=== PATIENT | male | born 1955 | race Caucasian/White ===

== ENCOUNTER 2016-11-27 00:10 | Inpatient (IN) | payer OTHER ==
[~2016-11-27] VITALS: Ht 182.9 cm; Wt 88.4 kg
[2016-11-27] VITALS (7 sets, daily range): BP systolic 160–196; BP diastolic 76–91; PULSE 69–92; TEMP 36.5–37; O2SAT 90–99; BMI 26.6; BMI 27.1
[~2016-11-27 00:10] MED LIST: GLC5500 PO
[2016-11-27] MEDS ORDERED: SODIUM CHLORIDE 0.9% 1000ML 1,000 ML IV STA ×2 (00:26→23:29)
[2016-11-27] MEDS ORDERED: SODIUM CHLORIDE 0.9% 500ML 500 ML IV STA ×2 (00:26→01:44)
[2016-11-27] MEDS ORDERED: OPTIRAY 320 IV PRN (00:30)
[2016-11-27 00:40] LABS: BASO % 0.5 %; BASO ABS # 0.05 K/uL (0-0.2); COMPLETE YES; EOS % 3.7 %; HEMATOCRIT 40.2 % (42-52); IG% 0.1 %; LYMPH % 20.6 %; LYMPH ABS # 2.08 K/uL (1.2-3.4); MEAN CELL VOLUME 85.5 fL (80-100); MEAN CORPUSCULAR HGB CONC 35.1 g/dl (32-36); MEAN PLATELET VOLUME 10.7 fL (7.4-10.4); MONO % 6.2 %; NEUT % 68.9 %; PLATELET COUNT 211 K/uL (130-400)
[2016-11-27 00:46] LABS: ISTAT CREATININE 0.9 mg/dl (0.6-1.3); ISTAT HEMOGLOBIN 14.6 g/dl (14.0-18.0); ISTAT IONIZED CALCIUM 1.14 mmol/l (1.12-1.32)
[2016-11-27] MEDS ORDERED: [UNRECOGNIZED DRUG - CODE] PO (01:00)
[2016-11-27] MEDS ORDERED: ATOR-22 PO (01:00)
[2016-11-27] MEDS ORDERED: OMEG10007 PO (01:00)
[2016-11-27] MEDS ORDERED: VTME100 PO (01:00)
[2016-11-27] MEDS ORDERED: GLIP10TA9 PO (01:00)
[2016-11-27] MEDS ORDERED: ASPI81TA28 PO (01:00)
[2016-11-27] MEDS ORDERED: METF1000 PO (01:00)
[2016-11-27] MEDS ORDERED: LSN20 PO (01:00)
[2016-11-27] MEDS ORDERED: INSU0.01 SQ (01:01)
[2016-11-27 01:17] LABS: ALKALINE PHOSPHATASE 97 U/L (45-117); ALT/SGPT 32 U/L (12-78); AST/SGOT 10 U/L (15-37); BLOOD UREA NITROGEN 21 mg/dl (7-18); BUN/CREATININE RATIO 17.2 (10-20); CALCIUM 9.6 mg/dl (8.5-10.1); CARBON DIOXIDE 25 mmol/L (21-32); CHLORIDE 101 mmol/L (98-107); CKMB/CK RATIO 0.9 (0-3.0); GLUCOSE 425 mg/dl (70-99); POTASSIUM 3.8 mmol/L (3.5-5.1); SODIUM 138 mmol/L (136-145)
[2016-11-27 01:35] LABS: BETA-HYDROXYBUTYRATE 5.34 mg/dL (0.2-2.81)
[2016-11-27 01:37] LABS: INR 1.1 (0.9-1.1); PARTIAL THROMBOPLASTIN RATIO 0.9; PROTHROMBIN TIME (PATIENT) 11.3 SECONDS (9.0-12.0)
[2016-11-27 02:36] LABS: VEN BLD GAS O2 SATURATION < 60.0 %; VENOUS BLOOD GAS PCO2 48 mmHg (38.0-50.0); VENOUS BLOOD GAS PO2 22 mmHg
[2016-11-27] MEDS ORDERED: MoRPHine SULFATE 4 MG/ML 1 ML CARP\\VIAL IV STA (03:02)
[2016-11-27] MEDS ORDERED: ONDANSETRON INJ 2 MG/ML 2 ML VIAL IV STA (03:02)
--- NOTE | 2016-11-27 03:19 | EMERGENCY ROOM VISIT NOTE ---
History First contact with patient: 00:19 Chief Complaint: CHEST PAIN Stated Complaint: CHEST PAIN,HAVING TROUBLE BREATHING,VOMITING Nursing Triage Summary: c/o chest pain described as a sharp pain that began at 2130 last evening. pain has been continuous. patient denies any cardiac hx but has significant family hx. History of Present Illness The patient is a 61 year old male who presents to the Emergency Room with complaints of midsternal chest pain that radiates to his back described as pressure, ranging in severity was 5 out of 10. Nothing makes the pain better or worse. This started at 9 PM. No recent stress test or echocardiogram. Patient poorly controlled his blood sugars. He is a family history of heart disease also. Patient used to smoke. He occasionally drinks. He has risk factors of diabetes, blood pressure and cholesterol. Patient denies dyspnea, fever, chills, cough, congestion, vomiting, diarrhea, diaphoresis, leg pain or swelling. No recent travel. Review of Systems See HPI for pertinent positives & negatives. A total of 10 systems reviewed and were otherwise negative. Past Medical/Surgical History Diabetes, hypertension, hyperlipidemia Social History Smoking Status: Former Smoker Alcohol Use: occasionally Drug Use: none Marital Status: Housing Status: lives with family Occupation Status: employed Current/Historical Medications Scheduled Aspirin (Aspirin Ec), 81 MG PO DAILY Atorvastatin (Lipitor), 20 MG PO DAILY Fish Oil ([place]port-3), 1,200 MG PO DAILY Glipizide (Glucotrol), 10 MG PO BID Insulin Isophane (Human) (Novolin N Relion), 15 UNITS SQ TID Lisinopril (Lisinopril), 20 MG PO BID Metformin Hcl (Glucophage), 1,000 MG PO BID Multiple Vitamins W/ Minerals (One Daily Multivitamin Me), 1 TAB PO DAILY Tocopheryl Acet,Dl-Alpha (Vitamin E), 1 CAP PO DAILY Allergies Coded Allergies: Penicillins (Verified Allergy, Mild, HIVES, 11/27/16) Physical Exam Vital Signs Date Time Temp Pulse Resp B/P Pulse Ox O2 Delivery O2 Flow Rate FiO2 11/27/16 03:00 73 20 185/75 94 Room Air 11/27/16 01:18 65 22 221/99 96 Room Air 11/27/16 01:03 78 14 215/112 96 Room Air 11/27/16 00:36 95 Room Air 11/27/16 00:34 95 Room Air 11/27/16 00:34 95 Room Air 11/27/16 00:22 69 11/27/16 00:13 36.6 82 20 211/75 91 Room Air Physical Exam VITALS: Vitals are noted on the nurse's note and reviewed by myself. Vital signs hypertensive GENERAL: Pleasant male, in no acute distress, nondiaphoretic, well-developed well-nourished. SKIN: The skin was without rashes, erythema, edema, or bruising. There is no tenting of the skin. Capillary reflex less than 2 seconds. HEAD: Normocephalic atraumatic. EARS: External auditory canals clear, tympanic membranes pearly nuñez without erythema or effusion bilaterally. EYES: Pupils equal round and reactive to light and accommodation. Conjunctivae without injection, sclerae without icterus. Extraocular movements intact. NOSE: Patent, turbinates without inflammation or discharge. MOUTH: Mucous membranes moist. Pharynx without erythema or exudate. Uvula midline. Airway patent. Tongue does not deviate. NECK: Supple without nuchal rigidity. No lymphadenopathy. No thyromegaly. Cervical spine is nontender. No JVD. HEART: Regular rate and rhythm LUNGS: Clear to auscultation bilaterally without wheezes, rales or rhonchi. No dullness to percussion. No retractions or accessory muscle use. ABDOMEN: Positive bowel sounds x 4. Normal tympanic percussion. Soft, tender to palpation epigastric region, without masses or organomegaly. No CVA tenderness No guarding or rebound tenderness. MUSCULOSKELETAL: No muscle atrophy, erythema, or edema noted. NEURO: Patient was alert and oriented to person place and time. Normal sensation to light and sharp touch. No focal neurological deficits. Medical Decision & Procedures Laboratory Results 11/27/16 00:25 Red Blood Count 4.70, Mean Corpuscular Volume 85.5, Mean Corpuscular Hemoglobin 30.0, Mean Corpuscular Hemoglobin Concent 35.1, Mean Platelet Volume 10.7, Neutrophils (%) (Auto) 68.9, Lymphocytes (%) (Auto) 20.6, Monocytes (%) (Auto) 6.2, Eosinophils (%) (Auto) 3.7, Basophils (%) (Auto) 0.5, Neutrophils # (Auto) 6.96, Lymphocytes # (Auto) 2.08, Monocytes # (Auto) 0.63, Eosinophils # (Auto) 0.37, Basophils # (Auto) 0.05 11/27/16 00:25 Test 11/27/16 00:25 11/27/16 00:28 11/27/16 01:15 11/27/16 02:10 White Blood Count 10.10 K/uL (4.8-10.8) Red Blood Count 4.70 M/uL (4.7-6.1) Hemoglobin 14.1 g/dL (14.0-18.0) Hematocrit 40.2 % (42-52) Mean Corpuscular Volume 85.5 fL (80-100) Mean Corpuscular Hemoglobin 30.0 pg (25-34) Mean Corpuscular Hemoglobin Concent 35.1 g/dl (32-36) Platelet Count 211 K/uL (130-400) Mean Platelet Volume 10.7 fL (7.4-10.4) Neutrophils (%) (Auto) 68.9 % Lymphocytes (%) (Auto) 20.6 % Monocytes (%) (Auto) 6.2 % Eosinophils (%) (Auto) 3.7 % Basophils (%) (Auto) 0.5 % Neutrophils # (Auto) 6.96 K/uL (1.4-6.5) Lymphocytes # (Auto) 2.08 K/uL (1.2-3.4) Monocytes # (Auto) 0.63 K/uL (0.11-0.59) Eosinophils # (Auto) 0.37 K/uL (0-0.5) Basophils # (Auto) 0.05 K/uL (0-0.2) RDW Standard Deviation 42.0 fL (36.4-46.3) RDW Coefficient of Variation 13.4 % (11.5-14.5) Immature Granulocyte % (Auto) 0.1 % Immature Granulocyte # (Auto) 0.01 K/uL (0.00-0.02) Estimated GFR () 76.3 Estimated GFR (Non- 65.8 BUN/Creatinine Ratio 17.2 (10-20) Calcium Level 9.6 mg/dl (8.5-10.1) Total Bilirubin 0.3 mg/dl (0.2-1) Direct Bilirubin < 0.1 mg/dl (0-0.2) Aspartate Amino Transf (AST/SGOT) 10 U/L (15-37) Alanine Aminotransferase (ALT/SGPT) 32 U/L (12-78) Alkaline Phosphatase 97 U/L (45-117) Total Creatine Kinase 106 U/L (39-308) Creatine Kinase MB 1.0 ng/ml (0.5-3.6) Creatine Kinase MB Ratio 0.9 (0-3.0) Troponin I < 0.015 ng/ml (0-0.045) Total Protein 8.2 gm/dl (6.4-8.2) Albumin 4.4 gm/dl (3.4-5.0) Lipase 158 U/L (73-393) Beta-Hydroxybutyric Acid 5.34 mg/dL (0.2-2.81) Bedside Hemoglobin 14.6 g/dl (14.0-18.0) Bedside Hematocrit 43 % (42-52) Bedside Sodium 139 mEq/L (135-144) Bedside Potassium 3.8 mEq/L (3.3-5.0) Bedside Chloride 99 mEq/L (101-112) Bedside Total CO2 25 mEq/l (24-31) Anion Gap 20.0 mmol/L (16-25) Bedside Blood Urea Nitrogen 21 mg/dl (7-18) Bedside Creatinine 0.9 mg/dl (0.6-1.3) Bedside Glucose (other) 437 mg/dl (70-99) Bedside Ionized Calcium (Hattie) 1.14 mmol/l (1.12-1.32) Prothrombin Time 11.3 SECONDS (9.0-12.0) Prothromb Time International Ratio 1.1 (0.9-1.1) Activated Partial Thromboplast Time 24.3 SECONDS (21.0-31.0) Partial Thromboplastin Ratio 0.9 Venous Blood pH 7.40 (7.36-7.41) Venous Blood Partial Pressure CO2 48 mmHg (38.0-50.0) Venous Blood Partial Pressure O2 22 mmHg Venous Blood HCO3 29 mmol/L Venous Blood Oxygen Saturation < 60.0 % Venous Blood Base Excess 3.0 mmol/L Medications Administered Medications (Trade) Dose Ordered Sig/Erik Route Start Time Stop Time Status Last Admin Dose Admin Sodium Chloride 500 ml @ 999 mls/hr Q31M STAT IV 11/27/16 00:26 11/27/16 00:56 DC 11/27/16 00:47 999 MLS/HR Sodium Chloride 1,000 ml @ 125 mls/hr Q8H STAT IV 11/27/16 00:26 11/27/16 08:25 11/27/16 00:47 125 MLS/HR Sodium Chloride (Nss 500ml) 500 ml @ 999 mls/hr Q31M STAT IV 11/27/16 01:44 11/27/16 02:14 DC 11/27/16 02:12 999 MLS/HR Morphine Sulfate (MoRPHine SULFATE INJ) 4 mg NOW STAT IV 11/27/16 03:02 11/27/16 03:03 DC 11/27/16 03:15 4 MG Ondansetron HCl (Zofran Inj) 4 mg NOW STAT IV 11/27/16 03:02 11/27/16 03:03 DC 11/27/16 03:15 4 MG ED Course Prior records/ancillary studies reviewed. Triage Nursing notes reviewed. Additional history obtained from family. The patient's history was concerning for chest pain. Differential diagnosis: Etiologies such as cardiac ischemia, aortic dissection, pulmonary embolism, pneumonia, pneumothorax, musculoskeletal, infections, pericarditis, myocarditis , esophageal rupture, gastrointestinal, as well as others were entertained. Physical examination: As above. ER treatment provided: IV fluids On reassessment the patient felt better. Diagnostic interpretation by me: The electrocardiogram was normal sinus, normal intervals, minimal ST depression in the inferior leads, rate of 70. No old EKG. Impression normal sinus rhythm with minimal ST depression in the inferior leads interpreted by myself. The labs revealed hyperglycemia without DKA. Negative troponin Imaging studies: Chest x-ray no acute consolidation or pneumothorax per my interpretation Stat radiology read the CTA and was negative for PE and dissection. Cholelithiasis without acute cholecystitis US RUQ: The liver is mildly enlarged measuring 19.2 cm with increased echogenicity suggesting hepatic steatosis. Distended gallbladder with multiple gallstones and sludge without evidence of gallbladder wall thickening or pericholecystic fluid. Positive Rushing's sign. The common bile duct is within normal limits measuring up to 2.2 mm. The right kidney is unremarkable. Radiologist: Jarett Thompson MD Study ready at 03:04 and initial results transmitted Consultation: A consultation was placed with the hospitalist, Dr Morris. The case was discussed and diagnostics were reviewed. The patient was evaluated in the ER for further treatment. Exam and history seem consistent with chest pain with biliary colic. Patient had an abnormal EKG. He will be evaluated by medicine for possible admission and for cardiac rule out. Negative troponin. Negative CTA. By the evaluation outlined above emergent etiologies such as aortic dissection, pulmonary embolism, pneumonia, pneumothorax, infections, pericarditis, myocarditis, gastrointestinal, as well as others were deemed relatively unlikely. The pt informed about the findings as listed above. All questions were answered and pleased with the treatment. Case reviewed by attending Medical Decision As above Impression Primary Impression: Precordial chest pain Additional Impressions: Biliary colic Hyperglycemia due to type 2 diabetes mellitus Departure Information Dispostion Being Evaluated By Hospitalist Condition FAIR Referrals Dennis Dawson D.O. (PCP) Patient Instructions [facility] Problem Qualifiers Additional Impressions: Hyperglycemia due to type 2 diabetes mellitus Diabetes mellitus assistant terminal manager insulin use: with assistant terminal manager use Qualified Codes: E11.65 - Type 2 diabetes mellitus with hyperglycemia; Z79.4 - prison ( current) use of insulin
[2016-11-27] MEDS ORDERED: INSULIN IV INFUSION PROTOCOL STA (03:37)
[2016-11-27] MEDS ORDERED: INSULIN PROTOCOL GOAL RANGE ONE (03:45)
[2016-11-27] MEDS ORDERED: SEVERE STRESS LEVEL ONE (03:45)
[2016-11-27] MEDS ORDERED: INSULIN GLARGINE PER UNIT 15 UNITS in SYRINGE 0 ML SC ONE (04:12)
[2016-11-27] MEDS ORDERED: GLUCOSE 10 TABS/TUBE PO PRN (04:15)
[2016-11-27] MEDS ORDERED: GLUCOSE 40% GEL 15 GM TUBE PO PRN (04:15)
[2016-11-27] MEDS ORDERED: GLUCAGON FOR INJ 1 MG VIAL SQ PRN (04:15)
[2016-11-27] MEDS ORDERED: DEXTROSE 50% 50 ML SYR IV PRN (04:15)
[2016-11-27] MEDS ORDERED: LISINOPRIL 20 MG TAB PO STA (04:19)
[2016-11-27] MEDS ORDERED: INSULIN GLARGINE SOLOSTAR 100 UNITS/ML 3 ML PEN SC STA ×3 (04:20→23:37)
[2016-11-27] MEDS ORDERED: ACETAMINOPHEN 325 MG TAB PO PRN (04:30)
[2016-11-27] MEDS ORDERED: HYDROmorphone INJ 0.5 MG/0.5 ML SYR IV PRN (04:30)
[2016-11-27] MEDS ORDERED: PROMETHAZINE HCL INJ 12.5 MG in SODIUM CHLORIDE 0.9% 50ML 50 ML IV PRN (04:30)
[2016-11-27] MEDS ORDERED: ONDANSETRON INJ 2 MG/ML 2 ML VIAL IV PRN (04:30)
[2016-11-27] MEDS ORDERED: LORAZEPAM 2 MG/ML 1 ML VIAL IV PRN (04:30)
[2016-11-27] MEDS ORDERED: NITROGLYCERIN 0.4 MG SL PER TAB CHARGE SL PRN (04:30)
[2016-11-27] MEDS ORDERED: LORAZEPAM INJ 0.5 MG in SYRINGE 0.75 ML IV PRN (05:30)
[2016-11-27] MEDS ORDERED: CIPROFLOXACIN CONSULT ACTIVE PRN ×2 (05:30)
[2016-11-27] MEDS ORDERED: CIPROFLOXACIN 400MG / 200ML D5W IV STA (05:35)
[2016-11-27] MEDS: INSULIN ASPART 100 UNITS/ML 3 ML PEN SC SCH ×5 (05:36→21:32)
[2016-11-27] MEDS: NSS + 20MEQ KCL 1000ML 1,000 ML IV SCH ×2 (05:52→15:58)
[2016-11-27] MEDS: METRONIDAZOLE / NSS 500 MG in PREMIXED NSS 100 ML IV SCH ×3 (06:13→22:02)
[2016-11-27] MEDS ORDERED: AMLODIPINE BESYLATE 5 MG TAB PO ONE (06:45)
[2016-11-27 06:49] LABS: BLOOD UREA NITROGEN 16 mg/dl (7-18); BUN/CREATININE RATIO 16.4 (10-20); CALCIUM 10.1 mg/dl (8.5-10.1); CARBON DIOXIDE 25 mmol/L (21-32); CHLORIDE 103 mmol/L (98-107); GLUCOSE 305 mg/dl (70-99); POTASSIUM 4.1 mmol/L (3.5-5.1); SODIUM 140 mmol/L (136-145)
[2016-11-27] MEDS: CIPROFLOXACIN 400MG / D5W IV SCH ×2 (06:49→20:28)
[2016-11-27 06:59] LABS: BETA-HYDROXYBUTYRATE 6.12 mg/dL (0.2-2.81)
[2016-11-27 07:11] LABS: ESTIMATED AVERAGE GLUCOSE 295 mg/dl; HA1C FLAG Normal (Normal)
--- NOTE | 2016-11-27 07:21 | DIAGNOSTIC IMAGING REPORT ---
CT ANGIOGRAPHY OF THE CHEST, ABDOMEN, AND PELVIS CLINICAL HISTORY: Severe epigastric pain radiating to back. Chest pain. Difficulty breathing. COMPARISON STUDY: CT of the abdomen and pelvis July 30, 2009 and hepatobiliary scan December 20, 2009. TECHNIQUE: Before and following the IV administration of 119 mL of [id number]-320, helical axial images of the chest, abdomen and pelvis were obtained. Maximal intensity projections and sagittal and coronal reformats were viewed on an independent 3D workstation. IV contrast was administered without complication. CT DOSE: 2431.88 mGy.cm FINDINGS: The caliber of these thoracic and abdominal aorta is normal. There is no dissection or intramural hematoma. There is mild atherosclerotic plaque. The size of the heart is normal. There is no pericardial effusion. No enlarged thoracic lymph nodes are present. There is bilateral gynecomastia. Moderate emphysema is present. There is no consolidation to suggest pneumonia. There is mild subpleural reticulation. No pneumothorax or pleural effusion is present. There are multiple gallstones within the gallbladder. There may be minimal pericholecystic infiltration. There is fatty infiltration of the liver. The spleen, adrenal glands, kidneys and pancreas are unremarkable with exception of pancreatic parenchymal calcifications. There is no biliary or pancreatic ductal dilatation caliber and wall thickness of small and large bowel are normal. There is moderate plaque of the abdominal aorta and common iliac and external iliac arteries. Major branch vessels are patent. No pneumatosis, free air or portal venous gas is present. Skeletal structures are unremarkable. There is no ascites. IMPRESSION: 1. No aortic dissection. 2. No acute process within the chest. 3. Cholelithiasis with possible minimal pericholecystic infiltration. A right upper quadrant ultrasound is recommended to evaluate for acute cholecystitis. 4. Fatty liver. 5. Moderate to severe emphysema. Electronically signed by: Presley Roy M.D. 11/27/2016 7:19 AM Dictated Date/Time: 11/27/2016 7:08 AM
--- NOTE | 2016-11-27 07:25 | DIAGNOSTIC IMAGING REPORT ---
ABDOMINAL ULTRASOUND, RIGHT UPPER QUADRANT HISTORY: Right upper quadrant pain.. COMPARISON: CT of the chest, abdomen and pelvis performed November 27, 2016. FINDINGS: Hepatic echogenicity is increased. No hepatic lesions are identified. There is no biliary ductal dilatation. The gallbladder is mildly distended. There are multiple gallstones within the gallbladder as well as sludge. No gallbladder wall thickening was noted. A positive sonographic Rushing sign was reported. There is no pericholecystic fluid. The pancreatic body is normal. The head and tail were obscured. There was no right hydronephrosis. IMPRESSION: 1. Cholelithiasis, mild gallbladder distention and positive sonographic Rushing sign. These findings raise the possibility of acute cholecystitis. A hepatobiliary scan could be obtained, as indicated. 2. Fatty liver. Electronically signed by: Presley Roy M.D. 11/27/2016 7:23 AM Dictated Date/Time: 11/27/2016 7:22 AM
--- NOTE | 2016-11-27 07:25 | HISTORY & PHYSICAL EXAMINATION ---
DATE OF ADMISSION: 11/27/2016 PRIMARY CARE PHYSICIAN: Dr. Dawson. Hx obtained from px and records. CHIEF COMPLAINT: Chest pain. HISTORY OF PRESENT ILLNESS: Medical history significant for HTN, DM2 insulin requiring, COPD, past tobacco abuse, LATOYA on CPAP, hyperlipidemia in the last year. Patient was watching television last night when he noted substernal pain going to the arms, achy with some shortness of breath. Patient noted some achy R abd pain and emesis as well. Patient brought to the Emergency Room. Blood sugar initially 400s. On and off chest discomfort usually with exertion, relieved by rest in the last year Outpatient stress test contemplated by PCP, which the patient had not undergone the to date secondary to loss of insurance. High BP at home, 200s at times. Home Blood sugars 300-400s despite medication noncompliance. Admits to some stress with recently being diagnosed of renal cancer. Admits to some depression, no suicidality. MEDICAL HISTORY: As above. SURGERIES: Anorectal abscess drainage, tonsillectomy, colectomy. HOME MEDICATIONS: Include aspirin, Lipitor, Glucotrol, Novolin, lisinopril, Glucophage, multivitamins, vitamin E. ALLERGIES: PENICILLIN. FAMILY HISTORY: Heart disease, diabetes. PERSONAL AND SOCIAL HISTORY: Past tobacco abuse. No chronic alcoholic beverage intake. 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 REVIEW OF SYSTEMS: As per HPI. All other ROS negative. PHYSICAL EXAMINATION: VITAL SIGNS: Blood pressure 215/112, later SBP 180s, pulse rate 70, RR 20, temperature 36.6, and sats 91 on room air. GENERAL: Noted to be anxious, uncomfortable, no respiratory distress. SKIN: Normal color. HEENT: Latimer palpebral conjunctiva, dry mucosa. NECK: No JVD. supple CHEST: Clear to auscultation. HEART: Regular rate and rhythm. ABDOMEN: Rushing sign. EXTREMITIES: No edema. no tenderness NEUROLOGIC: No gross focality. LABORATORY DATA: Hemoglobin was noted to be 14.1, hematocrit 40, white cells 10.9, platelets 211. Sodium 142, potassium 3.8, chloride 101, CO2 25, BUN 12, creatinine 1.2, glucose 425 and with mild ketones, anion gap was noted to be 12. trop 0 EKG normal sinus rhythm, LVH. Last hemoglobin A1c from July 2016 was 9.5. IMAGING DATA: CT chest initial read, emphysema, interstitial lung disease, gynecomastia. CT abdomen and pelvis, cholelithiasis. Gallbladder ultrasound, cholecystitis. ASSESSMENT: 1. Chest pain 2 to hypertensive urgency precipitated by acute cholecystitis (no sepsis) suboptimal BP control at baseline anxiety/depression contributory to suboptimal BP control possible underlying ischemic heart disease given exertional angina sx for a year. 2. Mild diabetic ketoacidosis suboptimal DM2 control questionable compliance. 3. COPD, past tobacco abuse px admits to some sob on exertion 4. hyoerlipidemia on statin tx 5. LATOYA on CPAP as per records PLAN: PCU. Judicious blood pressure control. Facilitate home lisinopril. Consider adding Norvasc if BP still uncontrolled. Follow troponin. 2D echo RE chest pain. NPO, sips for now. Cipro and Flagyl for cholecystitis. Surgery consult RE cholecystitis. analgesia anxiolytic prn Psych consult RE anxiety, depression Basal insulin adjusted for n.p.o. sips status. ISS BG goal 140-180. Patient due for hemoglobin A1c check. May benefit from diabetes education. Social service RE financial assistance regarding meds procurement DVT prophylaxis, Lovenox subQ. Full code. MTDD
--- NOTE | 2016-11-27 07:33 | DIAGNOSTIC IMAGING REPORT ---
CHEST ONE VIEW PORTABLE HISTORY: Atypical CHEST PAIN COMPARISON: None. FINDINGS: The lungs are clear. Cardiac silhouette is normal in size. No pleural effusions. No pneumothorax. IMPRESSION: No acute process. Electronically signed by: Carlos Dobbins M.D. 11/27/2016 7:31 AM Dictated Date/Time: 11/27/2016 7:30 AM
[2016-11-27] MEDS ORDERED: PNEUMOCOCCAL ADMINISTRATION CHARGE ONE (08:00)
[2016-11-27] MEDS ORDERED: PNEUMOCOCCAL POLYSACCHARIDES 25 MCG/0.5 ML VIAL/SYR IM. ONE (08:00)
[2016-11-27] MEDS: CEROVITE ADV FORMULA TAB PO SCH (08:05)
[2016-11-27] MEDS: ATORVASTATIN 20 MG TAB PO SCH (08:05)
[2016-11-27] MEDS: ASPIRIN 81 MG ECTAB PO SCH (08:05)
--- NOTE | 2016-11-27 08:32 | HISTORY & PHYSICAL EXAMINATION ---
DATE OF ADMISSION: 11/27/2016 HISTORY OF PRESENT ILLNESS: Melvin is a 61-year-old gentleman who came into the Emergency Room last evening with persistent sharp and unrelenting epigastric pain with associated nausea, no emesis. The patient states the pain started after he was watching a football game and apparently had 2 slices of pizza with watching game. Since he has been here, the pain is pretty much persisted in the epigastric area and higher almost retrosternally. The patient's most recent history is that he has been told by his primary care physician to undergo an evaluation from his cardiac point of view as he has had chest pain in the past, but due to insurance purposes in the last 6-8 months, he has not been able to do that. He has a longstanding history of insulin-dependent diabetic. PAST MEDICAL AND SURGICAL HISTORY: Also includes some bowel surgery done in 2008 at [facility], I have no records as actually what went on with that. 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 His son was a possibility that he had cancer and his [id number] is dying of cancer. REVIEW OF SYSTEMS: The patient has had a longstanding history of certain food intolerances with associated abdominal distention and significant amount of gas; in fact looking over some of his records back in 2008, he had gallstones identified on the CT scan. He underwent a hepatobiliary scan in 2009 which was normal function. PHYSICAL EXAMINATION: GENERAL: At present time, Melvin is in no acute distress except he is complaining of still some retrosternal chest pain. VITAL SIGNS: His last vitals showed a temperature of 36.6, a pulse 69, respirations 18, blood pressure 195/79, O2 sats 93 on room air. HEAD: Normocephalic. EYES: PERRLA. The sclerae is nonicteric. The patient has a large hall. NECK: No cervical lymphadenopathy. HEART AND LUNGS: Clear. ABDOMEN: Softly distended. He does have some right upper quadrant tenderness but it is negative Rushing's sign. The rest of the abdomen is negative. EXTREMITIES: Grossly normal. LABORATORY AND IMAGING DATA: When he came in yesterday, his WBCs are 10.10. He does have a left shift. His hemoglobin is 14. His glucose on admission was 425 and it is 437. Liver function tests were normal as was the lipase. The patient underwent an ultrasound of the gallbladder which showed cholelithiasis and mild gallbladder distention and positive sonographic Rushing's sign, although clinically is negative for Rushing's sign on my exam. IMPRESSION AND PLAN: My recommendation at this time is to keep him n.p.o. Continue with antibiotic; he is on Cipro and Flagyl. Plans to evaluate for his cardiac point of view and clear him from that point, but I did talk to the patient that if that is cleared, then the patient is to undergo a cholecystectomy. We will wait for the medical service as far as timing of this. At this time with broad spectrum antibiotics and its clinical basis, I think there is no emergency to do at this time. I also noted that he is on Lovenox and we will change that to subcutaneous heparin in anticipation of surgery. ADDENDUM: Procedure was briefly discussed with the patient which will be a laparoscopic cholecystectomy, possible open.
[2016-11-27] MEDS ORDERED: INSULIN ASPART 100 UNITS/ML 3 ML PEN SC SCH (09:00)
[2016-11-27] MEDS ORDERED: ENOXAPARIN 40 MG/0.4 ML SYR SC SCH (09:00)
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
[2016-11-27] MEDS: TRAMADOL HCL 50 MG TAB PO PRN (11:50)
[2016-11-27] MEDS: HEPARIN SOD 5000 UNIT/0.5 ML CARP SQ SCH ×2 (13:20→22:17)
[2016-11-27] MEDS ORDERED: CLONIDINE HCL 0.1 MG TAB PO PRN (14:45)
[2016-11-27] MEDS ORDERED: CLONIDINE HCL 0.1 MG TAB PO ONE ×2 (14:45→15:00)
--- NOTE | 2016-11-27 15:06 | Anesthesiology Progress Note ---
Anesthesia Progress Note Date of Service Nov 27, 2016. Progress Notes This is a 61 y/o w obese male w/ cholecystitis/cholelithiasis presenting for a Lap Sherie. PMHx is sig.for HTN,Hyperlipidemia,NIDDM IR,GERD,COPD/Emphysema, sleep apnea on CPAP,recently admitted w/ a degree of DKA, Athersclerotic plaques of aorta, and diabetic PN of feet.Discussed anesthesia w/pt,risks vs benefits,all questions answered. Informed consent obtained.
--- NOTE | 2016-11-27 16:11 | ECHOCARDIOGRAM REPORT ---
*NOTICE TO RECEIVING CONSTITUTION PARTY AGENCY This information is strictly Confidential and protected under [place] law. [place] law prohibits you from making any further disclosure of this information unless further disclosure is expressly permitted by the written consent of the person to whom it pertains or is authorized by law. A general authorization for the release of medical or other information is not sufficient for this purpose. Hospital accepts no responsibility if the information is made available to any other person, INCLUDING THE PATIENT. Interpretation Summary * Name: STEVIE SANCHES Study Date: 11/27/2016 09:55 AM BP: 179/91 mmHg * [facility]\S\N285\S\1 HR: 70 * : 1955 (M/d/yyyy) Gender: Male Height: 72 in * Age: 61 yrs Ethnicity: CA Weight: 189 lb * Ordering Physician: Chad Morris * Referring Physician: Self, Referred * Performed By: Teresita Brown RDCS * * Reason For Study: CHEST PAIN * BSA: 2.1 m2 * History: CHEST PAIN * The study was technically adequate. * There is no comparison study available. * -- Conclusions -- * Ejection Fraction = 60-65%. * There is mild concentric left ventricular hypertrophy. * Grade I diastolic dysfunction, (abnormal relaxation pattern). * No significant valvular pathology. Procedure Details * A contrast injection of Definity was performed to improve assessment of LV function. * Contrast was injected into an intravenous site in the left arm. * One vial of Definity ultrasound contrast was diluted in normal saline to a total volume of 10 ml. A total of '2' ml of solution was administered during imaging. * Lot # [id number] of Definity utilized for procedure. * Expiration date 1 APR 21. * The attending nurse who injected the contrast agent was CARMEN RIZO RN. * A complete two-dimensional transthoracic echocardiogram was performed (2D, M-mode, Doppler and color flow Doppler). Left Ventricle * The left ventricle is normal in size. * The left ventricular apex is not well visualized. * There is mild concentric left ventricular hypertrophy. * Ejection Fraction = 60-65%. * Left ventricular systolic function is normal. * The left ventricular wall motion is normal. Right Ventricle * The right ventricle is normal size. * The right ventricular systolic function is normal as assessed by tricuspid annular plane systolic excursion (TAPSE) (normal >1.5 cm). Atria * The left atrial size is normal. * Right atrial size is normal. * There is no evidence of atrial septal defect, but resolution does not allow assessment for a patent foramen ovale. Mitral Valve * The mitral valve is normal. * There is no mitral valve stenosis. * Significant mitral regurgitation is absent. Tricuspid Valve * The tricuspid valve is normal. * There is no tricuspid stenosis. * Significant tricuspid regurgitation is absent. Aortic Valve * The aortic valve is trileaflet. * Aortic stenosis is absent. * There is no significant aortic regurgitation. Pulmonic Valve * The pulmonary valve is not well seen, but the Doppler examination is normal without significant regurgitation or stenosis. Great Vessels * The aortic root is normal size. Pericardium/Pleural * There is no pericardial effusion. Great Vessels * Normal inferior vena cava diameter and respiratory variation suggests normal central venous pressure. Left Ventricular Diastolic Function * Grade I diastolic dysfunction, (abnormal relaxation pattern). MMode 2D Measurements and Calculations IVSd 1.3 cm IVSs 1.8 cm LVIDd 4.3 cm LVIDs 3.1 cm LVPWd 1.3 cm LVPWs 1.7 cm IVS/LVPW 1.0 FS 28.5 % EDV(Teich) 83.1 ml ESV(Teich) 37.2 ml EF(Teich) 55.2 % EDV(cubed) 79.5 ml ESV(cubed) 29.1 ml EF(cubed) 63.4 % % IVS thick 31.6 % % LVPW thick 24.9 % LV mass(C)d 214.9 grams LV mass(C)dI 103.3 grams/m\S\2 LV mass(C)s 203.5 grams LV mass(C)sI 97.9 grams/m\S\2 SV(Teich) 45.9 ml SI(Teich) 22.1 ml/m\S\2 SV(cubed) 50.4 ml SI(cubed) 24.2 ml/m\S\2 Ao root diam 3.5 cm Ao root area 9.6 cm\S\2 LA dimension 3.2 cm LA/Ao 0.91 LVAd ap4 32.4 cm\S\2 LVLd ap4 8.5 cm EDV(MOD-sp4) 102.6 ml EDV(sp4-el) 104.9 ml LVAs ap4 18.9 cm\S\2 LVLs ap4 7.1 cm ESV(MOD-sp4) 41.9 ml ESV(sp4-el) 43.1 ml EF(MOD-sp4) 59.2 % EF(sp4-el) 58.9 % LVAd ap2 35.4 cm\S\2 LVLd ap2 9.2 cm EDV(MOD-sp2) 112.1 ml EDV(sp2-el) 116.0 ml LVAs ap2 19.0 cm\S\2 LVLs ap2 7.4 cm ESV(MOD-sp2) 40.1 ml ESV(sp2-el) 41.3 ml EF(MOD-sp2) 64.2 % EF(sp2-el) 64.4 % LVLd %diff 7.3 % EDV(MOD-bp) 110.8 ml LVLs %diff 4.6 % ESV(MOD-bp) 42.3 ml EF(MOD-bp) 61.8 % SV(MOD-sp4) 60.7 ml SI(MOD-sp4) 29.2 ml/m\S\2 SV(MOD-sp2) 72.0 ml SI(MOD-sp2) 34.6 ml/m\S\2 SV(MOD-bp) 68.5 ml SI(MOD-bp) 33.0 ml/m\S\2 SV(sp4-el) 61.8 ml SI(sp4-el) 29.7 ml/m\S\2 SV(sp2-el) 74.7 ml SI(sp2-el) 35.9 ml/m\S\2 Doppler Measurements and Calculations MV E max gurdeep 59.2 cm/sec MV A max gurdeep 68.4 cm/sec MV E/A 0.87 MV dec time 0.21 sec Ao V2 max 131.2 cm/sec Ao max PG 6.9 mmHg Ao max PG (full) 3.7 mmHg LV V1 max PG 3.2 mmHg LV V1 max 89.2 cm/sec
[2016-11-27] MEDS ORDERED: INSULIN GLARGINE SOLOSTAR 100 UNITS/ML 3 ML PEN SC ONE (19:37)
[2016-11-27] MEDS ORDERED: NSS + 20MEQ KCL 1000ML 1,000 ML IV SCH (19:45)
[2016-11-27] MEDS ORDERED: INSULIN GLARGINE PER UNIT 15 UNITS in SYRINGE 0 ML SC SCH (21:00)
[2016-11-27] MEDS ORDERED: INSULIN GLARGINE SOLOSTAR 100 UNITS/ML 3 ML PEN SC SCH ×2 (21:00)
[2016-11-27] MEDS: LISINOPRIL 20 MG TAB PO SCH (21:22)
[2016-11-27 23:16] LABS: BUN/CREATININE RATIO 11.6 (10-20); CALCIUM 9.3 mg/dl (8.5-10.1); CREATININE 1.1 mg/dl (0.60-1.40); MAGNESIUM 1.1 mg/dl (1.8-2.4); POTASSIUM 4.3 mmol/L (3.5-5.1)
[2016-11-27 23:27] LABS: BETA-HYDROXYBUTYRATE 8.24 mg/dL (0.2-2.81)
[2016-11-27] MEDS: MAGNESIUM SULFATE 1GM / D5W 1 GM in PREMIXED IN D5W 100 ML IV SCH (23:57)
[2016-11-28] VITALS (12 sets, daily range): BP systolic 106–176; BP diastolic 63–89; PULSE 64–104; TEMP 36.8–38; O2SAT 90–97; BMI 26.6
[2016-11-28] MEDS ORDERED: AMLODIPINE BESYLATE 5 MG TAB PO ONE (00:33)
[2016-11-28] MEDS: MAGNESIUM SULFATE 1GM / D5W 1 GM in PREMIXED IN D5W 100 ML IV SCH ×2 (00:49→02:00)
[2016-11-28] MEDS: NSS + 20MEQ KCL 1000ML 1,000 ML IV SCH ×2 (02:01→11:30)
--- NOTE | 2016-11-28 06:09 | SURGERY PROGRESS NOTE ---
DATE: 11/28/2016 SUBJECTIVE: Melvin is resting fairly comfortably, but on examination, he still has some right upper quadrant tenderness. I discussed the situation with Dr. Morris, primary MD, on the case and recommended him that if pt from a cardiac point of view, we should proceed for laparoscopic cholecystectomy. I have him tentatively on a schedule today if he is cleared by the medical service. Risks and complications of the surgery were explained to the patient of bleeding, infection, converting to an open procedure and he would like to proceed accordingly. NILS
[2016-11-28 06:21] LABS: BASO % 0.1 %; BASO ABS # 0.02 K/uL (0-0.2); COMPLETE YES; IG% 0.3 %; LYMPH % 8.6 %; LYMPH ABS # 1.18 K/uL (1.2-3.4); MEAN CELL VOLUME 85.7 fL (80-100); MEAN CORPUSCULAR HEMOGLOBIN 29.8 pg (25-34); MEAN CORPUSCULAR HGB CONC 34.8 g/dl (32-36); MEAN PLATELET VOLUME 10.5 fL (7.4-10.4); PLATELET COUNT 185 K/uL (130-400); RED BLOOD COUNT 4.67 M/uL (4.7-6.1); WHITE BLOOD COUNT 13.73 K/uL (4.8-10.8)
[2016-11-28] MEDS: METRONIDAZOLE / NSS 500 MG in PREMIXED NSS 100 ML IV SCH ×3 (06:25→21:35)
[2016-11-28 06:54] LABS: BUN/CREATININE RATIO 10.4 (10-20); CALCIUM 8.9 mg/dl (8.5-10.1); CREATININE 1.2 mg/dl (0.60-1.40); MAGNESIUM 1.9 mg/dl (1.8-2.4)
[2016-11-28] MEDS ORDERED: INSULIN GLARGINE SOLOSTAR 100 UNITS/ML 3 ML PEN SC ONE (07:00)
[2016-11-28] MEDS: CEROVITE ADV FORMULA TAB PO SCH (08:22)
[2016-11-28] MEDS: ATORVASTATIN 20 MG TAB PO SCH (08:22)
[2016-11-28] MEDS: ASPIRIN 81 MG ECTAB PO SCH (08:22)
[2016-11-28] MEDS: LISINOPRIL 20 MG TAB PO SCH ×2 (08:22→19:35)
[2016-11-28] MEDS: AMLODIPINE BESYLATE 5 MG TAB PO SCH (08:23)
[2016-11-28] MEDS: INSULIN ASPART 100 UNITS/ML 3 ML PEN SC SCH ×4 (08:31→21:13)
[2016-11-28] MEDS: CIPROFLOXACIN 400MG / D5W IV SCH ×2 (08:34→19:35)
[2016-11-28] MEDS ORDERED: INSULIN GLARGINE SOLOSTAR 100 UNITS/ML 3 ML PEN SC SCH ×2 (09:00)
[2016-11-28] MEDS ORDERED: AMLODIPINE BESYLATE 5 MG TAB PO SCH (09:00)
--- NOTE | 2016-11-28 11:20 | CARDIOLOGY CONSULTATION ---
DATE OF CONSULTATION: 11/28/2016 DATE OF CONSULTATION: 11/28/2016. REFERRING PHYSICIAN: Dr. Bryon Gil. REASON FOR CONSULTATION: Preoperative risk stratification. HISTORY OF PRESENT ILLNESS: Mr. Mares is a 61-year-old gentleman with cardiac risk factors, however no personal history of coronary artery disease. The patient presented to the Emergency Room with chest discomfort and some achy right-sided abdominal pain. This was associated with vomiting. Noted be markedly hyperglycemic on admission. Both right upper quadrant ultrasound and CT demonstrate evidence of acute cholecystitis. He is currently treated with intravenous fluids and IV antibiotics. Notes mild lower substernal chest discomfort as well as right upper quadrant pain currently. ECG on admission demonstrates sinus rhythm and no ischemic changes. His resting 2D transthoracic echo demonstrates preserved LV systolic function, normal wall motion, and no significant valvular disease. The patient seen and examined at the bedside. Continues complain of right upper quadrant pain. Reports dyspnea on exertion when climbing stairs, which has been present for more than 1 year. There is also some associated chest tightness. He carries a history of former tobacco abuse with a [id number] history. There is also history of premature coronary disease in his family as listed below. He was initially scheduled for stress testing; however, this was canceled due to lack of insurance coverage. Denies any shortness of breath at rest. Telemetry demonstrates sinus rhythm and sinus tachycardia. There is a 3.2 second pause associated with heart block which occurred last evening at approximately 10:00 p.m. The patient relays history of severe abdominal pain and retching at that time. He currently appears comfortable. Tentatively planned for a cholecystectomy today. REVIEW OF SYSTEMS: The pertinent positive noted above, a comprehensive 10-system review is otherwise negative. PAST MEDICAL HISTORY: 1. Diabetes. 2. Dyslipidemia. 3. Hypertension. PAST SURGICAL HISTORY: Bowel surgery in 2008 not well defined. FAMILY HISTORY: Father at age 60 from a myocardial infarction. He has 3 siblings, 2 sisters, and 1 brother who from heart disease in their late 50s and early 60s. SOCIAL HISTORY: Former tobacco abuse, quit 10 years ago with a 40-50 pack year history. Denies any alcohol use. OUTPATIENT MEDICATIONS: 1. Aspirin 81 mg daily. 2. Lipitor 20 mg daily. 3. Fish oil 1200 mg daily. 5. Insulin 15 units t.i.d. 6. Lisinopril 20 mg twice daily. 7. Glucophage 1000 mg twice daily. 8. Multivitamin daily. ALLERGIES: LISTED TO PENICILLIN. ECG this morning demonstrates sinus tachycardia with a rightward axis, no ischemic changes. LABORATORY DATA: Cardiac enzymes negative x2 sets. Sodium 136, potassium 4.0, chloride 102, CO2 is 23, BUN is 13, creatinine is 1.20. Glucose 295. INR 1.1. White blood cell count 13.73, hemoglobin is 13.9, platelet count is 185. PHYSICAL EXAMINATION: VITAL SIGNS: Temperature is 36?C, pulse is 100 beats per minute and regular, respiratory rate is 18 breaths per minute, blood pressure 145/84. SAO2 is 90% on room air. GENERAL: NAD, awake, alert and oriented x3. THROAT: His mucous membranes are moist. There is no scleral icterus. Conjunctivae are pink. NECK: Supple without JVD or HJR. No carotid bruit. HEART: Regular and tachycardic with a normal S1 and S2. There is no murmur, rub, or gallop. LUNGS: Demonstrate diminished breath sounds bilaterally at the bases. No rales, rhonchi, or wheeze. ABDOMEN: Mildly distended. There is right upper quadrant tenderness to palpation. No rebound or guarding. Bowel sounds are hypoactive. EXTREMITIES: Warm and dry, no skin breakdown. No clubbing, cyanosis, or edema. NEUROLOGIC EXAMINATION: Demonstrates no focal motor deficit, the cranial nerves are grossly intact. FINAL IMPRESSION: 1. A 61-year-old male considered moderate to high perioperative cardiovascular risk for cholecystectomy. 2. A 3.2 second pause secondary to transient heart block. I suspect this is vaguely mediated in the setting of severe abdominal discomfort. Telemetry over the past 16 hours has been unremarkable demonstrating sinus rhythm and sinus tachycardia. 3. Exertional shortness of breath with intermittent chest discomfort -- symptoms possibly related to underlying chronic obstructive pulmonary disease with a history of significant tobacco use, however, obstructive coronary artery disease must be considered due to risk factors and family history noted above. 4. Family history of premature coronary artery disease. 5. Dyslipidemia. 6. Diabetes type 2. 7. Hypertension -- borderline control. PLAN AND RECOMMENDATIONS: I had a long discussion with the patient regarding his perioperative cardiovascular risk secondary to risk factors and exertional symptoms. He understands this risk and is willing to proceed with surgery. No further cardiac testing at this time. The patient's surgery is necessary due to his acute illness. Perioperative risk assessment was relayed to the surgical service. Intravenous Lopressor may be utilized perioperatively if necessary for blood pressure and heart rate control. Aspirin will be continued uninterrupted in addition to statin therapy. I will continue to follow closely during hospitalization. NILS
[2016-11-28] MEDS ORDERED: FENTANYL CITRATE INJ 50 MCG/1 ML 2 ML VIAL ONE ×3 (11:55→13:31)
[2016-11-28] MEDS ORDERED: MoRPHine SULFATE 2 MG/ML CARP ONE (12:56)
[2016-11-28] MEDS ORDERED: ONDANSETRON INJ 2 MG/ML 2 ML VIAL ONE (13:07)
[2016-11-28] MEDS ORDERED: GLYCOPYRROLATE INJ 0.2 MG/ML VIAL ONE (13:07)
[2016-11-28] MEDS ORDERED: METOPROLOL TARTRATE 1 MG/ML VIAL ONE ×2 (13:07→13:16)
[2016-11-28] MEDS ORDERED: PROPOFOL IV EMULSION 10 MG/ML 20 ML VIAL IV ONE (13:07)
[2016-11-28] MEDS ORDERED: NEOSTIGMINE METHYLSULFATE 5 MG/5 ML SYR ONE (13:07)
[2016-11-28] MEDS ORDERED: CONRAY 60% 50 ML VIAL INSTIL ONE (13:14)
[2016-11-28] MEDS ORDERED: LIDOCAINE/EPINEPHRINE 1% 20 ML VIAL INJ ONE (13:14)
--- NOTE | 2016-11-28 13:23 | [facility] Post Operative Brief Note ---
Immediate Operative Summary Operative Date Nov 28, 2016. Pre-Operative Diagnosis accc Post-Operative Diagnosis Same gangrenous Procedure(s) Performed Laparoscopic Cholecystectomy with Cholangiogram Surgeon Dr Patterson Scabbler Surgeon(s) Coy Escalante PA-C Estimated Blood Loss 5ml Findings gangrenous gallbladder with likely hydrops Specimens A. Gallbladder Culture #1 gallbladder for gram stain, aerobic and anaerobic Drains 2 3 19 matias one sub hepatic one pelvis
[2016-11-28] MEDS: FENTANYL CITRATE INJ 50 MCG/1 ML 2 ML VIAL IV PRN ×2 (13:33→13:45)
[2016-11-28] MEDS ORDERED: ATROPINE SULFATE 0.1 MG/ML 5ML SYR IV PRN (13:45)
[2016-11-28] MEDS ORDERED: ONDANSETRON INJ 2 MG/ML 2 ML VIAL IV PRN (13:45)
[2016-11-28] MEDS ORDERED: HYDROmorphone INJ 1 MG/ML SYR IV PRN (13:45)
[2016-11-28] MEDS ORDERED: LABETALOL HCL IV 5 MG/ML 20ML IV PRN (13:45)
[2016-11-28] MEDS ORDERED: EpHEDrine SULFATE INJ 50 MG/ML AMP IV PRN (13:45)
[2016-11-28] MEDS ORDERED: NovoLOG PER UNIT CHARGE SC ONE (14:00)
[2016-11-28] MEDS ORDERED: NURSING VERBAL MED ORDER ONE ×2 (14:00→21:15)
--- NOTE | 2016-11-28 14:13 | OPERATIVE REPORT ---
DATE OF OPERATION: 11/28/2016 SURGEON: MD Yesenia. ASSISTANT FINANCE DIRECTOR: Coy Escalante PA-C. PREOPERATIVE DIAGNOSES: Acute cholecystitis, cholelithiasis. POSTOPERATIVE DIAGNOSES: Acute and chronic cholecystitis; cholelithiasis with gangrenous gallbladder, likely hydrops. PROCEDURE: Laparoscopic cholecystectomy, intraoperative cholangiogram. SUMMARY: After induction of general endotracheal anesthesia, the patient's abdomen was prepped with Betadine scrubbing solution and properly draped. I made a small transverse incision above the umbilicus sufficient enough to place a Veress needle followed by 5 mm trocar. Point of entry inspected and no injury identified. Under direct visualization, a 5 mm epigastric, two 5 mm subcostal ports were placed with preemptive analgesia 1% Xylocaine with epinephrine. Once we entered there, we could see that the omentum was draped over the right lobe of the liver indicating probably significant inflammatory tissue. We removed the omentum without much difficulty, could see the base of the gallbladder, elevated it was quite thick walled. As we placed the patient in reverse Trendelenburg and rotated to the left, we could dissect out towards neck of the gallbladder and see some ischemic changes in the wall. Once we were able then to identify this, I was able to then aspirate the gallbladder with a long needle and typical contents were cleared indicating probably likely hydrops. After we had enough decompression of the gallbladder, we were able then to elevate and retract it up. We dissected out towards the reggie hepatis, the triangle of Calot was fairly inflamed and we did mostly blunt dissection, we were able then to identify the artery, doubly clipped and divided. The cystic duct coming off the gallbladder was essentially dissected out. We were able then to place a clip proximally. A small opening in the cystic duct was made. A #4 ureteral catheter was positioned. Serial x-rays were taken which showed free flow in duodenum. The common bile duct appeared to be a little bit bigger normal that I could still see some of the pancreatic duct and the proximal area but without evidence of any filling defects. At this point, the cholangiocatheter was removed and the cystic duct was doubly clipped and divided. At this point, as we were retract out the gallbladder, we could see some purulent drainage coming out of the gallbladder, whitish, thick and this time anesthesia felt that the temperature was gone up to about 37.8. We irrigated the area copiously and then eventually we were able then to free up the gallbladder in total, taken it out from the liver. A few bleeding areas in the gallbladder fossa were cauterized to the point that once we elevated the gallbladder off the liver bed, we were able then to check hemostasis appeared satisfactory. We placed the gallbladder and contents in an Endopouch and taken out intact through the epigastric port. Due to the significant amount of purulent drainage, we irrigated above and below the liver. Then I elected also to place a drain down in the pelvis area. We first placed a 19 Daniel subhepatically taken out lateral port site and attached to skin edges with 2-0 silk then the subcostal port. Under direct visualization, another 5 mm drain was placed and under direct visualization, we placed it down in the pelvis. We irrigated the area copiously. Hemostasis was satisfactory, probably lost about 15 mL or 20 mL of blood during the procedure. The procedure was tolerated well. The wound was then closed with 4-0 Monocryl in the epigastric and umbilical area. Steri-Strips applied. The patient was taken to recovery room in good condition. I attest to the content of the Intraoperative Record and any orders documented therein. Any exceptio ns are noted below.
--- NOTE | 2016-11-28 14:27 | Progress Note ---
Internal Med Progress Note Date of Service: Nov 28, 2016. Provider Documentation: SUBJECTIVE: The patient was seen and examined Still complains of lower central Chest pain Upper abdominal pain No Nausea and or vomiting No SOB or sweating Feels hot and chills OBJECTIVE: Vital Signs-as noted below Exam: General-no distress at rest Very Anxious Eyes-normal ENT-normal Neck-supple Lungs-Clear to auscultate bilaterally Heart-Regular,no murmur appreciated Abdomen-Benign,mildly tender epigastrium and RUQ Extremities-No edema Neuro-AAOx3 No focal neuro deficit Lab data as noted below. ASSESSMENT & PLAN: Chest pain Complicated by acute cholecystitis (no sepsis) Anxiety/depression contributory to suboptimal BP control Possible underlying ischemic heart disease given exertional angina sx for a year Doubt any ACS Serial Erlinda -negative so far ECHO-Normal EF ,Grade 1 diastolic failure Appreciate cardiology input likely surgery today Hypertensive Urgency SBP >190 in ER Has been on Amlodipine and Lisinopril Will add PRN Clonidine BP is stable Acute Cholecystitis Continue Current Antibiotics Appreciate Surgery input Surgery today . Mild Diabetic ketoacidosis Suboptimal DM2 control Questionable compliance. SSI Blood sugars not yet controlled COPD, past tobacco abuse px admits to some sob on exertion No acute Exacerbation Hyperlipidemia -on statin tx LATOYA on CPAP as per records Anxiety /Depression -anxiolytic prn -Psych consult RE anxiety, depression Appreciate psychiatric input DVT prophylaxis, Lovenox subQ. Full code. DISPOSITION Social Service Discharge planning Vital Signs: Date Time Temp Pulse Resp B/P Pulse Ox O2 Delivery O2 Flow Rate FiO2 11/28/16 14:15 36.9 90 17 154/79 92 Nasal Cannula 5 11/28/16 14:05 93 20 141/73 92 Nasal Cannula 5 11/28/16 13:55 96 16 124/86 92 Nasal Cannula 5 11/28/16 13:45 95 15 131/72 97 Mask 10 11/28/16 13:35 92 19 219/146 98 Mask 10 11/28/16 13:29 38.8 90 20 174/111 98 Mask 10 11/28/16 12:04 11/28/16 12:00 90 Room Air 11/28/16 08:00 90 Room Air 11/28/16 07:47 36.8 101 18 145/84 90 Room Air 11/28/16 04:00 Room Air 11/28/16 03:33 37.5 22 159/79 90 Room Air 11/28/16 00:00 Room Air 11/27/16 23:47 36.8 92 20 186/83 93 Room Air 11/27/16 20:11 37.0 88 20 160/84 90 Room Air 11/27/16 20:10 Room Air 11/27/16 16:10 Room Air 11/27/16 15:39 36.5 80 20 186/77 90 Room Air Lab Results: Results Past 24 Hours Test 11/27/16 16:24 11/27/16 20:25 11/27/16 22:37 11/28/16 05:58 Range/Units Bedside Glucose 275 272 70-99 mg/dl Sodium Level 139 136 136-145 mmol/L Potassium Level 4.3 4.0 3.5-5.1 mmol/L Chloride Level 100 102 98-107 mmol/L Carbon Dioxide Level 25 23 21-32 mmol/L Anion Gap 14.0 11.0 3-11 mmol/L Blood Urea Nitrogen 13 13 7-18 mg/dl Creatinine 1.10 1.20 0.60-1.40 mg/dl Est Creatinine Clear Calc Drug Dose 79.4 72.8 ml/min Estimated GFR () 84.7 76.3 Estimated GFR (Non- 73.1 65.8 BUN/Creatinine Ratio 11.6 10.4 10-20 Random Glucose 339 294 70-99 mg/dl Calcium Level 9.3 8.9 8.5-10.1 mg/dl Magnesium Level 1.1 1.9 1.8-2.4 mg/dl Beta-Hydroxybutyric Acid 8.24 0.2-2.81 mg/dL White Blood Count 13.73 4.8-10.8 K/uL Red Blood Count 4.67 4.7-6.1 M/uL Hemoglobin 13.9 14.0-18.0 g/dL Hematocrit 40.0 42-52 % Mean Corpuscular Volume 85.7 80-100 fL Mean Corpuscular Hemoglobin 29.8 25-34 pg Mean Corpuscular Hemoglobin Concent 34.8 32-36 g/dl Platelet Count 185 130-400 K/uL Mean Platelet Volume 10.5 7.4-10.4 fL Neutrophils (%) (Auto) 86.0 % Lymphocytes (%) (Auto) 8.6 % Monocytes (%) (Auto) 5.0 % Eosinophils (%) (Auto) 0.0 % Basophils (%) (Auto) 0.1 % Neutrophils # (Auto) 11.80 1.4-6.5 K/uL Lymphocytes # (Auto) 1.18 1.2-3.4 K/uL Monocytes # (Auto) 0.69 0.11-0.59 K/uL Eosinophils # (Auto) 0.00 0-0.5 K/uL Basophils # (Auto) 0.02 0-0.2 K/uL RDW Standard Deviation 42.1 36.4-46.3 fL RDW Coefficient of Variation 13.7 11.5-14.5 % Immature Granulocyte % (Auto) 0.3 % Immature Granulocyte # (Auto) 0.04 0.00-0.02 K/uL Total Bilirubin 0.5 0.2-1 mg/dl Aspartate Amino Transf (AST/SGOT) 62 15-37 U/L Alanine Aminotransferase (ALT/SGPT) 65 12-78 U/L Alkaline Phosphatase 57 45-117 U/L Total Protein 7.5 6.4-8.2 gm/dl Albumin 3.7 3.4-5.0 gm/dl Globulin 3.8 2.5-4.0 gm/dl Albumin/Globulin Ratio 1.0 0.9-2 Test 11/28/16 07:35 11/28/16 13:39 Range/Units Bedside Glucose 295 286 70-99 mg/dl Microbiology Results 11/28/16 Gram Stain, Received Pending 11/28/16 Bacterial Culture, Received Pending
--- NOTE | 2016-11-28 14:39 | DIAGNOSTIC IMAGING REPORT ---
INTRAOPERATIVE CHOLANGIOGRAM HISTORY: Post cholecystectomy. FLUOROSCOPY TIME: 4 seconds. 2 images submitted. FINDINGS: Fluoroscopy was provided for an intraoperative cholangiogram status post cholecystectomy. Contrast was injected through the cystic duct remnant. The common bile duct is normal in course and caliber. There are no filling defects seen within the common bile duct to suggest a retained stone. Contrast extends into the small bowel. There is no intrahepatic bile duct dilatation. IMPRESSION: Fluoroscopy provided for an intraoperative cholangiogram status post cholecystectomy. No filling defects within the common bile duct. Electronically signed by: Carlos Dobbins M.D. 11/28/2016 2:36 PM Dictated Date/Time: 11/28/2016 2:36 PM
--- NOTE | 2016-11-28 15:29 | Anesthesiology Progress Note ---
Anesthesia Post Op Note Date & Time Nov 28, 2016 at 15:28 Vital Signs Pain Intensity: 2.0 Vital Signs Past 12 Hours Date Time Temp Pulse Resp B/P Pulse Ox O2 Delivery O2 Flow Rate FiO2 11/28/16 14:45 37.3 92 20 149/89 92 Nasal Cannula 11/28/16 14:30 92 18 144/77 92 Nasal Cannula 5 11/28/16 14:15 36.9 90 17 154/79 92 Nasal Cannula 5 11/28/16 14:05 93 20 141/73 92 Nasal Cannula 5 11/28/16 13:55 96 16 124/86 92 Nasal Cannula 5 11/28/16 13:45 95 15 131/72 97 Mask 10 11/28/16 13:35 92 19 219/146 98 Mask 10 11/28/16 13:29 38.8 90 20 174/111 98 Mask 10 11/28/16 12:04 11/28/16 12:00 90 Room Air 11/28/16 08:00 90 Room Air 11/28/16 07:47 36.8 101 18 145/84 90 Room Air 11/28/16 04:00 Room Air 11/28/16 03:33 37.5 22 159/79 90 Room Air Notes Mental Status: alert / awake / arousable, participated in evaluation Pt Amnestic to Procedure: Yes Nausea / Vomiting: adequately controlled Pain: adequately controlled Airway Patency, RR, SpO2: stable & adequate BP & HR: stable & adequate Hydration State: stable & adequate Anesthetic Complications: no major complications apparent BSG in 280s treated in pacu with sliding scale novolog. O2 saturations >92 only when on 4 litres. This is not significantly decreased from baseline. Given his surgery and pain control, will place him on continuous pulse oxymetry overnight.
[2016-11-28] MEDS: HYDROmorphone INJ 0.5 MG/0.5 ML SYR IV PRN ×2 (19:33→23:07)
[2016-11-28] MEDS: INSULIN GLARGINE SOLOSTAR 100 UNITS/ML 3 ML PEN SC SCH (21:12)
[2016-11-29] VITALS (14 sets, daily range): BP systolic 130–176; BP diastolic 68–99; PULSE 64–97; TEMP 36.3–37.3; O2SAT 92–96; BMI 27.0
[2016-11-29] MEDS: HYDROmorphone INJ 0.5 MG/0.5 ML SYR IV PRN (02:26)
[2016-11-29] MEDS: METRONIDAZOLE / NSS 500 MG in PREMIXED NSS 100 ML IV SCH ×3 (05:21→22:28)
[2016-11-29 06:20] LABS: BUN/CREATININE RATIO 12.8 (10-20); CALCIUM 8.5 mg/dl (8.5-10.1); CREATININE 1.2 mg/dl (0.60-1.40)
[2016-11-29] MEDS: INSULIN ASPART 100 UNITS/ML 3 ML PEN SC SCH ×4 (08:24→21:24)
[2016-11-29] MEDS: CIPROFLOXACIN 400MG / D5W IV SCH ×2 (08:26→20:13)
[2016-11-29] MEDS: ASPIRIN 81 MG ECTAB PO SCH (08:27)
[2016-11-29] MEDS: ATORVASTATIN 20 MG TAB PO SCH (08:27)
[2016-11-29] MEDS: AMLODIPINE BESYLATE 5 MG TAB PO SCH (08:27)
[2016-11-29] MEDS: LISINOPRIL 20 MG TAB PO SCH ×2 (08:28→21:20)
[2016-11-29] MEDS: CEROVITE ADV FORMULA TAB PO SCH (08:28)
[2016-11-29] MEDS: INSULIN GLARGINE SOLOSTAR 100 UNITS/ML 3 ML PEN SC SCH ×2 (08:30→21:25)
[2016-11-29] MEDS: OXYCODONE/ACETAMINOPHEN 5-325 TAB PO PRN (08:49)
--- NOTE | 2016-11-29 09:07 | CARDIOLOGY PROGRESS NOTE ---
DATE: 11/29/2016 SUBJECTIVE: The patient was seen and examined at bedside. He is doing much better today. The patient underwent laparoscopic cholecystectomy with Dr. Patterson yesterday. No complications. Remained in sinus rhythm and sinus tachycardia overnight on telemetry. Previously reported right upper quadrant and epigastric discomfort had resolved. Notes mild diffuse abdominal tenderness. He is tolerating a liquid diet. He denies nausea. He offers no other complaints at this time. REVIEW OF SYSTEMS: Pertinent positives noted above. A 4-system review including cardiovascular, pulmonary, vascular, and neurologic systems otherwise negative. MEDICATIONS: Reviewed via EMR. Please see list for details. LABORATORY DATA: Sodium 138, potassium 4.0, chloride is 102, CO2 is 26, BUN is 15, creatinine is 1.20, and glucose 245. PHYSICAL EXAMINATION: VITAL SIGNS: Temperature is 36.2 degrees centigrade, blood pressure 176/81, his heart rate is 93 beats per minute and regular and his SaO2 is 94% on room air. GENERAL: NAD. Awake, alert and oriented x3. THROAT: His mucous membranes are moist. There is no scleral icterus. Conjunctivae are pink. NECK: Supple. There is no JVD or HJR. There is no carotid bruit. HEART: Regular and borderline tachycardic with a normal S1 and S2. There is no murmur, rub, or gallop. LUNGS: Demonstrate diminished breath sounds at the bases without rales, rhonchi or wheeze. ABDOMEN: Mildly distended and diffusely tender. No rebound or guarding. Bowel sounds are not appreciated. EXTREMITIES: Warm and dry without clubbing, cyanosis, or edema. NEUROLOGIC: Demonstrates no focal deficit. FINAL IMPRESSION: 1. Postoperative day #1 laparoscopic cholecystectomy secondary to acute cholecystitis - the patient is recovering well. 2. Exertional shortness of breath and chest discomfort concerning for angina. The patient is asymptomatic postoperatively. His baseline echo demonstrates preserved LV systolic function. 3. History of former significant tobacco abuse with presumed underlying chronic obstructive pulmonary disease. 4. Family history of premature coronary artery disease. 5. Diabetes. 6. Dyslipidemia. 7. Hypertension -- uncontrolled. PLAN AND RECOMMENDATIONS: Add low dose beta-tank, Toprol-XL 25 mg today. The patient's diet will be advanced per the surgical service. Repeat ECG ordered for this a.m. Other medications including lisinopril will be continued. We will add statin therapy prior to discharge due to history of underlying diabetes. We will continue to follow closely during hospitalization. NILS
--- NOTE | 2016-11-29 09:28 | SURGERY PROGRESS NOTE ---
DATE: 11/29/2016 Melvin is first postoperative day status lap cholecystectomy intraoperative cholangiogram. He is sitting at the side in bed. He is tolerating his diet well. Intraoperative findings were discussed with him including the severity of the inflammation. His last vitals showed a temperature of 36.8, pulse 64, respirations 16, blood pressure 179/81, O2 sats 94% on room air. Laboratory linares this morning is pending. The abdomen is softly distended, it is nontender. The Daniel drainage was only 80 total. He does have one Daniel drain down in the pelvis which is the one in the mid clavicular area going down. We will leave them both in today, it is serosanguineous, nonbilious. We will increase his diet and activity. I told the patient will be here a few more days from our surgical point of view and we actually wanted the drains in depending on the drainage.
--- NOTE | 2016-11-29 10:11 | Anesthesiology Progress Note ---
Anesthesia Post Op Note Date & Time Nov 29, 2016 at 10:10 Vital Signs Pain Intensity: 5.0 Vital Signs Past 12 Hours Date Time Temp Pulse Resp B/P Pulse Ox O2 Delivery O2 Flow Rate FiO2 11/29/16 08:10 36.8 64 16 176/81 94 Room Air 11/29/16 08:00 94 Room Air 11/29/16 05:02 37.3 75 20 146/69 96 CPAP 11/29/16 04:00 92 Nasal Cannula 5.0 CPAP 11/29/16 00:35 93 5.0 11/29/16 00:00 36.5 93 20 153/79 92 Nasal Cannula 4.0 11/29/16 00:00 92 Nasal Cannula 5.0 CPAP Notes Mental Status: alert / awake / arousable, participated in evaluation Pt Amnestic to Procedure: Yes Nausea / Vomiting: adequately controlled Pain: adequately controlled Airway Patency, RR, SpO2: stable & adequate BP & HR: stable & adequate Hydration State: stable & adequate Anesthetic Complications: no major complications apparent
[2016-11-29 10:46] LABS: BASO % 0.1 %; BASO ABS # 0.01 K/uL (0-0.2); COMPLETE YES; HEMATOCRIT 36.6 % (42-52); IG% 0.3 %; LYMPH % 10.8 %; LYMPH ABS # 0.76 K/uL (1.2-3.4); MEAN CELL VOLUME 87.4 fL (80-100); MEAN CORPUSCULAR HEMOGLOBIN 29.4 pg (25-34); MEAN CORPUSCULAR HGB CONC 33.6 g/dl (32-36); MEAN PLATELET VOLUME 10.8 fL (7.4-10.4); MONO % 5.4 %; NEUT % 83.4 %; PLATELET COUNT 146 K/uL (130-400); RED BLOOD COUNT 4.19 M/uL (4.7-6.1); WHITE BLOOD COUNT 7.03 K/uL (4.8-10.8)
[2016-11-29] MEDS: METOPROLOL SUCC 25MG EXT REL TAB PO SCH (11:12)
[2016-11-29 11:21] LABS: BUN/CREATININE RATIO 14.6 (10-20); CALCIUM 8.2 mg/dl (8.5-10.1); CREATININE 1.1 mg/dl (0.60-1.40); POTASSIUM 3.8 mmol/L (3.5-5.1)
[2016-11-29 11:32] LABS: BETA-HYDROXYBUTYRATE 6.67 mg/dL (0.2-2.81)
--- NOTE | 2016-11-29 17:10 | Progress Note ---
Internal Med Progress Note Date of Service: Nov 29, 2016. Provider Documentation: SUBJECTIVE: The patient was seen and examined Abdominal pain -generalized and lower abdomen No pain in lower chest as before OBJECTIVE: Vital Signs-as noted below Exam: General-no distress at rest Very Anxious Eyes-normal ENT-normal Neck-supple Lungs-Clear to auscultate bilaterally Heart-Regular,no murmur appreciated Abdomen-Benign,mildly tender epigastrium and RUQ Bowel sound sluggish Extremities-No edema Neuro-AAOx3 No focal neuro deficit Lab data as noted below. ASSESSMENT & PLAN: Acute Cholecystitis::S/O Lap Cholecystectomy 11/28/2016 POD #01 Continue Current Antibiotics Appreciate Surgery input Will need to stay a few more days . Chest pain Complicated by acute cholecystitis (no sepsis) Anxiety/depression contributory to suboptimal BP control Possible underlying ischemic heart disease given exertional angina sx for a year Doubt any ACS Serial Erlinda -negative so far ECHO-Normal EF ,Grade 1 diastolic failure Appreciate cardiology input No cardiac studies now Hypertensive Urgency SBP >190 in ER Has been on Amlodipine and Lisinopril Will add PRN Clonidine BP is stable Mild Diabetic ketoacidosis::[id number]-48.9 Suboptimal DM2 control Questionable compliance. SSI Blood sugars not yet controlled Will need Insulin on discharge COPD, past tobacco abuse px admits to some sob on exertion No acute Exacerbation Hyperlipidemia -on statin tx LATOYA on CPAP as per records Continue CPAP Anxiety /Depression -anxiolytic prn -Psych consult RE anxiety, depression Appreciate psychiatric input DVT prophylaxis, Lovenox subQ. Full code. DISPOSITION Social Service Discharge planning Vital Signs: Date Time Temp Pulse Resp B/P Pulse Ox O2 Delivery O2 Flow Rate FiO2 11/29/16 14:56 36.7 85 18 143/68 95 Nasal Cannula 4.0 11/29/16 12:00 95 Room Air 11/29/16 11:25 36.7 97 16 169/84 93 Nasal Cannula 4.0 11/29/16 08:10 36.8 64 16 176/81 94 Room Air 11/29/16 08:00 94 Room Air 11/29/16 05:02 37.3 75 20 146/69 96 CPAP 11/29/16 04:00 92 Nasal Cannula 5.0 CPAP 11/29/16 00:35 93 5.0 11/29/16 00:00 36.5 93 20 153/79 92 Nasal Cannula 4.0 11/29/16 00:00 92 Nasal Cannula 5.0 CPAP 11/28/16 20:35 37.5 102 18 151/81 93 Nasal Cannula 5.0 11/28/16 20:00 93 Nasal Cannula 5.0 11/28/16 18:17 37.2 103 16 176/81 93 Nasal Cannula 5.0 Lab Results: Results Past 24 Hours Test 11/28/16 20:29 11/29/16 05:40 11/29/16 07:37 11/29/16 10:00 Range/Units Bedside Glucose 319 239 70-99 mg/dl Sodium Level 138 136 136-145 mmol/L Potassium Level 4.0 3.8 3.5-5.1 mmol/L Chloride Level 102 101 98-107 mmol/L Carbon Dioxide Level 26 25 21-32 mmol/L Anion Gap 10.0 10.0 3-11 mmol/L Blood Urea Nitrogen 15 16 7-18 mg/dl Creatinine 1.20 1.10 0.60-1.40 mg/dl Est Creatinine Clear Calc Drug Dose 72.8 79.4 ml/min Estimated GFR () 76.3 84.7 Estimated GFR (Non- 65.8 73.1 BUN/Creatinine Ratio 12.8 14.6 10-20 Random Glucose 245 336 70-99 mg/dl Calcium Level 8.5 8.2 8.5-10.1 mg/dl White Blood Count 7.03 4.8-10.8 K/uL Red Blood Count 4.19 4.7-6.1 M/uL Hemoglobin 12.3 14.0-18.0 g/dL Hematocrit 36.6 42-52 % Mean Corpuscular Volume 87.4 80-100 fL Mean Corpuscular Hemoglobin 29.4 25-34 pg Mean Corpuscular Hemoglobin Concent 33.6 32-36 g/dl Platelet Count 146 130-400 K/uL Mean Platelet Volume 10.8 7.4-10.4 fL Neutrophils (%) (Auto) 83.4 % Lymphocytes (%) (Auto) 10.8 % Monocytes (%) (Auto) 5.4 % Eosinophils (%) (Auto) 0.0 % Basophils (%) (Auto) 0.1 % Neutrophils # (Auto) 5.86 1.4-6.5 K/uL Lymphocytes # (Auto) 0.76 1.2-3.4 K/uL Monocytes # (Auto) 0.38 0.11-0.59 K/uL Eosinophils # (Auto) 0.00 0-0.5 K/uL Basophils # (Auto) 0.01 0-0.2 K/uL RDW Standard Deviation 45.2 36.4-46.3 fL RDW Coefficient of Variation 14.2 11.5-14.5 % Immature Granulocyte % (Auto) 0.3 % Immature Granulocyte # (Auto) 0.02 0.00-0.02 K/uL Total Bilirubin 0.4 0.2-1 mg/dl Direct Bilirubin 0.1 0-0.2 mg/dl Aspartate Amino Transf (AST/SGOT) 168 15-37 U/L Alanine Aminotransferase (ALT/SGPT) 207 12-78 U/L Alkaline Phosphatase 43 45-117 U/L Total Protein 6.5 6.4-8.2 gm/dl Albumin 2.8 3.4-5.0 gm/dl Beta-Hydroxybutyric Acid 6.67 0.2-2.81 mg/dL Test 11/29/16 11:35 11/29/16 16:34 Range/Units Bedside Glucose 266 296 70-99 mg/dl
[2016-11-29] MEDS: TRAMADOL HCL 50 MG TAB PO PRN (17:36)
[2016-11-30] VITALS (12 sets, daily range): BP systolic 99–165; BP diastolic 59–81; PULSE 73–87; TEMP 36.4–36.8; O2SAT 90–96
[2016-11-30] MEDS: METRONIDAZOLE / NSS 500 MG in PREMIXED NSS 100 ML IV SCH ×3 (05:56→22:42)
[2016-11-30 07:11] LABS: BUN/CREATININE RATIO 15.1 (10-20); CALCIUM 8.1 mg/dl (8.5-10.1); CREATININE 0.94 mg/dl (0.60-1.40); POTASSIUM 3.6 mmol/L (3.5-5.1)
--- NOTE | 2016-11-30 07:40 | SURGERY PROGRESS NOTE ---
DATE: 11/30/2016 HISTORY OF PRESENT ILLNESS: Melvin is resting comfortably. He has no acute problems. He said he has vague abdominal pain. PHYSICAL EXAMINATION: His last vitals showed a temperature of 36.8, a pulse 83, respirations 20, blood pressure 150/75, O2 sats 93 on 2 liters. I\T\O, he has voided at least 1250 urine last night. The Daniel drainage in both of them were total of about 200 yesterday, is serosanguineous and nonbilious. The abdomen is softly distended. ASSESSMENT AND PLAN: He is tolerating a diet. He is not nauseated. At this point, we will leave both drains in and I suspect we should keep him another day here due to severity of his necrotizing cholecystitis may need to send him home on some oral antibiotics.
[2016-11-30] MEDS: AMLODIPINE BESYLATE 5 MG TAB PO SCH (08:27)
[2016-11-30] MEDS: CEROVITE ADV FORMULA TAB PO SCH (08:27)
[2016-11-30] MEDS: ASPIRIN 81 MG ECTAB PO SCH (08:28)
[2016-11-30] MEDS: CIPROFLOXACIN 400MG / D5W IV SCH ×2 (08:28→19:39)
[2016-11-30] MEDS: ATORVASTATIN 20 MG TAB PO SCH (08:28)
[2016-11-30] MEDS: METOPROLOL SUCC 25MG EXT REL TAB PO SCH (08:29)
[2016-11-30] MEDS: LISINOPRIL 20 MG TAB PO SCH ×2 (08:29→21:50)
[2016-11-30] MEDS: INSULIN ASPART 100 UNITS/ML 3 ML PEN SC SCH ×4 (08:33→21:48)
[2016-11-30] MEDS: INSULIN GLARGINE SOLOSTAR 100 UNITS/ML 3 ML PEN SC SCH (08:34)
--- NOTE | 2016-11-30 15:49 | PROGRESS NOTE ---
DATE: 11/30/2016 SUBJECTIVE: The patient is seen and examined at the bedside. He continues to improve. Notes shortness of breath when he is not wearing his supplemental oxygen. No dysrhythmias on telemetry. Abdominal discomfort improving. Denies chest pain. His diet is slowly being advanced by surgery. REVIEW OF SYSTEMS: Pertinent positives noted above and a 4-system review including a cardiovascular, pulmonary, gastroenterologic, and neurologic systems otherwise negative. MEDICATIONS: Reviewed via EMR. LABORATORY DATA: Sodium 137, potassium 3.6, chloride 101, CO2 of 26, BUN is 14, creatinine 0.94, glucose 308. Calcium 8.1. White blood cell count 7.03, hemoglobin is 12.3, platelet count is 146. PHYSICAL EXAMINATION: VITAL SIGNS: Temperature is 36.4 degrees centigrade, pulse 79 beats per minute and regular, respiratory rate is 20 breaths per minute, blood pressure 145/77, SaO2 is 96% on 4 liters. GENERAL: NAD, awake, alert and oriented x3. HEENT: His mucous membranes are dry. No scleral icterus. Conjunctivae pink. NECK: Supple. There is no JVD or HJR. No carotid bruit. HEART: Regular with a normal S1 and S2. There is no murmur, rub, or gallop. LUNGS: Clear. There are no rales, rhonchi or wheezes. ABDOMEN: Mildly distended and diffusely tender. No rebound or guarding, hypoactive bowel sounds. EXTREMITIES: Warm and dry without clubbing, cyanosis, or edema. NEUROLOGIC: Demonstrates no focal motor deficit. FINAL IMPRESSION: 1. Postoperative day #2 laparoscopic cholecystectomy. The patient recovering well. 2. Exertional symptoms including shortness of breath and chest discomfort. The patient has been asymptomatic postoperatively. 3. Family history of premature coronary disease. 4. Presumed underlying chronic obstructive pulmonary disease with former significant tobacco abuse. 5. Diabetes. 6. Dyslipidemia. 7. Hypertension -- improved with the addition of beta-tank therapy. PLAN AND RECOMMENDATIONS: Continue low-dose beta-tank therapy, Toprol-XL 25 mg daily in addition to amlodipine and lisinopril. We will monitor blood pressure during hospitalization. Sodium restriction advised. Will plan outpatient stress testing when patient has recovered from his surgery. Will continue to follow during hospitalization.
--- NOTE | 2016-11-30 17:44 | Progress Note ---
Internal Med Progress Note Date of Service: Nov 30, 2016. Provider Documentation: SUBJECTIVE: The patient was seen and examined Abdominal pain is much better No pain in lower chest as before No Nausea and or vomiting OBJECTIVE: Vital Signs-as noted below Exam: General-no distress at rest Very Anxious Eyes-normal ENT-normal Neck-supple Lungs-Clear to auscultate bilaterally Heart-Regular,no murmur appreciated Abdomen-Benign,mildly tender epigastrium and RUQ Bowel sound sluggish Extremities-No edema Neuro-AAOx3 No focal neuro deficit Lab data as noted below. ASSESSMENT & PLAN: Acute Cholecystitis::S/O Lap Cholecystectomy 11/28/2016 POD #02 Continue Current Antibiotics Appreciate Surgery input Will need to stay a few more days Diet started and advanced to Full liquid . Chest pain Complicated by acute cholecystitis (no sepsis) Anxiety/depression contributory to suboptimal BP control Possible underlying ischemic heart disease given exertional angina sx for a year Doubt any ACS Serial Erlinda -negative so far ECHO-Normal EF ,Grade 1 diastolic failure Appreciate cardiology input Medications restarted No cardiac studies now Hypertensive Urgency SBP >190 in ER Has been on Amlodipine and Lisinopril Will add PRN Clonidine BP is stable Mild Diabetic ketoacidosis::[id number]-15.9 Suboptimal DM2 control Questionable compliance. SSI Blood sugars not yet controlled Will Humilin 70/30 -start with 35units BID and D/c Lantus COPD, past tobacco abuse px admits to some sob on exertion No acute Exacerbation Hyperlipidemia -on statin tx LATOYA on CPAP as per records Continue CPAP Anxiety /Depression -anxiolytic prn -Psych consult RE anxiety, depression Appreciate psychiatric input DVT prophylaxis, Lovenox subQ. Full code. DISPOSITION Social Service Discharge planning Vital Signs: Date Time Temp Pulse Resp B/P Pulse Ox O2 Delivery O2 Flow Rate FiO2 11/30/16 15:53 36.6 82 18 138/75 95 11/30/16 12:00 96 Nasal Cannula 4.0 11/30/16 11:56 36.4 79 20 145/77 96 Nasal Cannula 4.0 11/30/16 08:00 94 Nasal Cannula 4.0 11/30/16 07:20 36.5 73 18 146/75 93 Room Air 11/30/16 04:00 CPAP 4.0 11/30/16 03:59 36.8 83 20 150/75 93 BiPAP 2.0 11/30/16 00:00 CPAP 4.0 11/29/16 23:39 36.9 86 20 130/83 92 Nasal Cannula 2.0 11/29/16 21:16 86 144/99 11/29/16 20:08 36.3 85 20 152/78 95 3.0 11/29/16 20:00 95 Nasal Cannula 4.0 Lab Results: Results Past 24 Hours Test 11/29/16 20:26 11/30/16 06:01 11/30/16 07:38 11/30/16 11:46 Range/Units Bedside Glucose 309 226 308 70-99 mg/dl Sodium Level 137 136-145 mmol/L Potassium Level 3.6 3.5-5.1 mmol/L Chloride Level 101 98-107 mmol/L Carbon Dioxide Level 26 21-32 mmol/L Anion Gap 10.0 3-11 mmol/L Blood Urea Nitrogen 14 7-18 mg/dl Creatinine 0.94 0.60-1.40 mg/dl Est Creatinine Clear Calc Drug Dose 92.9 ml/min Estimated GFR () 102.4 Estimated GFR (Non- 88.4 BUN/Creatinine Ratio 15.1 10-20 Random Glucose 227 70-99 mg/dl Calcium Level 8.1 8.5-10.1 mg/dl Test 11/30/16 16:24 Range/Units Bedside Glucose 289 70-99 mg/dl
[2016-11-30] MEDS: INSULIN HUMAN 70% NPH/30% REGULAR SC SCH (18:58)
[2016-12-01] VITALS (12 sets, daily range): BP systolic 119–169; BP diastolic 70–85; PULSE 80–103; TEMP 36.5–36.9; O2SAT 92–97; BMI 26.6
[2016-12-01 06:21] LABS: BASO % 0.3 %; BASO ABS # 0.02 K/uL (0-0.2); COMPLETE YES; EOS % 3.5 %; HEMATOCRIT 36.7 % (42-52); IG% 0.3 %; LYMPH % 20.9 %; LYMPH ABS # 1.33 K/uL (1.2-3.4); MEAN CELL VOLUME 86.4 fL (80-100); MEAN CORPUSCULAR HEMOGLOBIN 29.2 pg (25-34); MEAN CORPUSCULAR HGB CONC 33.8 g/dl (32-36); MEAN PLATELET VOLUME 10.8 fL (7.4-10.4); MONO % 8.7 %; NEUT % 66.3 %; PLATELET COUNT 182 K/uL (130-400); RED BLOOD COUNT 4.25 M/uL (4.7-6.1); WHITE BLOOD COUNT 6.35 K/uL (4.8-10.8)
[2016-12-01] MEDS: METRONIDAZOLE / NSS 500 MG in PREMIXED NSS 100 ML IV SCH (06:28)
[2016-12-01] MEDS: INSULIN ASPART 100 UNITS/ML 3 ML PEN SC SCH ×4 (06:30→21:14)
[2016-12-01 07:01] LABS: BUN/CREATININE RATIO 18.1 (10-20); CALCIUM 8.2 mg/dl (8.5-10.1); CREATININE 0.81 mg/dl (0.60-1.40); MAGNESIUM 1.8 mg/dl (1.8-2.4); POTASSIUM 3.2 mmol/L (3.5-5.1)
--- NOTE | 2016-12-01 07:24 | SURGERY PROGRESS NOTE ---
DATE: 12/01/2016 HISTORY OF PRESENT ILLNESS: Melvin feels great. He said he has not felt this good in a couple years. He is third postoperative day status post laparoscopic cholecystectomy, cholangiogram for what the pathology report on the gallbladder was a necrotizing cholecystitis and cholelithiasis. PHYSICAL EXAMINATION: His last vitals showed a temperature of 36.6, pulse 80, respirations 18, blood pressure 136/78. O2 sats 92 on 4 liters. I\T\O, he slightly positive, although he is mobilizing fluids, he had 1730 yesterday and 550 overnight. He has not had a bowel movement, although he is passing flatus. His Daniel drainage were 2 of them had a total of 100 mL yesterday, it is serosanguineous. The one laterally in the right upper quadrant and there is no bilious drainage, but the consistency is a little bit more whitish than a pure serosanguineous. ASSESSMENT AND PLAN: At this point, I will leave both tubes in. His last laboratory showed a white count of 6.35. There is no left shift, but due to the severity of the acute cholecystitis, I would keep him on some p.o. antibiotics until we take the tubes out. He had a gram positive cocci on the gallbladder cultures.
[2016-12-01] MEDS: CEROVITE ADV FORMULA TAB PO SCH (08:14)
[2016-12-01] MEDS: METOPROLOL SUCC 25MG EXT REL TAB PO SCH (08:14)
[2016-12-01] MEDS: CIPROFLOXACIN 500 MG TAB PO SCH ×2 (08:14→21:10)
[2016-12-01] MEDS: ASPIRIN 81 MG ECTAB PO SCH (08:15)
[2016-12-01] MEDS: LISINOPRIL 20 MG TAB PO SCH ×2 (08:15→21:10)
[2016-12-01] MEDS: AMLODIPINE BESYLATE 5 MG TAB PO SCH (08:15)
[2016-12-01] MEDS: ATORVASTATIN 20 MG TAB PO SCH (08:15)
[2016-12-01] MEDS: INSULIN HUMAN 70% NPH/30% REGULAR SC SCH ×2 (08:18→16:54)
[2016-12-01] MEDS: POTASSIUM CHLORIDE 20 MEQ TABCR PO SCH ×2 (10:17→21:10)
--- NOTE | 2016-12-01 11:35 | Cardiology Follow-Up ---
Subjective General Date of Service: Dec 01, 2016. Pt evaluation today including: conversation w/ patient, physical exam, chart review, lab review, review of studies, review of inpatient medication list History of Present Illness The patient is a 61 year old male seen in follow up. Continues to require supplemental oxygen, Denies CP. No recurrent heart block on telemetry. Intermittent right sided abdominal discomfort unchanged. Offers no new complaints. Allergies Coded Allergies: Penicillins (Verified Allergy, Mild, HIVES, 11/27/16) Social History Smoking Status: Former Smoker Hx Alcohol Use - Type And Amou: No Hx Substance Use - Type And Am: No Review of Systems Respiratory: + dyspnea on exertion, No cough, No dyspnea at rest, No hemoptysis , No shortness of breath, No sputum, No wheezing Cardiac: No PND, No chest pain, No claudication, No edema, No orthopnea, No palpitations Physical Exam Vital Signs Last Vital Signs Documentation Date Time Temp Pulse Resp B/P Pulse Ox O2 Delivery O2 Flow Rate FiO2 12/01/16 08:00 94 CPAP 4.0 12/01/16 07:29 36.9 83 16 169/85 Physical Exam Constitutional: General Apperance: well-nourished Level of Distress: NAD Head: normocephalic Lungs: Auscultation: no wheezing, no rales/crackles, no rhonchi, decreased breath sounds Cardiovascular: Heart Auscultation: RRR, normal S1, normal S2, no murmurs Peripheral Pulses: Radial Pulse: normal on the left, normal on the right Abdomen: Inspection & Palpation: soft, non-distended, RLQ tenderness Extremities: no cyanosis, no edema Neurologic: Gait & Station: pertinent finding (No focal motor deficit) Cranial Nerves: grossly intact Assessment and Plan Assessment and Plan 1. Postoperative day #3 laparoscopic cholecystectomy. 2. Exertional symptoms including shortness of breath and chest discomfort with hypoxia requiring oxygen supplementation. - no recurrent chest discomfort during hospitalization. 3. Family history of premature coronary disease. 4. Transient 3rd degree AVB in setting of abdominal pain / retching pre- operatively - non recurrence - tolerating beta tank 5. Presumed underlying chronic obstructive pulmonary disease with former significant tobacco abuse. 6. Diabetes. 7. Dyslipidemia. 8. Hypertension - labile 9. Hypokalemia PLAN AND RECOMMENDATIONS: Continue low-dose beta-tank. Consider addition of HCTZ in future. Supplement potassium as needed. Plan outpatient stress testing when patient has recovered from his surgery. I will schedule outpatient follow up in approximately 2 weeks. Consider pulmonary consultation. Will sign off. Please call with questions. Laboratory Results Last 24 Hours Test 11/30/16 11:46 11/30/16 16:24 11/30/16 20:47 12/01/16 05:25 Bedside Glucose 308 mg/dl 289 mg/dl 318 mg/dl White Blood Count 6.35 K/uL Red Blood Count 4.25 M/uL Hemoglobin 12.4 g/dL Hematocrit 36.7 % Mean Corpuscular Volume 86.4 fL Mean Corpuscular Hemoglobin 29.2 pg Mean Corpuscular Hemoglobin Concent 33.8 g/dl Platelet Count 182 K/uL Mean Platelet Volume 10.8 fL Neutrophils (%) (Auto) 66.3 % Lymphocytes (%) (Auto) 20.9 % Monocytes (%) (Auto) 8.7 % Eosinophils (%) (Auto) 3.5 % Basophils (%) (Auto) 0.3 % Neutrophils # (Auto) 4.21 K/uL Lymphocytes # (Auto) 1.33 K/uL Monocytes # (Auto) 0.55 K/uL Eosinophils # (Auto) 0.22 K/uL Basophils # (Auto) 0.02 K/uL RDW Standard Deviation 44.1 fL RDW Coefficient of Variation 13.8 % Immature Granulocyte % (Auto) 0.3 % Immature Granulocyte # (Auto) 0.02 K/uL Sodium Level 138 mmol/L Potassium Level 3.2 mmol/L Chloride Level 102 mmol/L Carbon Dioxide Level 26 mmol/L Anion Gap 10.0 mmol/L Blood Urea Nitrogen 15 mg/dl Creatinine 0.81 mg/dl Est Creatinine Clear Calc Drug Dose 107.8 ml/min Estimated GFR () 112.7 Estimated GFR (Non- 97.3 BUN/Creatinine Ratio 18.1 Random Glucose 161 mg/dl Calcium Level 8.2 mg/dl Magnesium Level 1.8 mg/dl Test 12/01/16 07:33 Bedside Glucose 175 mg/dl
--- NOTE | 2016-12-01 16:56 | Progress Note ---
Internal Med Progress Note Date of Service: Dec 01, 2016. Provider Documentation: SUBJECTIVE: resting comfortably ambulating in room ok tolerating diet' afebrile no nausea OBJECTIVE: Vital Signs-as noted below Exam: General-alert and oriented ENT-normal hearing Neck-no neck masses Lungs-cta b/l no wheezing or crackles Heart-s1 and s2 heard regular rate and rhythm no murmurs Abdomen-soft bowel sounds present non tender no distension s/p sasha Extremities-no erythema no edema Neuro-alert and awake moves extremities Lab data as noted below. ASSESSMENT & PLAN: Acute Cholecystitis::S/O Lap Cholecystectomy 11/28/2016 POD #03 tolerating full liquid diet on cipro diet advance as per surgery . Chest pain Complicated by acute cholecystitis (no sepsis) Possible underlying ischemic heart disease given exertional angina sx for a year serial CE and echo unremarkable seen by cardiology and plan for stress test as out patinet Hypertensive Urgency SBP >190 in ER on Amlodipine and Lisinopril Toprol xl added by cardiology PRN Clonidine Will monitor Mild Diabetic ketoacidosis::[id number] Suboptimal DM2 control Questionable compliance. SSI holding po meds and Novolin N started on Humulin 70/30 -start with 35units BID and D/c Lantus will monityor COPD, past tobacco abuse No acute Exacerbation f/u with pcp Hyperlipidemia on statin tx LATOYA on CPAP as per records On CPAP Anxiety /Depression anxiolytic prn Psych consulted for anxiety, depression Appreciate psychiatric input DVT prophylaxis, Lovenox subQ. Full code. DISPOSITION Social Service Discharge planning possible d/c in 1-2 days Vital Signs: Date Time Temp Pulse Resp B/P Pulse Ox O2 Delivery O2 Flow Rate FiO2 12/01/16 16:00 96 Room Air 2.0 Nasal Cannula 12/01/16 15:05 36.8 103 16 119/76 96 Room Air 12/01/16 12:30 94 Nasal Cannula 2.0 12/01/16 11:38 36.6 80 16 156/84 95 Nasal Cannula 2.0 12/01/16 08:00 94 CPAP 4.0 12/01/16 07:29 36.9 83 16 169/85 96 Nasal Cannula 4.0 12/01/16 04:00 94 CPAP 4.0 12/01/16 04:00 36.6 80 18 136/78 92 BiPAP 12/01/16 00:00 94 CPAP 4.0 11/30/16 23:16 36.7 86 18 148/80 90 4.0 11/30/16 21:51 87 153/81 11/30/16 20:37 84 99/59 11/30/16 20:28 36.6 82 18 165/81 96 3.0 11/30/16 20:00 95 Nasal Cannula 4.0 Lab Results: Results Past 24 Hours Test 11/30/16 20:47 12/01/16 05:25 12/01/16 07:33 12/01/16 11:14 Range/Units Bedside Glucose 318 175 197 70-99 mg/dl White Blood Count 6.35 4.8-10.8 K/uL Red Blood Count 4.25 4.7-6.1 M/uL Hemoglobin 12.4 14.0-18.0 g/dL Hematocrit 36.7 42-52 % Mean Corpuscular Volume 86.4 80-100 fL Mean Corpuscular Hemoglobin 29.2 25-34 pg Mean Corpuscular Hemoglobin Concent 33.8 32-36 g/dl Platelet Count 182 130-400 K/uL Mean Platelet Volume 10.8 7.4-10.4 fL Neutrophils (%) (Auto) 66.3 % Lymphocytes (%) (Auto) 20.9 % Monocytes (%) (Auto) 8.7 % Eosinophils (%) (Auto) 3.5 % Basophils (%) (Auto) 0.3 % Neutrophils # (Auto) 4.21 1.4-6.5 K/uL Lymphocytes # (Auto) 1.33 1.2-3.4 K/uL Monocytes # (Auto) 0.55 0.11-0.59 K/uL Eosinophils # (Auto) 0.22 0-0.5 K/uL Basophils # (Auto) 0.02 0-0.2 K/uL RDW Standard Deviation 44.1 36.4-46.3 fL RDW Coefficient of Variation 13.8 11.5-14.5 % Immature Granulocyte % (Auto) 0.3 % Immature Granulocyte # (Auto) 0.02 0.00-0.02 K/uL Sodium Level 138 136-145 mmol/L Potassium Level 3.2 3.5-5.1 mmol/L Chloride Level 102 98-107 mmol/L Carbon Dioxide Level 26 21-32 mmol/L Anion Gap 10.0 3-11 mmol/L Blood Urea Nitrogen 15 7-18 mg/dl Creatinine 0.81 0.60-1.40 mg/dl Est Creatinine Clear Calc Drug Dose 107.8 ml/min Estimated GFR () 112.7 Estimated GFR (Non- 97.3 BUN/Creatinine Ratio 18.1 10-20 Random Glucose 161 70-99 mg/dl Calcium Level 8.2 8.5-10.1 mg/dl Magnesium Level 1.8 1.8-2.4 mg/dl Test 12/01/16 16:09 Range/Units Bedside Glucose 207 70-99 mg/dl
[2016-12-02] VITALS (7 sets, daily range): BP systolic 120–149; BP diastolic 71–77; PULSE 76–92; TEMP 36.3–36.9; O2SAT 92–96
[2016-12-02] MEDS ORDERED: COUGH DROP (SUGAR FREE) LOZ 24 LOZ/1 BOX ONE (02:37)
[2016-12-02] MEDS: COUGH DROP (SUGAR FREE) LOZ 24 LOZ/1 BOX PO PRN ×4 (03:30→06:30)
[2016-12-02] MEDS ORDERED: LACTULOSE SYRUP 30 GM/45 ML UDP PO STA (07:09)
[2016-12-02] MEDS ORDERED: GUAIFENESIN/CODEINE 100MG/10MG 5ML UDC PO PRN (07:15)
[2016-12-02] MEDS ORDERED: LACTULOSE SYRUP 30 GM/45 ML UDP PO PRN (07:15)
[2016-12-02] MEDS: INSULIN ASPART 100 UNITS/ML 3 ML PEN SC SCH ×2 (08:09→12:12)
[2016-12-02] MEDS: ASPIRIN 81 MG ECTAB PO SCH (08:12)
[2016-12-02] MEDS: CIPROFLOXACIN 500 MG TAB PO SCH (08:12)
[2016-12-02] MEDS: METOPROLOL SUCC 25MG EXT REL TAB PO SCH (08:13)
[2016-12-02] MEDS: CEROVITE ADV FORMULA TAB PO SCH (08:13)
[2016-12-02] MEDS: LISINOPRIL 20 MG TAB PO SCH (08:13)
[2016-12-02] MEDS: POTASSIUM CHLORIDE 20 MEQ TABCR PO SCH (08:13)
[2016-12-02] MEDS: AMLODIPINE BESYLATE 5 MG TAB PO SCH (08:13)
[2016-12-02] MEDS: ATORVASTATIN 20 MG TAB PO SCH (08:13)
[2016-12-02] MEDS: INSULIN HUMAN 70% NPH/30% REGULAR SC SCH (08:16)
--- NOTE | 2016-12-02 08:36 | SURGERY PROGRESS NOTE ---
DATE: 12/02/2016 DATE: 12/02/2016. SUBJECTIVE: Melvin is fourth postoperative day status post laparoscopic cholecystectomy, intraoperative cholangiogram for acute necrotizing cholecystitis. He has 2 drains in, 1 in subhepatic area, 1 down the pelvis. They had minimal drainage. His last vitals showed a temperature of 36.9, pulse 92, respirations 16, blood pressure 149/70, O2 sats 92 on room air. He did have a bowel movement this morning. His last lab yesterday showed a white count 6.35. Cultures were noted. The abdomen is soft. He is tolerating a diet. The drainage as stated is minimal. It is serosanguineous, nonbilious but having said that, I would like to keep both drains in. The patient can certainly be discharged from my discretion. Instructions were given to him regarding no real limited on his activity. He should not drive if he is taking oral analgesics, but at this point he can probably just used some Motrin or Advil for pain. He is to call our office and we will see him in the office next week or we will take the drain is out. I would like to keep him on some antibiotics until we see him in the office. He could certainly go home on Cipro 500 mg b.i.d.
[2016-12-02 10:32] LABS: BUN/CREATININE RATIO 13.7 (10-20); CALCIUM 8.1 mg/dl (8.5-10.1); CREATININE 1.1 mg/dl (0.60-1.40)
[2016-12-02 10:33] LABS: POTASSIUM 3.8 mmol/L (3.5-5.1)
[2016-12-02 10:42] LABS: BETA-HYDROXYBUTYRATE 2.77 mg/dL (0.2-2.81)
[2016-12-02] MEDS ORDERED: INSULIN ASPART 100 UNITS/ML 3 ML PEN SC ONE (10:45)
[2016-12-02] MEDS ORDERED: GUAISYP4 PO (15:38)
[2016-12-02] MEDS ORDERED: AMLO-114 PO (15:38)
[2016-12-02] MEDS ORDERED: INSU70IN2 SC (15:38)
[2016-12-02] MEDS ORDERED: LCTX PO (15:38)
[2016-12-02] MEDS ORDERED: TPRSR25 PO (15:38)
[2016-12-02] MEDS ORDERED: LEVO750T23 PO (15:38)
--- NOTE | 2016-12-02 15:45 | Discharge Instructions ---
Discharge Instructions Admission Reason for Admission: Hyperglycemia, Hypertensive Urgency Discharge Discharge Diagnosis / Problem: cholecystitis s/p surgery, hypertensive urgency , hyperglycemia Discharge Goals Goal(s): Decrease discomfort, Improve function Activity Recommendations Activity Limitations: resume your previous activity Lifting Limitations: no more than 10 pounds (until seen by cardiology) . Instructions / Follow-Up Instructions / Follow-Up FOLLOWUP WITH FAMILY DOCTOR ON Dec AT 2:10PM. FOLLOWUP WITH SURGERY WITHIN A WEEK. FOLLOWUP WITH CARDIOLOGY IN 2 WEEKS FOR STRESS TEST PULMONARY FUNCTION TEST OUT PATIENT PER FAMILY DOCTOR ( FOR EMPHYSEMA). BLOOD PRESSURE AND DIABETES FOLLOWUP WITH FAMILY DOCTOR. TO CHECK BLOOD SUGARS TWICE DAILY BEFORE BREAKFAST AND DINNER AND NOTE IN A LOG BOOK AND TO SHOW FAMILY DOCTOR FOR FURTHER ADJUSTMENTS IN DIABETES MEDICATION. TO CALL FAMILY DOCTOR IF BLOOD SUGARS BELOW 80 OR ABOVE 350. LAB: BMP IN ONE WEEK AND FOLLOW RESULTS WITH FAMILY DOCTOR. Current Hospital Diet Patient's current hospital diet: Diabetes Type 2 Diet Discharge Diet Recommended Diet: Diabetes Type 2 Diet Procedures Procedures Performed: Laparoscopic Cholecystectomy with Cholangiogram Pending Studies Studies pending at discharge: no Laboratory Results Hemoglobin A1c Test 11/27/16 00:25 Range/Units Estimated Average Glucose 295 mg/dl Hemoglobin A1c 11.9 H 4.5-5.6 % Medical Emergencies . Who to Call and When: Medical Emergencies: If at any time you feel your situation is an emergency, please call 911 immediately. . Non-Emergent Contact Non-Emergency issues call your: Primary Care Provider . . "Provider Documentation" section prepared by Yves Ledesma. VTE Core Measure Inpt VTE Proph given/why not?: SCD's
[2016-12-02] MEDS: OXYCODONE/ACETAMINOPHEN 5-325 TAB PO PRN (16:00)
--- NOTE | 2016-12-02 16:28 | Progress Note ---
Internal Med Progress Note Date of Service: Dec 02, 2016. Provider Documentation: SUBJECTIVE: resting comfortably ambulated in hallway ok tolerating regular diet afebrile 'has some cough no nausea ok for discharge OBJECTIVE: Vital Signs-as noted below Exam: General-alert and oriented ENT-normal hearing Neck-no neck masses Lungs-cta b/l no wheezing or crackles Heart-s1 and s2 heard regular rate and rhythm no murmurs Abdomen-soft bowel sounds present non tender no distension s/p sasha Extremities-no erythema no edema Neuro-alert and awake moves extremities Lab data as noted below. ASSESSMENT & PLAN: Acute Cholecystitis::S/O Lap Cholecystectomy 11/28/2016 POD #04 tolerating regular diet on cipro discharged on po levaquin diet advance as per surgery . Chest pain Complicated by acute cholecystitis (no sepsis) Possible underlying ischemic heart disease given exertional angina sx for a year serial CE and echo unremarkable seen by cardiology and plan for stress test as out patient cough d/c on Levaquin needs pft's as outpatient for underlying copd. Hypertensive Urgency SBP >190 in ER on Lisinopril amlodipine added Toprol xl added by cardiology discharged on home lisinopril and amlodipine and Toprol xl. f/u with pcp Mild Diabetic ketoacidosis::[id number]-98.9 Suboptimal DM2 control Questionable compliance. SSI holding po meds and Novolin N started on Humulin 70/30 -start with 35units BID and D/c Lantus discharged on novolin 70/30 and home po meds needs close followup with pcp. COPD, past tobacco abuse No acute Exacerbation f/u with pcp Hyperlipidemia on statin tx LATOYA on CPAP as per records On CPAP Anxiety /Depression anxiolytic prn Psych consulted for anxiety, depression Appreciate psychiatric input discharged home Vital Signs: Date Time Temp Pulse Resp B/P Pulse Ox O2 Delivery O2 Flow Rate FiO2 12/02/16 16:05 36.5 81 16 96 12/02/16 15:19 36.5 81 16 138/77 96 Room Air 12/02/16 11:59 36.3 85 16 120/73 93 Room Air 12/02/16 11:55 Room Air 12/02/16 07:45 Nasal Cannula 2.0 12/02/16 07:35 36.9 92 16 149/77 92 Room Air 12/02/16 04:00 96 Room Air 2.0 12/02/16 03:55 36.7 76 18 130/71 96 Room Air 12/02/16 00:00 96 BiPAP 2.0 12/01/16 23:50 36.7 87 18 148/74 92 BiPAP 12/01/16 21:06 86 120/70 12/01/16 20:00 96 Room Air 2.0 Nasal Cannula 12/01/16 19:37 36.5 91 18 161/80 97 2.5 Lab Results: Results Past 24 Hours Test 12/01/16 20:11 12/02/16 07:26 12/02/16 09:16 12/02/16 10:35 Range/Units Bedside Glucose 190 129 343 70-99 mg/dl Sodium Level 133 136-145 mmol/L Potassium Level 3.8 3.5-5.1 mmol/L Chloride Level 100 98-107 mmol/L Carbon Dioxide Level 22 21-32 mmol/L Anion Gap 11.0 3-11 mmol/L Blood Urea Nitrogen 15 7-18 mg/dl Creatinine 1.10 0.60-1.40 mg/dl Est Creatinine Clear Calc Drug Dose 79.4 ml/min Estimated GFR () 84.7 Estimated GFR (Non- 73.1 BUN/Creatinine Ratio 13.7 10-20 Random Glucose 412 70-99 mg/dl Calcium Level 8.1 8.5-10.1 mg/dl Beta-Hydroxybutyric Acid 2.77 0.2-2.81 mg/dL Test 12/02/16 11:50 Range/Units Bedside Glucose 249 70-99 mg/dl
--- NOTE | 2016-12-02 18:33 | Discharge Summary ---
Discharge Summary Admission Date: Nov 27, 2016 at 03:39 Discharge Date: Dec 02, 2016 Discharge Disposition: Home Principal Diagnosis: CHOLECYSTITIS S/P SURGERY HYPERTENSIVE URGENCY HYPERGLYCEMIA CHEST PAIN? Secondary Diagnoses/Problems: HTN, DM2 insulin requiring, COPD, past tobacco abuse, LATOYA on CPAP, hyperlipidemia Procedures: ECHO: * Ejection Fraction = 60-65%. * There is mild concentric left ventricular hypertrophy. * Grade I diastolic dysfunction, (abnormal relaxation pattern). No significant valvular pathology CTA OF CHEST, ABDOMEN/PELVIS: 1. No aortic dissection. 2. No acute process within the chest. 3. Cholelithiasis with possible minimal pericholecystic infiltration. A right upper quadrant ultrasound is recommended to evaluate for acute cholecystitis. 4. Fatty liver. 5. Moderate to severe emphysema. GALL BLADDER US: 1. Cholelithiasis, mild gallbladder distention and positive sonographic Rushing sign. These findings raise the possibility of acute cholecystitis. A hepatobiliary scan could be obtained, as indicated. 2. Fatty liver. S/P LAPAROSCOPIC CHOLECYSTECTOMY Consultations: SURGERY CARDIOLOGY Medication Reconciliation New Medications: Amlodipine (Norvasc) 10 Mg Tab 10 MG PO DAILY, #30 TAB 2 Refills Lactobacillus Acidophilus (Lactinex) Tab 2 TAB PO BID for 10 Days, TAB Levofloxacin (Levaquin) 750 Mg Tab 1 TAB PO DAILY for 7 Days, #7 TAB Guaifenesin/Codeine (Robitussin-Ac Syrup) Syrp 5 ML PO Q6H PRN for Cough for 10 Days Insulin Human Isophan/Regular (Novolin 70/30) Inj 35 UNITS SC BIDM for 30 Days, 2 Refills Metoprolol Succinate (Metoprolol Succinate ER) 25 Mg Tabcr 25 MG PO QAM, #30 2 Refills Continued Medications: Aspirin (Aspirin Ec) 81 Mg Tab 81 MG PO DAILY Atorvastatin (Lipitor) 20 Mg Tab 20 MG PO DAILY, TAB Fish Oil (Paicines-3) 1 Ea Cap 1200 MG PO DAILY, CAP Glipizide (Glucotrol) 10 Mg Tab 10 MG PO BID, TAB Lisinopril (Lisinopril) 20 Mg Tab 20 MG PO BID Metformin Hcl (Glucophage) 1,000 Mg Tab 1000 MG PO BID, TAB Multiple Vitamins W/ Minerals (One Daily Multivitamin Me) 1 Tab Tab 1 TAB PO DAILY Tocopheryl Acet,Dl-Alpha (Vitamin E) Unknown Strength Cap 1 CAP PO DAILY Discontinued Medications: Insulin Isophane (Human) (Novolin N Relion) 100 Unit/Ml Inj 15 UNITS SQ TID Admission Information HPI (per Admitting provider): Medical history significant for HTN, DM2 insulin requiring, COPD, past tobacco abuse, LATOYA on CPAP, hyperlipidemia in the last year. Patient was watching television last night when he noted substernal pain going to the arms, achy with some shortness of breath. Patient noted some achy R abd pain and emesis as well. Patient brought to the Emergency Room. Blood sugar initially 400s. On and off chest discomfort usually with exertion, relieved by rest in the last year Outpatient stress test contemplated by PCP, which the patient had not undergone the to date secondary to loss of insurance. High BP at home, 200s at times. Home Blood sugars 300-400s despite medication noncompliance. Admits to some stress with recently being diagnosed of renal cancer. Admits to some depression, no suicidality. Physical Exam (per Admitting): VITAL SIGNS: Blood pressure 215/112, later SBP 180s, pulse rate 70, RR 20, temperature 36.6, and sats 91 on room air. GENERAL: Noted to be anxious, uncomfortable, no respiratory distress. SKIN: Normal color. HEENT: [place] palpebral conjunctiva, dry mucosa. NECK: No JVD. supple CHEST: Clear to auscultation. HEART: Regular rate and rhythm. ABDOMEN: Rushing sign. EXTREMITIES: No edema. no tenderness NEUROLOGIC: No gross focality. Hospital Course Acute Cholecystitis::S/O Lap Cholecystectomy 11/28/2016 POD #04 tolerating regular diet on cipro discharged on po levaquin diet advance as per surgery . Chest pain Complicated by acute cholecystitis (no sepsis) Possible underlying ischemic heart disease given exertional angina sx for a year serial CE and echo unremarkable seen by cardiology and plan for stress test as out patient cough d/c on Levaquin needs pft's as outpatient for underlying copd. Hypertensive Urgency SBP >190 in ER on Lisinopril amlodipine added Toprol xl added by cardiology discharged on home lisinopril and amlodipine and Toprol xl. f/u with pcp Mild Diabetic ketoacidosis::[id number]-84.9 Suboptimal DM2 control Questionable compliance. SSI holding po meds and Novolin N started on Humulin 70/30 -start with 35units BID and D/c Lantus discharged on novolin 70/30 and home po meds needs close followup with pcp. COPD, past tobacco abuse No acute Exacerbation f/u with pcp Hyperlipidemia on statin tx LATOYA on CPAP as per records On CPAP Anxiety /Depression anxiolytic prn Psych consulted for anxiety, depression Appreciate psychiatric input discharged home Total time spent on discharge = 40MINUTES This includes examination of the patient, discharge planning, medication reconciliation, and communication with other providers. Discharge Instructions Discharge Instructions Admission Reason for Admission: Hyperglycemia, Hypertensive Urgency Discharge Discharge Diagnosis / Problem: cholecystitis s/p surgery, hypertensive urgency , hyperglycemia Discharge Goals Goal(s): Decrease discomfort, Improve function Activity Recommendations Activity Limitations: resume your previous activity Lifting Limitations: no more than 10 pounds (until seen by cardiology) . Instructions / Follow-Up Instructions / Follow-Up FOLLOWUP WITH FAMILY DOCTOR ON Dec AT 2:10PM. FOLLOWUP WITH SURGERY WITHIN A WEEK. FOLLOWUP WITH CARDIOLOGY IN 2 WEEKS FOR STRESS TEST PULMONARY FUNCTION TEST OUT PATIENT PER FAMILY DOCTOR ( FOR EMPHYSEMA). BLOOD PRESSURE AND DIABETES FOLLOWUP WITH FAMILY DOCTOR. TO CHECK BLOOD SUGARS TWICE DAILY BEFORE BREAKFAST AND DINNER AND NOTE IN A LOG BOOK AND TO SHOW FAMILY DOCTOR FOR FURTHER ADJUSTMENTS IN DIABETES MEDICATION. TO CALL FAMILY DOCTOR IF BLOOD SUGARS BELOW 80 OR ABOVE 350. LAB: BMP IN ONE WEEK AND FOLLOW RESULTS WITH FAMILY DOCTOR. Current Hospital Diet Patient's current hospital diet: Diabetes Type 2 Diet Discharge Diet Recommended Diet: Diabetes Type 2 Diet Procedures Procedures Performed: Laparoscopic Cholecystectomy with Cholangiogram Pending Studies Studies pending at discharge: no Laboratory Results Hemoglobin A1c Test 11/27/16 00:25 Range/Units Estimated Average Glucose 295 mg/dl Hemoglobin A1c 11.9 H 4.5-5.6 % Medical Emergencies . Who to Call and When: Medical Emergencies: If at any time you feel your situation is an emergency, please call 911 immediately. . Non-Emergent Contact Non-Emergency issues call your: Primary Care Provider . . "Provider Documentation" section prepared by Yves Ledesma. VTE Core Measure Inpt VTE Proph given/why not?: SCD's
[2016-12-15 10:00] VITALS: Ht 182.9 cm; Wt 88.4 kg
[2016-12-26] MEDS ORDERED: VNTHFA/IN INH (16:59)
[2016-12-26] MEDS ORDERED: ADVIN25/60 INH (16:59)
[2016-12-26] MEDS ORDERED: ATOR-24 PO (16:59)
[2016-12-26] MEDS ORDERED: INSU70IN2 SC (16:59)
[2017-01-26] MEDS ORDERED: CLOP1TAB15 PO (13:23)
[2017-01-26] MEDS ORDERED: ASPEC81 PO (13:23)
== END 2016-12-02 16:45 | disposition home or self-care (01) | DRG 417 ==
LOC: ENRESERVTM → ENRESERVDT → C.EDB 00:12 → C.MED 03:39
PROVIDERS: ADMIT Internal Medicine; ATTEND Internal Medicine
PROC: BF0CYZZ Plain Radiography of Hepatobiliary System, All using Other Contrast (ICD-10-PCS; principal; 2016-11-28 09:15)
PROC: 0FT44ZZ Resection of Gallbladder, Percutaneous Endoscopic Approach (ICD-10-PCS; principal; 2016-11-28 09:15)
DX: K80.12 Calculus of gallbladder with acute and chronic cholecystitis without obstruction (principal); E13.10 Other specified diabetes mellitus with ketoacidosis without coma; K82.1 Hydrops of gallbladder; I16.0 Hypertensive urgency; I10 Essential (primary) hypertension; E78.5 Hyperlipidemia, unspecified; G47.33 Obstructive sleep apnea (adult) (pediatric); F32.9 Major depressive disorder, single episode, unspecified; F41.9 Anxiety disorder, unspecified; I25.9 Chronic ischemic heart disease, unspecified; J44.9 Chronic obstructive pulmonary disease, unspecified; R07.2 Precordial pain; R06.02 Shortness of breath; Z91.49 Other personal history of psychological trauma, not elsewhere classified; Z87.891 Personal history of nicotine dependence; Z90.49 Acquired absence of other specified parts of digestive tract; Z90.89 Acquired absence of other organs; Z98.890 Other specified postprocedural states; Z80.51 Family history of malignant neoplasm of kidney; Z82.49 Family history of ischemic heart disease and other diseases of the circulatory system; Z81.8 Family history of other mental and behavioral disorders; Z79.4 Long term (current) use of insulin; Z79.82 Long term (current) use of aspirin; Z79.84 Long term (current) use of oral hypoglycemic drugs; Z79.899 Other long term (current) drug therapy

== ENCOUNTER 2016-12-26 15:00 | Inpatient (IN) | payer OTHER ==
[~2016-12-26] VITALS: Ht 177.8 cm; Wt 88.0 kg
[~2016-12-26 15:00] MED LIST changes: +AMLO-114 PO; +ASPI81TA28 PO; +ATOR-22 PO; -GLC5500 PO; +GLIP10TA9 PO; +GUAISYP4 PO; +INSU70IN2 SC; +LSN20 PO; +METF1000 PO; +OMEG10007 PO; +TPRSR25 PO; +VTME100 PO; +[UNRECOGNIZED DRUG - CODE] PO
[2016-12-26] MEDS ORDERED: ASPIRIN 81 MG CHEW PO STA (15:16)
--- NOTE | 2016-12-26 15:23 | EMERGENCY ROOM VISIT NOTE ---
History Report prepared by Justin: Paul Araiza Under the Supervision of: Dr. Jaiden Bangura D.O. First contact with patient: 15:13 Chief Complaint: REFERRED BY DOCTOR Stated Complaint: REFERRED BY HEART DOCTOR, ABNORMAL TESTS History of Present Illness The patient is a 61 year old male who presents to the Emergency Room with complaints of recurrent chest tightness since August. The patient also complains of shortness of breath with exertion. He is not currently experiencing chest pain or shortness of breath. The patient was referred to the ED by Dr. Byrd after having a concerning stress test earlier today. The patient was given two doses of Nitroglycerin. The patient came to the ED by private vehicle. He takes baby aspirin daily. The patient has history of hypertension, hyperlipidemia, COPD, and diabetes. He has been complaint with all of his medications. He is s/p cholecystectomy. The patient is a former smoker 10 years ago. Source of History: patient Onset: August Position: chest Quality: other (tightness) Timing: other (recurrent) Associated Symptoms: + SOB Review of Systems See HPI for pertinent positives & negatives. A total of 10 systems reviewed and were otherwise negative. Past Medical & Surgical Medical Problems: (1) COPD (chronic obstructive pulmonary disease) (2) DM type 2 (diabetes mellitus, type 2) (3) Dyslipidemia (4) HTN (hypertension) (5) LATOYA (obstructive sleep apnea) (6) Positive cardiac stress test Surgical Problems: (1) S/P partial colectomy (2) S/P tonsillectomy Family History Patient reports no known family medical history. Social History Smoking Status: Former Smoker Alcohol Use: occasionally Drug Use: none Marital Status: Housing Status: lives with family Occupation Status: employed Current/Historical Medications Scheduled Amlodipine (Norvasc), 10 MG PO DAILY Aspirin (Aspirin Ec), 81 MG PO HS Atorvastatin (Lipitor), 40 MG PO DAILY Cholecalciferol (Vitamin D), 1,000 UNIT PO LUNCH Fish Oil (Walls-3), 1,200 MG PO LUNCH Fluticasone Prop/Salmeterol (Advair Diskus 250/50 60 Dose), 1 PUFF INH BID Glipizide (Glucotrol), 10 MG PO BID Insulin Human Isophan/Regular (Novolin 70/30), 30 UNITS SC BIDM Lisinopril (Lisinopril), 20 MG PO BID Metformin Hcl (Glucophage), 1,000 MG PO BID Metoprolol Succinate (Toprol Xl), 25 MG PO HS Multiple Vitamins W/ Minerals (One Daily Multivitamin Me), 1 TAB PO LUNCH Nitroglycerin (Nitrostat), 0.4 MG UT PRN Tocopheryl Acet,Dl-Alpha (Vitamin E), 1 CAP PO LUNCH Scheduled PRN Albuterol Hfa (Ventolin Hfa), 2 PUFFS INH Q6H PRN for SOB/Wheezing Guaifenesin/Codeine (Robitussin-Ac Syrup), 5 ML PO Q6H PRN for Cough Allergies Coded Allergies: Penicillins (Verified Allergy, Mild, HIVES, 12/26/16) Physical Exam Vital Signs Date Time Temp Pulse Resp B/P Pulse Ox O2 Delivery O2 Flow Rate FiO2 12/26/16 16:00 88 16 149/84 96 Room Air 12/26/16 15:33 97 Room Air 12/26/16 15:33 97 Room Air 12/26/16 15:28 88 12/26/16 15:08 37.0 92 18 140/72 95 Room Air Physical Exam GENERAL: Patient is awake, alert, and in no acute distress. Patient is resting comfortably and showing no signs of anxiety EYES: The conjunctivae are clear. The pupils are round and reactive. EARS, NOSE, MOUTH AND THROAT: The nose is without any evidence of any deformity. Mucous membranes are moist tongue is midline NECK: The neck is nontender and supple. RESPIRATORY: Normal respiratory effort is noted there is no evidence of wheezing rhonchi or rales CARDIOVASCULAR: Regular rate and rhythm noted there no murmurs rubs or gallops normal S1 normal S2 GASTROINTESTINAL: The abdomen is soft. Bowel sounds are present in all quadrants. Abdomen is nontender MUSCULOSKELETAL/EXTREMITIES: There is no evidence of gross deformity full range of motion is noted in the hips and shoulders SKIN: There is no obvious evidence of any rash. There are no petechiae, pallor or cyanosis noted. NEUROLOGIC: Patient is awake alert and oriented x3. Medical Decision & Procedures ER Provider Diagnostic Interpretation: X-ray results as stated below per interpretation by me and the radiologist. CHEST ONE VIEW PORTABLE CLINICAL HISTORY: Atypical chest pain COMPARISON STUDY: 11/27/2016 FINDINGS: The cardiac and mediastinal contours are normal. There is no evidence of focal pulmonary consolidation. There is no evidence of failure. No pleural effusions are visualized.[ There is upper lobe emphysema. IMPRESSION: Emphysema. No active disease in the chest. Electronically signed by: Miguelito Castaneda M.D. 12/26/2016 4:00 PM Dictated Date/Time: 12/26/2016 3:59 PM Laboratory Results Test 12/26/16 15:28 12/26/16 15:38 Prothrombin Time 11.0 SECONDS (9.0-12.0) Prothromb Time International Ratio 1.0 (0.9-1.1) Total Bilirubin 0.2 mg/dl (0.2-1) Direct Bilirubin < 0.1 mg/dl (0-0.2) Aspartate Amino Transf (AST/SGOT) 14 U/L (15-37) Alanine Aminotransferase (ALT/SGPT) 30 U/L (12-78) Alkaline Phosphatase 86 U/L (45-117) Total Protein 8.0 gm/dl (6.4-8.2) Albumin 3.9 gm/dl (3.4-5.0) Lipase 152 U/L (73-393) Bedside Troponin I 0.000 ng/ml (0-0.045) Laboratory results per my review. Medications Administered Medications (Trade) Dose Ordered Sig/Erik Route Start Time Stop Time Status Last Admin Dose Admin Aspirin 324 mg 324 mg NOW STAT PO 12/26/16 15:16 12/26/16 15:17 DC 12/26/16 15:43 324 MG Sodium Chloride 1,000 ml @ 125 mls/hr Q8H STAT IV 12/26/16 16:16 12/26/16 17:21 DC 12/26/16 16:56 125 MLS/HR Heparin Sodium/ Dextrose (Heparin 25,000 Unit/500ml D5W) 500 ml @ 29 mls/hr [id number] PRN IV 12/26/16 16:45 01/25/17 16:44 12/26/16 17:02 29 MLS/HR ECG Indication: chest pain Rate (beats per minute): 92 Findings: no acute ischemic change, no ectopy Comparison ECG Date: 29 Nov 2015 Change: no significant change ED Course 1514: The patient was evaluated in room C11a. A complete history and physical examination were performed. 1516: Aspirin 325 mg PO. 1525: Spoke with Dr. Cheng, Dietitian The[facility]. He recommends heparinization and admittance to the hospital. 1616: NSS 1000 ml @ 125 mls/hr. 1645: Heparin Sodium 500 ml @ 29 mls/hr. 1700: Heparin Sodium 6000 unit IV. 181: [facility] The [facility] will be evaluated. Medical Decision Prior records/ancillary studies reviewed. Triage Nursing notes reviewed. The patient's history was concerning for chest pain. Differential diagnosis: Etiologies such as cardiac ischemia, aortic dissection, pulmonary embolism, pneumonia, pneumothorax, musculoskeletal, infections, pericarditis, myocarditis , esophageal rupture, gastrointestinal, as well as others were entertained. The patient is a 61-year-old male who presented to the emergency department for an evaluation of chest pain. The patient was sent directly from stress test to the emergency department for a grossly abnormal stress test. He was found have hypokinesis as well as ST abnormalities on stress test was felt to be consistent with ischemia. At this time his EKG does not show any acute abnormalities and he is pain-free. He was given aspirin and heparin in the emergency department. I discussed his case with the [facility] gate keeper as well as the on-call [facility] hospitalist. They've agreed to evaluate the patient for further management and disposition. I discussed the patient's laboratory and radiographic studies with him. Likely he will require a cardiac catheterization to further evaluate the symptoms as well as the abnormalities noted on stress testing. Consults Time Called: 1519 Consulting Physician: Dr. Cheng [facility]. Returned Call: 1524 152: Spoke with Dr. Cheng [facility]. He recommends heparinization and admittance to the hospital. Additional Consults: Time Called: 1814 [facility]ed [facility] Returned Call: 1817 Additional Comments: 1817: Spoke with Dustin Lane. The patient will be evaluated. Impression Primary Impression: Left sided chest pain Additional Impression: Abnormal stress test Scribe Attestation The scribe's documentation has been prepared under my direction and personally reviewed by me in its entirety. I confirm that the note above accurately reflects all work, treatment, procedures, and medical decision making performed by me. Departure Information Dispostion Being Evaluated By Hospitalist Prescriptions Atorvastatin (Lipitor) 40 Mg Tab 40 MG PO DAILY, #30 TAB Prov: Yves Ledesma MD 12/26/16 Fluticasone Prop/Salmeterol (Advair Diskus 250/50 60 Dose) 1 Ea Aerp 1 PUFF INH BID, #1 INHALER Prov: Yves Ledesma MD 12/26/16 Albuterol Hfa (VENTOLIN HFA) 200 Puffs/35840 Mcg Aers 2 PUFFS INH Q6H Y for SOB/Wheezing, #1 INHALER Prov: Yves Ledesma MD 12/26/16 Insulin Human Isophan/Regular (Novolin 70/30) Inj 30 UNITS SC BIDM for 30 Days, 2 Refills Prov: Yves Ledesma MD 12/26/16 Referrals Dennis Dawson D.OLitzy (PCP) Patient Instructions My [facility] Problem Qualifiers
[2016-12-26 15:44] LABS: BASO % 0.4 %; BASO ABS # 0.03 K/uL (0-0.2); COMPLETE YES; EOS % 6.3 %; IG% 0.2 %; LYMPH % 28.9 %; MEAN CELL VOLUME 85.5 fL (80-100); MEAN CORPUSCULAR HEMOGLOBIN 28.6 pg (25-34); MEAN CORPUSCULAR HGB CONC 33.5 g/dl (32-36); MONO % 5.3 %; NEUT % 58.9 %; PLATELET COUNT 202 K/uL (130-400); RED BLOOD COUNT 4.33 M/uL (4.7-6.1)
[2016-12-26 16:02] LABS: ALT/SGPT 30 U/L (12-78); AST/SGOT 14 U/L (15-37); BLOOD UREA NITROGEN 20 mg/dl (7-18); BUN/CREATININE RATIO 22.7 (10-20); CALCIUM 9.1 mg/dl (8.5-10.1); CARBON DIOXIDE 24 mmol/L (21-32); CHLORIDE 105 mmol/L (98-107); GLUCOSE 140 mg/dl (70-99); SODIUM 141 mmol/L (136-145)
--- NOTE | 2016-12-26 16:02 | DIAGNOSTIC IMAGING REPORT ---
CHEST ONE VIEW PORTABLE CLINICAL HISTORY: Atypical chest pain COMPARISON STUDY: 11/27/2016 FINDINGS: The cardiac and mediastinal contours are normal. There is no evidence of focal pulmonary consolidation. There is no evidence of failure. No pleural effusions are visualized.[ There is upper lobe emphysema. IMPRESSION: Emphysema. No active disease in the chest. Electronically signed by: Miguelito Castaneda M.D. 12/26/2016 4:00 PM Dictated Date/Time: 12/26/2016 3:59 PM
[2016-12-26 16:07] LABS: ALKALINE PHOSPHATASE 86 U/L (45-117); CKMB/CK RATIO 1.5 (0-3.0)
[2016-12-26] MEDS ORDERED: SODIUM CHLORIDE 0.9% 1000ML 1,000 ML IV STA (16:16)
[2016-12-26] MEDS ORDERED: CHOL100010 PO (16:42)
[2016-12-26] MEDS ORDERED: METO25TA3 PO (16:42)
[2016-12-26] MEDS ORDERED: NTRGSL/4 UT (16:43)
[2016-12-26] MEDS ORDERED: ATOR-24 PO (16:59)
[2016-12-26] MEDS ORDERED: ADVIN25/60 INH (16:59)
[2016-12-26] MEDS ORDERED: INSU70IN2 SC (16:59)
[2016-12-26] MEDS ORDERED: VNTHFA/IN INH (16:59)
[2016-12-26] MEDS ORDERED: NITROGLYCERIN 0.4 MG SL PER TAB CHARGE UT SCH (17:00)
[2016-12-26] MEDS ORDERED: ONDANSETRON INJ 2 MG/ML 2 ML VIAL IV PRN (17:00)
[2016-12-26] MEDS ORDERED: MoRPHine SULFATE 2 MG/ML CARP IV PRN (17:00)
[2016-12-26] MEDS ORDERED: HEPARIN SOD 5000 UNIT/0.5 ML CARP IV ONE (17:00)
[2016-12-26] MEDS ORDERED: ACETAMINOPHEN 325 MG TAB PO PRN (17:00)
[2016-12-26] MEDS ORDERED: NITROGLYCERIN 0.4 MG SL PER TAB CHARGE SL PRN (17:00)
[2016-12-26] MEDS ORDERED: ALUMINUM/MAGNESIUM/SIMETH (MAALOX MAX) 30 ML UDC PO PRN (17:00)
[2016-12-26] MEDS ORDERED: ALBUTEROL HFA 8 GM INHALER INH PRN (17:00)
[2016-12-26] MEDS: HEPARIN 25,000 UNIT/500ML D5W 500 ML IV PRN (17:02)
[2016-12-26] MEDS ORDERED: PHARMACY GLYCEMIC MGMT CONSULT PRN (17:10)
[2016-12-26] MEDS: SODIUM CHLORIDE 0.9% 1000ML 1,000 ML IV SCH (17:15)
[2016-12-26] MEDS ORDERED: INSULIN HUMAN 70% NPH/30% REGULAR SC SCH (18:00)
--- NOTE | 2016-12-26 18:17 | HISTORY & PHYSICAL EXAMINATION ---
DATE OF ADMISSION: 12/26/2016 CHIEF COMPLAINT: Positive stress test. HISTORY OF PRESENT ILLNESS: This is a 61-year-old male with past medical history significant for diabetes, hypertension, hyperlipidemia, COPD, obstructive sleep apnea, tobacco use/disorder, recently had a cholecystectomy, was scheduled for outpatient stress test which was done today and was positive. The patient was having exertional chest pain and shortness of breath for about a year.Climbing steps or walking up hill making him short of breath and was having chest pains. Recently was admitted for cholecystitis, cardiology was consulted and they planned for outpatient stress test which was done today which came back positive and was sent to the ER for admission and plan for cardiac cath. The patient says about 3 minutes into this stress test he had chest pain about 3/10 in severity but that got subsided with nitro. Currently, resting comfortably and denies any chest pain. Currently denies any shortness of breath or cough. No headaches, no blurred vision, no dizziness, no nausea, no vomiting. Appetite is okay. Normal bowel and bladder movements. He says his blood pressure is better controlled now since discharged last admission after adjusting his BP meds and sugars are running okay at home. ALLERGIES: PENICILLIN. PAST MEDICAL HISTORY: As mentioned above. PAST SURGICAL HISTORY: Rectal abscess drainage, tonsillectomy and cholecystectomy. MEDICATIONS: The patient is currently on Lipitor 40 mg p.o. daily, nitroglycerin 0.4 mg sublingual p.r.n., Toprol-XL 25 mg p.o. daily, Novolin 70/30, 30 units b.i.d., Norvasc 10 mg p.o. daily, metformin 1000 mg p.o. b.i.d., Glipizide 10 mg p.o. b.i.d., lisinopril 20 mg p.o. b.i.d., albuterol 2 puffs every 6 hours p.r.n., Advair Diskus 250/50 one puff inhalation b.i.d., aspirin 81 mg p.o. daily, multivitamin 1 tablet p.o. daily, [place]-3 fatty acids 1000 mg p.o. daily, vitamin D 1000 mg p.o. daily. FAMILY HISTORY: Significant for father had CA at age 62. Mother has diabetes. Brother has Parkinson's disease. Sister has CA at the age of 58. Daughter has asthma and son has asthma. Mother of stomach cancer. SOCIAL HISTORY: Former smoker, quit in 2006. Prior to that smoked 3 packs a day for 37 years. No alcohol use. No drug use. . REVIEW OF SYSTEMS: As per HPI. Rest of review of symptoms negative. PHYSICAL EXAMINATION: GENERAL: The patient is of moderate build, not in distress. VITAL SIGNS: Temperature 37, pulse 80 beats per minute, respiratory rate 16, blood pressure 149/84, oxygen 96% room air. HEENT: No pallor, no icterus. Pupils equal, round, and reactive to light. NECK: No JVD, no neck masses, no carotid bruits. CARDIOVASCULAR: S1, S2 heard, regular rate and rhythm, no murmur, no gallop. RESPIRATORY SYSTEM: Normal AP diameter. No accessory muscle use. No wheezing, no crackles. ABDOMEN: Soft, bowel sounds present. Nontender. No distention. CENTRAL NERVOUS SYSTEM: Cranial nerves II through XII grossly intact. Nonfocal. EXTREMITIES: No edema, no erythema. LABORATORIES: Sodium 141, potassium 4, chloride 105, bicarbonate 24, BUN 20, creatinine 0.9, serum glucose 140, calcium 9.1, total bilirubin 0.2, direct bilirubin less than 0.1, AST 14, ALT 13, alkaline phosphatase 86, total creatine kinase 94, point of care troponin 0.00. Lipase 152. WBC 8.3, hemoglobin 12.4, hematocrit 37, platelets 202. Chest x-ray: No acute process seen. EKG shows normal sinus rhythm [address] changes seen. ASSESSMENT AND PLAN: This is a 61-year-old male who presents with positive stress test. 1. Chest pain, positive stress test, the patient had chest pain for about a year now on exertion and patient underwent a stress test today as an outpatient and found to have positive test with inducible anterior apical hypokinesis along with hypertensive response with supraventricular tachycardia and chest pain was reproduced with exercise and also greater than [address] depressions inferior and lateral leads. The patient is currently chest pain free after 2 nitro's, resting comfortably, hemodynamically stable. going to start him on IV heparin, continue his home medications of Lipitor, aspirin, Toprol-XL and monitor in the tele floor. NPO after midnight. Plan for cardiac cath as per cardiology. Cardiology consulted and notified. 2. History of diabetes. Hold his oral p.o. medication of glipizide and metformin and continue his Novolin 70/30 insulin sliding scale and follow his blood sugars. HbA1c was 11.9 last admission. We will consult pharmacy for further management and follow his blood sugars. 3. History of chronic obstructive pulmonary disease. Continue his home inhalers, Advair and albuterol, currently stable. 4. History of obstructive sleep apnea. Continue CPAP. 5. History of hypertension. Continue his Toprol-XL, amlodipine and lisinopril. We will monitor blood pressure. Place him on IV Lopressor p.r.n. 6. Hyperlipidemia. Continue statin. Check fasting lipid profile. 7. Deep venous thrombosis prophylaxis, sequential compression devices, and the patient will be on IV heparin. 8. Disposition: Admit to tele floor, await cardiac cath. PT and OT prior to discharge. NILS
[2016-12-26 19:47] LABS: PARTIAL THROMBOPLASTIN RATIO 0.9
[2016-12-26 20:00] VITALS: BP 185/94; PULSE 78; TEMP 37; O2SAT 96; Ht 177.8 cm; Wt 88.0 kg
[2016-12-26] MEDS: INSULIN ASPART 100 UNITS/ML 3 ML PEN SC SCH ×2 (20:36→21:31)
--- NOTE | 2016-12-26 20:41 | Pharmacy Progress Note ---
Glycemic Control Intl Consult Date of Service Dec 26, 2016. Scope Glycemic Pharmacist consulted by Dr Ledesma on 12/26/16 for glycemic control and to write orders per [facility] inpatient glycemic control protocol Objective Weight (Kilograms): 91.900 Accuchecks BSG (last 24hrs): Test 12/26/16 15:28 12/26/16 19:49 Random Glucose 140 mg/dl (70-99) Bedside Glucose 116 mg/dl (70-99) Laboratory Data (last 24hrs) Test 12/26/16 15:28 Anion Gap 12.0 mmol/L BUN/Creatinine Ratio 22.7 Blood Urea Nitrogen 20 mg/dl Creatinine 0.90 mg/dl Potassium Level 4.0 mmol/L Sodium Level 141 mmol/L White Blood Count 8.30 K/uL Red Blood Count 4.33 M/uL Hemoglobin 12.4 g/dL Hematocrit 37.0 % Mean Corpuscular Volume 85.5 fL Mean Corpuscular Hemoglobin 28.6 pg Mean Corpuscular Hemoglobin Concent 33.5 g/dl Platelet Count 202 K/uL Mean Platelet Volume 10.0 fL Neutrophils (%) (Auto) 58.9 % Lymphocytes (%) (Auto) 28.9 % Monocytes (%) (Auto) 5.3 % Eosinophils (%) (Auto) 6.3 % Basophils (%) (Auto) 0.4 % Neutrophils # (Auto) 4.89 K/uL Lymphocytes # (Auto) 2.40 K/uL Monocytes # (Auto) 0.44 K/uL Eosinophils # (Auto) 0.52 K/uL Basophils # (Auto) 0.03 K/uL HbA1c Item Value Date Time Estimated Average Glucose 295 mg/dl 11/27/16 0025 Hemoglobin A1c 11.9 % H 11/27/16 0025 Recent Pertinent Medications Outpatient Anti-diabetic Regimen: * Novolin 70/30 30 units BIDM * Metformin 1 g PO BIDM * A1c = 11.9 % 11/27/16 Risk Factors for Insulin Resistance: * IVF * Diet Assessment & Plan ASSESSMENT: * 61 yo M admitted with positive stress test/chest pain * Pt is on Novolin 70/30 30 u BIDM + oral agents as an outpatient * This dosing may need updated as patient states he took 35 units EXECUTIVE COORDINATOR at 0800 this AM * Most recent A1c indicative of poor glycemic control * This was found on previous admission and since then changes have been made * During last admission CDE noted that patient was trying to eat better and felt with new insulin changes his BSGs had been better controlled * BSG on admission 140 mg/dL, and re-check tonight AFTER patient ate dinner with no coverage was 116 mg/dL * I do not want to be overly aggressive as patient is to have cardiac cath in the AM * Give stress of 1 Lantus if BSG <140 mg/dL, give stress of 2 Lantus if BSG > 140 mg/dL * Initiate weight-based Novolog (stress of 2) and reassess in the AM * ADA & AACE recommend a goal blood sugar range 140-180 mg/dl for the majority of critically ill & non-critically ill patients. However, more stringent targets may be selected in individual cases. PLAN FOR INPATIENT GLYCEMIC CONTROL: * Holding outpatient oral diabetes medications * Basal insulin with LANTUS 8 units if BSG <140 mg/dL and 16 units if BSG >140 mg/dL * Correctional Insulin with NOVOLOG per scale ACHS or Q6hrs while NPO * Goal Range: Low 110 mg/dL - High 140 mg/dL * Correction Factor: 25 mg/dL/unit * Nutritional / Prandial insulin per carb ratio of 1 unit per 8 grams CHO consumed * A1c with 90 days from prior admission- will add to D/C instructions * Please note that the plan above was derived based on current level of insulin resistance and hospital stress. These recommendations are appropriate for inpatient admission only. Plan of care upon discharge will need to be reassessed to avoid potential outpatient hypo/hyperglycemia. Thank you.
[2016-12-26] MEDS: FLUTICASONE/SALMETEROL 250/50 (ADVAIR) 14 PUFF/1 INHALER INH SCH (20:45)
[2016-12-26] MEDS: INSULIN GLARGINE SOLOSTAR 100 UNITS/ML 3 ML PEN SC SCH (20:50)
[2016-12-26] MEDS ORDERED: NURSING DECISION MEDICATION ORDER SCH (21:00)
[2016-12-26] MEDS: METOPROLOL SUCC 25MG EXT REL TAB PO SCH (21:30)
[2016-12-26] MEDS: LISINOPRIL 20 MG TAB PO SCH (21:31)
[2016-12-26 22:55] VITALS: PULSE 77; O2SAT 97
[2016-12-26 23:45] LABS: PARTIAL THROMBOPLASTIN RATIO 2.1
[2016-12-27] VITALS (10 sets, daily range): BP systolic 122–163; BP diastolic 72–86; PULSE 73–80; TEMP 36.4–36.8; O2SAT 93–97
[2016-12-27 01:04] LABS: CKMB/CK RATIO 1.2 (0-3.0)
[2016-12-27 06:30] LABS: BASO % 0.5 %; BASO ABS # 0.04 K/uL (0-0.2); COMPLETE YES; EOS % 6.9 %; HEMATOCRIT 34.1 % (42-52); IG% 0.1 %; LYMPH % 35.9 %; LYMPH ABS # 2.77 K/uL (1.2-3.4); MEAN CORPUSCULAR HEMOGLOBIN 28.7 pg (25-34); MEAN CORPUSCULAR HGB CONC 33.7 g/dl (32-36); MEAN PLATELET VOLUME 10.4 fL (7.4-10.4); MONO % 5.4 %; NEUT % 51.2 %; PLATELET COUNT 177 K/uL (130-400); RED BLOOD COUNT 4.01 M/uL (4.7-6.1); WHITE BLOOD COUNT 7.71 K/uL (4.8-10.8)
[2016-12-27 06:48] LABS: CALCIUM 8.5 mg/dl (8.5-10.1); CREATININE 0.67 mg/dl (0.60-1.40); MAGNESIUM 1.2 mg/dl (1.8-2.4); POTASSIUM 3.9 mmol/L (3.5-5.1)
[2016-12-27 06:51] LABS: CHOLESTEROL/HDL RATIO 3.4
[2016-12-27] MEDS: INSULIN GLARGINE SOLOSTAR 100 UNITS/ML 3 ML PEN SC SCH ×2 (09:00→21:08)
[2016-12-27] MEDS ORDERED: ATORVASTATIN 20 MG TAB PO SCH (09:00)
[2016-12-27 09:33] LABS: CKMB/CK RATIO 1.2 (0-3.0)
[2016-12-27] MEDS: HEPARIN 25,000 UNIT/500ML D5W 500 ML IV PRN (09:47)
[2016-12-27] MEDS: AMLODIPINE BESYLATE 5 MG TAB PO SCH (10:15)
[2016-12-27] MEDS: CEROVITE ADV FORMULA TAB PO SCH (10:15)
[2016-12-27] MEDS: FLUTICASONE/SALMETEROL 250/50 (ADVAIR) 14 PUFF/1 INHALER INH SCH ×2 (10:15→20:56)
[2016-12-27] MEDS: CHOLECALCIFEROL 1000 INTER.UNIT TAB PO SCH (10:16)
[2016-12-27] MEDS: ASPIRIN 81 MG ECTAB PO SCH ×2 (10:16→20:57)
[2016-12-27] MEDS: LISINOPRIL 20 MG TAB PO SCH ×2 (10:16→20:58)
--- NOTE | 2016-12-27 10:26 | CARDIOLOGY CONSULTATION ---
DATE OF CONSULTATION: 12/27/2016 REFERRING PHYSICIAN: Dr. Dian Davila. REASON FOR CONSULTATION: Chest pain and abnormal stress test. HISTORY OF PRESENT ILLNESS: Mr. Mares is a 61-year-old gentleman who is known to the [facility]. He initially presented approximately 1 month ago with acute cholecystitis. I saw him for preoperative risk stratification. The patient underwent cholecystectomy without complication. Due his symptoms of dyspnea on exertion and exertional chest pain, an exercise stress echo was performed yesterday. This stress test was abnormal, suggesting left anterior descending territory ischemia after only 3 minutes and 43 seconds of exercise. Significant [address] depressions noted. The discomfort resolved with sublingual nitroglycerin. The patient was sent to the Emergency Department and admitted for observation. He has been chest pain free overnight. Notes mild heartburn. Initial troponins are negative. ECG performed this a.m. within normal limits without significant ST changes. He is resting comfortably at this time. No orthopnea, PND, or lower extremity edema. He offers no other complaints at this time. REVIEW OF SYSTEMS: The pertinent positives are noted above. A comprehensive 10-system review is otherwise negative. PAST MEDICAL HISTORY: 1. Diabetes type 2. 2. Moderate COPD. 3. Tobacco abuse. 4. Anorectal abscess. 5. Hypertension. 6. Dyslipidemia. 7. Obstructive sleep apnea. PAST SURGICAL HISTORY: 1. Cholecystectomy. 2. Abscess drainage. 3. Tonsillectomy. ALLERGIES: LISTED TO PENICILLIN. OUTPATIENT MEDICATIONS: 1. Atorvastatin 40 mg. 2. Sublingual nitroglycerin as needed. 3. Toprol-XL 25 mg daily. 4. Novolin insulin twice daily. 5. Amlodipine 10 mg daily. 6. Metformin 1000 mg twice daily. 7. Glucotrol 10 mg twice daily. 8. Lisinopril 20 mg. 9. ProAir inhaler 2 puffs every 6 hours as needed. 10. Advair Diskus 250/50 two times a day. 11. Aspirin 81 mg daily. 12. Multivitamin daily. 13. [place] 3 fatty acid daily. 14. Vitamin D daily. LABORATORY DATA: Sodium 140, potassium 3.9, chloride 105, CO2 of 22, BUN is 16, and creatinine 0.67. White blood cell count 7.71, hemoglobin is 11.5, and platelet count is 177. PTT 52. Chest x-ray on admission, emphysema, no active disease. PHYSICAL EXAMINATION: VITAL SIGNS: Temperature is 36.8 degrees centigrade, pulse 76 beats per minute and regular, respiratory rate is 20 breaths per minute, and blood pressure 154/81. SaO2 is 96% on room air. TELEMETRY: Demonstrates sinus rhythm. GENERAL: NAD, awake, alert and oriented x3. HEENT: His mucous membranes are moist. No scleral icterus. Conjunctivae pink. NECK: Supple without JVD or HJR. No carotid bruit. HEART: Regular with a normal S1 and S2. There is no murmur, rub, or gallop. LUNGS: Clear without rales, rhonchi or wheeze. ABDOMEN: Soft and nontender. There is no rebound or guarding. Normal bowel sounds. EXTREMITIES: Warm and dry. There is no clubbing, cyanosis, or edema. NEUROLOGIC: Demonstrates no focal deficit. FINAL IMPRESSION: 1. Exertional angina with abnormal exercise stress echocardiography, suggesting left anterior descending territory ischemia, low level exercise. The patient is currently pain free. 2. Brief episode of reported paroxysmal atrial fibrillation during exercise. No recurrence during hospitalization thus far. 3. Preserved left ventricular systolic function. 4. No significant valvular disease. 5. Dyslipidemia. 6. Diabetes. 7. Tobacco abuse with moderate chronic obstructive pulmonary disease. PLAN AND RECOMMENDATIONS: The risks, benefits, and alternatives to cardiac catheterization with coronary angiography were discussed at length. The patient is agreeable to the procedure and percutaneous intervention at [facility] if indicated. He is a drug-eluting stent candidate. An intravenous heparin infusion will be continued at this time. We will monitor for any further recurrence of atrial fibrillation. He will be made n.p.o. except for medications after midnight with plans for procedure in the a.m. The patient is agreeable.
[2016-12-27] MEDS: INSULIN ASPART 100 UNITS/ML 3 ML PEN SC SCH ×4 (10:30→21:07)
--- NOTE | 2016-12-27 10:37 | Progress Note ---
Internal Med Progress Note Date of Service: Dec 27, 2016. Provider Documentation: SUBJECTIVE: Patient denies any chest pain, SOB, fever, chills, cough, leg swelling, nausea, vomiting, diaphoresis, palpitations Tele- no events OBJECTIVE: Vital Signs-as noted below Exam: General-AAOX3, no distress Neck-Supple, No JVD Lungs-AEBE, no wheezing, crackles Heart-S1, S2 normal, no murmurs Abdomen-Soft, non tender, non distended, BS present Extremities-No edema Lab data as noted below. ASSESSMENT & PLAN: ASSESSMENT AND PLAN: This is a 61-year-old male who presents with positive stress test. CHEST PAIN WITH POSITIVE STRESS TEST Patient has had symptoms of chest pain for about 1 year- mainly on exertion , underwent a stress test yesterday as an outpatient which showed inducible anterior apical hypokinesis alone with hypertensive response with SVT and chest pain reproduced with exercise and greater than [address] depressions in Inferolateral leads. Currently chest pain free -For cardiac cath in AM -Continue with IV heparin, Toprol XL, Lipitor, Aspirin, Lisinopril -Work up- Troponin x 3 negative; LDL within goal -Monitor on telemetry -Cardiology on board- Discussed with Dr Vieyra SEVERE HYPOMAGNESEMIA -Unclear etiology. -Will give 3 gram IV Mg and repeat it at 1600 -Monitor closely HX OF DM-2 -Hold PO meds -HBA1C 11.9 last admission -ISS, Accuchecks, Pharmacy consult -Life style modification advise given HX OF COPD Quit smoking 10 years ago -No signs of exacerbation -Continue with Advair, Albuterol PRN LATOYA -Continue with CPAP HYPERTENSION -Continue with toprol xl, amlodipine, lisinopril -Monitor HYPERLIPIDEMIA -Continue with statin. Lipid profile- within goals DVT PROPHYLAXIS IV heparin DISPOSITION Tele monitoring For cardiac cath in AM Vital Signs: Date Time Temp Pulse Resp B/P Pulse Ox O2 Delivery O2 Flow Rate FiO2 12/27/16 07:30 36.8 76 20 154/81 96 Room Air 12/27/16 04:00 CPAP 2.0 12/27/16 04:00 36.5 73 16 122/86 97 CPAP 2.0 12/27/16 03:22 75 12/27/16 00:00 36.5 74 18 130/74 96 CPAP 2.0 12/27/16 00:00 96 CPAP 2.0 12/26/16 23:50 75 12/26/16 22:55 77 97 2.0 12/26/16 20:00 37.0 78 16 185/94 96 Nasal Cannula 2.0 12/26/16 19:05 88 12/26/16 19:00 78 16 185/94 96 Nasal Cannula 2.0 12/26/16 17:30 77 20 150/78 97 Room Air 12/26/16 17:00 77 18 146/79 98 Nasal Cannula 2.0 12/26/16 16:00 88 16 149/84 96 Room Air 12/26/16 15:33 97 Room Air 12/26/16 15:33 97 Room Air 12/26/16 15:28 88 12/26/16 15:08 37.0 92 18 140/72 95 Room Air Lab Results: Results Past 24 Hours Test 12/26/16 15:28 12/26/16 15:38 12/26/16 19:49 12/26/16 22:56 Range/Units White Blood Count 8.30 4.8-10.8 K/uL Red Blood Count 4.33 4.7-6.1 M/uL Hemoglobin 12.4 14.0-18.0 g/dL Hematocrit 37.0 42-52 % Mean Corpuscular Volume 85.5 80-100 fL Mean Corpuscular Hemoglobin 28.6 25-34 pg Mean Corpuscular Hemoglobin Concent 33.5 32-36 g/dl Platelet Count 202 130-400 K/uL Mean Platelet Volume 10.0 7.4-10.4 fL Neutrophils (%) (Auto) 58.9 % Lymphocytes (%) (Auto) 28.9 % Monocytes (%) (Auto) 5.3 % Eosinophils (%) (Auto) 6.3 % Basophils (%) (Auto) 0.4 % Neutrophils # (Auto) 4.89 1.4-6.5 K/uL Lymphocytes # (Auto) 2.40 1.2-3.4 K/uL Monocytes # (Auto) 0.44 0.11-0.59 K/uL Eosinophils # (Auto) 0.52 0-0.5 K/uL Basophils # (Auto) 0.03 0-0.2 K/uL RDW Standard Deviation 44.2 36.4-46.3 fL RDW Coefficient of Variation 14.2 11.5-14.5 % Immature Granulocyte % (Auto) 0.2 % Immature Granulocyte # (Auto) 0.02 0.00-0.02 K/uL Prothrombin Time 11.0 9.0-12.0 SECONDS Prothromb Time International Ratio 1.0 0.9-1.1 Activated Partial Thromboplast Time 24.6 55.5 21.0-31.0 SECONDS Partial Thromboplastin Ratio 0.9 2.1 Sodium Level 141 136-145 mmol/L Potassium Level 4.0 3.5-5.1 mmol/L Chloride Level 105 98-107 mmol/L Carbon Dioxide Level 24 21-32 mmol/L Anion Gap 12.0 3-11 mmol/L Blood Urea Nitrogen 20 7-18 mg/dl Creatinine 0.90 0.60-1.40 mg/dl Est Creatinine Clear Calc Drug Dose 100.7 ml/min Estimated GFR () 108.0 Estimated GFR (Non- 93.2 BUN/Creatinine Ratio 22.7 10-20 Random Glucose 140 70-99 mg/dl Calcium Level 9.1 8.5-10.1 mg/dl Total Bilirubin 0.2 0.2-1 mg/dl Direct Bilirubin < 0.1 0-0.2 mg/dl Aspartate Amino Transf (AST/SGOT) 14 15-37 U/L Alanine Aminotransferase (ALT/SGPT) 30 12-78 U/L Alkaline Phosphatase 86 45-117 U/L Total Creatine Kinase 94 39-308 U/L Creatine Kinase MB 1.4 0.5-3.6 ng/ml Creatine Kinase MB Ratio 1.5 0-3.0 Total Protein 8.0 6.4-8.2 gm/dl Albumin 3.9 3.4-5.0 gm/dl Lipase 152 73-393 U/L Bedside Troponin I 0.000 0-0.045 ng/ml Bedside Glucose 116 70-99 mg/dl Test 12/27/16 00:25 12/27/16 05:45 12/27/16 07:23 12/27/16 08:53 Range/Units Total Creatine Kinase 74 75 39-308 U/L Creatine Kinase MB 0.9 0.9 0.5-3.6 ng/ml Creatine Kinase MB Ratio 1.2 1.2 0-3.0 Troponin I < 0.015 < 0.015 0-0.045 ng/ml White Blood Count 7.71 4.8-10.8 K/uL Red Blood Count 4.01 4.7-6.1 M/uL Hemoglobin 11.5 14.0-18.0 g/dL Hematocrit 34.1 42-52 % Mean Corpuscular Volume 85.0 80-100 fL Mean Corpuscular Hemoglobin 28.7 25-34 pg Mean Corpuscular Hemoglobin Concent 33.7 32-36 g/dl Platelet Count 177 130-400 K/uL Mean Platelet Volume 10.4 7.4-10.4 fL Neutrophils (%) (Auto) 51.2 % Lymphocytes (%) (Auto) 35.9 % Monocytes (%) (Auto) 5.4 % Eosinophils (%) (Auto) 6.9 % Basophils (%) (Auto) 0.5 % Neutrophils # (Auto) 3.94 1.4-6.5 K/uL Lymphocytes # (Auto) 2.77 1.2-3.4 K/uL Monocytes # (Auto) 0.42 0.11-0.59 K/uL Eosinophils # (Auto) 0.53 0-0.5 K/uL Basophils # (Auto) 0.04 0-0.2 K/uL RDW Standard Deviation 44.0 36.4-46.3 fL RDW Coefficient of Variation 14.2 11.5-14.5 % Immature Granulocyte % (Auto) 0.1 % Immature Granulocyte # (Auto) 0.01 0.00-0.02 K/uL Activated Partial Thromboplast Time 52.0 21.0-31.0 SECONDS Partial Thromboplastin Ratio 2.0 Sodium Level 140 136-145 mmol/L Potassium Level 3.9 3.5-5.1 mmol/L Chloride Level 105 98-107 mmol/L Carbon Dioxide Level 22 21-32 mmol/L Anion Gap 13.0 3-11 mmol/L Blood Urea Nitrogen 16 7-18 mg/dl Creatinine 0.67 0.60-1.40 mg/dl Est Creatinine Clear Calc Drug Dose 132.8 ml/min Estimated GFR () 121.9 Estimated GFR (Non- 105.2 BUN/Creatinine Ratio 24.0 10-20 Random Glucose 223 70-99 mg/dl Calcium Level 8.5 8.5-10.1 mg/dl Magnesium Level 1.2 1.8-2.4 mg/dl Triglycerides Level 81 0-150 mg/dl Cholesterol Level 106 0-200 mg/dl HDL Cholesterol 31 mg/dl LDL Cholesterol, Calculated 59 mg/dl VLDL Cholesterol, Calculated 16 mg/dl Cholesterol/HDL Ratio 3.4 Bedside Glucose 233 70-99 mg/dl
--- NOTE | 2016-12-27 11:07 | Pharmacy Progress Note ---
Glycemic Control: Progress Nt Date of Service Dec 27, 2016. Scope Glycemic Pharmacist consulted for glycemic control and to write orders per [facility] inpatient glycemic control protocol. Objective Accuchecks BSG (last 24hrs): Test 12/26/16 15:28 12/26/16 19:49 12/27/16 05:45 12/27/16 07:23 Random Glucose 140 mg/dl (70-99) 223 mg/dl (70-99) Bedside Glucose 116 mg/dl (70-99) 233 mg/dl (70-99) Laboratory Data (last 24hrs) Test 12/26/16 15:28 12/27/16 05:45 Anion Gap 12.0 mmol/L 13.0 mmol/L BUN/Creatinine Ratio 22.7 24.0 Blood Urea Nitrogen 20 mg/dl 16 mg/dl Creatinine 0.90 mg/dl 0.67 mg/dl Potassium Level 4.0 mmol/L 3.9 mmol/L Sodium Level 141 mmol/L 140 mmol/L White Blood Count 8.30 K/uL 7.71 K/uL Red Blood Count 4.33 M/uL 4.01 M/uL Hemoglobin 12.4 g/dL 11.5 g/dL Hematocrit 37.0 % 34.1 % Mean Corpuscular Volume 85.5 fL 85.0 fL Mean Corpuscular Hemoglobin 28.6 pg 28.7 pg Mean Corpuscular Hemoglobin Concent 33.5 g/dl 33.7 g/dl Platelet Count 202 K/uL 177 K/uL Mean Platelet Volume 10.0 fL 10.4 fL Neutrophils (%) (Auto) 58.9 % 51.2 % Lymphocytes (%) (Auto) 28.9 % 35.9 % Monocytes (%) (Auto) 5.3 % 5.4 % Eosinophils (%) (Auto) 6.3 % 6.9 % Basophils (%) (Auto) 0.4 % 0.5 % Neutrophils # (Auto) 4.89 K/uL 3.94 K/uL Lymphocytes # (Auto) 2.40 K/uL 2.77 K/uL Monocytes # (Auto) 0.44 K/uL 0.42 K/uL Eosinophils # (Auto) 0.52 K/uL 0.53 K/uL Basophils # (Auto) 0.03 K/uL 0.04 K/uL Recent Pertinent Medications Outpatient Anti-diabetic Regimen: * Novolin 70/30 30 units BIDM * Metformin 1 g PO BIDM * A1c = 11.9 % 11/27/16 The patient is currently receiving: * Basal insulin: Lantus every 12 hours - dose based on BSG * IF BSG 140mg/dl or below --> Give 8 units * IF BSG 141mg/dl or above --> Give 16 units * Correctional Insulin: Novolog Correction per scale ACHS Goal Range: Low 110 mg/dL - High 140 mg/dL Correction Factor: 25 mg/dL/unit * Prandial insulin: Per carb ratio of 1 unit per 8 grams CHO consumed * Oral Agents: on Hold for admission Assessment & Plan ASSESSMENT: * 61yo T2DM male with poorly controlled diabetes per recent A1c of 11.9% on 11/27 * This was found on previous admission and since then changes have been made * During last admission CDE noted that patient was trying to eat better and felt with new insulin changes his BSGs had been better controlled * Pt is maintained on pre-mixed insulin (basal + prandial) as an outpatient --> will hold this and use SQ basal bolus insulin regimen for easier control/ titration for inpatient use. * Conservative weight/stress based dosing was started on admission for Lantus & NovoLog, will continue to titrate doses based on BSG trends * Pt will be NPO for cardiac cath tomorrow AM, will adjust orders to prevent hypo with NPO status * ADA & AACE recommend a goal blood sugar range 140-180 mg/dl for the majority of critically ill & non-critically ill patients. However, more stringent targets may be selected in individual cases. Will utilize a more stringent goal based on age and co-morbidities. PLAN FOR INPATIENT GLYCEMIC CONTROL: * Hold outpatient oral diabetes medications * Basal insulin with LANTUS SQ BID - dosing based on BSG and PO status * BSG 120mg/dl or below --> Give Lantus 10 units (HOLD this dose if NPO) * If BSG 121 - 199mg/dl --> Give Lantus 16 units (if NPO give 10 units) * If BSG 200mg/dl or above --> Give Lantus 20 units (if NPO give 16 units) * Correctional Insulin with NOVOLOG per scale ACHS or Q6hrs while NPO * Goal Range: Low 110 mg/dL - High 140 mg/dL * Correction Factor: 25 mg/dL/unit * Nutritional / Prandial insulin per carb ratio of 1 unit per 8 grams CHO consumed * Please note that the plan above was derived based on current level of insulin resistance and hospital stress. These recommendations are appropriate for inpatient admission only. Plan of care upon discharge will need to be reassessed to avoid potential outpatient hypo/hyperglycemia. Thank you.
[2016-12-27] MEDS: MAGNESIUM SULFATE 1GM / D5W 1 GM in PREMIXED IN D5W 100 ML IV SCH ×3 (12:22→15:51)
[2016-12-27] MEDS: SODIUM CHLORIDE 0.9% 1000ML 1,000 ML IV SCH (12:25)
[2016-12-27] MEDS: ATORVASTATIN 40 MG TAB PO SCH (20:57)
[2016-12-27] MEDS: METOPROLOL SUCC 25MG EXT REL TAB PO SCH (20:57)
[2016-12-28] VITALS (24 sets, daily range): BP systolic 124–165; BP diastolic 67–105; PULSE 18–95; TEMP 36.4–36.9; O2SAT 91–97
[2016-12-28 06:19] LABS: BASO % 0.4 %; BASO ABS # 0.03 K/uL (0-0.2); COMPLETE YES; EOS % 5.6 %; HEMATOCRIT 35.6 % (42-52); IG% 0.1 %; LYMPH ABS # 2.44 K/uL (1.2-3.4); MEAN CORPUSCULAR HEMOGLOBIN 29.1 pg (25-34); MEAN CORPUSCULAR HGB CONC 34.3 g/dl (32-36); MEAN PLATELET VOLUME 10.4 fL (7.4-10.4); NEUT % 55.9 %; PLATELET COUNT 188 K/uL (130-400); RED BLOOD COUNT 4.19 M/uL (4.7-6.1); WHITE BLOOD COUNT 7.62 K/uL (4.8-10.8)
[2016-12-28 06:54] LABS: BUN/CREATININE RATIO 13.7 (10-20); CALCIUM 8.5 mg/dl (8.5-10.1); CREATININE 0.87 mg/dl (0.60-1.40); MAGNESIUM 1.7 mg/dl (1.8-2.4); POTASSIUM 4.6 mmol/L (3.5-5.1)
[2016-12-28] MEDS: INSULIN ASPART 100 UNITS/ML 3 ML PEN SC SCH ×4 (07:00→20:57)
--- NOTE | 2016-12-28 07:38 | Pharmacy Progress Note ---
Glycemic Control: Progress Nt Date of Service Dec 28, 2016. Scope Glycemic Pharmacist consulted by Dr Litzy Ledesma on 12/26/16 for glycemic control and to write orders per [facility] inpatient glycemic control protocol. Objective Accuchecks BSG (last 24hrs): Test 12/27/16 11:24 12/27/16 16:23 12/27/16 20:12 12/28/16 05:54 Bedside Glucose 292 mg/dl (70-99) 277 mg/dl (70-99) 255 mg/dl (70-99) Random Glucose 263 mg/dl (70-99) Test 12/28/16 06:28 Bedside Glucose 261 mg/dl (70-99) Laboratory Data (last 24hrs) Test 12/28/16 05:54 Anion Gap 10.0 mmol/L BUN/Creatinine Ratio 13.7 Blood Urea Nitrogen 12 mg/dl Creatinine 0.87 mg/dl Potassium Level 4.6 mmol/L Sodium Level 141 mmol/L White Blood Count 7.62 K/uL Red Blood Count 4.19 M/uL Hemoglobin 12.2 g/dL Hematocrit 35.6 % Mean Corpuscular Volume 85.0 fL Mean Corpuscular Hemoglobin 29.1 pg Mean Corpuscular Hemoglobin Concent 34.3 g/dl Platelet Count 188 K/uL Mean Platelet Volume 10.4 fL Neutrophils (%) (Auto) 55.9 % Lymphocytes (%) (Auto) 32.0 % Monocytes (%) (Auto) 6.0 % Eosinophils (%) (Auto) 5.6 % Basophils (%) (Auto) 0.4 % Neutrophils # (Auto) 4.25 K/uL Lymphocytes # (Auto) 2.44 K/uL Monocytes # (Auto) 0.46 K/uL Eosinophils # (Auto) 0.43 K/uL Basophils # (Auto) 0.03 K/uL Recent Pertinent Medications Outpatient Anti-diabetic Regimen: * Novolin 70/30 - 30 units BIDM + Metformin 1gm BIDM + Glipizide 10mg BIDM * A1c = 11.9 % 11/27/16 Current inpatient glycemic regimen: * Hold outpatient oral diabetes medications * Basal insulin with LANTUS SQ BID - dosing based on BSG and PO status * BSG 120mg/dl or below --> Give Lantus 10 units (HOLD this dose if NPO) * If BSG 121 - 199mg/dl --> Give Lantus 16 units (if NPO give 10 units) * If BSG 200mg/dl or above --> Give Lantus 20 units (if NPO give 16 units) * Correctional Insulin with NOVOLOG per scale ACHS or Q6hrs while NPO * Goal Range: Low 110 mg/dL - High 140 mg/dL * Correction Factor: 20 mg/dL/unit * Nutritional / Prandial insulin per carb ratio of 1 unit per 7 grams CHO consumed Risk Factors for Insulin Resistance: * IVF: NS at 50 ml/hr + hep gtt * Recent Surgery: Cardiac cath today * Diet: NPO for cath Assessment & Plan ASSESSMENT: * ADA & AACE recommend a goal blood sugar range 140-180 mg/dl for the majority of critically ill & non-critically ill patients. However, more stringent targets may be selected in individual cases. 12/27/16: * 61yo T2DM male with poorly controlled diabetes per recent A1c of 11.9% on 11/27 * This was found on previous admission and since then changes have been made * During last admission CDE noted that patient was trying to eat better and felt with new insulin changes his BSGs had been better controlled * Pt is maintained on pre-mixed insulin (basal + prandial) as an outpatient --> will hold this and use SQ basal bolus insulin regimen for easier control/ titration for inpatient use. * Conservative weight/stress based dosing was started on admission for Lantus & NovoLog, will continue to titrate doses based on BSG trends * Pt will be NPO for cardiac cath tomorrow AM, will adjust orders to prevent hypo with NPO status 12/28/16: * BSGs remain moderately elevated >250mg/dl at all times of the day. * Changes in Lantus dosing made yesterday have yet to reach SS so I am reluctant to make any changes at this time. Additionally, the pt is NPO for cath this morning. * Novolog parameters were tightened yesterday evening. * Will continue current DM regimen. If BSGs remain elevated in the next 24 hours then will proceed with increased Lantus dosing and tightening once again of Novolog parameters. CONTINUE CURRENT PLAN FOR INPATIENT GLYCEMIC CONTROL: * Hold outpatient oral diabetes medications * Basal insulin with LANTUS SQ BID - dosing based on BSG and PO status * BSG 120mg/dl or below --> Give Lantus 10 units (HOLD this dose if NPO) * If BSG 121 - 199mg/dl --> Give Lantus 16 units (if NPO give 10 units) * If BSG 200mg/dl or above --> Give Lantus 20 units (if NPO give 16 units) * Correctional Insulin with NOVOLOG per scale ACHS or Q6hrs while NPO * Goal Range: Low 110 mg/dL - High 140 mg/dL * Correction Factor: 20 mg/dL/unit * Nutritional / Prandial insulin per carb ratio of 1 unit per 7 grams CHO consumed * Please note that the plan above was derived based on current level of insulin resistance and hospital stress. These recommendations are appropriate for inpatient admission only. Plan of care upon discharge will need to be reassessed to avoid potential outpatient hypo/hyperglycemia. Thank you.
[2016-12-28] MEDS: FLUTICASONE/SALMETEROL 250/50 (ADVAIR) 14 PUFF/1 INHALER INH SCH ×2 (08:26→20:49)
[2016-12-28] MEDS: LISINOPRIL 20 MG TAB PO SCH ×2 (08:27→20:49)
[2016-12-28] MEDS: CEROVITE ADV FORMULA TAB PO SCH (08:27)
[2016-12-28] MEDS: CHOLECALCIFEROL 1000 INTER.UNIT TAB PO SCH (08:27)
[2016-12-28] MEDS: INSULIN GLARGINE SOLOSTAR 100 UNITS/ML 3 ML PEN SC SCH ×3 (08:27→20:57)
[2016-12-28] MEDS: AMLODIPINE BESYLATE 5 MG TAB PO SCH (08:27)
[2016-12-28] MEDS: SODIUM CHLORIDE 0.9% 1000ML 1,000 ML IV SCH (09:15)
[2016-12-28] MEDS ORDERED: MAGNESIUM SULFATE 1GM / D5W 1 GM in PREMIXED IN D5W 100 ML IV SCH (09:30)
--- NOTE | 2016-12-28 10:32 | Progress Note ---
Internal Med Progress Note Date of Service: Dec 28, 2016. Provider Documentation: SUBJECTIVE: Patient denies any chest pain, SOB, fever, chills, cough, leg swelling, nausea, vomiting, diaphoresis, palpitations Tele- no events For cath today OBJECTIVE: Vital Signs-as noted below Exam: General-AAOX3, no distress Neck-Supple, No JVD Lungs-AEBE, no wheezing, crackles Heart-S1, S2 normal, no murmurs Abdomen-Soft, non tender, non distended, BS present Extremities-No edema Lab data as noted below. ASSESSMENT & PLAN: ASSESSMENT AND PLAN: This is a 61-year-old male who presents with positive stress test. CHEST PAIN WITH POSITIVE STRESS TEST Patient has had symptoms of chest pain for about 1 year- mainly on exertion , underwent a stress test yesterday as an outpatient which showed inducible anterior apical hypokinesis alone with hypertensive response with SVT and chest pain reproduced with exercise and greater than [address] depressions in Inferolateral leads. Currently chest pain free -For cardiac cath today -S/P IV heparin, Continue with Toprol XL, Lipitor, Aspirin, Lisinopril -Work up- Troponin x 3 negative; LDL within goal -Cardiology on board. SEVERE HYPOMAGNESEMIA - Improved -Unclear etiology. Came with Mg of 1.2--> 1,7 -IV Mg Sulfate x 1 gram today -Monitor closely HX OF DM-2 -Hold PO meds -HBA1C 11.9 last admission -ISS, Accuchecks, Pharmacy consult -Life style modification advise given HX OF COPD Quit smoking 10 years ago -No signs of exacerbation -Continue with Advair, Albuterol PRN LATOYA -Continue with CPAP HYPERTENSION -Continue with toprol xl, amlodipine, lisinopril -Monitor HYPERLIPIDEMIA -Continue with statin. Lipid profile- within goals DVT PROPHYLAXIS IV heparin DISPOSITION Tele monitoring For cardiac cath today Vital Signs: Date Time Temp Pulse Resp B/P Pulse Ox O2 Delivery O2 Flow Rate FiO2 12/28/16 10:00 36.5 76 18 160/78 96 Room Air 12/28/16 08:09 36.5 76 18 160/79 96 Room Air 12/28/16 04:00 CPAP 12/28/16 03:52 36.4 79 18 137/78 97 Room Air 12/27/16 23:59 CPAP 12/27/16 22:59 36.4 75 17 137/73 95 Room Air 12/27/16 20:10 36.5 78 15 163/80 95 Room Air 12/27/16 20:00 94 12/27/16 16:15 36.4 80 22 126/72 93 Room Air 12/27/16 16:00 93 12/27/16 12:00 Nasal Cannula 2.0 12/27/16 11:30 36.4 79 20 149/76 93 Room Air Lab Results: Results Past 24 Hours Test 12/27/16 11:24 12/27/16 16:07 12/27/16 16:23 12/27/16 20:12 Range/Units Bedside Glucose 292 277 255 70-99 mg/dl Magnesium Level 2.1 1.8-2.4 mg/dl Test 12/28/16 05:54 12/28/16 06:28 Range/Units White Blood Count 7.62 4.8-10.8 K/uL Red Blood Count 4.19 4.7-6.1 M/uL Hemoglobin 12.2 14.0-18.0 g/dL Hematocrit 35.6 42-52 % Mean Corpuscular Volume 85.0 80-100 fL Mean Corpuscular Hemoglobin 29.1 25-34 pg Mean Corpuscular Hemoglobin Concent 34.3 32-36 g/dl Platelet Count 188 130-400 K/uL Mean Platelet Volume 10.4 7.4-10.4 fL Neutrophils (%) (Auto) 55.9 % Lymphocytes (%) (Auto) 32.0 % Monocytes (%) (Auto) 6.0 % Eosinophils (%) (Auto) 5.6 % Basophils (%) (Auto) 0.4 % Neutrophils # (Auto) 4.25 1.4-6.5 K/uL Lymphocytes # (Auto) 2.44 1.2-3.4 K/uL Monocytes # (Auto) 0.46 0.11-0.59 K/uL Eosinophils # (Auto) 0.43 0-0.5 K/uL Basophils # (Auto) 0.03 0-0.2 K/uL RDW Standard Deviation 43.4 36.4-46.3 fL RDW Coefficient of Variation 14.0 11.5-14.5 % Immature Granulocyte % (Auto) 0.1 % Immature Granulocyte # (Auto) 0.01 0.00-0.02 K/uL Activated Partial Thromboplast Time 50.9 21.0-31.0 SECONDS Partial Thromboplastin Ratio 2.0 Sodium Level 141 136-145 mmol/L Potassium Level 4.6 3.5-5.1 mmol/L Chloride Level 105 98-107 mmol/L Carbon Dioxide Level 26 21-32 mmol/L Anion Gap 10.0 3-11 mmol/L Blood Urea Nitrogen 12 7-18 mg/dl Creatinine 0.87 0.60-1.40 mg/dl Est Creatinine Clear Calc Drug Dose 102.3 ml/min Estimated GFR () 109.5 Estimated GFR (Non- 94.5 BUN/Creatinine Ratio 13.7 10-20 Random Glucose 263 70-99 mg/dl Calcium Level 8.5 8.5-10.1 mg/dl Magnesium Level 1.7 1.8-2.4 mg/dl Bedside Glucose 261 70-99 mg/dl
[2016-12-28] MEDS ORDERED: NiCARDipine HCL INJ 2.5 MG/ML 10 ML AMP ONE (12:00)
[2016-12-28] MEDS ORDERED: HEPARIN SOD (PORCINE) 1000 UNIT/ML 10 ML VIAL ONE (12:00)
[2016-12-28] MEDS ORDERED: MIDAZOLAM HCL 1 MG/ML 2ML VIAL ONE (12:01)
[2016-12-28] MEDS ORDERED: NITROGLYCERIN/D5W 100MCG/ML 20ML SYR ONE (12:01)
[2016-12-28] MEDS ORDERED: FENTANYL CITRATE INJ 50 MCG/1 ML 2 ML VIAL ONE (12:01)
--- NOTE | 2016-12-28 12:25 | Cardiology Follow-Up ---
Subjective General Date of Service: Dec 28, 2016. Pt evaluation today including: conversation w/ patient, physical exam, chart review, lab review, review of studies, conversation w/ production consultant, review of inpatient medication list History of Present Illness The patient is a 61 year old male seen in follow up. Complains of intermittent heart burn. No exertional symptoms. No arrhythmia on telemetry. Offers no other complaints. Allergies Coded Allergies: Penicillins (Verified Allergy, Mild, HIVES, 12/26/16) Social History Smoking Status: Former Smoker Hx Tobacco Use In Past Year?: No Hx Alcohol Use - Type And Amou: No (DENIES) Hx Substance Use - Type And Am: No Problem List Medical Problems: (1) Abnormal stress test Status: Acute (2) Left sided chest pain Status: Acute Review of Systems Respiratory: + dyspnea on exertion, No cough, No dyspnea at rest, No hemoptysis , No shortness of breath, No sputum, No wheezing Cardiac: No chest pain, No edema, No orthopnea, No palpitations Physical Exam Vital Signs Last Vital Signs Documentation Date Time Temp Pulse Resp B/P Pulse Ox O2 Delivery O2 Flow Rate FiO2 12/28/16 11:37 36.5 84 18 157/67 95 Room Air 12/27/16 12:00 2.0 Physical Exam Constitutional: General Apperance: well-nourished Level of Distress: NAD Head: normocephalic, atraumatic ENMT: normal ENT inspection Neck: supple, trachea midline Lungs: Auscultation: no wheezing, no rales/crackles, decreased breath sounds Cardiovascular: Heart Auscultation: RRR, normal S1, normal S2, no murmurs Peripheral Pulses: Radial Pulse: normal on the left, normal on the right Femoral Pulse: normal on the left, normal on the right Abdomen: Bowel Sounds: normal Inspection & Palpation: soft, non-distended, no tenderness, guarding & rebound Musculoskeletal: normal Extremities: no cyanosis, no edema Neurologic: Gait & Station: pertinent finding (No focal motor deficit) Cranial Nerves: grossly intact Assessment and Plan Assessment and Plan FINAL IMPRESSION: 1. Exertional angina with abnormal exercise stress echocardiography, suggesting left anterior descending territory ischemia, low level exercise. 2. Brief episode of reported paroxysmal atrial fibrillation during exercise. -No recurrence 3. Preserved left ventricular systolic function. 4. No significant valvular disease. 5. Dyslipidemia. 6. Diabetes. 7. Tobacco abuse with moderate chronic obstructive pulmonary disease. PLAN AND RECOMMENDATIONS: Risks, benefits, and alternatives to cardiac catheterization with coronary angiography were discussed at length. Patient agreeable to the procedure and percutaneous intervention at [facility] if indicated. He is a drug-eluting stent candidate. Hold IV heparin. Continue other cardiovascular medications as previously ordered. Further recommendation pending review of catheterization. Laboratory Results Last 24 Hours Test 12/27/16 16:07 12/27/16 16:23 12/27/16 20:12 12/28/16 05:54 Magnesium Level 2.1 mg/dl 1.7 mg/dl Bedside Glucose 277 mg/dl 255 mg/dl White Blood Count 7.62 K/uL Red Blood Count 4.19 M/uL Hemoglobin 12.2 g/dL Hematocrit 35.6 % Mean Corpuscular Volume 85.0 fL Mean Corpuscular Hemoglobin 29.1 pg Mean Corpuscular Hemoglobin Concent 34.3 g/dl Platelet Count 188 K/uL Mean Platelet Volume 10.4 fL Neutrophils (%) (Auto) 55.9 % Lymphocytes (%) (Auto) 32.0 % Monocytes (%) (Auto) 6.0 % Eosinophils (%) (Auto) 5.6 % Basophils (%) (Auto) 0.4 % Neutrophils # (Auto) 4.25 K/uL Lymphocytes # (Auto) 2.44 K/uL Monocytes # (Auto) 0.46 K/uL Eosinophils # (Auto) 0.43 K/uL Basophils # (Auto) 0.03 K/uL RDW Standard Deviation 43.4 fL RDW Coefficient of Variation 14.0 % Immature Granulocyte % (Auto) 0.1 % Immature Granulocyte # (Auto) 0.01 K/uL Activated Partial Thromboplast Time 50.9 SECONDS Partial Thromboplastin Ratio 2.0 Sodium Level 141 mmol/L Potassium Level 4.6 mmol/L Chloride Level 105 mmol/L Carbon Dioxide Level 26 mmol/L Anion Gap 10.0 mmol/L Blood Urea Nitrogen 12 mg/dl Creatinine 0.87 mg/dl Est Creatinine Clear Calc Drug Dose 102.3 ml/min Estimated GFR () 109.5 Estimated GFR (Non- 94.5 BUN/Creatinine Ratio 13.7 Random Glucose 263 mg/dl Calcium Level 8.5 mg/dl Test 12/28/16 06:28 12/28/16 11:19 Bedside Glucose 261 mg/dl 280 mg/dl
[2016-12-28] MEDS ORDERED: SODIUM CHLORIDE 0.9% 1000ML 250 ML IV PRN (12:57)
--- NOTE | 2016-12-28 12:59 | Procedure Note ---
Pre-Mod Sedation Assessment General Date of Moderate Sedation: Dec 28, 2016. Vital Signs: Vital Signs Past 12 Hours Date Time Temp Pulse Resp B/P Pulse Ox O2 Delivery O2 Flow Rate FiO2 12/28/16 12:58 82 16 110/86 98 Room Air 12/28/16 12:50 84 16 160/89 98 Room Air 12/28/16 11:37 36.5 84 18 157/67 95 Room Air 12/28/16 10:00 36.5 76 18 160/78 96 Room Air 12/28/16 08:09 36.5 76 18 160/79 96 Room Air 12/28/16 08:00 96 Room Air 12/28/16 04:00 CPAP 12/28/16 03:52 36.4 79 18 137/78 97 Room Air Review Cardiovascular: regular rate, rhythm, no edema, no gallop, normal peripheral pulses Abdomen: normal bowel sounds, non tender, soft Lungs: lungs clear, normal breath sounds Pre-Sedation Airway Assessment Oral Cavity: Dentures Short Thick Neck: No Hx of Sleep Apnea: Yes Smoking Status: Former Smoker ASA Classification: Class III Procedure Planning Contraindications-for Mod Sed: None Yes Notes The planned sedation has been discussed with the patient and consent obtained. I have identified the patient, determined the appropriateness of sedation and have assessed the patient immediately prior to the procedure. All medicine(s) and interventions are by my order.
[2016-12-28] MEDS ORDERED: ATROPINE SULFATE 0.1 MG/ML 5ML SYR IV PRN (13:00)
[2016-12-28] MEDS ORDERED: ONDANSETRON INJ 2 MG/ML 2 ML VIAL IV PRN (13:00)
[2016-12-28] MEDS ORDERED: ACETAMINOPHEN 325 MG TAB PO PRN (13:00)
--- NOTE | 2016-12-28 13:00 | Procedure Note ---
Post-Mod Sedation Assessment General Date of Moderate Sedation Dec 28, 2016. Vital Signs: Vital Signs Past 12 Hours Date Time Temp Pulse Resp B/P Pulse Ox O2 Delivery O2 Flow Rate FiO2 12/28/16 12:58 82 16 110/86 98 Room Air 12/28/16 12:50 84 16 160/89 98 Room Air 12/28/16 11:37 36.5 84 18 157/67 95 Room Air 12/28/16 10:00 36.5 76 18 160/78 96 Room Air 12/28/16 08:09 36.5 76 18 160/79 96 Room Air 12/28/16 08:00 96 Room Air 12/28/16 04:00 CPAP 12/28/16 03:52 36.4 79 18 137/78 97 Room Air Review - Discharge Criteria Vital Signs Stable: Yes Alert/Oriented/Conversant: Yes Returned to Baseline Mental St: Yes Nausea Absent/Minimal: Yes Pain/Discomfort/Absent/Minimal: Yes Normal/Baseline Respirations: Yes Active Bleeding?: No Pt Received D/C Instructions: N/A Prescriptions Given: None Specific Proced. D/C Criteria Distal Pulses Present (Cardiac: Yes Groin site assessed-Card Cath: N/A Voided Prior To Discharge: N/A Discharged Patients Adult Escort/Transportation: N/A
--- NOTE | 2016-12-28 13:18 | Cardiac Catheterization ---
Procedure Note Procedure Date Dec 28, 2016. Pre-Procedure Diagnosis Angina, Positive Stress Test AUC Score 8 Post-Procedure Diagnosis Severe CAD Procedure(s) Performed Coronary Angiography (Start time:1223, Stop time:1255), Left Heart Cath Curb Worker Dr. Vieyra Edge Beader(s) Daniel RTR Estimated Blood Loss 5cc Medication(s) Fentanyl, Heparin, Nicardipine, Nitroglycerin, Versed, Lidocaine 1% Summary of Findings LAD 70% mid D1 90% mid Lcx 80% mid OM1 70% diffuse prox - mid RCA 80% prox Hemodynamics Rest Ao: 146/72/103 Final Ao: 146/68/100 LV: 147/68/74 Recommendations CABG Specimens None Radiation Exposure (mGy) 1051 Contrast (mls) 65 Fluids (cc crystalloids) 61cc NSS Procedural Complication(s) None Disposition PCU ACC Data Cardiac Status Clinical evaluation leading to the procedure CAD Presntation: Unstable angina, Positive Stress Test Anginal Classification: CCS III Heart Failure: No Cardiogenic Shock w/in 24Hrs: No Cardiac Arrest w/in 24Hrs: No Imaging studies past 6 months: No Stress studies past 6 months: Yes Stress Echocardiogram: Yes - Positive, Risk/Extent of Ischemia (High) Coronary Anatomy Dominant: Right Left Main (% Stenosis): Normal LAD (% Stenosis): Ostial (0%), Proximal (30% prox to mid), Mid (70% long segement of diffuse disease), Distal (10%) D1 (% Stenosis): Ostial (0%), Proximal (10%), Mid (90%), Distal (10%) Circumflex (% Stenosis): Ostial (0%), Proximal (10%), Mid (80%), Distal (10%) OM1 (% Stenosis): Ostial (0%), Proximal (70%), Mid (50%), Distal (10%) L PL1 (% Stenosis): Ostial (0%), Proximal (10%), Mid (10%), Distal (10%) RCA (% Stenosis): Ostial (20%), Proximal (80%), Mid (50%), Distal (10%) R PDA (% Stenosis): Ostial (0%), Proximal (10%), Mid (30%), Distal (10%) R PL1 (% Stenosis): Ostial (10%), Proximal (10%), Mid (10%), Distal (10%) R PL2 (% Stenosis): Ostial (10%), Proximal (10%), Mid (10%), Distal (10%) AM (% Stenosis): Ostial (severe diffuse disease (70-80%) of first marginal branch. Small vessel.) Diagnostic Status: Urgent Closure Device Percutaneous Entry Location: Radial Closure Device: Radial Band Recommendations: CABG Intraprocedure Events Significant Dissection: No Perforation: No
--- NOTE | 2016-12-28 14:41 | Discharge Instructions ---
Discharge Instructions Admission Reason for Admission: Positive Cardiac Stress Test Discharge Discharge Diagnosis / Problem: 1. CAD- Multi vessel disease Discharge Goals Goal(s): Improve disease control, Therapeutic intervention, Prevent Disease Progression Activity Recommendations Activity Limitations: per Instructions/Follow-up section . Instructions / Follow-Up Instructions / Follow-Up Transfer to [facility] Current Hospital Diet Patient's current hospital diet: AHA Diet (Heart Healthy), Diabetes Type 2 Diet Discharge Diet Recommended Diet: AHA Diet (Heart Healthy), Low Sodium Diet (2gm Na), Diabetes Type 2 Diet Pending Studies Studies pending at discharge: no Laboratory Results Hemoglobin A1c Test 11/27/16 00:25 Range/Units Estimated Average Glucose 295 mg/dl Hemoglobin A1c 11.9 H 4.5-5.6 % Lipid Panel Test 12/27/16 05:45 Range/Units Triglycerides Level 81 0-150 mg/dl Cholesterol Level 106 0-200 mg/dl HDL Cholesterol 31 mg/dl Cholesterol/HDL Ratio 3.4 LDL Cholesterol, Calculated 59 mg/dl Medical Emergencies . Who to Call and When: Medical Emergencies: If at any time you feel your situation is an emergency, please call 911 immediately. . Non-Emergent Contact Non-Emergency issues call your: Primary Care Provider . . "Provider Documentation" section prepared by Dian Davila. VTE Core Measure Inpt VTE Proph given/why not?: Other Anticoagulation (IV Heparin)
--- NOTE | 2016-12-28 14:49 | Discharge Summary ---
Discharge Summary Date of Service Dec 28, 2016. Discharge Summary Admission Date: Dec 26, 2016 at 16:57 Discharge Date: Dec 28, 2016 Discharge Disposition: Acute care facility ([facility]) Principal Diagnosis: 1. CAD- Multi vessel disease -status post cardiac catheterization 2. Hypomagnesemia, severe Secondary Diagnoses/Problems: 1. DM-2 2. Hypertension 3. Hyperlipidemia 4. LATOYA 5. COPD Procedures: CARDIAC CATHETERIZATION BY DR DERICK MADERA ON 12/28/16 Summary of Findings LAD 70% mid D1 90% mid Lcx 80% mid OM1 70% diffuse prox - mid RCA 80% prox -Tele monitoring -IV Heparin -Lipid panel- LDL 59 Consultations: Cardiology, Dr Derick Madera Pending Studies/Follow-Up: None Medication Reconciliation Continued Medications: Albuterol Hfa (Ventolin Hfa) 200 Puffs/17851 Mcg Aers 2 PUFFS INH Q6H PRN for SOB/Wheezing, #1 INHALER Amlodipine (Norvasc) 10 Mg Tab 10 MG PO DAILY, #30 TAB 2 Refills Aspirin (Aspirin Ec) 81 Mg Tab 81 MG PO HS Atorvastatin (Lipitor) 40 Mg Tab 40 MG PO DAILY, #30 TAB Cholecalciferol (Vitamin D) 1,000 Unit Tab 1000 UNIT PO LUNCH Fish Oil ([place]-3) 1 Ea Cap 1200 MG PO LUNCH, CAP Fluticasone Prop/Salmeterol (Advair Diskus 250/50 60 Dose) 1 Ea Aerp 1 PUFF INH BID, #1 INHALER Glipizide (Glucotrol) 10 Mg Tab 10 MG PO BID, TAB Guaifenesin/Codeine (Robitussin-Ac Syrup) Syrp 5 ML PO Q6H PRN for Cough for 10 Days Insulin Human Isophan/Regular (Novolin 70/30) Inj 30 UNITS SC BIDM for 30 Days, 2 Refills Lisinopril (Lisinopril) 20 Mg Tab 20 MG PO BID Metformin Hcl (Glucophage) 1,000 Mg Tab 1000 MG PO BID, TAB Metoprolol Succinate (Toprol Xl) 25 Mg Tabcr 25 MG PO HS, #30 TAB Multiple Vitamins W/ Minerals (One Daily Multivitamin Me) 1 Tab Tab 1 TAB PO LUNCH Nitroglycerin (Nitrostat) 0.4 Mg Tab 0.4 MG UT PRN, BTL Tocopheryl Acet,Dl-Alpha (Vitamin E) Unknown Strength Cap 1 CAP PO LUNCH Admission Information HPI (per Admitting provider): HISTORY OF PRESENT ILLNESS: This is a 61-year-old male with past medical history significant for diabetes, hypertension, hyperlipidemia, COPD, obstructive sleep apnea, tobacco use/disorder, recently had a cholecystectomy, was scheduled for outpatient stress test which was done today and was positive. The patient was having exertional chest pain and shortness of breath for about a year.Climbing steps or walking up hill making him short of breath and was having chest pains. Recently was admitted for cholecystitis, cardiology was consulted and they planned for outpatient stress test which was done today which came back positive and was sent to the ER for admission and plan for cardiac cath. The patient says about 3 minutes into this stress test he had chest pain about 3/10 in severity but that got subsided with nitro. Currently, resting comfortably and denies any chest pain. Currently denies any shortness of breath or cough. No headaches, no blurred vision, no dizziness, no nausea, no vomiting. Appetite is okay. Normal bowel and bladder movements. He says his blood pressure is better controlled now since discharged last admission after adjusting his BP meds and sugars are running okay at home. Hospital Course ASSESSMENT AND PLAN: This is a 61-year-old male who presents with positive stress test. CHEST PAIN WITH POSITIVE STRESS TEST: Patient has had symptoms of chest pain for about 1 year- mainly on exertion , underwent a stress test as an outpatient which showed inducible anterior apical hypokinesis alone with hypertensive response with SVT and chest pain reproduced with exercise and greater than [address] depressions in Inferolateral leads. -Risk factors: DM (Uncontrolled), HTN, Hyperlipidemia, LATOYA -S/P Cardiac catheterization today by Dr Derick Madera - Multi vessel disease = LAD 70% mid, D1 90% midLcx, 80% midOM1, 70% diffuse prox, - midRCA 80% prox Plan is for [facility] transfer for CABG -S/P IV heparin, Continue with Toprol XL, Lipitor, Aspirin, Lisinopril -Work up- Troponin x 3 negative; LDL within goal- 56 -Cardiology on board. Discussed with Dr Kirkpatrick at [facility] who accepted patient under their service. SEVERE HYPOMAGNESEMIA - Resolved -Unclear etiology. Came with Mg of 1.2--> 1,7 -IV Mg Sulfate x 1 gram today -Monitor closely HX OF DM-2 -Hold PO meds -HBA1C 11.9 last admission -ISS, Accuchecks, Pharmacy consult -Life style modification advise given HX OF COPD Quit smoking 10 years ago -No signs of exacerbation -Continue with Advair, Albuterol PRN LATOYA -Continue with CPAP HYPERTENSION - stable -Continue with toprol xl, amlodipine, lisinopril -Monitor HYPERLIPIDEMIA -Continue with statin. Lipid profile- within goals DVT PROPHYLAXIS IV heparin DISPOSITION Transfer to [facility] for CABG. Transfer discussed with Dr Kirkpatrick by Dr Derick Madera and patient was accepted under their care. Ok to transfer today Paper work done. Total time spent on discharge = 45 minutes This includes examination of the patient, discharge planning, medication reconciliation, and communication with other providers. Discharge Instructions Transfer to [facility]
[2016-12-28] MEDS ORDERED: NURSING VERBAL MED ORDER ONE (15:15)
[2016-12-28] MEDS ORDERED: LISINOPRIL 20 MG TAB PO ONE (15:30)
[2016-12-28] MEDS: METOPROLOL SUCC 25MG EXT REL TAB PO SCH (20:48)
[2016-12-28] MEDS: ASPIRIN 81 MG ECTAB PO SCH (20:49)
[2016-12-28] MEDS: ATORVASTATIN 40 MG TAB PO SCH (20:49)
[2017-01-26] MEDS ORDERED: ASPEC81 PO (13:23)
[2017-01-26] MEDS ORDERED: CLOP1TAB15 PO (13:23)
== END 2016-12-29 00:05 | disposition short-term general hospital (02) | DRG 287 ==
LOC: ENRESERVDT → ENRESERVTM → C.EDB 15:01 → C.EDINP 16:57 → EDBEDREQ 19:51 → C.2E 12-27 08:07
PROVIDERS: ADMIT Internal Medicine; ATTEND Internal Medicine
PROC: B2111ZZ Fluoroscopy of Multiple Coronary Arteries using Low Osmolar Contrast (ICD-10-PCS; principal; 2016-12-28 12:25)
PROC: 4A023N7 Measurement of Cardiac Sampling and Pressure, Left Heart, Percutaneous Approach (ICD-10-PCS; principal; 2016-12-28 12:25)
DX: I25.110 Atherosclerotic heart disease of native coronary artery with unstable angina pectoris (principal); I47.1 Supraventricular tachycardia; I10 Essential (primary) hypertension; E83.42 Hypomagnesemia; E78.5 Hyperlipidemia, unspecified; J44.9 Chronic obstructive pulmonary disease, unspecified; G47.33 Obstructive sleep apnea (adult) (pediatric); Z88.0 Allergy status to penicillin; Z82.49 Family history of ischemic heart disease and other diseases of the circulatory system; E11.9 Type 2 diabetes mellitus without complications; Z87.891 Personal history of nicotine dependence; Z79.4 Long term (current) use of insulin

== ENCOUNTER 2017-01-24 15:05 | Inpatient (IN) | payer OTHER ==
[~2017-01-24] VITALS: Ht 180.3 cm; Wt 85.4 kg
[~2017-01-24 15:05] MED LIST changes: +ADVIN25/60 INH; -ATOR-22 PO; +ATOR-24 PO; +CHOL100010 PO; +METO25TA3 PO; +NTRGSL/4 UT; -TPRSR25 PO; +VNTHFA/IN INH
--- NOTE | 2017-01-24 15:48 | DIAGNOSTIC IMAGING REPORT ---
CT SCAN OF THE BRAIN WITHOUT IV CONTRAST CLINICAL HISTORY: Dizziness. Blurry vision. COMPARISON STUDY: No priors. TECHNIQUE: Unenhanced axial CT scan of the brain is performed from the vertex to the skull base. Automated dose control exposure was utilized. CT DOSE: 623.48 mGy.cm FINDINGS: Brain parenchyma: The brain parenchyma is normal in appearance. There is no hemorrhage, mass effect, or evidence of acute territorial ischemia by CT criteria. Dickens-white matter is preserved. No extra-axial fluid collection is seen. Ventricles, sulci, cisterns: Normal in configuration. Intracranial vasculature: There is atherosclerotic calcification of the cavernous carotid arteries. Calvarium: Unremarkable. Sinuses and mastoids: The visualized paranasal sinuses are clear. The mastoid air cells are well pneumatized. Orbits: The bony orbits are grossly intact. IMPRESSION: There is no hemorrhage, mass effect, or evidence of acute territorial ischemia by CT criteria. Electronically signed by: Karl Zhong M.D. 01/24/2017 3:46 PM Dictated Date/Time: 01/24/2017 3:44 PM
[2017-01-24 16:00] LABS: BUN/CREATININE RATIO 25.8 (10-20); CALCIUM 9.1 mg/dl (8.5-10.1); CREATININE 1.3 mg/dl (0.60-1.40); POTASSIUM 4.2 mmol/L (3.5-5.1)
[2017-01-24 16:05] LABS: CKMB/CK RATIO 1.6 (0-3.0); INR 1.1 (0.9-1.1); PROTHROMBIN TIME (PATIENT) 11.5 SECONDS (9.0-12.0)
--- NOTE | 2017-01-24 16:11 | DIAGNOSTIC IMAGING REPORT ---
CHEST ONE VIEW PORTABLE CLINICAL HISTORY: stroke symptoms COMPARISON STUDY: 12/26/2016 FINDINGS: There are postsurgical changes of a midline sternotomy. The chest has an emphysematous configuration. There is no focal pulmonary consolidation. There is no failure. There are no pleural effusions.[ IMPRESSION: Emphysema. No active disease in the chest. Electronically signed by: Miguelito Castaneda M.D. 01/24/2017 4:10 PM Dictated Date/Time: 01/24/2017 4:09 PM
[2017-01-24 16:18] LABS: BASO % 0.4 %; BASO ABS # 0.05 K/uL (0-0.2); COMPLETE YES; EOS % 4.5 %; IG% 0.3 %; LYMPH % 26.3 %; MEAN CELL VOLUME 84.9 fL (80-100); MEAN CORPUSCULAR HEMOGLOBIN 28.8 pg (25-34); MEAN CORPUSCULAR HGB CONC 33.9 g/dl (32-36); MEAN PLATELET VOLUME 9.9 fL (7.4-10.4); MONO % 6.4 %; NEUT % 62.1 %; PLATELET COUNT 348 K/uL (130-400); RED BLOOD COUNT 3.65 M/uL (4.7-6.1); WHITE BLOOD COUNT 11.77 K/uL (4.8-10.8)
[2017-01-24] MEDS ORDERED: PHARMACIST DISCHARGE MED REC CONSULT PRN (17:15)
[2017-01-24] MEDS ORDERED: ACETAMINOPHEN 325 MG TAB PO PRN (17:15)
[2017-01-24] MEDS ORDERED: NITROGLYCERIN 0.4 MG SL PER TAB CHARGE SL PRN (17:15)
[2017-01-24] MEDS ORDERED: ONDANSETRON INJ 2 MG/ML 2 ML VIAL IV PRN (17:15)
[2017-01-24] MEDS ORDERED: METO100T14 PO (17:22)
[2017-01-24] MEDS ORDERED: POTA1CAP2 PO (17:22)
[2017-01-24] MEDS ORDERED: PRENTAB26 PO (17:22)
[2017-01-24] MEDS ORDERED: FAMO20TA11 PO (17:22)
[2017-01-24] MEDS ORDERED: FRS/40 PO (17:22)
[2017-01-24] MEDS ORDERED: DILT120C51 PO (17:22)
[2017-01-24] MEDS ORDERED: INSDGI SC (17:29)
[2017-01-24] MEDS ORDERED: NVLGI/PEN SQ (17:29)
[2017-01-24] MEDS ORDERED: GLUCAGON FOR INJ 1 MG VIAL SQ PRN (17:30)
[2017-01-24] MEDS ORDERED: GLUCOSE 10 TABS/TUBE PO PRN (17:30)
[2017-01-24] MEDS ORDERED: GLUCOSE 40% GEL 15 GM TUBE PO PRN (17:30)
[2017-01-24] MEDS ORDERED: DEXTROSE 50% 50 ML SYR IV PRN (17:30)
[2017-01-24] MEDS ORDERED: INSULIN GLARGINE PER UNIT 20 UNITS in SYRINGE 0 ML SC STA (17:44)
[2017-01-24] MEDS ORDERED: [UNRECOGNIZED DRUG - OTHER] PO SCH (17:45)
[2017-01-24] MEDS ORDERED: ALBUTEROL HFA 8 GM INHALER INH PRN (17:45)
--- NOTE | 2017-01-24 17:47 | History and Physical ---
History & Physical Date & Time of Service: Jan 24, 2017 at 17:09 Chief Complaint: Dizzy, Blurry Vision, Flashing In Rt Eye Primary Care Physician: Dennis Dawson D.O. History of Present Illness Source: patient This is a 61 y/o male with PMHx of CAD s/p CABG last week, DM 2, LATOYA on CPAP HS , COPD, HTN, Dyslipidemia and other problems as outlined below who presents to the ED with feeling off-balance for 5 days. Pt reports that 5 days ago he began feeling very off-balance with ambulation. He states that every time he walks he "veers to the right side". His sxs were initially assoc with drooling and visual disturbances in the R eye that he describes as double vision/"strobe lights". The visual disturbances resolved after approximately 12 hours however the ambulatory dysfunction has persisted. Per previous documentation, son noticed some left sided facial droop. Pt underwent CABG x 4 (01/15/17) at [facility]. Patient reported his sxs to cardiology (Dr. Vieyra) in the office yesterday and Dr. Vieyra recommended further evaluation. Pt denies personal or family history of CVA. Pt denies fever/chills, diaphoresis, chest pain, SOB, abd pain, N/V, bowel or bladder issues, LE edema, calf pain, lightheadedness/ dizziness, unilateral weakness or slurred speech. In the ED, vitals are stable. Head CT is negative. Pt is stable and will be admitted for further evaluation and treatment. Past Medical/Surgical History Medical Problems: (1) COPD (chronic obstructive pulmonary disease) Status: Chronic (2) DM type 2 (diabetes mellitus, type 2) Status: Chronic (3) Dyslipidemia Status: Chronic (4) HTN (hypertension) Status: Chronic (5) LATOYA (obstructive sleep apnea) Status: Chronic Surgical Problems: (1) S/P partial colectomy Status: Chronic (2) S/P tonsillectomy Status: Chronic Family History Patient reports no known family medical history. Social History Smoking Status: Former Smoker (3 ppd x 37 yrs; quit 2006) Alcohol Use: none Drug Use: none Marital Status: Housing status: lives with family Allergies Coded Allergies: Penicillins (Verified Allergy, Mild, HIVES, 01/24/17) Home Medications Scheduled Aspirin (Aspirin Ec), 162 MG PO HS Atorvastatin (Lipitor), 40 MG PO DAILY Cholecalciferol (Vitamin D), 5,000 UNIT PO LUNCH Diltiazem Hcl Coated Beads (Cardizem Cd), 120 MG PO QAM Famotidine (Pepcid), 20 MG PO BID Fish Oil ([place]-3), 1,200 MG PO BID Fluticasone Prop/Salmeterol (Advair Diskus 250/50 60 Dose), 1 PUFF INH BID Furosemide (Lasix), 40 MG PO QAM Insulin Aspart (Novolog Flexpen), 1 DOSE SQ SLIDING SCALE Insulin Glargine (Lantus), 40 UNITS SC BID Metformin Hcl (Glucophage), 1,000 MG PO BID Metoprolol Tartrate (Lopressor) (Lopressor), 100 MG PO BID Multivit/Min/Iron/Fol Ac/Pren ( Vitamin), 2 TAB PO DAILY Nitroglycerin (Nitrostat), 0.4 MG UT PRN Potassium Chloride (Potassium Chloride Er), 10 MEQ PO DAILY Tocopheryl Acet,Dl-Alpha (Vitamin E), 1 CAP PO LUNCH Scheduled PRN Albuterol Hfa (Ventolin Hfa), 2 PUFFS INH Q6H PRN for SOB/Wheezing Review of Systems Constitutional: No chills, No fatigue, No fever, No sweats, No weakness Eyes: + diplopia, + worsening of vision ENT: No hearing loss Respiratory: No shortness of breath Cardiovascular: No chest pain, No claudication, No edema Abdomen: No constipation, No diarrhea, No nausea, No pain, No vomiting Musculoskeletal: No calf pain, No swelling Genitourinary - Male: No dysuria Neurologic: No weakness Psychiatric: No depression symptoms Endocrine: No fatigue Hematologic / Lymphatic: No abnormal bleeding/bruising Integumentary: No new/changing skin lesions Physical Exam Vital Signs Date Time Temp Pulse Resp B/P Pulse Ox O2 Delivery O2 Flow Rate FiO2 01/24/17 17:04 87 20 133/72 94 Room Air 01/24/17 16:15 83 01/24/17 15:15 96 Room Air 01/24/17 15:08 36.5 84 17 144/78 95 Room Air General Appearance: WD/WN, no apparent distress, + pertinent finding (Pt is sitting comfortably in bed ) Head: normocephalic, atraumatic Eyes: normal inspection, PERRL, EOMI ENT: hearing grossly normal Neck: supple Respiratory/Chest: chest non-tender, lungs clear, normal breath sounds, no respiratory distress, + pertinent finding (healing surgical scar ) Cardiovascular: regular rate, rhythm, no edema, no murmur Abdomen/GI: normal bowel sounds, non tender, soft Back: normal inspection Extremities/Musculoskelatal: normal inspection, no calf tenderness, no pedal edema Neurologic/Psych: no motor/sensory deficits, alert, normal mood/affect, oriented x 3, + pertinent finding (L sided facial droop) Skin: normal color, warm/dry Diagnostics Laboratory Results Results Past 24 Hours Test 01/24/17 15:24 01/24/17 17:02 Range/Units White Blood Count 11.77 4.8-10.8 K/uL Red Blood Count 3.65 4.7-6.1 M/uL Hemoglobin 10.5 14.0-18.0 g/dL Hematocrit 31.0 42-52 % Mean Corpuscular Volume 84.9 80-100 fL Mean Corpuscular Hemoglobin 28.8 25-34 pg Mean Corpuscular Hemoglobin Concent 33.9 32-36 g/dl Platelet Count 348 130-400 K/uL Mean Platelet Volume 9.9 7.4-10.4 fL Neutrophils (%) (Auto) 62.1 % Lymphocytes (%) (Auto) 26.3 % Monocytes (%) (Auto) 6.4 % Eosinophils (%) (Auto) 4.5 % Basophils (%) (Auto) 0.4 % Neutrophils # (Auto) 7.31 1.4-6.5 K/uL Lymphocytes # (Auto) 3.10 1.2-3.4 K/uL Monocytes # (Auto) 0.75 0.11-0.59 K/uL Eosinophils # (Auto) 0.53 0-0.5 K/uL Basophils # (Auto) 0.05 0-0.2 K/uL RDW Standard Deviation 45.8 36.4-46.3 fL RDW Coefficient of Variation 14.7 11.5-14.5 % Immature Granulocyte % (Auto) 0.3 % Immature Granulocyte # (Auto) 0.03 0.00-0.02 K/uL Prothrombin Time 11.5 9.0-12.0 SECONDS Prothromb Time International Ratio 1.1 0.9-1.1 Activated Partial Thromboplast Time 25.9 21.0-31.0 SECONDS Partial Thromboplastin Ratio 1.0 Sodium Level 139 136-145 mmol/L Potassium Level 4.2 3.5-5.1 mmol/L Chloride Level 102 98-107 mmol/L Carbon Dioxide Level 24 21-32 mmol/L Anion Gap 13.0 3-11 mmol/L Blood Urea Nitrogen 34 7-18 mg/dl Creatinine 1.30 0.60-1.40 mg/dl Est Creatinine Clear Calc Drug Dose 65.1 ml/min Estimated GFR () 69.2 Estimated GFR (Non- 59.7 BUN/Creatinine Ratio 25.8 10-20 Random Glucose 126 70-99 mg/dl Calcium Level 9.1 8.5-10.1 mg/dl Total Creatine Kinase 76 39-308 U/L Creatine Kinase MB 1.2 0.5-3.6 ng/ml Creatine Kinase MB Ratio 1.6 0-3.0 Troponin I 0.015 0-0.045 ng/ml Diagnostic Radiology CXR IMPRESSION: Emphysema. No active disease in the chest. CT HEAD IMPRESSION: There is no hemorrhage, mass effect, or evidence of acute territorial ischemia by CT criteria. EKG EKG: NSR at 81 bpm with T wave inversion in anterior leads; T wave inversion new when compared to EKG from 12/28/16 Impression Assessment and Plan VISUAL DISTURBANCES/AMBULATORY DYSFUNCTION R/O CVA -pt presented with visual disturbances, ambulatory dysfunction and L sided facial droop; r/o CVA -admit to telemetry -RFs include recent surgery, DM 2, HTN, Dyslipidemia -head CT is negative; will obtain MRI brain and MRA head and neck for further evaluation -obtain echo to r/o any cardiac abnormalities -neuro checks q4h -fasting lipids in AM -cont ASA and high-dose statin -PT/OT -consult speech to evaluate swallowing -NPO until speech eval is complete -consult neuro, Dr. Mendez-pending input -allow for permissive HTN in setting of possible CVA -continue to monitor CAD S/P CABG -s/p CABG @ [facility] 01/15/17 -cont ASA, BB, statin -pt denies anginal sxs -follows with cardiology, Dr. Kopinski INSULIN-DEPENDENT DM 2 -recheck A1C -hold metformin -decrease Lantus to 20 units BID while in hospital -start ISS -monitor BSG AC HS LATOYA ON CPAP HS -initial setup with CPAP -pt may use his own when it becomes available HTN -BP stable -cont metoprolol -monitor DYSLIPIDEMIA -check lipids in AM -cont statin DVT PROPHYLAXIS -subq heparin CODE STATUS -FULL CODE status per discussion with patient upon admission DISPO Pt was seen in collaboration with Dr. Emanuel. Please see his addendum for further details. Thanks! -Of note: pt will be followed by Dr. Harman starting tomorrow AM. Attending Addendum Pt was seen and examined with at bedside. 61 y/o male with PMHx of CAD s/ p CABG last week, DM 2, LATOYA on CPAP HS, COPD, HTN, Dyslipidemia presents to the ED with ambulatory dysfunction due to his balance. Pt said that about 5 days ago he began feeling very off-balance while ambulating. Also he said that he was having some vision problem. family notice some slurred speech and facial droop over the weekend. Pt said his cardiology that advised him to come to the ER for eval. Pt said that his symptoms seem to get better now. denies any chest pain, palpitation, dizziness and SOB. General- No acute distress Head- atraumatic Eyes- PERRL, EOMI ENT- oropharynx clear Neck- supple, no JVD Lungs- clear to auscultation and percussion Heart- regular rhythm; no murmur, surgical scar in the chest Abdomen- normal bowel sounds, soft Extremities- Left arm surgical scar, no calf tenderness Neuro- alert, oriented x 3; PERRL, EOMI; no facial palsy; no dysarthria; motor 5 /5 bilaterally, finger to nose intact bilaterally Skin- warm & dry A/P VISUAL DISTURBANCES/AMBULATORY DYSFUNCTION - Need to R/O CVA -CT head negative for any intracranial abnormality - Will get an MRI of the Head -neuro checks q4h -fasting lipids in AM -cont ASA, Plavix -PT/OT eval -consult neuro -continue to monitor in telemetry Lab, imaging, EKG reviewed Please refer to Cindy MELLO documentation for other problems Kings Emanuel MD
--- NOTE | 2017-01-24 17:54 | DIAGNOSTIC IMAGING REPORT ---
ORBIT RADIOGRAPHS 3 VIEWS HISTORY: pre-MRI screening. COMPARISON: None. FINDINGS: No radiopaque intraorbital foreign bodies are visualized. IMPRESSION: No radiopaque foreign bodies identified within the orbits. Electronically signed by: Miguelito Castaneda M.D. 01/24/2017 5:53 PM Dictated Date/Time: 01/24/2017 5:52 PM
--- NOTE | 2017-01-24 19:45 | DIAGNOSTIC IMAGING REPORT ---
MR ANGIOGRAPHY OF THE [place] NO CONTRAST CLINICAL HISTORY: Dizziness, blurred vision, flashing sensation the right thigh. Possible stroke. COMPARISON STUDY: Head CT dated 01/24/2017 A 3-D [id number] MR angiographic sequence of the [place] was performed. Both the source and projection images were reviewed. The study is mildly compromised due to artifact. There is no evidence of major intracranial branch occlusion. There is no evidence of intracranial stenosis. There are no lesions suspicious for aneurysm. IMPRESSION: Unremarkable MR angiography of the [place]. Electronically signed by: Miguelito Castaneda M.D. 01/24/2017 7:43 PM Dictated Date/Time: 01/24/2017 7:41 PM
--- NOTE | 2017-01-24 20:12 | DIAGNOSTIC IMAGING REPORT ---
MR ANGIOGRAPHY NECK WITHOUT A WITH CONTRAST HISTORY: Dizziness, blurred vision, flashing sensation, possible stroke TECHNIQUE: [id number] and gadolinium-enhanced MRA of the neck was performed both before and after the intravenous administration of contrast. All measurements were calculated based on NASCET criteria. The patient was administered 8 cc of intravenous Gadavist. COMPARISON STUDY: None. FINDINGS: The aortic arch and proximal great vessels are widely patent. There is a 50% stenosis of the right internal carotid artery origin. There is no evidence of hemodynamically significant left internal carotid artery stenosis. There is no vertebral artery stenosis. There are no findings to indicate dissection. IMPRESSION: 1. 50% stenosis of the right internal carotid artery origin Electronically signed by: Miguelito Castaneda M.D. 01/24/2017 8:11 PM Dictated Date/Time: 01/24/2017 8:07 PM
[2017-01-24] MEDS ORDERED: GADAVIST IV PRN (20:15)
--- NOTE | 2017-01-24 20:21 | DIAGNOSTIC IMAGING REPORT ---
MRI OF THE BRAIN WITHOUT AND WITH IV CONTRAST CLINICAL HISTORY: Possible stroke, dizziness, blurred vision, flashing in the right eye. COMPARISON STUDY: CT scan dated 01/24/2017 TECHNIQUE: MRI of the brain was performed from the vertex to the skull base utilizing various T1 and T2 weighted sequences. Following the IV administration of 8 mL of Gadavist contrast, additional enhanced images were obtained. FINDINGS: Sagittal T1, axial diffusion, proton density and T2 weighted axial, coronal FLAIR, and pre and post axial T1-weighted images were acquired. These were supplemented with post gadolinium coronal T1 weighted images. No intra or extra-axial mass lesions are visualized. Axial diffusion-weighted images reveal no evidence of acute or subacute infarction. There is no evidence of ventricular dilatation. Proton density T2-weighted and FLAIR images reveal scattered foci of increased T2 signal within the white matter, likely on a small vessel basis. There is also a small focus of increased T2 and FLAIR signal within the central eldon. There are no abnormal flow voids. There is no evidence of pathologic enhancement. There is a small 1 cm focus of marrow replacement within the right frontal calvarium. IMPRESSION: 1. No evidence of acute or subacute infarction 2. No evidence of intracranial mass 3. Scattered nonspecific foci of increased T2 signal within the white matter, including a small focus of increased T2 signal within the central eldon. These are likely on a small vessel basis Electronically signed by: Miguelito Castaneda M.D. 01/24/2017 8:19 PM Dictated Date/Time: 01/24/2017 8:12 PM
[2017-01-24 20:30] VITALS: BMI 26.9
[2017-01-24 20:41] VITALS: BP 157/84; PULSE 91; TEMP 36.8; O2SAT 98
[2017-01-24] MEDS: INSULIN GLARGINE SOLOSTAR 100 UNITS/ML 3 ML PEN SC SCH (21:00)
[2017-01-24] MEDS: INSULIN ASPART 100 UNITS/ML 3 ML PEN SC SCH (21:00)
[2017-01-24] MEDS: HEPARIN SOD 5000 UNIT/0.5 ML CARP SQ SCH (22:00)
[2017-01-24] MEDS: METOPROLOL TARTRATE 100 MG TAB PO SCH (22:18)
[2017-01-24] MEDS: ATORVASTATIN 40 MG TAB PO SCH (22:19)
[2017-01-24] MEDS: ASPIRIN 81 MG ECTAB PO SCH (22:19)
[2017-01-24] MEDS: OMEGA-3 (PURIFIED FISH OIL) 1 GM CAP PO SCH (22:20)
[2017-01-24] MEDS: FAMOTIDINE 20 MG TAB PO SCH (22:20)
[2017-01-24] MEDS: FLUTICASONE/SALMETEROL 250/50 (ADVAIR) 14 PUFF/1 INHALER INH SCH (22:21)
--- NOTE | 2017-01-24 23:21 | EMERGENCY ROOM VISIT NOTE ---
History Report prepared by Justin: Tawnya Lemon Under the Supervision of: Dr. Haider Pappas M.D. First contact with patient: 15:24 Chief Complaint: STROKE SYMPTOMS Stated Complaint: DIZZY, BLURRY VISION, FLASHING IN RT EYE History of Present Illness The patient is a 61 year old male who presents to the Emergency Room with complaints of persistent dizziness starting 5 days ago. He had heart surgery 10 days ago in [place]. He has had bad balance which has affected his walking. He recounts that he has been having vision changes which he describes as being like a strobe light. His family notices that the left side of his face is weak. He has been having some leg swelling after the surgery. He has no chest pain that is unrelated to his surgery. Source of History: patient Onset: 5 days ago Position: other (global) Quality: other (dizziness) Timing: other (persistent) Associated Symptoms: No chest pain Note: Pt reports strobe light-like vision, weakness of left side of face, and balance issues. Review of Systems See HPI for pertinent positives & negatives. A total of 10 systems reviewed and were otherwise negative. Past Medical & Surgical Medical Problems: (1) COPD (chronic obstructive pulmonary disease) (2) DM type 2 (diabetes mellitus, type 2) (3) Dyslipidemia (4) HTN (hypertension) (5) LATOYA (obstructive sleep apnea) (6) Stroke Surgical Problems: (1) S/P partial colectomy (2) S/P tonsillectomy Family History Patient reports no known family medical history. Social History Smoking Status: Former Smoker Alcohol Use: occasionally Drug Use: none Marital Status: Housing Status: lives with family Occupation Status: employed Current/Historical Medications Scheduled Aspirin (Aspirin Ec), 162 MG PO HS Atorvastatin (Lipitor), 40 MG PO DAILY Cholecalciferol (Vitamin D), 5,000 UNIT PO LUNCH Diltiazem Hcl Coated Beads (Cardizem Cd), 120 MG PO QAM Famotidine (Pepcid), 20 MG PO BID Fish Oil ([place]-3), 1,200 MG PO BID Fluticasone Prop/Salmeterol (Advair Diskus 250/50 60 Dose), 1 PUFF INH BID Furosemide (Lasix), 40 MG PO QAM Insulin Aspart (Novolog Flexpen), 1 DOSE SQ SLIDING SCALE Insulin Glargine (Lantus), 40 UNITS SC BID Metformin Hcl (Glucophage), 1,000 MG PO BID Metoprolol Tartrate (Lopressor) (Lopressor), 100 MG PO BID Multivit/Min/Iron/Fol Ac/Pren ( Vitamin), 2 TAB PO DAILY Nitroglycerin (Nitrostat), 0.4 MG UT PRN Potassium Chloride (Potassium Chloride Er), 10 MEQ PO DAILY Tocopheryl Acet,Dl-Alpha (Vitamin E), 1 CAP PO LUNCH Scheduled PRN Albuterol Hfa (Ventolin Hfa), 2 PUFFS INH Q6H PRN for SOB/Wheezing Allergies Coded Allergies: Penicillins (Verified Allergy, Mild, HIVES, 01/24/17) Physical Exam Vital Signs Date Time Temp Pulse Resp B/P Pulse Ox O2 Delivery O2 Flow Rate FiO2 01/24/17 17:04 87 20 133/72 94 Room Air 01/24/17 16:15 83 01/24/17 15:15 96 Room Air 01/24/17 15:08 36.5 84 17 144/78 95 Room Air Physical Exam GENERAL: Patient is tired appearing and in no acute distress. HEENT: No acute trauma, normocephalic atraumatic, mucous membranes moist, no nasal congestion, no scleral icterus. NECK: No stridor, no adenopathy, no meningismus, trachea is midline. CHEST: Well healing sternotomy scar. LUNGS: No dyspnea. Clear to auscultation and equal bilaterally. No wheeze, no rhonchi. HEART: Regular rate and rhythm. No murmurs, rubs, gallops appreciated. ABDOMEN: Soft, nontender, bowel sounds positive, no masses appreciated, no peritonitis. BACK: No midline tenderness, no CVA tenderness EXTREMITIES: No cyanosis. Mildly enlarged left calf consistent with recent saphenous vein harvest. NEUROLOGIC: Alert and oriented. Faint left lower facial droop. Decreased strength of left facial muscles around eye. SKIN: No rash, no jaundice, no diaphoresis. Medical Decision & Procedures ER Provider Diagnostic Interpretation: X ray results are stated below per my interpretation and the radiologist's interpretation. Radiology results and stated below per my review and radiologist interpretation: CHEST ONE VIEW PORTABLE CLINICAL HISTORY: stroke symptoms COMPARISON STUDY: 12/26/2016 FINDINGS: There are postsurgical changes of a midline sternotomy. The chest has an emphysematous configuration. There is no focal pulmonary consolidation. There is no failure. There are no pleural effusions.[ IMPRESSION: Emphysema. No active disease in the chest. Electronically signed by: Miguelito Castaneda M.D. 01/24/2017 4:10 PM Dictated Date/Time: 01/24/2017 4:[address] SCAN OF THE BRAIN WITHOUT IV CONTRAST CLINICAL HISTORY: Dizziness. Blurry vision. COMPARISON STUDY: No priors. TECHNIQUE: Unenhanced axial CT scan of the brain is performed from the vertex to the skull base. Automated dose control exposure was utilized. CT DOSE: 623.48 mGy.cm FINDINGS: Brain parenchyma: The brain parenchyma is normal in appearance. There is no hemorrhage, mass effect, or evidence of acute territorial ischemia by CT criteria. Dickens-white matter is preserved. No extra-axial fluid collection is seen. Ventricles, sulci, cisterns: Normal in configuration. Intracranial vasculature: There is atherosclerotic calcification of the cavernous carotid arteries. Calvarium: Unremarkable. Sinuses and mastoids: The visualized paranasal sinuses are clear. The mastoid air cells are well pneumatized. Orbits: The bony orbits are grossly intact. IMPRESSION: There is no hemorrhage, mass effect, or evidence of acute territorial ischemia by CT criteria. Electronically signed by: Karl Zhong M.D. 01/24/2017 3:46 PM Dictated Date/Time: 01/24/2017 3:44 PM Laboratory Results 01/24/17 15:24 Red Blood Count 3.65, Mean Corpuscular Volume 84.9, Mean Corpuscular Hemoglobin 28.8, Mean Corpuscular Hemoglobin Concent 33.9, Mean Platelet Volume 9.9, Neutrophils (%) (Auto) 62.1, Lymphocytes (%) (Auto) 26.3, Monocytes (%) (Auto) 6.4, Eosinophils (%) (Auto) 4.5, Basophils (%) (Auto) 0.4, Neutrophils # (Auto) 7.31, Lymphocytes # (Auto) 3.10, Monocytes # (Auto) 0.75, Eosinophils # (Auto) 0.53, Basophils # (Auto) 0.05 01/24/17 15:24 Test 01/24/17 15:24 White Blood Count 11.77 K/uL (4.8-10.8) Red Blood Count 3.65 M/uL (4.7-6.1) Hemoglobin 10.5 g/dL (14.0-18.0) Hematocrit 31.0 % (42-52) Mean Corpuscular Volume 84.9 fL (80-100) Mean Corpuscular Hemoglobin 28.8 pg (25-34) Mean Corpuscular Hemoglobin Concent 33.9 g/dl (32-36) Platelet Count 348 K/uL (130-400) Mean Platelet Volume 9.9 fL (7.4-10.4) Neutrophils (%) (Auto) 62.1 % Lymphocytes (%) (Auto) 26.3 % Monocytes (%) (Auto) 6.4 % Eosinophils (%) (Auto) 4.5 % Basophils (%) (Auto) 0.4 % Neutrophils # (Auto) 7.31 K/uL (1.4-6.5) Lymphocytes # (Auto) 3.10 K/uL (1.2-3.4) Monocytes # (Auto) 0.75 K/uL (0.11-0.59) Eosinophils # (Auto) 0.53 K/uL (0-0.5) Basophils # (Auto) 0.05 K/uL (0-0.2) RDW Standard Deviation 45.8 fL (36.4-46.3) RDW Coefficient of Variation 14.7 % (11.5-14.5) Immature Granulocyte % (Auto) 0.3 % Immature Granulocyte # (Auto) 0.03 K/uL (0.00-0.02) Prothrombin Time 11.5 SECONDS (9.0-12.0) Prothromb Time International Ratio 1.1 (0.9-1.1) Activated Partial Thromboplast Time 25.9 SECONDS (21.0-31.0) Partial Thromboplastin Ratio 1.0 Anion Gap 13.0 mmol/L (3-11) Est Creatinine Clear Calc Drug Dose 65.1 ml/min Estimated GFR () 69.2 Estimated GFR (Non- 59.7 BUN/Creatinine Ratio 25.8 (10-20) Calcium Level 9.1 mg/dl (8.5-10.1) Total Creatine Kinase 76 U/L (39-308) Creatine Kinase MB 1.2 ng/ml (0.5-3.6) Creatine Kinase MB Ratio 1.6 (0-3.0) Troponin I 0.015 ng/ml (0-0.045) Laboratory results as reviewed by me. Medications Administered Medications (Trade) Dose Ordered Sig/Erik Route Start Time Stop Time Status Last Admin Dose Admin Atorvastatin Calcium (Lipitor Tab) 80 mg QAM PO 01/24/17 17:15 4 17:14 01/24/17 22:19 80 MG ECG Indication: weakness Rate (beats per minute): 81 Rhythm: normal sinus Findings: no acute ischemic change, no ectopy, other (nonspecific T-wave abnormalities) ED Course 1526: The patient was evaluated in room A2. A complete history and physical exam was performed. 1631: I discussed the patient's case with SVEN Ribeiro. The patient will be evaluated for further treatment and disposition. 1635: Upon reevaluation, the patient is resting comfortably. Discussed results and treatment plan with the patient. He verbalized understanding and agreement with the treatment plan. The patient will be evaluated for further management. Medical Decision Differential: Sepsis, Infectious (UTI/Pneumonia/Meningitis/etc), Metabolic/ Electrolyte Abnormality, Cardiac, Hepatic, Endocrine, Toxicologic, Neurologic, amongst other pathologies entertained. 61 yr old male arrives from clinic for evaluation of stroke like symptoms. Just had CABG 9 days ago and over last few days now with difficulty walking, left facial droop and single episode visual disturbance. Initial CT head negative. Labs look OK. With facial droop and ambulatory issues he will need to come in for stroke rule out. Stable throughout ED stay in no distress. Consults Time Called: 1624 Consulting Physician: SVEN Ribeiro Returned Call: 1631 Discussed the patient's case. The patient will be evaluated for further treatment and disposition. Impression Primary Impression: Left-sided weakness Scribe Attestation The scribe's documentation has been prepared under my direction and personally reviewed by me in its entirety. I confirm that the note above accurately reflects all work, treatment, procedures, and medical decision making performed by me. Departure Information Dispostion Being Evaluated By Hospitalist Referrals No Doctor, Assigned (PCP) Patient Instructions [facility]
[2017-01-24 23:46] VITALS: BP 127/71; PULSE 75; TEMP 36.8; O2SAT 94
[2017-01-25] VITALS (12 sets, daily range): BP systolic 116–142; BP diastolic 67–81; PULSE 70–77; TEMP 36.4–36.9; O2SAT 93–97; Ht 180.3 cm; Wt 85.4 kg
[2017-01-25] MEDS: HEPARIN SOD 5000 UNIT/0.5 ML CARP SQ SCH ×3 (05:31→21:42)
[2017-01-25 06:08] LABS: BASO % 0.5 %; BASO ABS # 0.04 K/uL (0-0.2); COMPLETE YES; EOS % 5.5 %; HEMATOCRIT 32.2 % (42-52); IG% 0.1 %; LYMPH % 30.9 %; LYMPH ABS # 2.66 K/uL (1.2-3.4); MEAN CELL VOLUME 86.6 fL (80-100); MEAN CORPUSCULAR HEMOGLOBIN 28.5 pg (25-34); MEAN CORPUSCULAR HGB CONC 32.9 g/dl (32-36); MEAN PLATELET VOLUME 9.7 fL (7.4-10.4); PLATELET COUNT 329 K/uL (130-400); RED BLOOD COUNT 3.72 M/uL (4.7-6.1); WHITE BLOOD COUNT 8.61 K/uL (4.8-10.8)
[2017-01-25 06:51] LABS: BUN/CREATININE RATIO 24.7 (10-20); CALCIUM 8.9 mg/dl (8.5-10.1); CHOLESTEROL/HDL RATIO 3.2
[2017-01-25 07:36] LABS: ESTIMATED AVERAGE GLUCOSE 214 mg/dl; HA1C FLAG Normal (Normal)
[2017-01-25 07:46] LABS: BENZODIAZEPINE, URINE NEG (NEG); COCAINE,URINE NEG (NEG); PHENCYCLIDINE, URINE NEG (NEG)
[2017-01-25] MEDS: INSULIN ASPART 100 UNITS/ML 3 ML PEN SC SCH ×4 (07:56→21:00)
[2017-01-25] MEDS: FLUTICASONE/SALMETEROL 250/50 (ADVAIR) 14 PUFF/1 INHALER INH SCH ×2 (08:21→19:55)
[2017-01-25] MEDS: FAMOTIDINE 20 MG TAB PO SCH ×2 (08:22→19:55)
[2017-01-25] MEDS: PRENATAL VITAMIN TAB PO SCH (08:22)
[2017-01-25] MEDS: DILTIAZEM HCL 120 MG CAPCR PO SCH (08:22)
[2017-01-25] MEDS: FUROSEMIDE 40 MG TAB PO SCH (08:22)
[2017-01-25] MEDS: POTASSIUM CHLORIDE 10 MEQ TABCR PO SCH (08:22)
[2017-01-25] MEDS: OMEGA-3 (PURIFIED FISH OIL) 1 GM CAP PO SCH ×2 (08:22→19:55)
[2017-01-25] MEDS: ATORVASTATIN 40 MG TAB PO SCH (08:23)
[2017-01-25] MEDS: METOPROLOL TARTRATE 100 MG TAB PO SCH ×2 (08:23→19:56)
[2017-01-25] MEDS: INSULIN GLARGINE SOLOSTAR 100 UNITS/ML 3 ML PEN SC SCH ×2 (08:24→21:00)
[2017-01-25] MEDS ORDERED: PERFLUTREN LIPID MICROSPHERE (DEFINITY) IV ONE (11:22)
[2017-01-25] MEDS: CHOLECALCIFEROL 1000 INTER.UNIT TAB PO SCH (11:55)
--- NOTE | 2017-01-25 13:10 | ECHOCARDIOGRAM REPORT ---
*NOTICE TO RECEIVING [employer] This information is strictly Confidential and protected under [place] law. [place] law prohibits you from making any further disclosure of this information unless further disclosure is expressly permitted by the written consent of the person to whom it pertains or is authorized by law. A general authorization for the release of medical or other information is not sufficient for this purpose. Hospital accepts no responsibility if the information is made available to any other person, INCLUDING THE PATIENT. Interpretation Summary * Name: STEVIE SANCHES Study Date: 01/25/2017 10:54 AM BP: 122/71 mmHg * Patient Location: C.2T\S\S242\S\1 HR: 68 * : 1955 (M/d/yyyy) Gender: Male Height: 71 in * Age: 61 yrs Ethnicity: CA Weight: 192 lb * Ordering Physician: Cindy Humphrey * Referring Physician: Self, Referred * Performed By: Jennyfer Restrepo RCS * * Reason For Study: R/O CVA * BSA: 2.1 m2 * The study was technically limited. * Grossly normal valvular structure and function. * -- Conclusions -- * The study was technically limited. * The left ventricle is normal in size. * There is mild concentric left ventricular hypertrophy. * Ejection Fraction = 55-60%. * The right ventricular systolic function is qualitatively normal. * Grossly normal valvular structure and function. Procedure Details * A complete two-dimensional transthoracic echocardiogram was performed (2D, M-mode, Doppler and color flow Doppler). * The study was technically difficult. * A contrast injection of Definity was performed to improve assessment of LV function. * Contrast was injected into an intravenous site in the right arm. * One vial of Definity ultrasound contrast was diluted in normal saline to a total volume of 10 ml. A total of '2' ml of solution was administered during imaging. * Lot # [id number] of Definity utilized for procedure. * Expiration date FEB 20. * The attending nurse who injected the contrast agent was HANG MATT RN. Left Ventricle * The left ventricle is normal in size. * There is mild concentric left ventricular hypertrophy. * Ejection Fraction = 55-60%. Right Ventricle * The right ventricle is not well visualized. * The right ventricle is grossly normal size. * The right ventricular systolic function is qualitatively normal. Atria * The left atrium is not well visualized. * Right atrium not well visualized. Mitral Valve * The mitral valve is not well visualized. * Significant mitral regurgitation is absent. Tricuspid Valve * The tricuspid valve is not well visualized. * Significant tricuspid regurgitation is absent. Aortic Valve * The aortic valve is not well visualized. * The aortic valve is trileaflet. * The aortic valve opens well. * There is no significant aortic regurgitation. Pulmonic Valve * The pulmonic valve is not well visualized. Great Vessels * The aortic root and proximal ascending aorta are normal sized. Pericardium/Pleural * There is no pericardial effusion. MMode 2D Measurements and Calculations IVSd 1.7 cm IVSs 2.1 cm LVIDd 3.6 cm LVIDs 2.8 cm LVPWd 1.3 cm LVPWs 1.3 cm IVS/LVPW 1.3 FS 21.3 % EDV(Teich) 54.8 ml ESV(Teich) 30.6 ml EF(Teich) 44.2 % EDV(cubed) 47.0 ml ESV(cubed) 22.9 ml EF(cubed) 51.3 % % IVS thick 23.8 % % LVPW thick -2.96 % LV mass(C)d 203.9 grams LV mass(C)dI 98.4 grams/m\S\2 LV mass(C)s 181.7 grams LV mass(C)sI 87.7 grams/m\S\2 SV(Teich) 24.2 ml SI(Teich) 11.7 ml/m\S\2 SV(cubed) 24.1 ml SI(cubed) 11.6 ml/m\S\2 Ao root diam 4.0 cm Ao root area 12.3 cm\S\2 ACS 2.1 cm LA dimension 3.2 cm LA/Ao 0.81 LVOT diam 2.0 cm LVOT area 3.2 cm\S\2 LVAd ap4 28.2 cm\S\2 LVLd ap4 7.8 cm EDV(MOD-sp4) 85.0 ml EDV(sp4-el) 86.7 ml LVAs ap4 18.9 cm\S\2 LVLs ap4 7.7 cm ESV(MOD-sp4) 38.7 ml ESV(sp4-el) 39.3 ml EF(MOD-sp4) 54.5 % EF(sp4-el) 54.6 % LVAd ap2 30.6 cm\S\2 LVLd ap2 8.3 cm EDV(MOD-sp2) 95.5 ml EDV(sp2-el) 96.0 ml LVAs ap2 20.6 cm\S\2 LVLs ap2 7.2 cm ESV(MOD-sp2) 48.6 ml ESV(sp2-el) 50.3 ml EF(MOD-sp2) 49.1 % EF(sp2-el) 47.6 % LVLd %diff 6.1 % EDV(MOD-bp) 92.8 ml LVLs %diff -7.14 % ESV(MOD-bp) 44.9 ml EF(MOD-bp) 51.6 % SV(MOD-sp4) 46.3 ml SI(MOD-sp4) 22.3 ml/m\S\2 SV(MOD-sp2) 46.9 ml SI(MOD-sp2) 22.6 ml/m\S\2 SV(MOD-bp) 47.9 ml SI(MOD-bp) 23.1 ml/m\S\2 SV(sp4-el) 47.3 ml SI(sp4-el) 22.8 ml/m\S\2 SV(sp2-el) 45.7 ml SI(sp2-el) 22.1 ml/m\S\2 Doppler Measurements and Calculations MV E max gurdeep 87.3 cm/sec MV A max gurdeep 65.8 cm/sec MV E/A 1.3 MV P1/2t max gurdeep 83.6 cm/sec MV P1/2t 60.9 msec MVA(P1/2t) 3.6 cm\S\2 MV dec slope 402.1 cm/sec\S\2 MV dec time 0.24 sec Ao V2 max 87.1 cm/sec Ao max PG 3.0 mmHg Ao max PG (full) 0.95 mmHg TANIA(V,A) 2.7 cm\S\2 TANIA(V,D) 2.7 cm\S\2 LV V1 max PG 2.1 mmHg LV V1 max 72.3 cm/sec PA V2 max 90.6 cm/sec PA max PG 3.3 mmHg
--- NOTE | 2017-01-25 15:46 | Neurology Consultation ---
Neurology Consultation Date of Consultation: Jan 25, 2017. Attending Physician: Antonia Harman M.D. Primary Care Physician: Dennis Dawson D.O. Reason for Consultation: r/o stroke History of Present Illness Source: patient Melvin is a 61 y/o male with PMH of CAD s/p CABG -01/15/17-quad bipass, DM 2, used bipap for sleep apnea, COPD long time smoker, HTN, Dyslipidemia. He was discharged from the hospital in [place] after bipass surgery went home and walked down to the basement on the way back up from the basement he had feeling off-balance. He thought that he had over did it after surgery but this continued for 5 days. He "veers to the right side" and had a light flashing he thinks in the right eye that he states is a double vision/"strobe lights". The visual issues resolves after 12 hours however the ambulatory dysfunction has persisted until today he states he is ambulating better. he states he had some left facial droop which was noticed by his and children. He saw cardiology (Dr. Vieyra) in his office as a follow up for surgery and he sent him to the ED. He denies fever/chills, diaphoresis, chest pain, SOB, abd pain, N/V, bowel or bladder issues, LE edema, calf pain, lightheadedness/dizziness, unilateral weakness or slurred speech, falls, He is a previous smoker, minimal EtOH use. He states it was hard to tell if he had left sided weakness because he took the grafts from his left arm and leg. Past Medical/Surgical History Medical Problems: (1) Abnormal stress test Status: Acute (2) Left sided chest pain Status: Acute (3) Left-sided weakness Status: Acute Social History Smoking Status: Former smoker Alcohol Use: occasionally Drug Use: none Marital Status: Housing Status: lives with family Occupation Status: employed Allergies Coded Allergies: Penicillins (Verified Allergy, Mild, HIVES, 01/24/17) Current Inpatient Medications Current Inpatient Medications Medications (Trade) Dose Ordered Sig/Erik Route Start Time Stop Time Status Last Admin Dose Admin Miscellaneous Information (Pharmacist Discharge Med Rec Consult) 1 ea UD PRN N/A 01/24/17 17:15 02/23/17 17:14 Heparin Sodium (Porcine) (Heparin Sq 5000 Unit/0.5ml) 5,000 unit Q8 SQ 01/24/17 22:00 02/23/17 21:59 Acetaminophen (Tylenol Tab) 650 mg Q4H PRN PO 01/24/17 17:15 02/23/17 17:14 Ondansetron HCl (Zofran Inj) 4 mg Q6H PRN IV 01/24/17 17:15 02/23/17 17:14 Nitroglycerin (Nitrostat Tab) 0.4 mg UD PRN SL 01/24/17 17:15 02/23/17 17:14 Atorvastatin Calcium (Lipitor Tab) 80 mg QAM PO 01/24/17 17:15 02/23/17 17:14 01/25/17 08:23 80 MG Insulin Aspart (novoLOG ASPART) SLIDING SCALE If C... ACHS SC 01/24/17 21:00 02/23/17 20:59 01/25/17 11:54 4 UNITS Glucose (Glucose 40% Gel) 15-30 GRAMS 15 GRAMS... UD PRN PO 01/24/17 17:30 02/23/17 17:29 Glucose (Glucose Chew Tab) 4-8 Tablets 4 Tabl... UD PRN PO 01/24/17 17:30 02/23/17 17:29 Dextrose (Dextrose 50% 50ML Syringe) 25-50ML OF 50% DW IV FOR... UD PRN IV 01/24/17 17:30 02/23/17 17:29 Glucagon (Glucagon Inj) 1 mg UD PRN SQ 01/24/17 17:30 02/23/17 17:29 Albuterol (Ventolin Hfa Inhaler) 2 puffs Q6H PRN INH 01/24/17 17:45 02/23/17 17:44 Aspirin (Ecotrin Tab) 162 mg HS PO 01/24/17 21:00 02/23/17 20:59 01/24/17 22:19 162 MG Cholecalciferol (Vitamin D Tab) 5,000 inter.unit DAILY@1200 PO 01/25/17 12:00 02/24/17 11:59 01/25/17 11:55 5,000 INTER.UNIT Diltiazem HCl (Cardizem Cd Cap) 120 mg QAM PO 01/25/17 09:00 4/22/17 08:59 01/25/17 08:22 120 MG Famotidine (Pepcid Tab) 20 mg BID PO 01/24/17 21:00 02/23/17 20:59 01/25/17 08:22 20 MG Fish Oil (Clements-3 (Purified Fish Oil) Cap) 1 gm BID PO 01/24/17 21:00 02/23/17 20:59 01/25/17 08:22 1 GM Salmeterol Xinafoate/ Fluticasone (Advair Diskus 250/50 Inh) 1 puff BID INH 01/24/17 21:00 02/23/17 20:59 01/25/17 08:21 1 PUFF Furosemide (Lasix Tab) 40 mg QAM PO 01/25/17 09:00 02/24/17 08:59 01/25/17 08:22 40 MG Metoprolol Tartrate (Lopressor Tab) 100 mg BID PO 01/24/17 21:00 02/23/17 20:59 01/25/17 08:23 100 MG Prenat Multivit/ Affiliate Marketing Specialist/Iron/Folic Ac ( Vitamin Tab) 2 tab DAILY PO 01/25/17 09:00 02/24/17 08:59 01/25/17 08:22 2 TAB Potassium Chloride (Klor-Con M10) 10 meq DAILY PO 01/25/17 09:00 02/24/17 08:59 01/25/17 08:22 10 MEQ Non-Formulary Medication (Tocopheryl Acet,Dl-Alpha (Vitamin E)) 1 cap LUNCH PO 01/24/17 17:45 02/23/17 17:44 Future Hold Insulin Glargine (Lantus Solostar Pen) 20 unit BID SC 01/24/17 21:00 02/23/17 20:59 01/25/17 08:24 20 UNIT Gadobutrol (Gadavist) 8 mmol UD PRN IV 01/24/17 20:15 01/28/17 20:14 Physical Exam Vital Signs (Past 24 Hrs): Date Time Temp Pulse Resp B/P Pulse Ox O2 Delivery O2 Flow Rate FiO2 01/25/17 12:08 36.9 70 20 127/77 97 Room Air 01/25/17 12:00 97 Room Air 01/25/17 08:00 96 Room Air 01/25/17 07:32 36.5 77 20 137/81 96 Room Air 01/25/17 04:48 97 Room Air 01/25/17 03:53 36.6 72 20 122/71 93 Room Air 01/25/17 00:01 97 Room Air 01/24/17 23:46 36.8 75 22 127/71 94 Room Air 01/24/17 20:41 36.8 91 20 157/84 98 Room Air 01/24/17 20:30 Room Air 01/24/17 18:51 89 20 120/64 97 01/24/17 18:30 84 20 120/64 95 Room Air 01/24/17 17:04 87 20 133/72 94 Room Air 01/24/17 16:15 83 Physical Exam: Constitutional: appearance nourished, healthy and normal Ears, Nose, Mouth and Throat: mucous membranes moist, no injection and skin normal, eyes normal Cardiovascular: normal S-1 and S-2 and regular rate and rhythm Respiratory: clear to auscultation (CTA) and no rales, rhonchi or wheeze Musculoskeletal: no peripheral edema and good distal pulses Skin: well healing sternal incision, left arm incision, right leg incision Eyes: extraocular muscles intact (EOMI) and pupils equal, round and reactive to light (PERRL), miotic NEUROLOGIC EXAMINATION: Mental status: Alert and interactive Oriented to full date and location Oriented to person Speech fluent with no evidence of aphasia Cranial Nerves smile slight asymmetric flattening of left nasolabial fold, tongue midline, eye brow raise symmetric Reflexes: Deep tendon reflexes were symmetrical and graded 2/5. Plantar responses were flexor. Sensory: no deficit to cool touch, vibration, GT proprioception Coordination: Romberg absent Gait/Stance: Posture normal. Gait normal: with steady with steps, base, turning, heel and toe walking and tandem gait. Motor: Negative for pronator drift of out stretched arms with eyes closed. Strength: biceps triceps hand senior sql developer intrinsics bilaterally 5/5, right deltoid 5/5 with break away weakness, hip flex plantar flex ext 5/5 Laboratory Results Past 24 Hours: 01/25/17 05:43 Red Blood Count 3.72, Mean Corpuscular Volume 86.6, Mean Corpuscular Hemoglobin 28.5, Mean Corpuscular Hemoglobin Concent 32.9, Mean Platelet Volume 9.7, Neutrophils (%) (Auto) 57.0, Lymphocytes (%) (Auto) 30.9, Monocytes (%) (Auto) 6.0, Eosinophils (%) (Auto) 5.5, Basophils (%) (Auto) 0.5, Neutrophils # (Auto) 4.91, Lymphocytes # (Auto) 2.66, Monocytes # (Auto) 0.52, Eosinophils # (Auto) 0.47, Basophils # (Auto) 0.04 01/25/17 05:43 Test 01/24/17 15:24 01/25/17 04:50 01/25/17 05:43 01/25/17 11:21 Prothrombin Time 11.5 SECONDS (9.0-12.0) Prothromb Time International Ratio 1.1 (0.9-1.1) Activated Partial Thromboplast Time 25.9 SECONDS (21.0-31.0) Partial Thromboplastin Ratio 1.0 Estimated Average Glucose 214 mg/dl Hemoglobin A1c 9.1 % (4.5-5.6) Total Creatine Kinase 76 U/L (39-308) Creatine Kinase MB 1.2 ng/ml (0.5-3.6) Creatine Kinase MB Ratio 1.6 (0-3.0) Troponin I 0.015 ng/ml (0-0.045) Urine Opiates Screen NEG (NEG) Urine Methadone, Qualitative NEG (NEG) Urine Barbiturates NEG (NEG) Urine Phencyclidine (PCP) Level NEG (NEG) Ur Amphetamine/Methamphetamine NEG (NEG) MDMA (Ecstasy) Screen NEG (NEG) Urine Benzodiazepines Screen NEG (NEG) Urine Cocaine Metabolite NEG (NEG) Urine Marijuana (THC) NEG (NEG) White Blood Count 8.61 K/uL (4.8-10.8) Red Blood Count 3.72 M/uL (4.7-6.1) Hemoglobin 10.6 g/dL (14.0-18.0) Hematocrit 32.2 % (42-52) Mean Corpuscular Volume 86.6 fL (80-100) Mean Corpuscular Hemoglobin 28.5 pg (25-34) Mean Corpuscular Hemoglobin Concent 32.9 g/dl (32-36) Platelet Count 329 K/uL (130-400) Mean Platelet Volume 9.7 fL (7.4-10.4) Neutrophils (%) (Auto) 57.0 % Lymphocytes (%) (Auto) 30.9 % Monocytes (%) (Auto) 6.0 % Eosinophils (%) (Auto) 5.5 % Basophils (%) (Auto) 0.5 % Neutrophils # (Auto) 4.91 K/uL (1.4-6.5) Lymphocytes # (Auto) 2.66 K/uL (1.2-3.4) Monocytes # (Auto) 0.52 K/uL (0.11-0.59) Eosinophils # (Auto) 0.47 K/uL (0-0.5) Basophils # (Auto) 0.04 K/uL (0-0.2) RDW Standard Deviation 46.3 fL (36.4-46.3) RDW Coefficient of Variation 14.7 % (11.5-14.5) Immature Granulocyte % (Auto) 0.1 % Immature Granulocyte # (Auto) 0.01 K/uL (0.00-0.02) Anion Gap 9.0 mmol/L (3-11) Est Creatinine Clear Calc Drug Dose 84.7 ml/min Estimated GFR () 95.1 Estimated GFR (Non- 82.0 BUN/Creatinine Ratio 24.7 (10-20) Calcium Level 8.9 mg/dl (8.5-10.1) Triglycerides Level 79 mg/dl (0-150) Cholesterol Level 93 mg/dl (0-200) HDL Cholesterol 29 mg/dl LDL Cholesterol, Calculated 48 mg/dl VLDL Cholesterol, Calculated 16 mg/dl Cholesterol/HDL Ratio 3.2 Bedside Glucose 200 mg/dl (70-99) Imaging MRI [place] with and without contrast- FINDINGS: Sagittal T1, axial diffusion, proton density and T2 weighted axial, coronal FLAIR, and pre and post axial T1- weighted images were acquired. These were supplemented with post gadolinium coronal T1 weighted images. No intra or extra-axial mass lesions are visualized. Axial diffusion-weighted images reveal no evidence of acute or subacute infarction.There is no evidence of ventricular dilatation.Proton density T2- weighted and FLAIR images reveal scattered foci of increased T2 signal within the white matter, likely on a small vessel basis. There is also a small focus of increased T2 and FLAIR signal within the central [place]. There are no abnormal flow voids.There is no evidence of pathologic enhancement. There is a small 1 cm focus of marrow replacement within the right frontal calvarium. MRA brain- Unremarkable MR angiography of the [place]. MRA neck 50% stenosis of the right internal carotid artery origin CT-head- There is no hemorrhage, mass effect, or evidence of acute territorial ischemia by CT criteria. TTE-The left ventricle is normal in size. * There is mild concentric left ventricular hypertrophy. * Ejection Fraction = 55-60%. * The right ventricular systolic function is qualitatively normal. * Grossly normal valvular structure and function. Impression 61 year old male s/p quad bipass surgery 01/15/17 with stroke like symptoms Plan 1. optimize blood pressure control and lipid, DM control 2. currently on aspirin 81 mg would add plavix 75 mg daily if no contra indications- will defer to cardiology 3. TTE not certain if bubble study was done not reported to evaluate for ASD 4. PT/OT speech for any discharge needs 5. symptoms persisted for 5 days- would follow closely with cardiology 6. MRI with questionable area in central [place] -old 7. ophthalmology for further evaluation of vision 8. cardio net for possible arrhythmia 9. orthostatic blood pressures follow up 3-4 weeks after discharge neurology Adriana Fallon PAC schedule I have seen and discussed above patient with Dr Adriana rKueger, neurology Pt seen and examined, exam nml suspect tia, add plavix if no contraindications rerecent cv surgery, cardionet as outpt to r/o atrial arrhythmia
[2017-01-25] MEDS: ASPIRIN 81 MG ECTAB PO SCH (19:55)
--- NOTE | 2017-01-25 20:44 | Progress Note ---
Internal Med Progress Note Date of Service: Jan 25, 2017. Provider Documentation: SUBJECTIVE: walking on hallway no weakness or paresthesia no facial droop no visual symptom denies of any chest pain or SOB OBJECTIVE: Vital Signs-as noted below Exam: General-no sign of distress Eyes-sclera non icteric , PERRLA/EOMI ENT-NAD Neck-no JVD Lungs-CTA, no wheeze or rales Heart-regular S1/S2 Abdomen-soft, non tender Extremities-left inner arm bypass vein harvesting wound well healing Neuro-no focal neurological deficit Lab data as noted below. ASSESSMENT & PLAN: VISUAL DISTURBANCES/AMBULATORY DYSFUNCTION R/O CVA -possible TIA -RFs include recent surgery CABG , DM 2, HTN, Dyslipidemia -head CT is negative; -MRI brain and MRA head and neck no evidence of VA - -cont ASA and high-dose statin -appreciate neurology eval pt will benefit form dual antiplatelet therapy [facility] for evaluation of arrhythmia -possible causing thrombotic event CAD S/P CABG -s/p CABG @ [facility] 01/15/17 -cont ASA, BB, statin -pt denies anginal sxs -follows with cardiology, Dr. Vierya INSULIN-DEPENDENT DM 2 -hold metformin -will be resumed on discharge -insulin SSI -monitor BSG AC HS LATOYA ON CPAP HS -initial setup with CPAP -pt may use his own when it becomes available HTN -BP stable -cont metoprolol -monitor DYSLIPIDEMIA -check lipids in AM -cont statin DVT PROPHYLAXIS -subq heparin CODE STATUS -FULL CODE DISPOSITION discharge home when medically stable Vital Signs: Lab Results:
[2017-01-26] VITALS (9 sets, daily range): BP systolic 96–133; BP diastolic 60–72; PULSE 67–82; TEMP 36.6–36.7; O2SAT 95–97
[2017-01-26] MEDS: HEPARIN SOD 5000 UNIT/0.5 ML CARP SQ SCH ×2 (06:00→14:00)
[2017-01-26 07:30] LABS: BASO % 0.6 %; BASO ABS # 0.05 K/uL (0-0.2); COMPLETE YES; EOS % 5.2 %; HEMATOCRIT 32.4 % (42-52); IG% 0.1 %; LYMPH % 30.3 %; MEAN CORPUSCULAR HEMOGLOBIN 28.6 pg (25-34); MEAN CORPUSCULAR HGB CONC 33.6 g/dl (32-36); MEAN PLATELET VOLUME 9.5 fL (7.4-10.4); NEUT % 58.8 %; PLATELET COUNT 378 K/uL (130-400); RED BLOOD COUNT 3.81 M/uL (4.7-6.1); WHITE BLOOD COUNT 8.59 K/uL (4.8-10.8)
[2017-01-26] MEDS: POTASSIUM CHLORIDE 10 MEQ TABCR PO SCH (07:34)
[2017-01-26] MEDS: FLUTICASONE/SALMETEROL 250/50 (ADVAIR) 14 PUFF/1 INHALER INH SCH (07:34)
[2017-01-26] MEDS: METOPROLOL TARTRATE 100 MG TAB PO SCH (07:34)
[2017-01-26] MEDS: PRENATAL VITAMIN TAB PO SCH (07:35)
[2017-01-26] MEDS: FUROSEMIDE 40 MG TAB PO SCH (07:35)
[2017-01-26] MEDS: ATORVASTATIN 40 MG TAB PO SCH (07:35)
[2017-01-26] MEDS: FAMOTIDINE 20 MG TAB PO SCH (07:35)
[2017-01-26] MEDS: DILTIAZEM HCL 120 MG CAPCR PO SCH (07:36)
[2017-01-26] MEDS: OMEGA-3 (PURIFIED FISH OIL) 1 GM CAP PO SCH (07:36)
[2017-01-26] MEDS: INSULIN ASPART 100 UNITS/ML 3 ML PEN SC SCH ×2 (07:39→12:06)
[2017-01-26] MEDS: INSULIN GLARGINE SOLOSTAR 100 UNITS/ML 3 ML PEN SC SCH (07:40)
[2017-01-26 07:57] LABS: CALCIUM 9.4 mg/dl (8.5-10.1)
[2017-01-26] MEDS: CHOLECALCIFEROL 1000 INTER.UNIT TAB PO SCH (12:03)
--- NOTE | 2017-01-26 12:34 | Discharge Instructions ---
Discharge Instructions Date of Service Jan 26, 2017. Admission Reason for Admission: Stroke Discharge Discharge Diagnosis / Problem: TIA /CAD S/P RECENT CABG Discharge Goals Goal(s): Improve disease control, Diagnostic testing, Therapeutic intervention Activity Recommendations Activity Limitations: as noted below ( TOLERATED ) Shower/Bathe: no limitations . Instructions / Follow-Up Instructions / Follow-Up HOSPITAL FOLLOW UP ON 01/29/2017 @ 3:[address] Dennis Fletcher, General Internal Medicine [facility] WILL NEED TO SCHEDULE APPOINTMENT WITH OPHTHALMOLOGY FOR VISUAL SYMPTOM , PLEASE HAVE REFERRAL AND APPOINTMENT SCHEDULED THROUGH DR FLETCHER CARDIOLOGY FOLLOW UP ON 02/07/2017 @ 3:15 PM WITH Janna Baker PA-C Cardiology, [facility] CARDIOLOGY OFFICE WILL CALL YOU SET UP FOR CORPORATE TREASURY ANALYST Current Hospital Diet Patient's current hospital diet: Diabetes Type 2 Diet, AHA Diet (Heart Healthy) Discharge Diet Recommended Diet: AHA Diet (Heart Healthy) Pending Studies Studies pending at discharge: no Laboratory Results Hemoglobin A1c Test 01/24/17 15:24 Range/Units Estimated Average Glucose 214 mg/dl Hemoglobin A1c 9.1 H 4.5-5.6 % Lipid Panel Test 01/25/17 05:43 Range/Units Triglycerides Level 79 0-150 mg/dl Cholesterol Level 93 0-200 mg/dl HDL Cholesterol 29 mg/dl Cholesterol/HDL Ratio 3.2 LDL Cholesterol, Calculated 48 mg/dl Medical Emergencies . Who to Call and When: Medical Emergencies: If at any time you feel your situation is an emergency, please call 911 immediately. . Non-Emergent Contact Non-Emergency issues call your: Primary Care Provider . . "Provider Documentation" section prepared by Antonia Harman. VTE Core Measure Inpt VTE Proph given/why not?: Unfractionated heparin SQ
[2017-01-26] MEDS ORDERED: ASPEC81 PO (13:23)
[2017-01-26] MEDS ORDERED: CLOP1TAB15 PO (13:23)
--- NOTE | 2017-01-26 21:12 | Discharge Summary ---
Discharge Summary Date of Service Jan 26, 2017. Discharge Summary Admission Date: Jan 24, 2017 at 17:46 Discharge Date: Jan 26, 2017 Discharge Disposition: Home Principal Diagnosis: TIA /CAD S/P RECENT CABG Consultations: NEUROLOGY Medication Reconciliation New Medications: Aspirin (Aspirin EC Low Dose) 81 Mg Ectab 1 TAB PO DAILY for 30 Days, #30 TABS 5 Refills TAKE WITH FULL STOMACH Clopidogrel (Plavix) 75 Mg Tab 75 MG PO DAILY for 30 Days, #30 TAB 5 Refills TAKE WITH FULL STOMACH Continued Medications: Albuterol Hfa (Ventolin Hfa) 200 Puffs/80080 Mcg Aers 2 PUFFS INH Q6H PRN for SOB/Wheezing, #1 INHALER Atorvastatin (Lipitor) 40 Mg Tab 40 MG PO DAILY, #30 TAB Cholecalciferol (Vitamin D) 1,000 Unit Tab 5000 UNIT PO LUNCH Diltiazem Hcl Coated Beads (Cardizem Cd) 120 Mg Cap 120 MG PO QAM Famotidine (Pepcid) 20 Mg Tab 20 MG PO BID, TAB Fish Oil (Mcguffey-3) 1 Ea Cap 1200 MG PO BID, CAP Fluticasone Prop/Salmeterol (Advair Diskus 250/50 60 Dose) 1 Ea Aerp 1 PUFF INH BID, #1 INHALER Furosemide (Lasix) 40 Mg Tab 40 MG PO QAM, TAB Insulin Aspart (Novolog Flexpen) 100 Units/Ml Inj 1 DOSE SQ SLIDING SCALE 1:5 Insulin Glargine (Lantus) 100 Unit/Ml Inj 40 UNITS SC BID, VIAL Metformin Hcl (Glucophage) 1,000 Mg Tab 1000 MG PO BID, TAB Metoprolol Tartrate (Lopressor) (Lopressor) 100 Mg Tab 100 MG PO BID, TAB Multivit/Min/Iron/Fol Ac/Pren ( Vitamin) Tab 2 TAB PO DAILY, TAB Nitroglycerin (Nitrostat) 0.4 Mg Tab 0.4 MG UT PRN, BTL Potassium Chloride (Potassium Chloride Er) 10 Meq Cap 10 MEQ PO DAILY, CAP 3 Refills Tocopheryl Acet,Dl-Alpha (Vitamin E) Unknown Strength Cap 1 CAP PO LUNCH Discontinued Medications: Aspirin (Aspirin Ec) 81 Mg Tab 162 MG PO HS Admission Information HPI (per Admitting provider): This is a 61 y/o male with PMHx of CAD s/p CABG last week, DM 2, LATOYA on CPAP HS , COPD, HTN, Dyslipidemia and other problems as outlined below who presents to the ED with feeling off-balance for 5 days. Pt reports that 5 days ago he began feeling very off-balance with ambulation. He states that every time he walks he "veers to the right side". His sxs were initially assoc with drooling and visual disturbances in the R eye that he describes as double vision/"strobe lights". The visual disturbances resolved after approximately 12 hours however the ambulatory dysfunction has persisted. Per previous documentation, son noticed some left sided facial droop. Pt underwent CABG x 4 (01/15/17) at [facility]. Patient reported his sxs to cardiology (Dr. Vieyra) in the office yesterday and Dr. Vieyra recommended further evaluation. Pt denies personal or family history of CVA. Pt denies fever/chills, diaphoresis, chest pain, SOB, abd pain, N/V, bowel or bladder issues, LE edema, calf pain, lightheadedness/ dizziness, unilateral weakness or slurred speech. In the ED, vitals are stable. Head CT is negative. Pt is stable and will be admitted for further evaluation and treatment. Physical Exam (per Admitting): General Appearance: WD/WN, no apparent distress, + pertinent finding (Pt is sitting comfortably in bed ) Head: normocephalic, atraumatic Eyes: normal inspection, PERRL, EOMI ENT: hearing grossly normal Neck: supple Respiratory/Chest: chest non-tender, lungs clear, normal breath sounds, no respiratory distress, + pertinent finding (healing surgical scar ) Cardiovascular: regular rate, rhythm, no edema, no murmur Abdomen/GI: normal bowel sounds, non tender, soft Back: normal inspection Extremities/Musculoskelatal: normal inspection, no calf tenderness, no pedal edema Neurologic/Psych: no motor/sensory deficits, alert, normal mood/affect, oriented x 3, + pertinent finding (L sided facial droop) Skin: normal color, warm/dry Hospital Course pt found walking on hallway made multiple laps in the PCU no complain of JASON , chest pain no weakness or paresthesia no visual symptoms VISUAL DISTURBANCES/AMBULATORY DYSFUNCTION R/O CVA -possible TIA symptom completely resolved -RFs include recent surgery CABG , DM 2, HTN, Dyslipidemia -head CT is negative; -MRI brain and MRA head and neck no evidence of VA - -cont ASA and high-dose statin , added Plavix -appreciate neurology eval pt will benefit dual antiplatelet therapy out pt ophthalmology eval for visual symptom -per pt has been chronic Cardionet monitoring as out pt for evaluation of arrhythmia -possible causing thrombotic event will be arranged by Gabbie martin cardiology CAD S/P CABG -s/p CABG @ [facility] 01/15/17 -cont ASA, BB, statin -pt denies anginal sxs -follows with cardiology, Dr. Vieyra INSULIN-DEPENDENT DM 2 -hold metformin -will be resumed on discharge -insulin SSI -monitor BSG AC HS LATOYA ON CPAP HS -initial setup with CPAP -pt may use his own when it becomes available HTN -BP stable -cont metoprolol -monitor DYSLIPIDEMIA -cont statin LDL 48 -with in goal ( < 70 ) DVT PROPHYLAXIS -subq heparin CODE STATUS -FULL CODE DISPOSITION discharge home today Total time spent on discharge = 35 mins This includes examination of the patient, discharge planning, medication reconciliation, and communication with other providers. Discharge Instructions Discharge Instructions Date of Service Jan 26, 2017. Admission Reason for Admission: Stroke Discharge Discharge Diagnosis / Problem: TIA /CAD S/P RECENT CABG Discharge Goals Goal(s): Improve disease control, Diagnostic testing, Therapeutic intervention Activity Recommendations Activity Limitations: as noted below ( TOLERATED ) Shower/Bathe: no limitations . Instructions / Follow-Up Instructions / Follow-Up HOSPITAL FOLLOW UP ON 01/29/2017 @ 3:[address] Dennis Dawson, DO General Internal Medicine [facility] WILL NEED TO SCHEDULE APPOINTMENT WITH OPHTHALMOLOGY FOR VISUAL SYMPTOM , PLEASE HAVE REFERRAL AND APPOINTMENT SCHEDULED THROUGH DR DAWSON CARDIOLOGY FOLLOW UP ON 02/07/2017 @ 3:15 PM WITH Janna Baker PA-C Cardiology, [facility] CARDIOLOGY OFFICE WILL CALL YOU SET UP FOR WEB PRODUCER Current Hospital Diet Patient's current hospital diet: Diabetes Type 2 Diet, AHA Diet (Heart Healthy) Discharge Diet Recommended Diet: AHA Diet (Heart Healthy) Pending Studies Studies pending at discharge: no Laboratory Results Hemoglobin A1c Test 01/24/17 15:24 Range/Units Estimated Average Glucose 214 mg/dl Hemoglobin A1c 9.1 H 4.5-5.6 % Lipid Panel Test 01/25/17 05:43 Range/Units Triglycerides Level 79 0-150 mg/dl Cholesterol Level 93 0-200 mg/dl HDL Cholesterol 29 mg/dl Cholesterol/HDL Ratio 3.2 LDL Cholesterol, Calculated 48 mg/dl Medical Emergencies . Who to Call and When: Medical Emergencies: If at any time you feel your situation is an emergency, please call 911 immediately. . Non-Emergent Contact Non-Emergency issues call your: Primary Care Provider . . "Provider Documentation" section prepared by Antonia Harman. VTE Core Measure Inpt VTE Proph given/why not?: Unfractionated heparin SQ
== END 2017-01-26 14:31 | disposition home or self-care (01) | DRG 69 ==
LOC: ENRESERVTM → ENRESERVDT → C.EDB 15:06 → C.2T 17:46
PROVIDERS: ADMIT Internal Medicine; ATTEND Hospitalist
DX: G45.9 Transient cerebral ischemic attack, unspecified (principal); I25.10 Atherosclerotic heart disease of native coronary artery without angina pectoris; E11.9 Type 2 diabetes mellitus without complications; G47.33 Obstructive sleep apnea (adult) (pediatric); J44.9 Chronic obstructive pulmonary disease, unspecified; I10 Essential (primary) hypertension; E78.5 Hyperlipidemia, unspecified; Z95.1 Presence of aortocoronary bypass graft; R29.810 Facial weakness; H53.9 Unspecified visual disturbance; Z79.4 Long term (current) use of insulin; Z87.891 Personal history of nicotine dependence; Z79.82 Long term (current) use of aspirin

== ENCOUNTER 2018-11-08 16:26 | Inpatient (IN) ==
[2018-11-08 16:59] LABS: Basophils # (auto) 0.04 K/uL (0-0.2); Basophils % (auto) 0.4 %; Eosinophils # (auto) 0.41 K/uL (0-0.5); Eosinophils % (auto) 4.2 %; Hematocrit (blood only) 42.1 % (42-52); Hemoglobin 14.5 g/dL (14.0-18.0); Immature Granulocytes # (auto) 0.02 K/uL (0.00-0.02); Immature Granulocytes % (auto) 0.2 %; Lymphocytes # (auto) 2.89 K/uL (1.2-3.4); Lymphocytes % (auto) 29.5 %; Mean Corpuscular Hgb Conc 34.4 g/dL (32-36); Mean Corpuscular Volume 89.4 fL (80-100); Mean Platelet Volume 10.6 fL (7.4-10.4); Monocytes # (auto) 0.59 K/uL (0.11-0.59); Neutrophils # (auto) 5.86 K/uL (1.4-6.5); Neutrophils % (auto) 59.7 %; Platelet Count 221 K/uL (130-400); RDW Coefficient of Variation 13.6 % (11.5-14.5); RDW Standard Deviation 44.8 fL (36.4-46.3); Red Blood Count 4.71 M/uL (4.7-6.1); White Blood Count 9.81 K/uL (4.8-10.8)
--- NOTE | 2018-11-08 16:59 | XRay Report ---
XR chest 1V portable CLINICAL HISTORY: Chest Pain dyspnea COMPARISON STUDY: 01/24/2017 FINDINGS: Mild stable cardiomegaly. Prior median sternotomy. Lungs are clear. Chronic bibasilar inter stitial change. IMPRESSION: Chronic and postoperative change. No acute process. The above report was generated using voice recognition software. It may contain grammatical, syntax or spelling errors. Electronically signed by: Eddie Andrews M.D. 11/08/2018 4:58 PM
[2018-11-08 17:18] LABS: Alanine Aminotransferase 61 U/L (12-78); Albumin Level 3.9 gm/dl (3.4-5.0); Aspartate Aminotransferase 36 U/L (15-37); BUN Creatinine Ratio 17.8 (10-20); Blood Urea Nitrogen 22 mg/dl (7-18); Calcium 9.4 mg/dl (8.5-10.1); Carbon Dioxide 25 mmol/L (21-32); Chloride 103 mmol/L (98-107); Creatinine Clr Calc Pharmacy 76.2 ml/min; Est GFR (African American) 73.7; Est GFR (Non-African American) 63.6; Glucose 161 mg/dl (70-99); Potassium 3.9 mmol/L (3.5-5.1); Sodium 138 mmol/L (136-145)
[2018-11-08 17:21] LABS: INR 1.1 (0.9-1.1); Partial Thromboplastin Ratio 0.9; Partial Thromboplastin Time 23.1 Seconds (21.0-31.0); Prothrombin Time 10.7 Seconds (9.0-12.0)
[2018-11-08 17:23] LABS: Albumin Globulin Ratio 0.9 (0.9-2); Alkaline Phosphatase 75 U/L (45-117); Bilirubin,Total 0.3 mg/dl (0.2-1); Creatine Kinase 526 U/L (39-308); Globulin 4.2 gm/dl (2.5-4.0); Total Protein 8.1 gm/dl (6.4-8.2); Troponin I < 0.015 ng/ml (0-0.045)
[2018-11-08] MEDS ORDERED: NITROGLYCERIN 2% OINTMENT 30GM TUBE EXT ONE (18:16)
[2018-11-08] MEDS ORDERED: NITROGLYCERIN 2% OINTMENT 30GM TUBE ONE (18:19)
--- NOTE | 2018-11-08 18:35 | History & Physical Report ---
Date of Service November 08, 2018 Assessment & Plan (1) Unstable angina: Pt reports intermittent chest pressure and SOB with exertion for past 4 weeks. 2 days ago had worse CP with diaphoresis. Seen at [facility] (Dr Vieyra) today with c/o CP and EKG changes, referred to ER. In ER afebrile, P: 77, BP: 203/86, 168/90, R: 20, 94% on RA. Pt had episode CP with sitting up which resolved within approx 1 minute. EKG with t wave inversion AVL, T wave flattening V6. Negative initial troponin. CPK: 526, CKMB: 4.0 CXR: no acute changes noted CHEST PAIN R/O ACS. Risk factors: CAD, HTN, hyperlipidemia, DM -admit tele -trend troponin -echo -nitro paste -heparin IV -Repeat EKG in am -lipid panel in am, continue statin -continue aspirin, metoprolol -NPO after midnight -cardiology consult Dr Vieyra office note recommends topical nitrates and IV Heparin (2) DM type 2 (diabetes mellitus, type 2): HA1c: 8.6 on 11/07/18 -hold metformin while in hospital -continue home dose 40 units BID -Novolog sliding scale per protocol (3) HTN (hypertension): In ER BP: 203/86, 168/90 -continue lisinopril, metoprolol -nitro paste -monitor BP (4) Dyslipidemia: -continue statin (5) LATOYA (obstructive sleep apnea): CPAP HS (6) COPD (chronic obstructive pulmonary disease): -continue Advair, albuterol prn (7) History of TIA (transient ischemic attack): H/O possible TIA -continue ASA, plavix DVT Prophylaxis -On Heparin IV Follows with Dr Dawson for routine care Pt was seen with Dr Becerra. See addendum History of Present Illness Chief Complaint: Chest pain Primary Care Provider: Dennis Dawson, Pt is 63 y/o M with PMH CAD s/p CABG x 4 in 2017, dyslipidemia, HTN, possible TIA, COPD, LATOYA, DM II presented to ER from [facility] with c/o CP and reported EKG changes in clinic today. Pt reports intermittent chest pressure and SOB with exertion for past 4 weeks. 2 days ago had worse CP with diaphoresis. Reports couple of days ago noticed some bilateral ankle swelling which has since resolved. Has not used his nitroglycerin. Pt denied CP upon initial ER evaluation and reported CP with sitting up in bed while in ER which lasted approx 1 minute and resolved. Reports chronic loose stools, denies worsening. Denies fever/chills, diaphoresis, N/V, hematochezia, hematuria, WREN, dizziness, syncope, vision changes, neck pain, orthopnea, palpitations, cough, sore throat, choking, otalgia, rhinorrhea, abdominal pain, paresthesias, weakness, extremity weakness, rashes, urinary symptoms. Hx echo: 01/2017: EF: 55-60%, grossly normal valvular structures Allergies Allergy/AdvReac Type Severity Reaction Status Date / Time Penicillins Allergy Mild HIVES Verified 11/08/18 17:58 Home Medications Home Medications Medication Instructions Recorded Confirmed Type albuterol sulfate 2 puff INHALATION Q6H PRN 11/08/18 11/08/18 History aspirin 81 mg PO QAM 11/08/18 11/08/18 History atorvastatin 40 mg PO HS 11/08/18 11/08/18 History cholecalciferol (vitamin D3) 5,000 unit PO 1200 11/08/18 11/08/18 History [Vitamin D3] clopidogrel [Plavix] 75 mg PO QAM 11/08/18 11/08/18 History fluticasone-salmeterol [Advair 1 inh INHALATION BID 11/08/18 11/08/18 History Diskus] insulin aspart U-100 [Novolog 1 sliding scale dose SUBCUT UD 11/08/18 11/08/18 History U-100 Insulin aspart] insulin glargine [Lantus U-100 40 unit SUBCUT BID 11/08/18 11/08/18 History Insulin] lisinopril 20 mg PO DAILY 11/08/18 11/08/18 History metformin 1,000 mg PO BIDM 11/08/18 11/08/18 History metoprolol tartrate 100 mg PO BID 11/08/18 11/08/18 History multivitamin 1 tab PO 1700 11/08/18 11/08/18 History nitroglycerin [Nitrostat] 1 tab SUBLINGUAL UD 11/08/18 11/08/18 History omega 2-txh-[id number]-fish oil [Fish Oil] 1 cap PO DAILY 11/08/18 11/08/18 History vitamin E 400 unit PO DAILY 11/08/18 11/08/18 History Past Med/Surg History Surgical History S/P partial colectomy (Chronic) S/P tonsillectomy (Chronic) S/P cholecystectomy Social History marital status: Current Living Situation: Spouse current occupational status: unemployed Other Information That Helps Us Care for You: No Feels Safe at Home: Yes Safety Concerns: Feels Safe At This Time Smoking Status: Former smoker Do You Dip or Chew Tobacco: No Second Hand Exposure: No Tobacco Cessation Education Requested by Patient: No Hx Alcohol Use: No Hx Substance Use: No Beliefs That Will Affect Care: None Preferred Language: Mozambican Communication Ability: Effective Children'S Minister Required: No Review of Systems All systems reviewed & are unremarkable except as noted in HPI & below Physical Exam 2 Vital Signs (Past 24 Hours): Last Vital Signs Temp 37.4 C 11/08/18 16:29 Pulse 70 11/08/18 18:24 Resp 24 11/08/18 18:24 BP 171/85 H 11/08/18 18:24 Pulse Ox 95 11/08/18 18:24 Physical Exam: General: no acute distress, WDWN Head: normocephalic, atraumatic Eyes: PERRL, EOM's intact, conjunctiva non-injected, anicteric ENT: normal inspection external ears, nose, mucous membranes moist Neck: supple, trachea midline Lungs: clear, no respiratory distress CV: RRR, no murmur, no pretibial edema Abd: normal BS, soft, non-tender Ext: no cyanosis, no calf tenderness Neuro: A&O x 3, no focal deficits noted, normal affect Skin: warm, dry Results & Data Laboratory Results Short CBC 11/08/18 Range/Units 16:40 WBC 9.81 (4.8-10.8) K/uL Hgb 14.5 (14.0-18.0) g/dL Hct 42.1 (42-52) % Plt Count 221 (130-400) K/uL BMP 11/08/18 16:40 Sodium 138 Potassium 3.9 Chloride 103 Carbon Dioxide 25 BUN 22 H Creatinine 1.22 Glucose 161 H Calcium 9.4 Cardiac Enzymes 11/08/18 Range/Units 16:40 Total Creatine Kinase 526 H (39-308) U/L CK-MB (CK-2) 4.0 H (0.5-3.6) ng/ml Troponin I < 0.015 (0-0.045) ng/ml Liver Function 11/08/18 Range/Units 16:40 Total Bilirubin 0.3 (0.2-1) mg/dl AST 36 (15-37) U/L ALT 61 (12-78) U/L Alkaline Phosphatase 75 (45-117) U/L Albumin 3.9 (3.4-5.0) gm/dl Diagnostic Findings CXR: Mild stable cardiomegaly. Prior median sternotomy. Lungs are clear. Chronic bibasilar interstitial change ECG Rate (beats per minute): 74 Rhythm: sinus rhythm Additional Comments: T wave flattening V6, some T wave inversion AVL EKG reviewed 01/2017: T wave inversion V1-V2, AVL, T wave flattening V6 Supervising Physician Co-Signing Physician Notes I saw this patient with the physician insurance administrative assistant, I participated in the history, physical, review of systems, and physical exam. I reviewed the medications with the patient and the physician insurance administrative assistant and helped reconcile the medications. I helped take a detailed family and social history as well. I formulated the assessment and plan personally with the physician insurance administrative assistant went over it with the patient and his and daughters. .
[2018-11-08] MEDS ORDERED: HEPARIN SQ 5000 UNIT HEART ALERT CARP ONE ×2 (18:59→19:00)
[2018-11-08] MEDS ORDERED: HEPARIN 25000 UNIT/500 ML D5W IV ONE (19:00)
[2018-11-08] MEDS: HEPARIN STANDARD DEXTROSE 25,000 UNITS/500 ML IV SCH ×2 (19:20→20:30)
[2018-11-08] MEDS ORDERED: DEXTROSE 50% 50 ML SYRINGE IV PRN (20:13)
[2018-11-08] MEDS ORDERED: CARBOHYDRATES FOR HYPOGLYCEMIA PO PRN (20:13)
[2018-11-08] MEDS ORDERED: GLUCOSE 40% GEL 15 GM TUBE PO PRN (20:13)
[2018-11-08] MEDS ORDERED: ALBUTEROL HFA 8 GM INHALER INH PRN (20:13)
[2018-11-08] MEDS ORDERED: ACETAMINOPHEN 325 MG TAB PO PRN (20:13)
[2018-11-08] MEDS ORDERED: GLUCOSE 10 TABS/TUBE PO PRN (20:13)
[2018-11-08] MEDS ORDERED: GLUCAGON FOR INJ 1 MG VIAL SQ PRN (20:13)
[2018-11-08] MEDS: FLUTICASONE/SALMETEROL (ADVAIR) 500/50 INH 14 PUFF INH SCH (20:40)
[2018-11-08] MEDS: METOPROLOL TARTRATE 100 MG TAB PO SCH (20:41)
[2018-11-08] MEDS: INSULIN ASPART 100 UNITS/ML 3 ML PEN SC SCH (20:42)
[2018-11-08] MEDS: ATORVASTATIN 40 MG TAB PO SCH (20:43)
[2018-11-08] MEDS: INSULIN GLARGINE SOLOSTAR 100 UNITS/ML 3 ML PEN SC SCH (20:44)
--- NOTE | 2018-11-08 23:05 | Emergency Department Note ---
Entered by Lisbet Santo acting as a scribe for Jimmie Perdomo MD ED Provider Note CHIEF COMPLAINT: Abnormal Labs/Diagnostic Testing HISTORY OF PRESENT ILLNESS: The patient is a 63 year old male who presents to the Emergency Room with complaints of an episode of an abnormal EKG occurring prior to arrival. The patient states that 3 days ago he started having this chest discomfort that radiated into his right shoulder blade and down his left arm. He states that with it he became diaphoretic and short of breath. He notes that the skin on his face felt �loose.� He states that when the chest pain was a 4/10 in severity. He notes that he initially thought it was GERD, but it has intermittently come and gone since then. He states that he decided to check his blood sugar and it was 517. He reports that he then checked his blood pressure and it was 214/102. The patient states that he made an appointment for his symptoms and was sent over to the ED because he has EKG changes. The patient denies having the chest pain today. He notes that 3 days ago he also had formed melena. He notes that since his CABG and cholecystectomy that were days apart, he has had loose stools, so this was unusual for him. The patient states that he recently has been under a lot of family stress as his uwyzms-sr-ive is dying , her daughter is taking her pain pills, and him and his confronted the situation head on a few days ago. Pt denies LOC, lightheadedness, headache, fevers, chills, visual changes, neck pain, nausea, vomiting, abdominal pain, back pain, hematochezia, urinary symptoms, numbness, weakness, lymphadenopathy, rash, or other complaints. REVIEW OF SYSTEMS: See HPI for pertinent positives and negatives. A total of ten systems were reviewed and were otherwise negative. PMHx/PSHx: Diabetes HTN Dyslipidemia COPD LATOYA Stroke S/P partial colectomy S/P tonsillectomy S/P cholecystecomty SOCIAL HISTORY: Patient lives at home with his and is unemployed. He never was a smoker. PHYSICAL EXAM: GENERAL: Awake, alert, well-appearing, in no distress HENT: Normocephalic, atraumatic. Oropharynx unremarkable. EYES: Normal conjunctiva. Sclera non-icteric. NECK: Inspection normal. Non-tender. Supple. No nuchal rigidity. FROM. No masses. RESPIRATORY: Clear to auscultation. No wheezes. No rales. Normal respiratory effort. CARDIAC: Normal rate. Normal rhythm. No murmurs. No rubs. Extremities warm and well perfused. Pulses equal. No JVD. GI: Soft, non-distended. LUQ tenderness to palpation. No rebound or guarding. No masses. RECTAL: Deferred. MUSCULOSKELETAL: Atraumatic. Chest examination reveals no tenderness. The back is symmetrical on inspection without obvious abnormality. There is no CVA tenderness to palpation. No joint edema. LOWER EXTREMITIES: Calves are equal size bilaterally and non-tender. No edema. No discoloration. NEURO: Normal sensorium. No sensory or motor deficits noted. SKIN: No rash or jaundice noted. EMERGENCY DEPARTMENT COURSE: 1645: Past medical records reviewed. The patient was evaluated in room B9, and a complete history and physical examination were performed. 173: I paged the hospitalist at this time. 174: I reviewed the patient's case [facility]. She will evaluate the patient for further management. 1753: I reevaluated the patient and updated him on his test results at this time. I discussed the treatment plan with him. He verbally agrees and understands. MEDICAL DECISION MAKING: Triage Nursing notes reviewed and agree them. Additional history obtained from his retread technician. The patient's history was concerning for chest pain. Differential diagnosis: Etiologies such as cardiac ischemia, aortic dissection, pulmonary embolism, pneumonia, pneumothorax, musculoskeletal, infections, pericarditis, myocarditis , esophageal rupture, gastrointestinal, as well as others were entertained. Physical examination: As above. ER treatment provided: No medication given On reassessment the patient was pain-free Diagnostic interpretation by me: The electrocardiogram was negative for pathologic change. The labs revealed unremarkable CBC and chemistry panel. Troponin negative. Imaging studies: Chest x-ray negative. Consultation: A consultation was placed with the hospitalist. The case was discussed and diagnostics were reviewed. The patient was evaluated in the ER for further treatment. IMPRESSION: Acute electrocardiogram changes Chest pain Shortness of breath PLAN: Being Evaluated By the Hospitalist The scribe's documentation has been prepared under my direction and personally reviewed by me in its entirety. I confirm that the note above accurately reflects all work, treatment, procedures, and medical decision making performed by me. Impression & Plan Acute electrocardiogram changes, Chest pain, Shortness of breath Past Med/Surg History Surgical History S/P partial colectomy (Chronic) S/P tonsillectomy (Chronic) S/P cholecystectomy Social History marital status: Current Living Situation: Spouse current occupational status: unemployed Other Information That Helps Us Care for You: No Feels Safe at Home: Yes Safety Concerns: Feels Safe At This Time Smoking Status: Former smoker Do You Dip or Chew Tobacco: No Second Hand Exposure: No Tobacco Cessation Education Requested by Patient: No Hx Alcohol Use: No Hx Substance Use: No Beliefs That Will Affect Care: None Preferred Language: Tristanian Communication Ability: Effective Horseradish Grinder Required: No Results & Data Vital Signs Vital Signs - 24 hr 11/08/18 16:29 11/08/18 16:49 11/08/18 16:59 Temperature 37.4 C Temperature Source Oral Sepsis Recent Fever Within 48 Hours No Sepsis New/Unexplained Change in Mental Status No Sepsis Action Taken by Nursing No Action Required Pulse Rate 77 Pulse Rate [Right Finger] 71 67 Pulse Rhythm [Right Finger] Pulse Strength [Right Finger] Respiratory Rate 20 18 22 Respiratory Effort / Characteristics Respiratory Depth Respiratory Pattern Blood Pressure 203/86 H Blood Pressure [Right Arm] 186/87 H 202/95 H Blood Pressure Mean 125 Blood Pressure Mean [Right Arm] 120 130 Blood Pressure Position [Right Arm] Pulse Oximetry 94 98 96 Oxygen Delivery Method Room Air Room Air 11/08/18 17:01 11/08/18 17:02 11/08/18 18:24 Temperature Temperature Source Sepsis Recent Fever Within 48 Hours Sepsis New/Unexplained Change in Mental Status Sepsis Action Taken by Nursing Pulse Rate Pulse Rate [Right Finger] 70 70 Pulse Rhythm [Right Finger] Pulse Strength [Right Finger] Respiratory Rate 24 24 Respiratory Effort / Characteristics Respiratory Depth Respiratory Pattern Blood Pressure Blood Pressure [Right Arm] 168/90 H 171/85 H Blood Pressure Mean Blood Pressure Mean [Right Arm] 116 113 Blood Pressure Position [Right Arm] Pulse Oximetry 96 95 95 Oxygen Delivery Method Room Air Room Air Room Air 11/08/18 19:11 11/08/18 19:23 11/08/18 19:55 Temperature 36.5 C Temperature Source Oral Sepsis Recent Fever Within 48 Hours Sepsis New/Unexplained Change in Mental Status Sepsis Action Taken by Nursing Pulse Rate Pulse Rate [Right Finger] 72 71 Pulse Rhythm [Right Finger] Regular Pulse Strength [Right Finger] Normal Respiratory Rate 18 20 Respiratory Effort / Characteristics Non-Labored Spontaneous Non-Labored Spontaneous Respiratory Depth Normal Normal Respiratory Pattern Regular Regular Blood Pressure Blood Pressure [Right Arm] 164/68 H 198/85 H Blood Pressure Mean Blood Pressure Mean [Right Arm] 100 122 Blood Pressure Position [Right Arm] Sitting Pulse Oximetry 94 92 Oxygen Delivery Method Room Air Room Air Room Air 11/08/18 20:15 Temperature Temperature Source Sepsis Recent Fever Within 48 Hours Sepsis New/Unexplained Change in Mental Status Sepsis Action Taken by Nursing Pulse Rate Pulse Rate [Right Finger] Pulse Rhythm [Right Finger] Pulse Strength [Right Finger] Respiratory Rate Respiratory Effort / Characteristics Non-Labored Respiratory Depth Normal Respiratory Pattern Regular Blood Pressure Blood Pressure [Right Arm] Blood Pressure Mean Blood Pressure Mean [Right Arm] Blood Pressure Position [Right Arm] Pulse Oximetry Oxygen Delivery Method Room Air Home Medications Current Medication List: was personally reviewed by me Laboratory Data Attestation: I reviewed the patient's lab results. Result diagrams: 11/08/18 16:40 11/08/18 16:40 Lab Results 11/08/18 11/08/18 11/08/18 Range/Units 16:40 16:40 16:40 WBC 9.81 (4.8-10.8) K/uL RBC 4.71 (4.7-6.1) M/uL Hgb 14.5 (14.0-18.0) g/dL Hct 42.1 (42-52) % MCV 89.4 (80-100) fL MCH 30.8 (25-34) pg MCHC 34.4 (32-36) g/dL RDW Std Deviation 44.8 (36.4-46.3) fL RDW Coeff of Jose 13.6 (11.5-14.5) % Plt Count 221 (130-400) K/uL MPV 10.6 H (7.4-10.4) fL Immature Gran % (Auto) 0.2 % Neut % (Auto) 59.7 % Lymph % (Auto) 29.5 % Sutton % (Auto) 6.0 % Eos % (Auto) 4.2 % Baso % (Auto) 0.4 % Immature Gran # (Auto) 0.02 (0.00-0.02) K/uL Neut # (Auto) 5.86 (1.4-6.5) K/uL Lymph # (Auto) 2.89 (1.2-3.4) K/uL Sutton # (Auto) 0.59 (0.11-0.59) K/uL Eos # (Auto) 0.41 (0-0.5) K/uL Baso # (Auto) 0.04 (0-0.2) K/uL PT 10.7 (9.0-12.0) Seconds INR 1.1 (0.9-1.1) APTT 23.1 (21.0-31.0) Seconds PTT Ratio 0.9 Sodium 138 (136-145) mmol/L Potassium 3.9 (3.5-5.1) mmol/L Chloride 103 (98-107) mmol/L Carbon Dioxide 25 (21-32) mmol/L Anion Gap 10.0 (3-11) BUN 22 H (7-18) mg/dl Creatinine 1.22 (0.6-1.4) mg/dl Est Cr Clr Drug Dosing 76.2 ml/min Est GFR ( Amer) 73.7 Est GFR (Non-Af Amer) 63.6 BUN/Creatinine Ratio 17.8 (10-20) Glucose 161 H (70-99) mg/dl POC Glucose (70-99) Calcium 9.4 (8.5-10.1) mg/dl Total Bilirubin 0.3 (0.2-1) mg/dl AST 36 (15-37) U/L ALT 61 (12-78) U/L Alkaline Phosphatase 75 (45-117) U/L Total Creatine Kinase 526 H (39-308) U/L CK-MB (CK-2) 4.0 H (0.5-3.6) ng/ml CK/CKMB % Calc 0.8 (0-3.0) Troponin I < 0.015 (0-0.045) ng/ml Total Protein 8.1 (6.4-8.2) gm/dl Albumin 3.9 (3.4-5.0) gm/dl Globulin 4.2 H (2.5-4.0) gm/dl Albumin/Globulin Ratio 0.9 (0.9-2) Lipase 153 (73-393) U/L 11/08/18 11/08/18 Range/Units 20:17 21:44 WBC (4.8-10.8) K/uL RBC (4.7-6.1) M/uL Hgb (14.0-18.0) g/dL Hct (42-52) % MCV (80-100) fL MCH (25-34) pg MCHC (32-36) g/dL RDW Std Deviation (36.4-46.3) fL RDW Coeff of Jose (11.5-14.5) % Plt Count (130-400) K/uL MPV (7.4-10.4) fL Immature Gran % (Auto) % Neut % (Auto) % Lymph % (Auto) % Sutton % (Auto) % Eos % (Auto) % Baso % (Auto) % Immature Gran # (Auto) (0.00-0.02) K/uL Neut # (Auto) (1.4-6.5) K/uL Lymph # (Auto) (1.2-3.4) K/uL Sutton # (Auto) (0.11-0.59) K/uL Eos # (Auto) (0-0.5) K/uL Baso # (Auto) (0-0.2) K/uL PT (9.0-12.0) Seconds INR (0.9-1.1) APTT (21.0-31.0) Seconds PTT Ratio Sodium (136-145) mmol/L Potassium (3.5-5.1) mmol/L Chloride (98-107) mmol/L Carbon Dioxide (21-32) mmol/L Anion Gap (3-11) BUN (7-18) mg/dl Creatinine (0.6-1.4) mg/dl Est Cr Clr Drug Dosing ml/min Est GFR ( Amer) Est GFR (Non-Af Amer) BUN/Creatinine Ratio (10-20) Glucose (70-99) mg/dl POC Glucose 122 H (70-99) Calcium (8.5-10.1) mg/dl Total Bilirubin (0.2-1) mg/dl AST (15-37) U/L ALT (12-78) U/L Alkaline Phosphatase (45-117) U/L Total Creatine Kinase (39-308) U/L CK-MB (CK-2) (0.5-3.6) ng/ml CK/CKMB % Calc (0-3.0) Troponin I < 0.015 (0-0.045) ng/ml Total Protein (6.4-8.2) gm/dl Albumin (3.4-5.0) gm/dl Globulin (2.5-4.0) gm/dl Albumin/Globulin Ratio (0.9-2) Lipase (73-393) U/L Administered Medications Atorvastatin Calcium (Lipitor) 40 mg PO HS [facility] Stop: 12/08/18 20:59 Last Admin: 11/08/18 20:43 Dose: 40 mg Heparin Sodium/Dextrose (Heparin Sodium/Dextrose) 25,000 units in 500 mls @ 30 mls/hr IV .[id number] [facility]; Protocol Stop: 12/08/18 19:07 Last Admin: 11/08/18 19:20 Dose: Not Given Insulin Aspart (Novolog Flexpen) 0 units SC ACHS [facility] Stop: 12/08/18 20:59 Last Admin: 11/08/18 20:42 Dose: Not Given Insulin Glargine (Lantus Solostar Pen) 40 units SC Q12H [facility] Stop: 12/08/18 20:12 Last Admin: 11/08/18 20:44 Dose: 40 units Metoprolol Tartrate (Lopressor) 100 mg PO BID [facility] Stop: 12/08/18 20:59 Last Admin: 11/08/18 20:41 Dose: 100 mg Fluticasone/Salmeterol (Advair Diskus 500/50) 1 puffs INH BID [facility] Stop: 12/08/18 20:59 Last Admin: 11/08/18 20:40 Dose: 1 puffs Discontinued Medications Heparin Sodium (Beef Lung) (Heparin Sod 5000u Heart Alert) Confirm Administered Dose 5,000 units .ROUTE .STK-MED ONE Stop: 11/08/18 19:00 Last Admin: 11/08/18 19:19 Dose: Not Given Heparin Sodium (Beef Lung) (Heparin Sod 5000u Heart Alert) Confirm Administered Dose 5,000 units .ROUTE .STK-MED ONE Stop: 11/08/18 19:01 Last Admin: 11/08/18 19:19 Dose: Not Given Heparin Sodium/Dextrose () 1 ea N/A NOW STA; Protocol Stop: 11/08/18 18:34 Last Admin: 11/08/18 19:07 Dose: 1 ea Heparin Sodium/Dextrose (Heparin Sodium/Dextrose) Confirm Administered Dose 25, 000 units IV .STK-MED ONE Stop: 11/08/18 19:01 Last Admin: 11/08/18 19:06 Dose: 1,500 units Nitroglycerin (Nitro-Bid 2%) 1 inch EXT NOW ONE Stop: 11/08/18 18:17 Last Admin: 11/08/18 19:19 Dose: Not Given Nitroglycerin (Nitro-Bid 2%) Confirm Administered Dose 18 inch .ROUTE .STK-MED ONE Stop: 11/08/18 18:20 Last Admin: 11/08/18 18:20 Dose: 1 inch Imaging Data Radiologist's Impression: Radiology results as stated below per my review and the radiologist's interpretation: XR chest 1V portable CLINICAL HISTORY: Chest Pain dyspnea COMPARISON STUDY: 01/24/2017 FINDINGS: Mild stable cardiomegaly. Prior median sternotomy. Lungs are clear. Chronic bibasilar interstitial change. IMPRESSION: Chronic and postoperative change. No acute process. The above report was generated using voice recognition software. It may contain grammatical, syntax or spelling errors. Electronically signed by: Eddie Andrews M.D. 11/08/2018 4:58 PM ECG Data Attestation: I personally reviewed and interpreted this ECG as follows: Indication: chest pain and SOB/dyspnea Rate (beats per minute): 74 Rhythm: normal sinus Findings: no PAC, no PVC, no ST depression and no ST elevation Comparison ECG Date: from ([employer] E[employer]) Change: the following changes noted (Sinus rhythm at a rate of 62. Inferior TWI are present.) Blood Pressure Blood Pressure Findings: Elevated blood pressure Blood Pressure Disposition: further management by hospitalist Discharge Plan Visit Data *Final* Discharge Date/Time: 11/08/18 19:23 Chief Complaint: Abnormal Labs/Diagnostic Testing Stated Complaint: HYPERGLYCEMIA, ELEVATED BP, ABN EKG- CARDIAC HX ED Provider: Jimmie Perdomo Discharge Problem: Acute electrocardiogram changes, Chest pain, Shortness of breath Patient Disposition: Admitted As Inpatient Discharge Instructions Interventions: ED Discharge Assessment Last Done: 11/08/18 19:23 The scribe's documentation has been prepared under my direction and personally reviewed by me in its entirety. I confirm that the note above accurately reflects all work, treatment, procedures, and medical decision making performed by me.
[2018-11-09] MEDS: NITROGLYCERIN 2% OINTMENT 30GM TUBE EXT SCH ×4 (00:01→17:11)
[2018-11-09 05:06] LABS: Hematocrit (blood only) 38.7 % (42-52); Hemoglobin 13.2 g/dL (14.0-18.0); Mean Corpuscular Hgb Conc 34.1 g/dL (32-36); Mean Corpuscular Volume 88.6 fL (80-100); Mean Platelet Volume 10.9 fL (7.4-10.4); Platelet Count 200 K/uL (130-400); RDW Coefficient of Variation 13.7 % (11.5-14.5); RDW Standard Deviation 44.5 fL (36.4-46.3); Red Blood Count 4.37 M/uL (4.7-6.1)
[2018-11-09 05:20] LABS: Partial Thromboplastin Ratio 1.7; Partial Thromboplastin Time 44.3 Seconds (21.0-31.0)
[2018-11-09 05:37] LABS: BUN Creatinine Ratio 22.2 (10-20); Blood Urea Nitrogen 19 mg/dl (7-18); Calcium 8.8 mg/dl (8.5-10.1); Carbon Dioxide 26 mmol/L (21-32); Chloride 106 mmol/L (98-107); Creatinine Clr Calc Pharmacy 103.9 ml/min; Est GFR (African American) 107.5; Est GFR (Non-African American) 92.7; Glucose 141 mg/dl (70-99); Potassium 3.5 mmol/L (3.5-5.1); Sodium 138 mmol/L (136-145)
[2018-11-09 05:45] LABS: Chol HDL Ratio 4; Cholesterol 113 mg/dl (0-200); Creatine Kinase 316 U/L (39-308); HDL Cholesterol 30 mg/dl; LDL Cholesterol Calculated 57 mg/dl; Triglycerides 128 mg/dl (0-150); Troponin I < 0.015 ng/ml (0-0.045); VLDL Cholesterol 26 mg/dl
[2018-11-09] MEDS ORDERED: HEPARIN IV BOLUS 3,000 UNITS in SYRINGE 0 ML IV ONE (05:50)
[2018-11-09] MEDS: INSULIN ASPART 100 UNITS/ML 3 ML PEN SC SCH ×5 (07:51→20:32)
[2018-11-09] MEDS: METOPROLOL TARTRATE 100 MG TAB PO SCH ×2 (07:51→20:31)
[2018-11-09] MEDS: LISINOPRIL 20 MG TAB PO SCH (07:52)
[2018-11-09] MEDS: ASPIRIN 81 MG ECTAB PO SCH (07:52)
[2018-11-09] MEDS: INSULIN GLARGINE SOLOSTAR 100 UNITS/ML 3 ML PEN SC SCH ×2 (08:18→20:31)
[2018-11-09] MEDS ORDERED: PERFLUTREN LIPID MICROSPHERE (DEFINITY) IV ONE (08:21)
[2018-11-09] MEDS: FLUTICASONE/SALMETEROL (ADVAIR) 500/50 INH 14 PUFF INH SCH ×2 (08:33→20:30)
[2018-11-09] MEDS: CLOPIDOGREL BISULFATE 75 MG TAB PO SCH (10:22)
[2018-11-09] MEDS: AMLODIPINE BESYLATE 5 MG TAB PO SCH (12:03)
[2018-11-09 13:05] LABS: Partial Thromboplastin Ratio 1.9
[2018-11-09 13:10] LABS: Partial Thromboplastin Time 50.5 Seconds (21.0-31.0)
[2018-11-09] MEDS: HEPARIN STANDARD DEXTROSE 25,000 UNITS/500 ML IV SCH (13:17)
--- NOTE | 2018-11-09 14:00 | Cardiology Consultation ---
Date of Consultation November 09, 2018 Assessment & Plan (1) Unstable angina: symptoms and EKG changes concerning for unstable angina rahully has been discomfort free since presentation echocardiogram unchanged cardiac enzymes unremarkable given extensive cardiac hx and multiple comorbidities will plan for elective cardiac cath on 11/11/18 should chest discomfort reoccur and be unrelieved with medical therapy, emergent cardiac cath may been undertaken cont asa, plavix and heparin will treat uncontrolled bp in the meantime amlodipine added to his outpatient medical regimen (2) S/P CABG (coronary artery bypass graft): as above cont outpatient meds (3) History of TIA (transient ischemic attack): cont asa and plavix (4) DM type 2 (diabetes mellitus, type 2): (5) COPD (chronic obstructive pulmonary disease): stable History of Present Illness Attending Physician: Carlos Alberto Hernández MD History of Present Illness Pt is a 63 you male who follows with Dr. Roman of our cardiology practice. He presented for routine follow up on 11/08/18 and offered that he'd been having chest discomfort. Patient notes intermittent chest discomfort and dyspnea over the past 4 weeks. Approximately 2 days ago he felt particularly worse. Became diaphoretic at rest as well as with minimal exertion. Blood sugars were uncontrolled. Reporting fingerstick glucoses high as 450. Today, he is feeling somewhat better. Notes dyspnea on exertion however, was able to ambulate from the parking lot to the office without significant symptoms. ECG demonstrates inferior ST depressions. Denies orthopnea, PND, or lower extremity edema. Tolerating medications listed below. Offers no additional concerns/complaints at this time. is present for today's office visit. � ECG: Sinus rhythm, rightward axis, ST T-wave abnormality, consider inferior ischemia. Compared to prior tracing, inferior ST depression now present. � Carotid duplex report 05/2018: Right carotid artery duplex examination indicates evidence of 50-69% stenosis� of the internal carotid artery. Left carotid artery duplex examination indicates evidence of less than 50% stenosis�of the internal carotid artery. � Cardiac history copied from progress note dated 12/20/16 and updated today: Patient admitted to [facility] November 27, 2016 acute cholecystitis. Patient was seen for preoperative risk stratification. Patient reports dyspnea on exertion as well as intermittent chest discomfort. No personal history of coronary disease, congestive heart failure, or myocardial infarction. There is a family history of premature coronary artery disease as noted below as well as risk factors including dyslipidemia, diabetes, and hypertension. Patient proceeded to cholecystectomy without complications. During hospitalization patient was noted have a transient episode of third-degree AV block in the setting of severe abdominal discomfort, and retching. This was felt to be vagally mediated. There was no recurrence of heart block postoperatively. Low-dose beta-tank therapy was initiated without evidence of heart block or dysrhythmias. Amlodipine was also added due to uncontrolled blood pressure. A resting 2D transthoracic ECHO demonstrated normal left ventricular systolic function, normal wall motion, no significant valvular pathology, mild concentric left ventricular hypertrophy with grade 1 diastolic dysfunction. Exercise stress echocardiography performed December 26, 2016 was positive for inducible ischemia suggesting multivessel coronary disease. Patient was admitted to [facility] where cardiac catheterization demonstrated severe multivessel coronary disease. [place] [facility], however, became febrile and tested positive for influenza. Surgery was delayed until January 15, 2017. Allergies Allergy/AdvReac Type Severity Reaction Status Date / Time Penicillins Allergy Mild HIVES Verified 11/08/18 17:58 Home Medications Home Medications Medication Instructions Recorded Confirmed Type albuterol sulfate 2 puff INHALATION Q6H PRN 11/08/18 11/08/18 History aspirin 81 mg PO QAM 11/08/18 11/08/18 History atorvastatin 40 mg PO HS 11/08/18 11/08/18 History cholecalciferol (vitamin D3) 5,000 unit PO 1200 11/08/18 11/08/18 History [Vitamin D3] clopidogrel [Plavix] 75 mg PO QAM 11/08/18 11/08/18 History fluticasone-salmeterol [Advair 1 inh INHALATION BID 11/08/18 11/08/18 History Diskus] insulin aspart U-100 [Novolog 1 sliding scale dose SUBCUT UD 11/08/18 11/08/18 History U-100 Insulin aspart] insulin glargine [Lantus U-100 40 unit SUBCUT BID 11/08/18 11/08/18 History Insulin] lisinopril 20 mg PO DAILY 11/08/18 11/08/18 History metformin 1,000 mg PO BIDM 11/08/18 11/08/18 History metoprolol tartrate 100 mg PO BID 11/08/18 11/08/18 History multivitamin 1 tab PO 1700 11/08/18 11/08/18 History nitroglycerin [Nitrostat] 1 tab SUBLINGUAL UD 11/08/18 11/08/18 History omega 0-cxs-zxa-fish oil [Fish Oil] 1 cap PO DAILY 11/08/18 11/08/18 History vitamin E 400 unit PO DAILY 11/08/18 11/08/18 History Patient History Surgical History S/P partial colectomy (Chronic) S/P tonsillectomy (Chronic) S/P cholecystectomy Social History marital status: Current Living Situation: Spouse current occupational status: unemployed Other Information That Helps Us Care for You: No Feels Safe at Home: Yes Safety Concerns: Feels Safe At This Time Smoking Status: Former smoker Do You Dip or Chew Tobacco: No Second Hand Exposure: No Tobacco Cessation Education Requested by Patient: No Hx Alcohol Use: No Hx Substance Use: No Beliefs That Will Affect Care: None Preferred Language: Japanese Communication Ability: Effective 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 Physical Exam 2 Vital Signs (Past 24 Hours): Last Vital Signs Temp 36.7 C 11/09/18 07:35 Pulse 64 11/09/18 12:00 Resp 18 11/09/18 12:00 BP 172/91 H 11/09/18 12:02 Pulse Ox 97 11/09/18 12:00 Physical Exam: General: Awake, alert and oriented x 3. No acute distress. HEENT: Normocephalic, atraumatic. Pupils equal, round and reactive to light and accommodation. Extraocular muscles are intact. Anicteric sclera. Moist mucous membranes. Neck: No JVD. No bruit. Cardiovascular: Regular. Positive S-4. Normal S-1 and S-2. No S-3. No murmurs or rubs. Pulmonary: Clear to auscultation B/L. No rales, rhonchi or wheezing Abdomen: Bowel sounds x 4, soft. No rebound, guarding or tenderness. No organomegaly. Extremities: No clubbing, cyanosis or edema. +2 pedal pulses bilaterally. Skin: Warm and dry.
[2018-11-09] MEDS ORDERED: POTASSIUM CHLORIDE 20 MEQ TABCR PO STA (18:51)
--- NOTE | 2018-11-09 20:11 | Hospitalist Progress Note ---
Date of Service November 09, 2018 Assessment & Plan (1) Unstable angina: Pt reports intermittent chest pressure and SOB with exertion for past 4 weeks. 2 days ago had worse CP with diaphoresis. 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 In ER afebrile, P: 77, BP: 203/86, 168/90, R: 20, 94% on RA. Pt had episode CP with sitting up which resolved within approx 1 minute. EKG with t wave inversion AVL, T wave flattening V6. Negative initial troponin. CPK: 526, CKMB: 4.0 CXR: no acute changes noted CHEST PAIN R/O ACS. Risk factors: CAD, HTN, hyperlipidemia, DM troponins negative EKG no signs of acute ischemia possible unstable angina plan for Cardiac Cath on Sunday hypertension improving continue Heparin drip appreciate Cardio SVC consult (2) DM type 2 (diabetes mellitus, type 2): HA1c: 8.6 on 11/07/18 -hold metformin while in hospital -continue home dose 40 units BID -Novolog sliding scale per protocol (3) HTN (hypertension): In ER BP: 203/86, 168/90 Amlodipine added also in Nitropaste BP improving -continue lisinopril, metoprolol monitor (4) Dyslipidemia: -continue statin (5) LATOYA (obstructive sleep apnea): CPAP HS (6) COPD (chronic obstructive pulmonary disease): -continue Advair, albuterol prn (7) History of TIA (transient ischemic attack): H/O possible TIA -continue ASA, plavix DVT Prophylaxis -On Heparin IV Follows with Dr Dawson for routine care Subjective ff up for chest pain resting in bed, comfortable pleasant has intermittent sharp midsternal chest pain but overall feels improved denies active dyspnea, dizziness, palpitations no bleeding noted denies other symptoms Physical Exam 2 Vital Signs (Past 24 Hours): Last Vital Signs Temp 37.1 C 11/09/18 19:38 Pulse 82 11/09/18 19:38 Resp 20 11/09/18 19:38 BP 163/83 H 11/09/18 19:38 Pulse Ox 93 11/09/18 19:38 Physical Exam: General- oriented x 3, not in distress, speaks in sentences with no effort or accessory muscle use Eyes- anicteric Neck- no JVD Lungs- clear breath sounds bilaterally, no rales/wheezes Heart- normal rate, regular rhythm; no murmurs Abdomen- normal bowel sounds, nondistended, soft, nontender Extremities- no pretibial edema, no calf tenderness Neuro- alert, oriented x 3; no gross focal neurologic deficits Skin- warm & dry Results & Data Laboratory Results Laboratory Results - last 24 hr 11/08/18 11/08/18 11/08/18 20:03 20:17 21:44 WBC RBC Hgb Hct MCV MCH MCHC RDW Std Deviation RDW Coeff of Jose Plt Count MPV APTT PTT Ratio Sodium Potassium Chloride Carbon Dioxide Anion Gap BUN Creatinine Est Cr Clr Drug Dosing Est GFR ( Amer) Est GFR (Non-Af Amer) BUN/Creatinine Ratio Glucose POC Glucose 122 H Calcium Total Creatine Kinase Troponin I < 0.015 Triglycerides Cholesterol LDL Cholesterol, Calc VLDL Cholesterol, Calc HDL Cholesterol Cholesterol/HDL Ratio Nasal Screen MRSA (PCR) Positive A 11/09/18 11/09/18 11/09/18 00:00 04:20 04:20 WBC 8.40 RBC 4.37 L Hgb 13.2 L Hct 38.7 L MCV 88.6 MCH 30.2 MCHC 34.1 RDW Std Deviation 44.5 RDW Coeff of Jose 13.7 Plt Count 200 MPV 10.9 H APTT PTT Ratio Sodium 138 Potassium 3.5 Chloride 106 Carbon Dioxide 26 Anion Gap 6.0 BUN 19 H Creatinine 0.88 D Est Cr Clr Drug Dosing 103.9 Est GFR ( Amer) 107.5 Est GFR (Non-Af Amer) 92.7 BUN/Creatinine Ratio 22.2 H Glucose 141 H POC Glucose 167 H Calcium 8.8 Total Creatine Kinase 316 H Troponin I < 0.015 Triglycerides 128 Cholesterol 113 LDL Cholesterol, Calc 57 VLDL Cholesterol, Calc 26 HDL Cholesterol 30 Cholesterol/HDL Ratio 4 Nasal Screen MRSA (PCR) 11/09/18 11/09/18 11/09/18 04:20 06:04 12:03 WBC RBC Hgb Hct MCV MCH MCHC RDW Std Deviation RDW Coeff of Jose Plt Count MPV APTT 44.3 H PTT Ratio 1.7 Sodium Potassium Chloride Carbon Dioxide Anion Gap BUN Creatinine Est Cr Clr Drug Dosing Est GFR ( Amer) Est GFR (Non-Af Amer) BUN/Creatinine Ratio Glucose POC Glucose 155 H 151 H Calcium Total Creatine Kinase Troponin I Triglycerides Cholesterol LDL Cholesterol, Calc VLDL Cholesterol, Calc HDL Cholesterol Cholesterol/HDL Ratio Nasal Screen MRSA (PCR) 11/09/18 11/09/18 12:08 16:12 WBC RBC Hgb Hct MCV MCH MCHC RDW Std Deviation RDW Coeff of Jose Plt Count MPV APTT 50.5 H* PTT Ratio 1.9 Sodium Potassium Chloride Carbon Dioxide Anion Gap BUN Creatinine Est Cr Clr Drug Dosing Est GFR ( Amer) Est GFR (Non-Af Amer) BUN/Creatinine Ratio Glucose POC Glucose 186 H Calcium Total Creatine Kinase Troponin I Triglycerides Cholesterol LDL Cholesterol, Calc VLDL Cholesterol, Calc HDL Cholesterol Cholesterol/HDL Ratio Nasal Screen MRSA (PCR)
[2018-11-09] MEDS: ATORVASTATIN 40 MG TAB PO SCH (20:31)
[2018-11-10] MEDS: NITROGLYCERIN 2% OINTMENT 30GM TUBE EXT SCH ×5 (00:26→23:59)
[2018-11-10] MEDS: HEPARIN STANDARD DEXTROSE 25,000 UNITS/500 ML IV SCH ×2 (04:29→20:30)
[2018-11-10 06:57] LABS: Partial Thromboplastin Ratio 1.9
[2018-11-10] MEDS: AMLODIPINE BESYLATE 5 MG TAB PO SCH (08:27)
[2018-11-10] MEDS: METOPROLOL TARTRATE 100 MG TAB PO SCH ×2 (08:27→20:27)
[2018-11-10] MEDS: FLUTICASONE/SALMETEROL (ADVAIR) 500/50 INH 14 PUFF INH SCH ×2 (08:28→20:24)
[2018-11-10] MEDS: LISINOPRIL 20 MG TAB PO SCH (08:28)
[2018-11-10] MEDS: CLOPIDOGREL BISULFATE 75 MG TAB PO SCH (08:28)
[2018-11-10] MEDS: ASPIRIN 81 MG ECTAB PO SCH (08:28)
[2018-11-10] MEDS: INSULIN GLARGINE SOLOSTAR 100 UNITS/ML 3 ML PEN SC SCH ×2 (08:30→20:25)
[2018-11-10] MEDS: INSULIN ASPART 100 UNITS/ML 3 ML PEN SC SCH ×5 (08:31→23:59)
[2018-11-10] MEDS ORDERED: AMLODIPINE BESYLATE 5 MG TAB PO ONE (09:12)
--- NOTE | 2018-11-10 13:07 | Cardiology Progress Note ---
Date of Service November 10, 2018 Assessment & Plan (1) Unstable angina: symptoms and EKG changes concerning for unstable angina luckily has been discomfort free since presentation echocardiogram unchanged cardiac enzymes unremarkable given extensive cardiac hx and multiple comorbidities will plan for elective cardiac cath on 11/11/18 should chest discomfort reoccur and be unrelieved with medical therapy, emergent cardiac cath may been undertaken cont asa, plavix and heparin will treat uncontrolled bp in the meantime amlodipine uptitrated and bp now controlled npo after midnight (2) S/P CABG (coronary artery bypass graft): as above cont outpatient meds (3) History of TIA (transient ischemic attack): cont asa and plavix (4) DM type 2 (diabetes mellitus, type 2): (5) COPD (chronic obstructive pulmonary disease): stable Subjective Pt seen and examined, states that he's feeling well. Some musculoskeletal anita pain overnight, different from presenting discomfort. Denies sob, palpitations, lightheadedness or dizziness. tele reviewed: sinus rhythm without arrhythmia or significant ectopy. Physical Exam 2 Vital Signs (Past 24 Hours): Last Vital Signs Temp 36.6 C 11/10/18 12:19 Pulse 58 L 11/10/18 12:19 Resp 16 11/10/18 12:19 BP 155/85 H 11/10/18 12:19 Pulse Ox 94 11/10/18 12:19 Physical Exam: General: Awake, alert and oriented x 3. No acute distress. HEENT: Normocephalic, atraumatic. Pupils equal, round and reactive to light and accommodation. Extraocular muscles are intact. Anicteric sclera. Moist mucous membranes. Neck: No JVD. No bruit. Cardiovascular: Regular. Positive S-4. Normal S-1 and S-2. No S-3. No murmurs or rubs. Pulmonary: Clear to auscultation B/L. No rales, rhonchi or wheezing Abdomen: Bowel sounds x 4, soft. No rebound, guarding or tenderness. No organomegaly. Extremities: No clubbing, cyanosis or edema. +2 pedal pulses bilaterally. Skin: Warm and dry.
--- NOTE | 2018-11-10 18:52 | Hospitalist Progress Note ---
Date of Service November 10, 2018 Assessment & Plan (1) Unstable angina: Pt reports intermittent chest pressure and SOB with exertion for past 4 weeks. 2 days ago had worse CP with diaphoresis. 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 In ER afebrile, P: 77, BP: 203/86, 168/90, R: 20, 94% on RA. Pt had episode CP with sitting up which resolved within approx 1 minute. EKG with t wave inversion AVL, T wave flattening V6. Negative initial troponin. CPK: 526, CKMB: 4.0 CXR: no acute changes noted CHEST PAIN R/O ACS. Risk factors: CAD, HTN, hyperlipidemia, DM troponins negative EKG no signs of acute ischemia possible unstable angina plan for Cardiac Cath on Sunday hypertension improving continue Heparin drip appreciate Cardio SVC consult 11/10 HTN continues to improve asymptomatic for cardiac cath (2) DM type 2 (diabetes mellitus, type 2): HA1c: 8.6 on 11/07/18 -hold metformin while in hospital -continue home dose 40 units BID -Novolog sliding scale per protocol (3) HTN (hypertension): In ER BP: 203/86, 168/90 Amlodipine added also in Nitropaste BP improving -continue lisinopril, metoprolol 11/10 - BP improving (4) Dyslipidemia: -continue statin (5) LATOYA (obstructive sleep apnea): CPAP HS (6) COPD (chronic obstructive pulmonary disease): -continue Advair, albuterol prn (7) History of TIA (transient ischemic attack): H/O possible TIA -continue ASA, plavix DVT Prophylaxis -On Heparin IV Follows with Dr Dawson for routine care Subjective ff up for chest pain delayed entry date of service as noted above seen sitting up in chair, playing cards comfortable chest pain free no bleeding denies other symptoms Physical Exam 2 Vital Signs (Past 24 Hours): Last Vital Signs Temp 36.7 C 11/10/18 15:29 Pulse 64 11/10/18 15:29 Resp 18 11/10/18 15:29 BP 163/84 H 11/10/18 15:29 Pulse Ox 95 11/10/18 15:29 Physical Exam: General- oriented x 3, not in distress, speaks in sentences with no effort or accessory muscle use Eyes- anicteric Neck- no JVD Lungs- clear BS BL Heart- normal rate, regular rhythm; no murmurs Abdomen- normal bowel sounds, nondistended, soft, nontender Extremities- no pretibial edema, no calf tenderness Neuro- alert, oriented x 3; no gross focal neurologic deficits Skin- warm & dry Results & Data Laboratory Results noted and reviewed
[2018-11-10] MEDS ORDERED: PHARMACY GLYCEMIC MGMT CONSULT PRN (19:18)
[2018-11-10] MEDS: ATORVASTATIN 40 MG TAB PO SCH (20:26)
[2018-11-11] MEDS: INSULIN ASPART 100 UNITS/ML 3 ML PEN SC SCH ×5 (03:45→21:14)
[2018-11-11] MEDS: NITROGLYCERIN 2% OINTMENT 30GM TUBE EXT SCH ×2 (06:05→13:03)
[2018-11-11 06:16] LABS: Hematocrit (blood only) 42.5 % (42-52); Hemoglobin 14.3 g/dL (14.0-18.0); Mean Corpuscular Hgb Conc 33.6 g/dL (32-36); Mean Corpuscular Volume 89.5 fL (80-100); Mean Platelet Volume 10.8 fL (7.4-10.4); Platelet Count 212 K/uL (130-400); RDW Coefficient of Variation 13.9 % (11.5-14.5); RDW Standard Deviation 45.5 fL (36.4-46.3); Red Blood Count 4.75 M/uL (4.7-6.1); White Blood Count 8.44 K/uL (4.8-10.8)
[2018-11-11 06:33] LABS: Partial Thromboplastin Ratio 2.5
[2018-11-11 06:46] LABS: Partial Thromboplastin Time 64.8 Seconds (21.0-31.0)
[2018-11-11] MEDS: INSULIN GLARGINE SOLOSTAR 100 UNITS/ML 3 ML PEN SC SCH ×2 (07:28→21:12)
[2018-11-11] MEDS: ASPIRIN 81 MG ECTAB PO SCH (07:50)
[2018-11-11] MEDS: FLUTICASONE/SALMETEROL (ADVAIR) 500/50 INH 14 PUFF INH SCH ×2 (07:50→21:15)
[2018-11-11] MEDS: METOPROLOL TARTRATE 100 MG TAB PO SCH ×2 (07:51→21:15)
[2018-11-11] MEDS: CLOPIDOGREL BISULFATE 75 MG TAB PO SCH (07:51)
[2018-11-11] MEDS: AMLODIPINE BESYLATE 5 MG TAB PO SCH (07:51)
[2018-11-11] MEDS: LISINOPRIL 20 MG TAB PO SCH (07:51)
[2018-11-11] MEDS ORDERED: SODIUM CHLORIDE 0.9% 1000ML 1,000 ML IV SCH ×2 (09:15→12:45)
[2018-11-11] MEDS ORDERED: MIDAZOLAM HCL 1 MG/ML 2ML VIAL ONE (10:09)
[2018-11-11] MEDS ORDERED: NiCARDipine HCL INJ 2.5 MG/ML 10 ML AMP ONE (10:10)
[2018-11-11] MEDS ORDERED: HEPARIN (PORCINE) 1000 UNIT/ML 10 ML (CATH LAB USE ONLY) ONE ×2 (10:10→11:49)
[2018-11-11] MEDS ORDERED: NITROGLYCERIN/D5W 100MCG/ML 20ML SYR ONE (10:10)
[2018-11-11] MEDS ORDERED: fentaNYL citrate 100 MCG/2 ML VIAL ONE (10:10)
--- NOTE | 2018-11-11 11:44 | Cardiac Catheterization ---
Date of Service November 11, 2018 Cardiac Cath Report Cardiac Cath Report History: This is a 63-year-old male patient who underwent coronary artery bypass surgery in January 2017 at [facility]. Over the past several weeks he is been experiencing exertional angina which resulted in a hospital admission Procedure: 1. Left heart catheterization 2. Left ventriculogram 3. Left heart catheterization 4. Aortogram Procedure summary: After informed consent was obtained the patient was taken to the cardiac catheterization lab where he was prepped and draped in the usual manner for a right transfemoral approach. Preformed 5 Angolan diagnostic catheters were utilized for the coronary angiograms. A 5 Angolan pigtail catheter was used for the left ventriculogram and aortogram. Following the procedure the patient underwent coronary intervention and then was admitted to the hospital in stable condition. ACC data: The right coronary artery is dominant Opening aortic pressure is 164/64 Closing aortic pressure 147/69 Left ventricular pressure is 165/12 Contrast 190 cc Fluoroscopy time 10.3 minutes Radiation 2609 mGy The DAP 63095 Start time 10:43 AM End time 11:21 AM ACC score 8 IV fluid 89 cc Sedation 1 mg Versed IV Coronary angiography: Selective left coronary artery revealed the left main trunk to be patent. The left circumflex artery has a 90% concentric stenosis in its mid segment. With evidence of competitive flow from bypass grafts distally. Selective injections of the saphenous vein graft and free left radial artery bypass to the OM1 and OM 2 are widely patent. The LAD is occluded distally with evidence of competitive flow from the TOMPKINS. Selective injections of the TOMPKINS graft revealed to be widely patent supplying excellent antegrade and retrograde flow to the LAD. The saphenous vein graft to the right coronary artery is occluded at its origin. Selective injections of the right coronary artery revealed to be dominant. There is a high-grade stenosis in the proximal portion of the right coronary artery. Left ventriculogram: The left ventricle is of normal size. Normal left ventricular systolic function. The mitral valve is competent. The LVEDP is 12. Aortogram. Selective injections into the aorta in the normal morphology of the aortic root and diameter of the ascending aorta. There is no evidence for a saphenous vein graft to the right coronary artery. Summary: The patient has a patent TOMPKINS to the LAD. The saphenous vein graft and free left radial artery to OM1 and OM 2 are patent. The saphenous vein graft to the right coronary artery is occluded. There is a high-grade proximal stenosis in the right coronary artery. There is also high-grade stenosis in the mid left circumflex artery above the patent bypass grafts. I believe the culprit artery for the patient's symptoms is the right coronary artery where the bypass graft is closed. Recommendations: Coronary intervention on the right coronary artery.
[2018-11-11] MEDS ORDERED: CLOPIDOGREL BISULFATE 300 MG TAB ONE (12:15)
--- NOTE | 2018-11-11 12:28 | Post Anesthesia Assessment ---
Date of Service November 11, 2018 Post Sedation Assessment Vital Signs Temp Pulse Resp BP Pulse Ox 11/11/18 07:42 37.0 C 68 18 143/73 H 96 11/11/18 03:37 36.5 C 59 L 18 125/76 95 11/10/18 23:36 36.4 C L 59 L 18 167/81 H 95 11/10/18 19:26 36.4 C L 66 16 151/83 H 94 11/10/18 15:29 36.7 C 64 18 163/84 H 95 Post Sedation Plan On clinical assessment, the patient appears to have tolerated the sedation without complications. Patient is recovering as anticipated. Patient will continue to be monitored by nursing and may be discharged when sedation discharge criteria are met per below protocol. Upon Completions of procedure and additional 15 minutes continue every 5 minute vital signs and the P.A.R. score; then discharge to a Phase I or Fast Track to Phase II per the following guidelines: * Discharge Patient to appropriate Phase II area if PAR is 8 or greater or return to pre- procedure baseline. The post - procedure orders will be as directed. * If PAR score is less than 8 or not return to pre-procedure baseline then patient will follow Phase I monitoring till PAR is reached for Phase II. The Phase I may be done in procedure room or may call to secure a Phase I area. * �If naloxone or flumazenil are used for reversal, hold in Phase I for continued monitoring from when last reversal dose was given for a minimum of 60 minutes or longer pending the nurse and/or physician discretion of patient condition before discharge to Phase II.� Please call the Sedation Physician to re-evaluate and complete post-note for discharge to Phase II area. Do NOT discharge from procedure sedation or Phase 1 until post- sedation evaluation note is complete by procedure /sedation MD Sedation Discharge Instructions to be given to the patient at discharge to home.
--- NOTE | 2018-11-11 12:36 | Cardiac Catheterization ---
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 Tony. Briefly, patient found to have severe nez perce proximal to mid RCA disease. SVG to RCA occluded. Decision to proceed with PCI to RCA. -- PCI -- Antithrombotic therapy: Heparin, clopidogrel Procedure: RCA cannulated with JR4 guide BMW wire passed across lesion into distal vessel Ostial to mid RCA lesion predilated with 2.5 compliant balloon Mid RCA stented with 3.0 x 26 mm Oliver drug-eluting stent Second drug-eluting stent (3.0 x 22 mm [place]) placed from ostium, overlapping distally with mid RCA stent Stents post-dilated with 3.0 noncompliant balloon IC vasodilators administered for spasm Post procedure SHANIA 3 flow, stent well expanded with minimal residual stenosis and no apparent cardiac complications. Arterial Closure: TR band Summary: 1. Successful PCI of ostial to mid RCA with 2 overlapping drug-eluting stents ( 3.0 x 22, 3.0 x 26 mm [place]). 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 Cardiac Status Clinical evaluation leading to the procedure CAD Presenation: Unstable angina Anginal Classification: CCS III Heart Failure: No Cardiogenic Shock within 24 Hours: No Cardiac Arrest within 24 Hours: No Imaging Studies Past 6 Months: Yes Stress Studies Past 6 Months: No Diagnostic Physicians Name: Jason Coronel MD Status: Elective Closure Device Percutaneous Entry Location: Femoral Closure Device: Mynx Recommendations: PCI without planned CABG PCI Indication: Unstable Angina Lesion Segment Name: Ostial to mid RCA Culprit Artery: Yes Stenosis Prior to Rx (%): 80 Chronic Total Occlusion: No IVUS: No FFR: No Pre-Procedure SHANIA Flow: 3 Previously Treated Lesion: No Lesion Complexity: Non-High/Non-C Lesion Length (mm): 35 Thrombus Present: No Bifurcation Lesion: No Guidewire Across Lesion: Stenosis Post-Procedure (%): 0 Post-Procedure SHANIA Flow : 3 Devices(s) Deployed: Yes Yes Intraprocedure Events Significant Disection: No Perforation: No
--- NOTE | 2018-11-11 13:48 | Pharmacy Report ---
Glycemic Control Consultation - Date of Service November 11, 2018 - Scope Scope: Glycemic Pharmacist consulted by Dr Hernández on 11/10/18 for glycemic control and to write orders per [facility] inpatient glycemic control protocol - Objective Weight: 94.1 kg Accuchecks BSG (last 24hrs): 11/10/18 11/10/18 11/10/18 16:35 20:00 23:41 POC Glucose 220 H 173 H 141 H 11/11/18 11/11/18 11/11/18 03:36 07:23 12:58 POC Glucose 172 H 212 H 150 H - Recent Pertinent Medications Outpatient Anti-diabetic Regimen: * Lantus 40 units SC BID * Novolog scale * Metformin 1000 mg po BID * A1c ordered for 11/12/18 The patient is currently receiving: * Basal insulin: Lantus 50 units every 12 hours * Correctional Insulin: Novolog Correction per scale ACHS Goal Range: Low 120 mg/dL - High 160 mg/dL Correction Factor: 10 mg/dL/unit * Prandial insulin: Per carb ratio of 1 unit per 2 grams CHO consumed * Oral Agents: On hold Risk Factors for Insulin Resistance: * Recent Surgery: POD 0 for cardiac cath planned for today * Diet: NPO - Assessment & Plan Assessment & Plan: ASSESSMENT: * 63 yo M with on a significant amount of insulin as an outpatient with unknown control of diabetes (HbA1c ordered for tomorrow) * Patient is NPO for cardiac cath today - I am assuming that a diet will be ordered following cath today. If diet not ordered, Lantus order notes for RN to call pharmacy to verify dose of Lantus * Patient's Lantus was increased from home dose last night 2nd AM fasting hyperglycemia on 11/10. Patient was still hyperglycemic to 212 mg/dL this AM. Despite this, will decrease dose of Lantus slightly tonight (unless BSG >180 mg/ dL) as BSG trended down to 150 mg/dL this afternoon, patient is not likely to have consumed as much CHO today with procedure, heparin drip (mixed in dextrose ) was stopped this AM, and anticipate better post-prandial control with tightened CHO ratio last night (once patient again consumes po) PLAN FOR INPATIENT GLYCEMIC CONTROL: * Hold outpatient metformin * Basal insulin: Lantus SQ BID based on BSG * 25 units for BSG less than 120 mg/dL * 40 units for BSG 120-180 mg/dL * 50 units for BSG greater than 180 mg/dL * Bolus insulin * NovoLog per scale ACHS or Q6hrs while NPO * Goal Range: Low 140 mg/dL - High 180 mg/dL * Correction Factor: 10 mg/dL/unit * Nutritional / Prandial insulin per carb ratio of 1 unit per 2 grams CHO consumed * Please note that the plan above was derived based on current level of insulin resistance and hospital stress. These recommendations are appropriate for inpatient admission only. Plan of care upon discharge will need to be reassessed to avoid potential outpatient hypo/hyperglycemia. Thank you.
--- NOTE | 2018-11-11 14:09 | Hospitalist Progress Note ---
Date of Service November 11, 2018 Assessment & Plan (1) Unstable angina: Pt reports intermittent chest pressure and SOB with exertion for past 4 weeks. 2 days ago had worse CP with diaphoresis. 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 In ER afebrile, P: 77, BP: 203/86, 168/90, R: 20, 94% on RA. Pt had episode CP with sitting up which resolved within approx 1 minute. EKG with t wave inversion AVL, T wave flattening V6. Negative initial troponin. CPK: 526, CKMB: 4.0 CXR: no acute changes noted CHEST PAIN R/O ACS. Risk factors: CAD, HTN, hyperlipidemia, DM troponins negative EKG no signs of acute ischemia possible unstable angina plan for Cardiac Cath on Sunday hypertension improving continue Heparin drip appreciate Cardio SVC consult 11/10 HTN continues to improve asymptomatic for cardiac cath 11/11 s/p Cardiac Cath s/p DEMIAN to RCA stable overall monitor BP heparin drip off on ASA, Plavix (2) DM type 2 (diabetes mellitus, type 2): HA1c: 8.6 on 11/07/18 -hold metformin while in hospital -continue home dose 40 units BID -Novolog sliding scale per protocol (3) HTN (hypertension): In ER BP: 203/86, 168/90 Amlodipine added also in Nitropaste BP improving -continue lisinopril, metoprolol 11/11 monitor BP (4) Dyslipidemia: -continue statin (5) LATOYA (obstructive sleep apnea): CPAP HS (6) COPD (chronic obstructive pulmonary disease): -continue Advair, albuterol prn (7) History of TIA (transient ischemic attack): H/O possible TIA -continue ASA, plavix DVT Prophylaxis Heparin drip off Follows with Dr Dawson for routine care Subjective ff up for chest pain sp cardiac cath resting in bed, comfortable chest pain free in good spirits denies dyspnea, pain no bleeding no other symptoms Physical Exam 2 Vital Signs (Past 24 Hours): Last Vital Signs Temp 36.7 C 11/11/18 12:46 Pulse 57 L 11/11/18 13:30 Resp 16 11/11/18 13:30 BP 134/73 11/11/18 13:30 Pulse Ox 95 11/11/18 13:30 Physical Exam: General- oriented x 3, not in distress, speaks in sentences with no effort or accessory muscle use Eyes- anicteric Neck- no JVD Lungs- clear BS BL Heart- normal rate, regular rhythm; no murmurs Abdomen- normal bowel sounds, nondistended, soft, nontender Extremities- no pretibial edema, no calf tenderness Neuro- alert, oriented x 3; no gross focal neurologic deficits Skin- warm & dry Results & Data Laboratory Results Laboratory Results - last 24 hr 11/10/18 11/10/18 11/11/18 20:00 23:41 03:36 WBC RBC Hgb Hct MCV MCH MCHC RDW Std Deviation RDW Coeff of Jose Plt Count MPV APTT PTT Ratio Activ Coag Time Kaolin POC Glucose 173 H 141 H 172 H 11/11/18 11/11/18 11/11/18 06:00 06:00 07:23 WBC 8.44 RBC 4.75 Hgb 14.3 Hct 42.5 MCV 89.5 MCH 30.1 MCHC 33.6 RDW Std Deviation 45.5 RDW Coeff of Jose 13.9 Plt Count 212 MPV 10.8 H APTT 64.8 H* PTT Ratio 2.5 Activ Coag Time Kaolin POC Glucose 212 H 11/11/18 11/11/18 11/11/18 11:46 12:10 12:58 WBC RBC Hgb Hct MCV MCH MCHC RDW Std Deviation RDW Coeff of Jose Plt Count MPV APTT PTT Ratio Activ Coag Time Kaolin 219 H 246 H POC Glucose 150 H 11/11/18 16:19 WBC RBC Hgb Hct MCV MCH MCHC RDW Std Deviation RDW Coeff of Jose Plt Count MPV APTT PTT Ratio Activ Coag Time Kaolin POC Glucose 125 H
--- NOTE | 2018-11-11 16:15 | Cardiology Progress Note ---
Date of Service November 11, 2018 Assessment & Plan (1) Unstable angina: did have SVG to RCA down underwent successful PCI with 2 overlapping DEMIAN to [place] RCA, ostial to mid tolerated well cont metoprolol, atorvastatin, asa and plavix post pci protocol likely d/c to home in AM (2) S/P CABG (coronary artery bypass graft): as above cont outpatient meds (3) History of TIA (transient ischemic attack): cont asa and plavix (4) DM type 2 (diabetes mellitus, type 2): (5) COPD (chronic obstructive pulmonary disease): stable Subjective Pt seen and examined s/p PCI. States that he feels well. No pain at groin site. Denies cp, sob, lightheadedness or dizziness. Some slight palpitations since intervention, otherwise, tolerated well. Tele reviewed: sinus rhythm without arrhythmia or significant ectopy. Physical Exam 2 Vital Signs (Past 24 Hours): Last Vital Signs Temp 36.8 C 11/11/18 15:29 Pulse 56 L 11/11/18 15:29 Resp 20 11/11/18 15:29 BP 150/78 H 11/11/18 15:29 Pulse Ox 95 11/11/18 15:29 Physical Exam: General: Awake, alert and oriented x 3. No acute distress. HEENT: Normocephalic, atraumatic. Pupils equal, round and reactive to light and accommodation. Extraocular muscles are intact. Anicteric sclera. Moist mucous membranes. Neck: No JVD. No bruit. Cardiovascular: Regular. Positive S-4. Normal S-1 and S-2. No S-3. No murmurs or rubs. Pulmonary: Clear to auscultation B/L. No rales, rhonchi or wheezing Abdomen: Bowel sounds x 4, soft. No rebound, guarding or tenderness. No organomegaly. Extremities: No clubbing, cyanosis or edema. +2 pedal pulses bilaterally. Skin: Warm and dry.
[2018-11-11] MEDS ORDERED: AMLODIPINE BESYLATE 5 MG TAB PO ONE (18:25)
[2018-11-11] MEDS: ATORVASTATIN 40 MG TAB PO SCH (21:15)
[2018-11-12 06:27] LABS: Partial Thromboplastin Ratio 0.9; Partial Thromboplastin Time 24.5 Seconds (21.0-31.0)
[2018-11-12] MEDS: INSULIN ASPART 100 UNITS/ML 3 ML PEN SC SCH ×2 (07:38→12:05)
[2018-11-12] MEDS: INSULIN GLARGINE SOLOSTAR 100 UNITS/ML 3 ML PEN SC SCH (07:49)
[2018-11-12] MEDS: FLUTICASONE/SALMETEROL (ADVAIR) 500/50 INH 14 PUFF INH SCH (07:49)
[2018-11-12] MEDS: ASPIRIN 81 MG ECTAB PO SCH (07:49)
[2018-11-12] MEDS: METOPROLOL TARTRATE 100 MG TAB PO SCH (07:50)
[2018-11-12] MEDS: LISINOPRIL 20 MG TAB PO SCH (07:50)
[2018-11-12] MEDS: AMLODIPINE BESYLATE 5 MG TAB PO SCH (07:50)
[2018-11-12] MEDS: CLOPIDOGREL BISULFATE 75 MG TAB PO SCH (07:50)
[2018-11-12 08:35] LABS: Estimated Average Glucose 200 mg/dl
--- NOTE | 2018-11-12 09:49 | Cardiology Progress Note ---
Date of Service November 12, 2018 Assessment & Plan (1) Unstable angina: did have SVG to RCA Occluded underwent successful PCI with 2 overlapping DEMIAN to [place] RCA, ostial to mid tolerated well cont metoprolol, atorvastatin, asa and plavix The patient was hypertensive through the night.His blood pressure can be monitored as an outpatient and we will take care of it during follow-up. I will make arrangements for him to see his primary carpenters helper Dr. Garner as an outpatient (2) S/P CABG (coronary artery bypass graft): as above cont outpatient meds (3) History of TIA (transient ischemic attack): cont asa and plavix (4) DM type 2 (diabetes mellitus, type 2): (5) COPD (chronic obstructive pulmonary disease): stable Subjective The patient had an uneventful night after coronary stent placement. He feels well and has no new complaints. He is anxious to return home and we will make arrangements for follow-up with his primary carpenters helper Dr. Vieyra. Physical Exam 2 Vital Signs (Past 24 Hours): Last Vital Signs Temp 36.9 C 11/12/18 07:33 Pulse 67 11/12/18 07:33 Resp 18 11/12/18 07:33 BP 169/76 H 11/12/18 07:33 Pulse Ox 98 11/12/18 07:33 Physical Exam: General: no acute distress and stated age Head: normocephalic, no masses, lesions, tenderness or abnormalities Eyes: conjunctiva are pink and non-injected, sclera clear Neck: supple, no adenopathy, no bruits, normal jugular venous pulse, no hepatojugular reflux Chest: normal shape and normal respiratory effort Lungs: clear to auscultation and percussion Cardiac Exam: - regular rate & rhythm, no murmurs gallops or rubs - normal S1, normal S2 Pulses: 2(+) throughout Abdomen: abdomen soft, non-tender, no abnormal masses and no hepatosplenomegaly Musculoskeletal: no gait disturbance, no joint inflammation, no deforming arthritis Extremities: Cath site looks good Neuro: grossly normal exam Results & Data Laboratory Results Laboratory Results - last 24 hr 11/11/18 11/11/18 11/11/18 11:46 12:10 12:58 APTT PTT Ratio Activ Coag Time Kaolin 219 H 246 H POC Glucose 150 H Estimat Average Glucose Hemoglobin A1c 11/11/18 11/11/18 11/12/18 16:19 20:25 05:53 APTT 24.5 PTT Ratio 0.9 Activ Coag Time Kaolin POC Glucose 125 H 143 H Estimat Average Glucose Hemoglobin A1c 11/12/18 11/12/18 05:53 07:30 APTT PTT Ratio Activ Coag Time Kaolin POC Glucose 131 H Estimat Average Glucose 200 Hemoglobin A1c 8.6 H Medications Administered Current Inpatient Medications Acetaminophen (Tylenol) 650 mg PO Q4H PRN PRN Reason: Pain or Fever Stop: 12/08/18 20:12 Last Admin: 11/08/18 23:06 Dose: 650 mg Albuterol (Ventolin Hfa) 2 puffs INH Q6H PRN PRN Reason: Shortness Of Breath Or Wheezing Stop: 12/08/18 20:12 Amlodipine Besylate (Norvasc) 5 mg PO [facility] Stop: 12/09/18 09:59 Last Admin: 11/12/18 07:50 Dose: 5 mg Aspirin (Ecotrin) 81 mg PO [facility] Stop: 12/09/18 08:59 Last Admin: 11/12/18 07:49 Dose: 81 mg Atorvastatin Calcium (Lipitor) 40 mg PO [facility] Stop: 12/08/18 20:59 Last Admin: 11/11/18 21:15 Dose: 40 mg Clopidogrel Bisulfate (Plavix) 75 mg PO [facility] Stop: 12/09/18 08:59 Last Admin: 11/12/18 07:50 Dose: 75 mg Dextrose (Dextrose 50%) 25 - 50 ml IV UD PRN; Protocol PRN Reason: Hypoglycemia Protocol Stop: 12/08/18 20:12 Glucagon (Glucagen) 1 mg SQ UD PRN; Protocol PRN Reason: Hypoglycemia Protocol Stop: 12/08/18 20:12 Glucose (Glucose 40%) 15 - 30 gm PO UD PRN; Protocol PRN Reason: Hypoglycemia Protocol Stop: 12/08/18 20:12 Glucose (Dex4 Glucose) 4 - 8 tabs PO UD PRN; Protocol PRN Reason: Hypoglycemia Protocol Stop: 12/08/18 20:12 Insulin Aspart (Novolog Flexpen) 0 units SC [facility]; Protocol Stop: 12/08/18 20:59 Last Admin: 11/12/18 07:38 Dose: 15 units Insulin Glargine (Lantus Solostar Pen) 0 units SC BID [facility]; Protocol Stop: 12/11/18 20:59 Last Admin: 11/12/18 07:49 Dose: 40 units Lisinopril (Zestril) 20 mg PO DAILY [facility] Stop: 12/09/18 08:59 Last Admin: 11/12/18 07:50 Dose: 20 mg Metoprolol Tartrate (Lopressor) 100 mg PO BID [facility] Stop: 12/08/18 20:59 Last Admin: 11/12/18 07:50 Dose: 100 mg Miscellaneous (Carbohydrates For Hypoglycemia) 15 - 30 gm PO UD PRN PRN Reason: Hypoglycemia Treatment Stop: 12/08/18 20:12 Miscellaneous Information (Consult Glycemic Management Pharmacy) 1 ea N/A UD PRN PRN Reason: Consult Stop: 12/10/18 19:17 Fluticasone/Salmeterol (Advair Diskus 500/50) 1 puffs INH BID [facility] Stop: 12/08/18 20:59 Last Admin: 11/12/18 07:49 Dose: 1 puffs
[2018-11-12 10:42] LABS: BUN Creatinine Ratio 16.4 (10-20); Calcium 8.5 mg/dl (8.5-10.1); Est GFR (African American) 79.2; Est GFR (Non-African American) 68.3
[2018-11-12] MEDS ORDERED: AMLODIPINE BESYLATE 5 MG TAB PO ONE (11:15)
[2018-11-12] MEDS ORDERED: MUPIROCIN 2% OINT 22 GM TUBE EXT SCH (11:45)
--- NOTE | 2018-11-12 12:32 | Hospitalist Progress Note ---
Date of Service November 12, 2018 Assessment & Plan (1) Unstable angina: per admitting service: Pt reports intermittent chest pressure and SOB with exertion for past 4 weeks. 2 days ago had worse CP with diaphoresis. 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 In ER afebrile, P: 77, BP: 203/86, 168/90, R: 20, 94% on RA. Pt had episode CP with sitting up which resolved within approx 1 minute. EKG with t wave inversion AVL, T wave flattening V6. Negative initial troponin. CPK: 526, CKMB: 4.0 CXR: no acute changes noted troponins negative EKG no signs of acute ischemia possible unstable angina evaluated by [employer] Dr. Byrd placed on Heparin drip BP controlled by adding Amlodipine s/p Cardiac Cath 11/12/18 underwent successful PCI with 2 overlapping DEMIAN to [place] RCA, ostial to mid cleared for discharge by [facility] recommend Amlodipine 10mg daily continue usual ASA, Plavix, Metoprolol, Lisinopril ff up with [facility] in 2 weeks (2) DM type 2 (diabetes mellitus, type 2): HA1c: 8.6 on 11/07/18 continue Insulin advised to hold Metformin 1,000mg BID until in light of recent cardiac cath outpatient ff up (3) HTN (hypertension): In ER BP: 203/86, 168/90 Amlodipine added BP improving continue lisinopril, metoprolol monitor BP (4) Dyslipidemia: -continue statin (5) LATOYA (obstructive sleep apnea): CPAP HS (6) COPD (chronic obstructive pulmonary disease): -continue Advair, albuterol prn (7) History of TIA (transient ischemic attack): H/O possible TIA -continue ASA, plavix ff up with PCP in 1 week ff up with [facility] in 2 weeks Subjective ff up for chest pain seen sitting in chair, comfortable in good spirits states he feels better overall chest pain free denies other symptoms ambulating with no problems states he is ready and would like to be discharged today Physical Exam 2 Vital Signs (Past 24 Hours): Last Vital Signs Temp 36.4 C L 11/12/18 11:06 Pulse 63 11/12/18 11:06 Resp 19 11/12/18 11:06 BP 145/85 H 11/12/18 11:06 Pulse Ox 97 11/12/18 11:06 Physical Exam: General- oriented x 3, not in distress, speaks in sentences with no effort or accessory muscle use Eyes- anicteric Neck- no JVD Lungs- clear breath sounds bilaterally Heart- normal rate, regular rhythm; no murmurs Abdomen- normal bowel sounds, nondistended, soft, nontender right groin: cath site - no hematoma, bleeding, edema Extremities- no pretibial edema, no calf tenderness Neuro- alert, oriented x 3; no gross focal neurologic deficits Skin- warm & dry Results & Data Laboratory Results Laboratory Results - last 24 hr 11/11/18 11/12/18 11/12/18 20:25 05:53 05:53 APTT 24.5 PTT Ratio 0.9 Sodium Potassium Chloride Carbon Dioxide Anion Gap BUN Creatinine Est Cr Clr Drug Dosing Est GFR ( Amer) Est GFR (Non-Af Amer) BUN/Creatinine Ratio Glucose POC Glucose 143 H Estimat Average Glucose 200 Hemoglobin A1c 8.6 H Calcium 11/12/18 11/12/18 11/12/18 07:30 09:58 11:37 APTT PTT Ratio Sodium 134 L Potassium 4.0 Chloride 103 Carbon Dioxide 22 Anion Gap 9.0 BUN 19 H Creatinine 1.15 Est Cr Clr Drug Dosing 79.0 Est GFR ( Amer) 79.2 Est GFR (Non-Af Amer) 68.3 BUN/Creatinine Ratio 16.4 Glucose 214 H POC Glucose 131 H 153 H Estimat Average Glucose Hemoglobin A1c Calcium 8.5
--- NOTE | 2018-11-12 12:32 | Discharge Summary ---
Date of Service November 12, 2018 Admission HPI Per Admitting Provider Pt is 63 y/o M with PMH CAD s/p CABG x 4 in 2017, dyslipidemia, HTN, possible TIA, COPD, LATOYA, DM II presented to ER from [facility] office with c/o CP and reported EKG changes in clinic today. Pt reports intermittent chest pressure and SOB with exertion for past 4 weeks. 2 days ago had worse CP with diaphoresis. Reports couple of days ago noticed some bilateral ankle swelling which has since resolved. Has not used his nitroglycerin. Pt denied CP upon initial ER evaluation and reported CP with sitting up in bed while in ER which lasted approx 1 minute and resolved. Reports chronic loose stools, denies worsening. Denies fever/chills, diaphoresis, N/V, hematochezia, hematuria, WREN, dizziness, syncope, vision changes, neck pain, orthopnea, palpitations, cough, sore throat, choking, otalgia, rhinorrhea, abdominal pain, paresthesias, weakness, extremity weakness, rashes, urinary symptoms. Hx echo: 01/2017: EF: 55-60%, grossly normal valvular structures Admission Exam Per Admitting Provider Vital Signs (Past 24 Hours): Last Vital Signs Temp 37.4 C 11/08/18 16:29 Pulse 70 11/08/18 18:24 Resp 24 11/08/18 18:24 BP 171/85 H 11/08/18 18:24 Pulse Ox 95 11/08/18 18:24 Physical Exam: General: no acute distress, WDWN Head: normocephalic, atraumatic Eyes: PERRL, EOM's intact, conjunctiva non-injected, anicteric ENT: normal inspection external ears, nose, mucous membranes moist Neck: supple, trachea midline Lungs: clear, no respiratory distress CV: RRR, no murmur, no pretibial edema Abd: normal BS, soft, non-tender Ext: no cyanosis, no calf tenderness Neuro: A&O x 3, no focal deficits noted, normal affect Skin: warm, dry Principal Diagnosis UNSTABLE ANGINA, S/P CARDIAC CATH WITH STENT PLACEMENT TO THE MID-RCA Discharge Exam Vital Signs (Past 24 Hours): Last Vital Signs Temp 36.4 C L 11/12/18 11:06 Pulse 63 11/12/18 11:06 Resp 11/12/18 11:06 BP 145/85 H 11/12/18 11:06 Pulse Ox 97 11/12/18 11:06 Physical Exam: General- oriented x 3, not in distress, speaks in sentences with no effort or accessory muscle use Eyes- anicteric Neck- no JVD Lungs- clear breath sounds bilaterally Heart- normal rate, regular rhythm; no murmurs Abdomen- normal bowel sounds, nondistended, soft, nontender right groin: cath site - no hematoma, bleeding, edema Extremities- no pretibial edema, no calf tenderness Neuro- alert, oriented x 3; no gross focal neurologic deficits Skin- warm & dry Discharge Data Allergies Allergy/AdvReac Type Severity Reaction Status Date / Time Penicillins Allergy Mild HIVES Verified 11/08/18 17:58 Consultations 11/08/18 19:09 ED Decision to Admit Stat 11/08/18 20:13 Consult Cardiology Routine 11/10/18 12:45 Consult Cardiac Catheterization Routine Procedures Performed Operation Date: 11/11/18 09:30 Actual Procedures p Cath, Left w/Cors Vent Grafts - DO radha Whitaker Cineradiography w/Routine Exam - DO radha Whitaker Aortogram, Thoracic - DO radha Whitaker Injection / Imaging Aorta - DO radha Whitaker Drug Eluting Stent SGl Vessel - Jason Coronel MD Ordered Studies 11/11/18 07:36 CL Cath Imgs for PACS use only Routine Hospital Course (1) Unstable angina: per admitting service: Pt reports intermittent chest pressure and SOB with exertion for past 4 weeks. 2 days ago had worse CP with diaphoresis. Seen at [facility] office (Dr Madera) today with c/o CP and EKG changes, referred to ER. In ER afebrile, P: 77, BP: 203/86, 168/90, R: 20, 94% on RA. Pt had episode CP with sitting up which resolved within approx 1 minute. EKG with t wave inversion AVL, T wave flattening V6. Negative initial troponin. CPK: 526, CKMB: 4.0 CXR: no acute changes noted troponins negative EKG no signs of acute ischemia possible unstable angina evaluated by [employer]- Dr. Byrd placed on Heparin drip BP controlled by adding Amlodipine s/p Cardiac Cath 11/12/18 underwent successful PCI with 2 overlapping DEMIAN to lower sioux RCA, ostial to mid cleared for discharge by [employer] [employer] [facility] recommend Amlodipine 10mg daily continue usual ASA, Plavix, Metoprolol, Lisinopril ff up with [employer] [employer] [facility] in 2 weeks (2) DM type 2 (diabetes mellitus, type 2): HA1c: 8.6 on 11/07/18 continue Insulin advised to hold Metformin 1,000mg BID until in light of recent cardiac cath outpatient ff up (3) HTN (hypertension): In ER BP: 203/86, 168/90 Amlodipine added BP improving continue lisinopril, metoprolol monitor BP (4) Dyslipidemia: -continue statin (5) LATOYA (obstructive sleep apnea): CPAP HS (6) COPD (chronic obstructive pulmonary disease): -continue Advair, albuterol prn (7) History of TIA (transient ischemic attack): H/O possible TIA -continue ASA, plavix ff up with PCP in 1 week ff up with [employer] [employer] [facility] in 2 weeks Total Time Total Time Spent Total Time Spent (In Minutes): 25 MINUTES Discharge Plan Discharge Items Patient Disposition: Home - Self-Care Reason For Visit: CP Discharge Diagnosis: CHEST PAIN SECONDARY TO UNSTABLE ANGINA Discharge Goals: Diagnostic testing and Therapeutic intervention Activity: As commented below Activity Comment: RESUME ACTIVITY GRADUALLY TOLERATED, NO HEAVY EXERTION Lifting: Wait until after follow-up appointment Sexual Activity: Wait until after follow-up appointment Exercise/Sports: Wait until after follow-up appointment Driving/Machine Use Comment: NO DRIVING UNTIL RE-EVALUATED BY PRIMARY CARE PHYSICIAN. Non-emergency contact: Primary Care Provider and [employer] Call non-emergency contact if: you have any medication questions, your symptoms worsen, your pain is not controlled, your pain is worsening, your pain is unusual for you, your pain is concerning for you, you have a fever, your wound has increased redness, your wound has increased drainage and your wound pain has increased Diet: Carb Consistent or DM2 and Heart Healthy Addtl Provider Instructions: DO NOT TAKE METFORMIN TODAY AND TOMORROW. RESUME METFORMIN ON Sunday11/14/18. DIRECTIONS FOR BACTROBAN OINTMENT: apply 1/2 of the ointment from the single use tube into one nostril and the other half into the other nostril twice daily for 5 days DRINK PLENTY OF FLUIDS. FOLLOW UP WITH DR. DAWSON ON Sunday11/18/18 AT 11:05 AM AT [facility]. [address] , [place] [address] MADERA SCHEDULED. Activation of Emergency Medical System: Call 911, immediately, if you experience any of the following: Warning Signs and Symptoms of a Heart Attack: * Chest pain that is not relieved by medication * Shortness of breath Otherwise, call your doctor immediately if you have: * Lightheadedness, dizziness, or fainting * Feeling of irregular heartbeat or fast pulse Home Care: * Take your medications exactly as directed. Don't skip doses. * If you are having chest pain, call 911 for an ambulance. Do NOT drive yourself to the hospital. Prescriptions: New amlodipine [Norvasc] 5 mg Tablet 10 mg PO QAM 30 Days Qty: 60 RF: 1 mupirocin 2 % Ointment 1 applic EXT BID 5 Days Qty: 5 RF: 0 Continue aspirin 81 mg Tablet,Delayed Release (Dr/Ec) 81 mg PO QAM RF: 0 multivitamin Tablet 1 tab PO 1700 RF: 0 atorvastatin 40 mg Tablet 40 mg PO HS RF: 0 insulin glargine [Lantus U-100 Insulin] 100 unit/mL Solution 40 unit SUBCUT BID RF: 0 metoprolol tartrate 100 mg Tablet 100 mg PO BID RF: 0 clopidogrel [Plavix] 75 mg Tablet 75 mg PO QAM RF: 0 insulin aspart U-100 [Novolog U-100 Insulin aspart] 100 unit/mL Solution 1 sliding scale dose SUBCUT UD RF: 0 nitroglycerin [Nitrostat] 0.4 mg Tablet, Sublingual 1 tab Sublingual UD RF: 0 cholecalciferol (vitamin D3) [Vitamin D3] 5,000 unit Tablet 5,000 unit PO 1200 RF: 0 lisinopril 20 mg Tablet 20 mg PO DAILY RF: 0 fluticasone-salmeterol [Advair Diskus] 500-50 mcg/dose Blister With Device 1 inh INHALATION BID RF: 0 albuterol sulfate 90 mcg/actuation Hfa Aerosol Inhaler 2 puff INHALATION Q6H PRN (Reason: Shortness Of Breath Or Wheezing) RF: 0 vitamin E 400 unit Capsule 400 unit PO DAILY RF: 0 omega 1-qke-pcs-fish oil [Fish Oil] 1,000 mg (120 mg-180 mg) Capsule 1 cap PO DAILY RF: 0 Discontinued metformin 1,000 mg Tablet 1,000 mg PO BIDM RF: 0 Visit Report Forms: [facility] Portal Stand-Alone Forms: [facility] Discharge Orders: Discharge Order (Routine); Ordered 11/12/18 Ordered By: Carlos Alberto Hernández Admission Data Admit Date/Time: 11/11/18 16:31 Attending Provider: Carlos Alberto Hernández Admit Provider: Osmar Becerra Primary Care Provider: Dennis Dawson Other Providers: Osmar Becerra ; Andrew Cheng ; Juan Tony Service: Telemetry Other Interventions: Discharge Summary Assessment (RN) Last Done: 11/12/18 12:37 DC Date/Time DO NOT enter until pt leaves facility: 11/12/18 13:23
[2018-11-13] MEDS ORDERED: AMLODIPINE BESYLATE 5 MG TAB PO SCH (09:00)
== END 2018-11-12 13:23 | disposition home or self-care (01) | DRG 247 ==
LOC: 2E 16:26 → ED 16:26 → 2E 19:23

== ENCOUNTER 2023-08-30 16:28 | Inpatient (IN) ==
--- NOTE | 2023-08-30 17:11 | XRay Report ---
XR chest 1V portable CLINICAL HISTORY: Sob TECHNIQUE: Single frontal radiograph of the chest was obtained. Comparison: Comparison is made to chest radiograph 07/21/2023 FINDINGS: Median sternotomy wires are unchanged. The cardiomediastinal silhouette is obscured. Left lower lung opacities are seen. Moderate left pleural effusion is seen. IMPRESSION: Moderate left pleural effusion, increased from prior exam. Airspace opacity likely reflects atelectas is with or without superimposed aspiration/pneumonia. ACT 112: Negative or not required by law. Electronically signed by: Westley Gonzalez M.D. 08/30/2023 5:09 PM
--- NOTE | 2023-08-30 17:47 | History & Physical Report ---
Date of Service August 30, 2023 Assessment & Plan (1) Pleural effusion, left: (2) NSCLC of left lung: (3) COPD (chronic obstructive pulmonary disease): (4) CAD (coronary artery disease): (5) DM type 2 (diabetes mellitus, type 2): Plan This is a 68-year-old male who has a significant past medical history of insulin-dependent CAD status post CABG and history of RCA stent, T2DM, HTN, HLD, COPD, left upper lobe lung adenocarcinoma s/p SBRT to DELVIS in 2021, LATOYA, history of TIA, PVD, bilateral carotid artery stenosis who presents to ED at referral for PCP due to abnormal outpatient testing. ---CT Chest: . Enlarged mediastinal lymph nodes are again noted. An AP window lymph node has mildly increased in size since the prior exam as measured above. Other enlarged mediastinal lymph nodes are stable.2. Stable mildly enlarged left hilar lymph node.3. Large left pleural effusion, significantly increased in size since the prior exam. Mild left pleural thickening and nodularity, mildly increased, may represent pleural metastases. The evaluation of the left lung is otherwise limited.4. Two pulmonary nodules are again seen in the a right lower lobe, increased in size since the prior exam as measured above, likely metastatic. CT a/p: 1. Multiple mildly enlarged gastrohepatic, reggie hepatic and retroperitoneal lymph nodes, increased in size since the prior exam, likely metastatic. A customer solutions representative lymph node is measured above.2. Other incidental findings as detailed above. Large Left Pleural Effusion Chronic hypoxic respiratory failure History of left upper lobe lung cancer status post SBRT in 2021 Severe COPD Admit to telemetry dx with lung ca via biopsy 2021 s/p definitive SBRT 09/2022, no chemo Consult pulmonology for evaluation of pleural effusion with likely diagnostic thoracentesis and send for cytology Patient is on Plavix therefore will hold until seen and evaluated by pulmonary in a.m., last dose a.m. of 08/29, if no indication to hold a.m. provider can resume supplemental oxygen as needed consult oncology - previously pt only seen by Pulm/rad onc for targeted/definitive SBRT tx only sep 2022, no chemo or establishment with oncology, therefore consult onc to establish given concern for metastasis continue advair, Spiriva, no acute copd exac pt recently had 2 step done as outpt and qualifies for 2L of O2 DHRUV baseline cr 1-1.2 outpt records reviewed 08/29 cr 2.22, today 1.68 he received contrast dye today gentle IVF x 1 L and re eval labs in a.m. suspect in setting of poor po intake at home per CAD with history of CABG and RCA HTN HLD ECG changes continue asa, statin, imdur, amlodipine, metoprolol hold lisinopril, hctz hold a.m. dose of plavix until seen by pulmonology obtain troponin and cycle consult cardiology due to ecg changes with t wave inversions v2-3 Most recent echo 07/2023 revealed EF 60 to 65%, grade 2 diastolic dysfunction, stress echo last month negative for inducible ischemia T2DM IDDM a1c 7.1 hold metformin, pt on 50 units of lantus in a.m. and [address] on lantus/novlog per protocol DVT ppx: SCDs for tonight until seen by pulm, depending on timing of thoracentesis would recommend chemical ppx FULL CODE PCP: Dr Dawson - discussed with Dr. Dawson prior to pt coming to ED, unable to do direct admit due to max hospital capacity so patient was admitted directly through ED Pt was seen and examined in collaboration with Dr. Weber, please see addendum History of Present Illness Chief Complaint: Referred by PCP due to abnormal CT chest/a/p. Primary Care Provider: Dennis Dawson DO This is a 68-year-old male who has a significant past medical history of insulin-dependent CAD status post CABG and history of RCA stent, T2DM, HTN, HLD, COPD, left upper lobe lung adenocarcinoma s/p SBRT to DELVIS in 2021, LATOYA, history of TIA, PVD, bilateral carotid artery stenosis who presents to ED at referral for PCP due to abnormal outpatient testing. Of significance patient was hosp italized on 07/21/2023-07/1923 secondary to syncope. He underwent dobutamine stress test which was negative for ischemia. He developed presyncope post stress test. This was resolved with Trendelenburg position and IV fluid. No evidence of arrhythmia or pauses noted on monitor. At time of discharge no exact etiology of syncope was noted other than mild dehydration. He recently followed up with PCP and had been complaining of worsening shortness of breath over the past month. He also recently saw Pulm who ordered PFTS/CT chest. PFTs reveal severe obstruction and two step study shows pt requires 2L of O2 at baseline. Unfortunately CT chest abdomen pelvis revealed enlarging mediastinal lymph nodes, large left pleural effusion, mild left pleural thickening and nodularity which may represent pleural metastases, multiple mildly enlarged gastrohepatic, reggie hepatic and retroperitoneal lymph nodes which have increased in size since prior exam. Due to these abnormal findings he was refer red to ED. In general patient has had poor appetite as well as weight loss. He recently had increase in kidney function from baseline creatinine of 1.4 to now 2.2 Over last 2-3 weeks he reports L sided chest pain, constant, waxes and wanes, difficulty taking deep breath, improves with lying on his right side. He also reports feeling full easily, 5lb weight loss in last month and feeling bloated. He thought he was constipated so has been doing miralax 3x a day and having diarrhea. He denies recent illness, f/c/s, n/v, melena or hematochezia. He has been having intermitted epigastric pain as well. He denies hematochezia. Allergies Allergy/AdvReac Type Severity Reaction Status Date / Time Penicillins Allergy [place] HIVES Verified 06/08/20 09:49 Home Medications Medication Instructions Recorded Confirmed Type albuterol sulfate 90 mcg/actuation 2 puff inhalation Q6H PRN 11/08/18 08/30/23 History aerosol inhaler Shortness Of Breath Or Wheezing aspirin 81 mg tablet,delayed 81 mg PO QAM 11/08/18 08/30/23 History release atorvastatin 40 mg tablet 40 mg PO HS 11/08/18 08/30/23 History clopidogrel 75 mg tablet (Plavix) 75 mg PO QAM 11/08/18 08/30/23 History lisinopril 20 mg tablet 20 mg PO QAM 11/08/18 08/30/23 History metoprolol tartrate 100 mg tablet 100 mg PO BID 11/08/18 08/30/23 History multivitamin 1 tab PO 1700 11/08/18 08/30/23 History nitroglycerin 0.4 mg sublingual 1 tab sublingual UD PRN Chest Pain 11/08/18 08/30/23 History tablet (Nitrostat) omega 6-qxy-gjk-fish oil 1,000 mg 1 cap PO DAILY 11/08/18 08/30/23 History (120 mg-180 mg) capsule (Fish Oil) vitamin E 268 mg (400 unit) capsule 400 unit PO DAILY 11/08/18 08/30/23 History nebulizers #1 ea 01/22/20 08/30/23 Rx amlodipine 5 mg tablet 5 mg PO QAM 07/21/23 08/30/23 History bisacodyl 10 mg rectal suppository 0.75 mg MT DAILY PRN Constipation 07/21/23 08/30/23 History cholecalciferol (vitamin D3) 25 25 mcg PO DAILY 07/21/23 08/30/23 History mcg (1,000 unit) tablet (Vitamin D3) ferrous sulfate 325 mg (65 mg 325 mg PO .DAILY AT NOON 07/21/23 08/30/23 History iron) tablet fexofenadine 180 mg tablet 180 mg PO .DAILY AT NOON 07/21/23 08/30/23 History fluticasone 500 mcg-salmeterol 50 1 inh inhalation AMHS 07/21/23 08/30/23 History mcg/dose blistr powdr for inhalation (Advair Diskus) hydrochlorothiazide 25 mg tablet 25 mg PO DAILY 07/21/23 08/30/23 History insulin aspart U-100 100 unit/mL 1 sliding scale dose subcut 07/21/23 08/30/23 History (3 mL) subcutaneous pen (Novolog USEASDIRECTD FlexPen U-100 Insulin aspart) insulin glargine 100 unit/mL 50 unit subcut DAILY 07/21/23 08/30/23 History subcutaneous solution ipratropium 0.5 mg-albuterol 3 mg 3 ml inhalation Q4 PRN wheezing 07/21/23 08/30/23 History (2.5 mg base)/3 mL nebulization and dyspnea soln isosorbide mononitrate 30 mg 30 mg PO QAM 07/21/23 08/30/23 History tablet,extended release 24 hr isosorbide mononitrate 60 mg 60 mg PO QAM 07/21/23 08/30/23 History tablet,extended release 24 hr metformin 500 mg tablet,extended 500 mg PO QID 07/21/23 08/30/23 History release 24hr montelukast 10 mg tablet 10 mg PO HS 07/21/23 08/30/23 History polyethylene glycol 3350 17 17 g PO AMHS 07/21/23 08/30/23 History gram/dose oral powder insulin glargine 100 unit/mL 36 unit subcut HS 08/30/23 08/30/23 History subcutaneous solution (Lantus U-100 Insulin) tiotropium bromide 2.5 2 puff inhalation DAILY 08/30/23 08/30/23 History mcg/actuation mist for inhalation (Spiriva Respimat) Past Med/Surg History Medical History CAD (coronary artery disease) Multivessel CAD, status post CABG x4 (TOMPKINS-LAD, Ao-PDA with RSVG, Ao-OM1 with RSVG, Ao-OM2 with left radial artery) 01/2017 Repeat cardiac catheterization status post x2 DEMIAN to RCA 11/2018 due to unstable angina Negative nuclear stress 01/2021 Carotid stenosis, bilateral COPD (chronic obstructive pulmonary disease) DM type 2 (diabetes mellitus, type 2) Dyslipidemia History of inhalational exposure to toxin History of TIA (transient ischemic attack) HTN (hypertension) Mixed restrictive and obstructive lung disease Multiple pulmonary nodules determined by computed tomography of lung LATOYA (obstructive sleep apnea) Surgical History S/P CABG (coronary artery bypass graft) 01/2017, CABG x 4. [place] [facility] [place]/P cholecystectomy S/P partial colectomy S/P tonsillectomy Family History Other Diabetes Parkinsons Stomach cancer Social History (Updated 08/30/23 @ 18:36 by Valerie Gaona PA-C) Smoking Status: Former smoker Tobacco Type: Cigarettes Cigarettes Per Day: 90-120; Second Hand Exposure: No; Do You Dip or Chew Tobacco: No; Hx Alcohol Use: Yes Alcohol type: beer Hx Substance Use: Yes Non-Prescribed Medications: Marijuana Non-Prescribed Medications Comment: 2 weeks ago Preferred Language: Macedonian Communication Ability: Effective Electronics Scale Tester Required: No Beliefs That Will Affect Care: None marital status: Current Living Situation: Spouse current occupational status: unemployed current occupation: retired Feels Safe at Home: Yes Assistive Devices: CPAP and Nebulizer Review of Systems Review of Systems: All systems reviewed & are unremarkable except as noted in HPI & below Physical Exam Physical Exam: please refer to Dr. Weber addendum for physical exam findings. Results & Data Results & Data Vital Signs (Past 12 Hours) Vital Signs Temp Pulse Resp BP Pulse Ox O2 Del Method 08/30/23 16:56 36.4 C L 99 H 19 134/70 94 Room Air Diagnostic Findings CT CHEST/ABDOMEN/PELVIS W/IV AND ORAL CONTRAST (FROM OUTPATIENT) CT ABD/PELVIS W IV AND W ORAL CONTRAST; CT CHEST W CONTRAST-08/30/2023 12:00 pm HISTORY Epigastric pain, weight loss, early satiety; COPD , Hypoxia, worsening shortness of breath. history of lung cancer COMPARISON Chest CT dated 06/20/2023, PET-CT dated 07/04/2022 TECHNIQUE Helical axial images were obtained from the thoracic inlet through the pubic symphysis following the administration ofintravenous contrastandoral contrast. FINDINGS Chest: There is a small left thyroid nodule, not adequately evaluated with CT. There is bilateral gynecomastia, stable. The heart is normal in size. There are atherosclerotic calcifications of the thoracic aorta and coronary arteries. There are enlarged mediastinal lymph nodes. An AP window lymph node measures 1.4 x 1.6 cm (series 14, image 119), previously measuring 1.1 x 1.2 cm. Other enlarged mediastinal lymph nodes are stable. A mildly enlarged left hilar lymph node measures 1.7 x 1.4 cm, not significantly changed in size (series 14, image 165). There is a large left pleural effusion, significantly increased in size since the prior exam. Mild left pleural thickening and nodularity are again noted, minimally increased, may represent pleural metastases. Findings consistent with pulmonary emphysema are again noted. There is a small nodule in the right lower lobe measuring 0.6 cm (series 14, image 226), previously measuring 0.3 cm, increased in size. There is a subpleural nodule in the posterior right lower lobe measuring 1.0 cm (series 14, image 214), previously 0.7 cm, increased in size. Abdomen/pelvis: The liver is normal in size. There are no liver lesions. The gallbladder is surgically absent. There is no biliary ductal dilation. The pancreas is unremarkable. The spleen is unremarkable. The adrenal glands are unremarkable. The kidneys enhance symmetrically. There are bilateral renal vascular calcifications. There is no hydronephrosis. The bladder a is partially distended, grossly unremarkable. The prostate gland is mildly enlarged, not adequately evaluated with CT. There are atherosclerotic calcifications of the abdominal aorta and bilateral iliac arteries. There is no abdominal aortic aneurysm. There are multiple mildly enlarged gastrohepatic, reggie hepatic and retroperitoneal lymph nodes, increased in size since the prior chest CT. A customer solutions representative gastrohepatic lymph node measures 2.2 x 1.4 cm (series 4, image 147), previously measuring 1.5 x 1.0 cm. The stomach is grossly unremarkable. There is no evidence of small bowel obstruction. The appendix is unremarkable. There is no evidence of colitis. The colon is otherwise not adequately evaluated for masses or polyps on this exam. Bones: There are median sternotomy wires. There are multi level degenerative changes of the thoracic and lumbar spine. There is no acute bone abnormality. IMPRESSION IMPRESSION Chest: 1. Enlarged mediastinal lymph nodes are again noted. An AP window lymph node has mildly increased in size since the prior exam as measured above. Other enlarged mediastinal lymph nodes are stable. 2. Stable mildly enlarged left hilar lymph node. 3. Large left pleural effusion, significantly increased in size since the prior exam. Mild left pleural thickening and nodularity, mildly increased, may represent pleural metastases. The evaluation of the left lung is otherwise limited. 4. Two pulmonary nodules are again seen in the a right lower lobe, increased in size since the prior exam as measured above, likely metastatic. Abdomen/pelvis: 1. Multiple mildly enlarged gastrohepatic, reggie hepatic and retroperitoneal lymph nodes, increased in size since the prior exam, likely metastatic. A customer solutions representative lymph node is measured above. 2. Other incidental findings as detailed above. ECG Rate (beats per minute): 94 Rhythm: normal sinus COVID-19 Results Results COVID-19 Adm Lab Results: Chest X-Ray 08/30/23 Code Status & VTE Plan Code Status FULL CODE VTE Prophylaxis Plan VTE Prophylaxis will be ordered: Yes Supervising Physician Co-Signing Physician Notes 68year old with significant smoking history (smoked about 4ppd since teenage years and quit about 12 years ago), h/o lung cancer s/p radiation, DM2, CAD s/p CAPG in 2017, cardiac cath 2019 s/o DESx2 who presented to ER per PCP direction Over the past few weeks, he has been having left sided chest pain involving whole left side of chest and shoulder, sharp and worsened when laying on that side or coughing, improves with laying on right side Also reports increasing exertional dyspnea Reports no change in occasional cough Reports anorexia, weight loss Reports loose stools (has been taking miralax) On exam, General: In no acute distress Eyes: PERRL, conjunctivae normal, not pale, anicteric sclerae, EOM intact bilaterally ENMT: External ear and nose normal, oropharynx normal Respiratory: Normal respiratory effort, no respiratory distress, minimal breath sound left lung base posterior Cardiovascular: RRR S1 S2 Chest (Breasts): Tenderness over left chest wall Gastrointestinal (Abdomen): Abdomen is not distended, soft, non-tender to palpation, no guarding, no palpable hepatosplenomegaly, normal bowel sounds Musculoskeletal: No pedal edema Genitourinary: No CVA tenderness Neurologic: Alert and oriented x 3, No focal weakness, sensation grossly intact Psychiatric: Euthymic affect Chest pain Left pleural effusion Pulm consult for evaluation for possible thoracentesis Will need fluid cytology sent when tapped Reviewed report of outpatient CT C/A/P With patient's h/o lung cancer and imaging findings, concern for metastasis. Patient reports he follows with Rad onc and pulm. I do see these in outpatient EPIC. However, I don't see oncology follow up as well. Patient and are not sure about that either Will get Oncology c/s for eval/establishing care Get BMP EKG showed new TWI in V2-3 Trend trop Had recent stress echo last month (4) CAD (coronary artery disease) Associated angina: without angina Coronary Disease-Associated Artery/Lesion type: unspecified vessel or lesion type [place] vs. transplanted heart: [place] heart Qualified Code(s): I25.10 - Atherosclerotic heart disease of [place] coronary artery without angina pectoris
[2023-08-30 19:01] LABS: Basophils # (auto) 0.05 K/uL (0.00-0.20); Basophils % (auto) 0.5 %; Eosinophils # (auto) 0.09 K/uL (0.00-0.50); Eosinophils % (auto) 0.9 %; Hematocrit (blood only) 37.1 % (42.0-52.0); Hemoglobin 12.2 g/dl (14.0-18.0); Immature Granulocytes # (auto) 0.03 K/uL (0.01-0.20); Immature Granulocytes % (auto) 0.3 %; Lymphocytes # (auto) 1.66 K/uL (1.20-3.40); Lymphocytes % (auto) 16.4 %; Mean Corpuscular Hemoglobin 29.6 pg (25.0-34.0); Mean Corpuscular Hgb Conc 32.9 g/dL (32.0-36.0); Monocytes # (auto) 0.73 K/uL (0.11-0.59); Monocytes % (auto) 7.2 %; Neutrophils # (auto) 7.57 K/uL (1.40-6.50); Neutrophils % (auto) 74.7 %; Platelet Count 384 K/uL (130-400); RDW Coefficient of Variation 13.5 % (11.5-14.5); RDW Standard Deviation 44.4 fL (36.4-46.3); Red Blood Count 4.12 M/uL (4.70-6.10); White Blood Count 10.13 K/ul (4.8-10.8)
[2023-08-30 19:10] LABS: Alanine Aminotransferase 14 U/L (7-52); Albumin Globulin Ratio 0.9 (0.9-2); Albumin Level 3.9 gm/dl (3.4-5.0); Alkaline Phosphatase 101 U/L (34-104); Anion Gap 10 (3-11); Aspartate Aminotransferase 18 U/L (13-39); BUN Creatinine Ratio 29.8 (10-20); Bilirubin,Total 0.3 mg/dl (0.2-1.0); Blood Urea Nitrogen 50 mg/dl (6-23); Calcium 9.4 mg/dl (8.6-10.3); Carbon Dioxide 20 mmol/L (21-32); Chloride 104 mmol/L (98-107); Est GFR (African American) 48.3 ml/min; Est GFR (Non-African American) 41.7 ml/min; Globulin 4.3 gm/dl (2.5-4.0); Glucose 186 mg/dl (70-99(Fasting)); Magnesium 1.9 mg/dl (1.7-2.4); Potassium 4.4 mmol/L (3.5-5.1); Sodium 134 mmol/L (136-145); Total Protein 8.2 gm/dl (6.0-8.3)
[2023-08-30 19:17] LABS: Troponin I High Sensitivity 8.1 pg/ml (0-20)
[2023-08-30] MEDS ORDERED: SODIUM CHLORIDE 0.9% 1,000 ML IV SCH (19:30)
[2023-08-30 19:31] LABS: Partial Thromboplastin Ratio 0.9; Partial Thromboplastin Time 24.6 Seconds (21.0-31.0); Prothrombin Time 11.1 Seconds (9.0-12.0)
[2023-08-30] MEDS ORDERED: DEXTROSE 50% 50 ML SYRINGE IV PRN (20:30)
[2023-08-30] MEDS ORDERED: GLUCOSE 40% GEL 15 GM TUBE PO PRN (20:30)
[2023-08-30] MEDS ORDERED: POLYETHYLENE (MIRALAX) 17 GM PACK PO PRN (20:30)
[2023-08-30] MEDS ORDERED: MAGNESIUM HYDROXIDE SUSP 30 ML UDC PO PRN (20:30)
[2023-08-30] MEDS ORDERED: CARBOHYDRATES FOR HYPOGLYCEMIA PO PRN (20:30)
[2023-08-30] MEDS ORDERED: ALBUT/IPRATROP 3MG/0.5MG NEB 3 ML VIAL INH PRN (20:30)
[2023-08-30] MEDS ORDERED: GLUCOSE 10 TAB/TUBE PO PRN (20:30)
[2023-08-30] MEDS ORDERED: ALUMINUM/MAGNESIUM SUSP 30 ML UDC PO PRN (20:30)
[2023-08-30] MEDS ORDERED: GLUCAGON FOR INJ 1 MG VIAL SQ PRN (20:30)
[2023-08-30] MEDS ORDERED: ONDANSETRON INJ 2 MG/ML 2 ML VIAL IV PRN (20:30)
[2023-08-30] MEDS: MONTELUKAST SODIUM 10 MG TABLET PO SCH (21:18)
[2023-08-30] MEDS: METOPROLOL TARTRATE 100 MG TAB PO SCH (21:18)
[2023-08-30] MEDS: ATORVASTATIN 40 MG TAB PO SCH (21:19)
[2023-08-30] MEDS: INSULIN ASPART PER UNIT CHARGE SC SCH (21:21)
[2023-08-30] MEDS: LANTUS PER UNIT CHARGE SQ SCH (21:21)
--- NOTE | 2023-08-31 00:50 | Emergency Department Note ---
ED Provider Note CHIEF COMPLAINT: [] HISTORY OF PRESENT ILLNESS: This [] patient presents to the emergency department [] REVIEW OF SYSTEMS: A review of systems was performed with positives and pertinent negatives listed in the history of present illness. 10 systems were reviewed and are otherwise negative. ALLERGIES: see below MEDICATIONS: see below PMH: see below SOCIAL HISTORY: see below DDx: [] PHYSICAL EXAM: Vital signs reviewed. General: Well-appearing, in no significant distress. HEENT: No scleral icterus, PERRLA, neck supple. Atraumatic. Cardiovascular: Regular rate and rhythm, no extra sounds. Pulmonary: Clear to auscultation bilaterally, normal work of breathing. Abdomen: Soft, nontender, nondistended, positive bowel sounds. Musculoskeletal: Atraumatic, no peripheral edema. Neurologic: Patient awake alert and oriented x 3, speech is clear Skin: Warm, dry, no rash EMERGENCY DEPARTMENT COURSE/MDM: [] MONITORING: An order for cardiac monitoring was placed and the patient is noted to be in a [] at [] beats per minute. RADIOLOGY: EKG: DISPOSITION: Past Med/Surg History Medical History CAD (coronary artery disease) Multivessel CAD, status post CABG x4 (TOMPKINS-LAD, Ao-PDA with RSVG, Ao-OM1 with RSVG, Ao-OM2 with left radial artery) 01/2017 Repeat cardiac catheterization status post x2 DEMIAN to RCA 11/2018 due to unstable angina Negative nuclear stress 01/2021 Carotid stenosis, bilateral COPD (chronic obstructive pulmonary disease) DM type 2 (diabetes mellitus, type 2) Dyslipidemia History of inhalational exposure to toxin History of TIA (transient ischemic attack) HTN (hypertension) Mixed restrictive and obstructive lung disease Multiple pulmonary nodules determined by computed tomography of lung LATOYA (obstructive sleep apnea) Surgical History S/P CABG (coronary artery bypass graft) 01/2017, CABG x 4. performed at [facility] [place] S/P cholecystectomy S/P partial colectomy S/P tonsillectomy Family History Other Diabetes Parkinsons Stomach cancer Social History (Updated 08/30/23 @ 18:36 by Valerie Gaona PA-C) Smoking Status: Former smoker Tobacco Type: Cigarettes Cigarettes Per Day: 90-120; Smoking End Date: 15 years ago; Second Hand Exposure: No; Do You Dip or Chew Tobacco: No; Hx Alcohol Use: No Hx Substance Use: No Preferred Language: Kittitian Communication Ability: Effective Shift Production Supervisor Required: No Beliefs That Will Affect Care: None marital status: Current Living Situation: Spouse current occupational status: unemployed current occupation: retired Feels Safe at Home: Yes Assistive Devices: CPAP and Denture - Upper Allergies Allergies Allergy/AdvReac Type Severity Reaction Status Date / Time Penicillins Allergy [place] HIVES Verified 06/08/20 09:49 Home Meds Home Medications Medication Instructions Recorded Confirmed albuterol sulfate 90 mcg/actuation 2 puff inhalation Q6H PRN 11/08/18 08/30/23 aerosol inhaler Shortness Of Breath Or Wheezing aspirin 81 mg tablet,delayed 81 mg PO QAM 11/08/18 08/30/23 release atorvastatin 40 mg tablet 40 mg PO HS 11/08/18 08/30/23 clopidogrel 75 mg tablet (Plavix) 75 mg PO QAM 11/08/18 08/30/23 lisinopril 20 mg tablet 20 mg PO QAM 11/08/18 08/30/23 metoprolol tartrate 100 mg tablet 100 mg PO BID 11/08/18 08/30/23 multivitamin 1 tab PO 1700 11/08/18 08/30/23 nitroglycerin 0.4 mg sublingual 1 tab sublingual UD PRN Chest Pain 11/08/18 08/30/23 tablet (Nitrostat) omega 7-[id number]-[id number]-fish oil 1,000 mg 1 cap PO DAILY 11/08/18 08/30/23 (120 mg-180 mg) capsule (Fish Oil) vitamin E 268 mg (400 unit) capsule 400 unit PO DAILY 11/08/18 08/30/23 amlodipine 5 mg tablet 5 mg PO QAM 07/21/23 08/30/23 bisacodyl 10 mg rectal suppository 0.75 mg [place] DAILY PRN Constipation 07/21/23 08/30/23 cholecalciferol (vitamin D3) 25 25 mcg PO DAILY 07/21/23 08/30/23 mcg (1,000 unit) tablet (Vitamin D3) ferrous sulfate 325 mg (65 mg 325 mg PO .DAILY AT NOON 07/21/23 08/30/23 iron) tablet fexofenadine 180 mg tablet 180 mg PO .DAILY AT NOON 07/21/23 08/30/23 fluticasone 500 mcg-salmeterol 50 1 inh inhalation [facility] 07/21/23 08/30/23 mcg/dose blistr powdr for inhalation (Advair Diskus) hydrochlorothiazide 25 mg tablet 25 mg PO DAILY 07/21/23 08/30/23 insulin aspart U-100 100 unit/mL 1 sliding scale dose subcut 07/21/23 08/30/23 (3 mL) subcutaneous pen (Novolog USEASDIRECTD FlexPen U-100 Insulin aspart) insulin glargine 100 unit/mL 50 unit subcut DAILY 07/21/23 08/30/23 subcutaneous solution ipratropium 0.5 mg-albuterol 3 mg 3 ml inhalation Q4 PRN wheezing 07/21/23 08/30/23 (2.5 mg base)/3 mL nebulization and dyspnea soln isosorbide mononitrate 30 mg 30 mg PO QAM 07/21/23 08/30/23 tablet,extended release 24 hr isosorbide mononitrate 60 mg 60 mg PO QAM 07/21/23 08/30/23 tablet,extended release 24 hr metformin 500 mg tablet,extended 500 mg PO QID 07/21/23 08/30/23 release 24hr montelukast 10 mg tablet 10 mg PO HS 07/21/23 08/30/23 polyethylene glycol 3350 17 17 g PO [facility] 07/21/23 08/30/23 gram/dose oral powder insulin glargine 100 unit/mL 36 unit subcut HS 08/30/23 08/30/23 subcutaneous solution (Lantus U-100 Insulin) tiotropium bromide 2.5 2 puff inhalation DAILY 08/30/23 08/30/23 mcg/actuation mist for inhalation (Spiriva Respimat) Previous Rx's Medication Instructions Recorded nebulizers #1 ea 01/22/20 Results & Data (ED) Vital Signs Vital Signs - 24 hr 08/30/23 16:56 Temperature 36.4 C L Temperature Source Temporal Artery Scan Pulse Rate 99 H Respiratory Rate 19 Respiratory Effort / Characteristics Non-Labored Respiratory Depth Normal Blood Pressure 134/70 Blood Pressure Mean 91 Pulse Oximetry 94 Oxygen Delivery Method Room Air Sepsis Recent Fever Within 48 Hours No Sepsis New/Unexplained Change in Mental Status No Sepsis Action Taken by Nursing No Action Required Laboratory Data 08/30/23 18:02 08/30/23 18:02 Administered Medications Atorvastatin Calcium (Atorvastatin 40 Mg Tab) 40 mg PO HS [facility] Stop: 09/29/23 20:59 Last Admin: 08/30/23 21:19 Dose: 40 mg Documented By: SHIVANI Insulin Aspart (Insulin Aspart Per Unit Charge) 0 units SC ACHS [facility] Stop: 09/29/23 20:59 Last Admin: 08/30/23 21:21 Dose: 5 units Documented By: SHIVANI Co-signed By: JOSEFINA Insulin Glargine (Lantus Per Unit Charge) 0 - 30 units SQ BID [facility] Stop: 09/29/23 20:59 Last Admin: 08/30/23 21:21 Dose: 30 units Documented By: SHIVANI Co-signed By: JOSEFINA Metoprolol Tartrate (Metoprolol Tartrate 100 Mg Tab) 100 mg PO BID@1200,2100 [facility] Stop: 09/29/23 20:59 Last Admin: 08/30/23 21:18 Dose: 100 mg Documented By: SHIVANI Montelukast Sodium (Montelukast Sodium 10 Mg Tablet) 10 mg PO HS [facility] Stop: 09/29/23 20:59 Last Admin: 08/30/23 21:18 Dose: 10 mg Documented By: SHIVANI Imaging Data Radiologist's Impression: Chest X-Ray 08/30/23 16:58 XR chest 1V portable CLINICAL HISTORY: Sob TECHNIQUE: Single frontal radiograph of the chest was obtained. Comparison: Comparison is made to chest radiograph 07/21/2023 FINDINGS: Median sternotomy wires are unchanged. The cardiomediastinal silhouette is obscured. Left lower lung opacities are seen. Moderate left pleural effusion is seen. IMPRESSION: Moderate left pleural effusion, increased from prior exam. Airspace opacity likely reflects atelectasis with or without superimposed aspiration/pneumonia. ACT 112: Negative or not required by law. Electronically signed by: Westley Gonzalez M.D. 08/30/2023 5:09 PM Discharge Plan Visit Data Chief Complaint: Shortness of Breath/Dyspnea Stated Complaint: LUNG ABSCESS FILLED W FLUID ED Provider: Ashley Castellano ED Midlevel Provider: Patricia Thomas Patient Disposition: Admitted As Inpatient Discharge Instructions Interventions: ED Discharge Assessment Last Done: 08/30/23 20:31
--- NOTE | 2023-08-31 01:43 | Emergency Department Note ---
ED Provider Note History of Present Illness Chief Complaint: Shortness of Breath/Dyspnea Stated Complaint: LUNG ABSCESS FILLED W FLUID Time Seen by Provider: 08/30/23 16:56 Source: patient Mode of arrival: ambulatory Limitations: no limitations This patient is a 68-year-old male who presents to the emergency department for evaluation of an abnormal CT scan/shortness of breath. He has been having shortness of breath for the past few weeks and did have a recent admission here. He had a CT scan of the chest as an outpatient which showed a large pleural effusion as well as concern for possible metastasis. He does have a history of lung cancer. He denies any fever/chills. Home Medications Medication Instructions Recorded Confirmed Type albuterol sulfate 90 mcg/actuation 2 puff inhalation Q6H PRN 11/08/18 08/30/23 History aerosol inhaler Shortness Of Breath Or Wheezing aspirin 81 mg tablet,delayed 81 mg PO QAM 11/08/18 08/30/23 History release atorvastatin 40 mg tablet 40 mg PO HS 11/08/18 08/30/23 History clopidogrel 75 mg tablet (Plavix) 75 mg PO QAM 11/08/18 08/30/23 History lisinopril 20 mg tablet 20 mg PO QAM 11/08/18 08/30/23 History metoprolol tartrate 100 mg tablet 100 mg PO BID 11/08/18 08/30/23 History multivitamin 1 tab PO 1700 11/08/18 08/30/23 History nitroglycerin 0.4 mg sublingual 1 tab sublingual UD PRN Chest Pain 11/08/18 08/30/23 History tablet (Nitrostat) omega 6-krl-wsb-fish oil 1,000 mg 1 cap PO DAILY 11/08/18 08/30/23 History (120 mg-180 mg) capsule (Fish Oil) vitamin E 268 mg (400 unit) capsule 400 unit PO DAILY 11/08/18 08/30/23 History nebulizers #1 ea 01/22/20 08/30/23 Rx amlodipine 5 mg tablet 5 mg PO QAM 07/21/23 08/30/23 History bisacodyl 10 mg rectal suppository 0.75 mg MN DAILY PRN Constipation 07/21/23 08/30/23 History cholecalciferol (vitamin D3) 25 25 mcg PO DAILY 07/21/23 08/30/23 History mcg (1,000 unit) tablet (Vitamin D3) ferrous sulfate 325 mg (65 mg 325 mg PO .DAILY AT NOON 07/21/23 08/30/23 History iron) tablet fexofenadine 180 mg tablet 180 mg PO .DAILY AT NOON 07/21/23 08/30/23 History fluticasone 500 mcg-salmeterol 50 1 inh inhalation [facility] 07/21/23 08/30/23 History mcg/dose blistr powdr for inhalation (Advair Diskus) hydrochlorothiazide 25 mg tablet 25 mg PO DAILY 07/21/23 08/30/23 History insulin aspart U-100 100 unit/mL 1 sliding scale dose subcut 07/21/23 08/30/23 History (3 mL) subcutaneous pen (Novolog USEASDIRECTD FlexPen U-100 Insulin aspart) insulin glargine 100 unit/mL 50 unit subcut DAILY 07/21/23 08/30/23 History subcutaneous solution ipratropium 0.5 mg-albuterol 3 mg 3 ml inhalation Q4 PRN wheezing 07/21/23 08/30/23 History (2.5 mg base)/3 mL nebulization and dyspnea soln isosorbide mononitrate 30 mg 30 mg PO QAM 07/21/23 08/30/23 History tablet,extended release 24 hr isosorbide mononitrate 60 mg 60 mg PO QAM 07/21/23 08/30/23 History tablet,extended release 24 hr metformin 500 mg tablet,extended 500 mg PO QID 07/21/23 08/30/23 History release 24hr montelukast 10 mg tablet 10 mg PO HS 07/21/23 08/30/23 History polyethylene glycol 3350 17 17 g PO [facility] 07/21/23 08/30/23 History gram/dose oral powder insulin glargine 100 unit/mL 36 unit subcut HS 08/30/23 08/30/23 History subcutaneous solution (Lantus U-100 Insulin) tiotropium bromide 2.5 2 puff inhalation DAILY 08/30/23 08/30/23 History mcg/actuation mist for inhalation (Spiriva Respimat) Allergies Allergy/AdvReac Type Severity Reaction Status Date / Time Penicillins Allergy ID HIVES Verified 06/08/20 09:49 Past Med/Surg History Medical History CAD (coronary artery disease) Multivessel CAD, status post CABG x4 (TOMPKINS-LAD, Ao-PDA with RSVG, Ao-OM1 with RSVG, Ao-OM2 with left radial artery) 01/2017 Repeat cardiac catheterization status post x2 DEMIAN to RCA 11/2018 due to unstable angina Negative nuclear stress 01/2021 Carotid stenosis, bilateral COPD (chronic obstructive pulmonary disease) DM type 2 (diabetes mellitus, type 2) Dyslipidemia History of inhalational exposure to toxin History of TIA (transient ischemic attack) HTN (hypertension) Mixed restrictive and obstructive lung disease Multiple pulmonary nodules determined by computed tomography of lung LATOYA (obstructive sleep apnea) Surgical History S/P CABG (coronary artery bypass graft) 01/2017, CABG x 4. performed at [facility] [place] S/P cholecystectomy S/P partial colectomy S/P tonsillectomy Family History Other Diabetes Parkinsons Stomach cancer Social History Smoking Status: Former smoker Tobacco Type: Cigarettes Cigarettes Per Day: 90-120; Smoking End Date: 15 years ago; Second Hand Exposure: No; Do You Dip or Chew Tobacco: No; Hx Alcohol Use: No Hx Substance Use: No Preferred Language: [place] Verdean Communication Ability: Effective Cleaner Carpet And Upholstery Required: No Beliefs That Will Affect Care: None marital status: Current Living Situation: Spouse current occupational status: unemployed current occupation: retired Feels Safe at Home: Yes Assistive Devices: CPAP and Denture - Upper Physical Exam Vital Signs Vital Signs - 24 hr 08/30/23 16:56 Temperature 36.4 C L Temperature Source Temporal Artery Scan Pulse Rate 99 H Respiratory Rate 19 Respiratory Effort / Characteristics Non-Labored Respiratory Depth Normal Blood Pressure 134/70 Blood Pressure Mean 91 Pulse Oximetry 94 Oxygen Delivery Method Room Air Sepsis Recent Fever Within 48 Hours No Sepsis New/Unexplained Change in Mental Status No Sepsis Action Taken by Nursing No Action Required VITALS: Vitals are noted on the nurse's note and reviewed by myself. GENERAL: This is a 68-year-old male, in no acute distress. SKIN: The skin was without rashes. EYES: Pupils equal round and reactive to light and accommodation. MOUTH: Mucous membranes moist. HEART: Regular rate and rhythm without murmurs gallops or rubs. LUNGS: Decreased breath sounds bilateral bases. NEURO: Patient was alert and oriented to person place and time. Course Administered Medications Atorvastatin Calcium (Atorvastatin 40 Mg Tab) 40 mg PO HS [facility] Stop: 09/29/23 20:59 Last Admin: 08/30/23 21:19 Dose: 40 mg Documented By: SHIVANI Insulin Aspart (Insulin Aspart Per Unit Charge) 0 units SC ACHS [facility] Stop: 09/29/23 20:59 Last Admin: 08/30/23 21:21 Dose: 5 units Documented By: SHIVANI Co-signed By: JOSEFINA Insulin Glargine (Lantus Per Unit Charge) 0 - 30 units SQ BID [facility] Stop: 09/29/23 20:59 Last Admin: 08/30/23 21:21 Dose: 30 units Documented By: SHIVANI Co-signed By: JOSEFINA Metoprolol Tartrate (Metoprolol Tartrate 100 Mg Tab) 100 mg PO BID@1200,2100 [facility] Stop: 09/29/23 20:59 Last Admin: 08/30/23 21:18 Dose: 100 mg Documented By: SHIVANI Montelukast Sodium (Montelukast Sodium 10 Mg Tablet) 10 mg PO HS [facility] Stop: 09/29/23 20:59 Last Admin: 08/30/23 21:18 Dose: 10 mg Documented By: SHIVANI Medical Decision Making Differential Diagnosis Reactive airway disease, pneumonia, pneumothorax, COPD, CHF, infections, cardiac ischemia, pulmonary embolism, musculoskeletal, gastrointestinal, as well as other pathologies. Home Medications was personally reviewed by me Laboratory Data Attestation: I reviewed the patient's lab results. 08/30/23 18:02 08/30/23 18:02 Imaging Data Attestation: I personally reviewed and interpreted this imaging study as follows: Radiologist's Impression: Chest X-Ray 08/30/23 16:58 XR chest 1V portable CLINICAL HISTORY: Sob TECHNIQUE: Single frontal radiograph of the chest was obtained. Comparison: Comparison is made to chest radiograph 07/21/2023 FINDINGS: Median sternotomy wires are unchanged. The cardiomediastinal silhouette is obscured. Left lower lung opacities are seen. Moderate left pleural effusion is seen. IMPRESSION: Moderate left pleural effusion, increased from prior exam. Airspace opacity likely reflects atelectasis with or without superimposed aspiration/pneumonia. ACT 112: Negative or not required by law. Electronically signed by: Westley Gonzalez M.D. 08/30/2023 5:09 PM ECG Data Attestation: I personally reviewed and interpreted this ECG as follows: Indication: + SOB/dyspnea Rate (beats per minute): 94 Rhythm: + normal sinus ECG Intervals/blocks: + Right Bundle branch block ECG [place]oy[place]: + Left axis deviation MDM Narrative This patient is a 68-year-old male who presents to the emergency department for evaluation of an abnormal outpatient CT scan. This was reviewed and did show a large left pleural effusion as well as evidence of possible metastasis. Patient was sent here for admission and further care. Labs were obtained, creatinine elevated which is the patient's baseline. The case was discussed with the [facility], who were already aware of the patient. They agreed to evaluate the patient for admission. Impression Pleural effusion, left Discharge Plan Visit Data Chief Complaint: Shortness of Breath/Dyspnea Stated Complaint: LUNG ABSCESS FILLED W FLUID ED Provider: Ashley Castellano ED Midlevel Provider: Patricia Thomas Discharge Problem: Pleural effusion, left Patient Disposition: Admitted As Inpatient Discharge Instructions Interventions: ED Discharge Assessment Last Done: 08/30/23 20:31
[2023-08-31 07:35] LABS: Basophils # (auto) 0.07 K/uL (0.00-0.20); Basophils % (auto) 0.7 %; Eosinophils # (auto) 0.15 K/uL (0.00-0.50); Eosinophils % (auto) 1.4 %; Hematocrit (blood only) 36.2 % (42.0-52.0); Hemoglobin 12.2 g/dl (14.0-18.0); Immature Granulocytes # (auto) 0.02 K/uL (0.01-0.20); Immature Granulocytes % (auto) 0.2 %; Lymphocytes # (auto) 1.13 K/uL (1.20-3.40); Lymphocytes % (auto) 10.7 %; Mean Corpuscular Hemoglobin 29.9 pg (25.0-34.0); Mean Corpuscular Hgb Conc 33.7 g/dL (32.0-36.0); Mean Corpuscular Volume 88.7 fL (80.0-100.0); Mean Platelet Volume 9.7 fL (9.4-12.4); Monocytes # (auto) 0.74 K/uL (0.11-0.59); Neutrophils # (auto) 8.48 K/uL (1.40-6.50); Platelet Count 378 K/uL (130-400); RDW Coefficient of Variation 13.5 % (11.5-14.5); RDW Standard Deviation 43.9 fL (36.4-46.3); Red Blood Count 4.08 M/uL (4.70-6.10); White Blood Count 10.59 K/ul (4.8-10.8)
[2023-08-31 07:50] LABS: Albumin Globulin Ratio 0.9 (0.9-2); Albumin Level 3.7 gm/dl (3.4-5.0); BUN Creatinine Ratio 31.7 (10-20); Bilirubin,Total 0.4 mg/dl (0.2-1.0); Creatinine Clr Calc Pharmacy 52.8 ml/min; Est GFR (African American) 59.2 ml/min; Est GFR (Non-African American) 51.1 ml/min; Potassium 4.5 mmol/L (3.5-5.1); Total Protein 7.7 gm/dl (6.0-8.3)
[2023-08-31] MEDS: ISOSORBIDE MONO EXTENDED REL 60 MG TABCR PO SCH (08:38)
[2023-08-31] MEDS: CHOLECALCIFEROL 1,000 UNITS 25 MCG TAB PO SCH (08:38)
[2023-08-31] MEDS: Patient's HEIGHT &/or WEIGHT Needed SCH ×3 (08:38→09:35)
[2023-08-31] MEDS: amLODIPine BESYLATE 5 MG TAB PO SCH (08:38)
[2023-08-31] MEDS: ASPIRIN 81 MG ECTAB PO SCH (08:39)
[2023-08-31] MEDS: FLUTICASONE/VILANTEROL 100/25MCG 14 PUFFS/INHALER INH SCH (08:40)
[2023-08-31] MEDS: UMECLIDINIUM BROMIDE 62.5MCG/BLISTER 7 PUFFS/INHALER INH SCH (08:40)
[2023-08-31] MEDS: ISOSORBIDE MONO EXTENDED REL 30 MG TABCR PO SCH (08:40)
[2023-08-31] MEDS: LANTUS PER UNIT CHARGE SQ SCH ×2 (08:45→20:36)
[2023-08-31] MEDS: INSULIN ASPART PER UNIT CHARGE SC SCH ×4 (08:45→20:36)
--- NOTE | 2023-08-31 11:23 | Pulmonary Consultation ---
Date of Consultation August 31, 2023 Assessment & Plan (1) Pleural effusion, left: (2) NSCLC of left lung: (3) COPD (chronic obstructive pulmonary disease): Plan Impression: 68-year-old male with prior history of non-small cell lung cancer. Staging, pathology, and imaging studies not available to review as these were performed through [facility]. He presents now with a new enlarging pleural effusion which is symptomatic. He unfortunately is on Plavix at this time. Recommendations: 1. Pleural effusion: Recommend thoracentesis. As the patient is on Plavix, I offered him the opportunity to hold the Plavix for 5 days which would decrease the small risk of bleeding complications. He states he is significantly symptomatic and would like to proceed with intervention today acknowledging the small potential increased risk of bleeding complications. We will proceed with ultrasound-guided thoracentesis with fluid to be sent for microbiologic and cytologic analysis. Long-term recommendations will be based on results of pleural fluid. 2. COPD: Appears stable. PFTs not currently available to review. No indication for steroids or antibiotics at this point in time. 3. Hypoxemia: May improve significantly with thoracentesis. We will reassess afterwards and see whether or not the patient requires supplemental oxygen. If the patient's chest x-ray post procedure demonstrates no pneumothorax, the patient can be dismissed from the hospital from a pulmonary standpoint and follow-up with his primary care provider and oncology providers in the outpatient setting for results of the pleural fluid analysis. Will sign off after thoracentesis provided of the procedure goes well. Feel free to contact us with questions or concerns. History of Present Illness Attending Physician: Bryon Gil MD History of Present Illness Asked by hospitalist to evaluate patient with history of lung cancer and pleural effusion. History is obtained from discussion with the patient as well as review electronic medical record. Patient is a 68-year-old male with a history of COPD. He followed with Dr. Young but was last seen several years ago. He states that a year ago he was diagnosed with lung cancer. This was a diagnosis made through [facility] and we do not have records available to review. He apparently underwent 2 sessions of SBRT also at [facility]. He had been followed clinically and had been doing reasonably well up until about 2 months ago when he developed some chest tightness and progressive shortness of breath. He had a small pleural effusion at that point time. He followed with his primary care provider and had a repeat CT scan performed which revealed an enlarging left-sided pleural effusion and the patient was referred to the hospital for additional evaluation. The patient denies any prior history of chest trauma. No fevers chills or night sweats. He is not coughing or expectorating phlegm. He does not use oxygen at home but feels better with oxygen in place now. His regimen at home includes al buterol, Advair, and Spiriva. His inhalers have not really made a benefit in his breathing. Allergies Allergy/AdvReac Type Severity Reaction Status Date / Time Penicillins Allergy IA HIVES Verified 06/08/20 09:49 Home Medications Medication Instructions Recorded Confirmed Type albuterol sulfate 90 mcg/actuation 2 puff inhalation Q6H PRN 11/08/18 08/30/23 History aerosol inhaler Shortness Of Breath Or Wheezing aspirin 81 mg tablet,delayed 81 mg PO QAM 11/08/18 08/30/23 History release atorvastatin 40 mg tablet 40 mg PO HS 11/08/18 08/30/23 History clopidogrel 75 mg tablet (Plavix) 75 mg PO QAM 11/08/18 08/30/23 History lisinopril 20 mg tablet 20 mg PO QAM 11/08/18 08/30/23 History metoprolol tartrate 100 mg tablet 100 mg PO BID 11/08/18 08/30/23 History multivitamin 1 tab PO 1700 11/08/18 08/30/23 History nitroglycerin 0.4 mg sublingual 1 tab sublingual UD PRN Chest Pain 11/08/18 08/30/23 History tablet (Nitrostat) omega 0-nhb-ikd-fish oil 1,000 mg 1 cap PO DAILY 11/08/18 08/30/23 History (120 mg-180 mg) capsule (Fish Oil) vitamin E 268 mg (400 unit) capsule 400 unit PO DAILY 11/08/18 08/30/23 History nebulizers #1 ea 01/22/20 08/30/23 Rx amlodipine 5 mg tablet 5 mg PO QAM 07/21/23 08/30/23 History bisacodyl 10 mg rectal suppository 0.75 mg RI DAILY PRN Constipation 07/21/23 08/30/23 History cholecalciferol (vitamin D3) 25 25 mcg PO DAILY 07/21/23 08/30/23 History mcg (1,000 unit) tablet (Vitamin D3) ferrous sulfate 325 mg (65 mg 325 mg PO .DAILY AT NOON 07/21/23 08/30/23 History iron) tablet fexofenadine 180 mg tablet 180 mg PO .DAILY AT NOON 07/21/23 08/30/23 History fluticasone 500 mcg-salmeterol 50 1 inh inhalation AMHS 07/21/23 08/30/23 History mcg/dose blistr powdr for inhalation (Advair Diskus) hydrochlorothiazide 25 mg tablet 25 mg PO DAILY 07/21/23 08/30/23 History insulin aspart U-100 100 unit/mL 1 sliding scale dose subcut 07/21/23 08/30/23 History (3 mL) subcutaneous pen (Novolog USEASDIRECTD FlexPen U-100 Insulin aspart) insulin glargine 100 unit/mL 50 unit subcut DAILY 07/21/23 08/30/23 History subcutaneous solution ipratropium 0.5 mg-albuterol 3 mg 3 ml inhalation Q4 PRN wheezing 07/21/23 08/30/23 History (2.5 mg base)/3 mL nebulization and dyspnea soln isosorbide mononitrate 30 mg 30 mg PO QAM 07/21/23 08/30/23 History tablet,extended release 24 hr isosorbide mononitrate 60 mg 60 mg PO QAM 07/21/23 08/30/23 History tablet,extended release 24 hr metformin 500 mg tablet,extended 500 mg PO QID 07/21/23 08/30/23 History release 24hr montelukast 10 mg tablet 10 mg PO HS 07/21/23 08/30/23 History polyethylene glycol 3350 17 17 g PO AMHS 07/21/23 08/30/23 History gram/dose oral powder insulin glargine 100 unit/mL 36 unit subcut HS 08/30/23 08/30/23 History subcutaneous solution (Lantus U-100 Insulin) tiotropium bromide 2.5 2 puff inhalation DAILY 08/30/23 08/30/23 History mcg/actuation mist for inhalation (Spiriva Respimat) Patient History Medical History CAD (coronary artery disease) Multivessel CAD, status post CABG x4 (TOMPKINS-LAD, Ao-PDA with RSVG, Ao-OM1 with RSVG, Ao-OM2 with left radial artery) 01/2017 Repeat cardiac catheterization status post x2 DEMIAN to RCA 11/2018 due to unstable angina Negative nuclear stress 01/2021 Carotid stenosis, bilateral COPD (chronic obstructive pulmonary disease) DM type 2 (diabetes mellitus, type 2) Dyslipidemia History of inhalational exposure to toxin History of TIA (transient ischemic attack) HTN (hypertension) Mixed restrictive and obstructive lung disease Multiple pulmonary nodules determined by computed tomography of lung LATOYA (obstructive sleep apnea) Surgical History S/P CABG (coronary artery bypass graft) 01/2017, CABG x 4. performed at [facility] [place] S/P cholecystectomy S/P partial colectomy S/P tonsillectomy Family History Other Diabetes Parkinsons Stomach cancer Social History Smoking Status: Former smoker Tobacco Type: Cigarettes Cigarettes Per Day: 90-120; Second Hand Exposure: No; Do You Dip or Chew Tobacco: No; Hx Alcohol Use: No Hx Substance Use: No Preferred Language: Iraqi Communication Ability: Effective Vet Tech Required: No Beliefs That Will Affect Care: None marital status: Current Living Situation: Spouse current occupational status: unemployed current occupation: retired Feels Safe at Home: Yes Assistive Devices: Cane and Walker Review of Systems Review of Systems: Please refer to admission H&P. No additions or deletions Physical Exam Constitutional: WD/WN, vitals as above Neck: trachea midline, no thyromegaly Respiratory: no respiratory distress, no labored breathing, no cough and not tachypneic Auscultation: + diminished lung sounds Decreased breath sounds on the left with dullness to percussion. Cardiovascular: RRR, no murmur, no edema Gastrointestinal (Abdomen): normal bowel sounds, soft, nontender, no hepatosplenomegaly Musculoskeletal: Extremities: extremities normal to inspection Skin: no rashes, warm and dry Neurologic: Nonfocal exam Lymphatic: no cervical lymphadenopathy Results & Data Results & Data Vital Signs (Past 12 Hours) Vital Signs Temp Pulse Pulse Resp BP Pulse Ox O2 Del Method 08/31/23 07:51 36.5 C 80 22 149/72 H 93 Room Air 08/31/23 06:57 75 08/31/23 04:31 36.8 C 62 16 114/66 93 Room Air 08/31/23 03:34 36.5 C 86 20 120/68 95 Room Air 08/31/23 00:19 36.6 C 71 20 133/71 95 Room Air Laboratory Results 08/31/23 07:15 08/31/23 07:15 Diagnostic Findings Chest x-ray from 08/30/2023 was independently reviewed. The patient is status post sternotomy. Moderate size left effusion was noted. Out[facility] CT [email or web address] was independently reviewed. It demonstrates a moderate to large sized left effusion with compressive atelectasis. There are some mediastinal nodes which I do not have prior imaging to review but by report are stable. The AP window node appears enlarged PG Care Time/CCT Total # of Minutes Spent Total Time Spent with Patient: Total time spent is greater than 50% in coordination of care (as documented) at patient's floor/unit and/or counseling patient: Coding Level of Care Code 11630 INT INP/OBS CARE 375MIN Diagnoses Pleural effusion, left J90 NSCLC of left lung C34.92 COPD (chronic obstructive pulmonary disease) J44.9
--- NOTE | 2023-08-31 12:20 | Procedure Note ---
Procedure Note Date of Service August 31, 2023 Note Procedure: Diagnostic therapeutic ultrasound-guided catheter thoracentesis, left Handyman: Dr. Pavel Harris Indication: Pleural effusion Consent: Signed by patient and verified with timeout prior to procedure Anesthesia: 8 mL's 1% lidocaine without epinephrine local. Estimated blood loss: Minimal Procedure: Consent was verified and timeout performed. Appropriate imaging studies were reviewed prior to the procedure. Patient was placed in a seated position and limited thoracic ultrasound was performed of the bilateral chest. See separate imaging. No significant effusion identified on the right. Large left effusion with compressive atelectasis. Site appropriate for thoracentesis was selected. The skin was prepped and draped in normal sterile fashion. Lidocaine was used for local analgesia. Fluid was aspirated via the finder needle. A small skin josh was made with the scalpel and the catheter over the needle apparatus was advanced over the rib into the pleural space. Using the syringe one-way valve system, a total of 1500 mL's of marty turbid fluid was removed. Procedure was terminated due to patient complaining of some left shoulder.. The catheter was removed and observed to be intact. A sterile dressing was applied. Post procedure chest x-ray was ordered. Fluid was sent for cytology, Gram stain and culture, cell count differential, LDH, pH, glucose, total protein. The patient tolerated the procedure well without obvious complication Coding CPT Codes Pulmonary/Thoracic - Pulmonary and Thoracic: 75068 Thoracentesis w imaging ([id number]) [facility] [place] Codes (Charges) Pulmonary/Thoracic Procedure 1: Pulmonary and Thoracic: 42151 Thoracentesis w imaging
[2023-08-31] MEDS: traMADol HCL 50 MG TABLET PO PRN (12:40)
[2023-08-31] MEDS: FERROUS SULFATE 325 MG TAB PO SCH (12:41)
[2023-08-31] MEDS: FEXOFENADINE HCL 180 MG TAB PO SCH (12:41)
--- NOTE | 2023-08-31 13:04 | XRay Report ---
XR chest 1V portable HISTORY: 68 years-old Male S/P Thoracentesis follow-up study in a patient with left pleural effusion COMPARISON: 08/30/2023 TECHNIQUE: AP view of the chest FINDINGS: Cardiac silhouette is enlarged. Median sternotomy. Pulmonary emphysema. Atherosclerosis of the aorta. No pneumothorax. Mildly decreased size of the left pleural effusion with persistent left basilar con solidation. No postprocedural pneumothorax identified. Right lung is generally clear. No acute fractu re. IMPRESSION: 1. Mildly decreased size of the left pleural effusion status post thoracentesis. 2. No postprocedure pneumothorax. 3. Persistent left basilar consolidation. ACT 112: Negative or not required by law. The above report was generated using voice recognition software. It may contain grammatical, syntax o r spelling errors. Electronically signed by: Yazan Lopes M.D. 08/31/2023 1:03 PM
[2023-08-31] MEDS: ACETAMINOPHEN 325 MG TAB PO PRN ×2 (13:10→20:43)
[2023-08-31 13:21] LABS: Appearance Pleural Fluid Cloudy; Color Pleural Fluid Yellow; RBC Pleural Fluid Auto 6000 /uL; Source Pleural Fluid Left Lung; WBC Pleural Fluid Auto 1574 /uL
[2023-08-31] MEDS: METOPROLOL TARTRATE 100 MG TAB PO SCH ×2 (13:51→20:37)
[2023-08-31 14:20] LABS: Glucose Pleural Fluid < 10 mg/dl; Total Protein Pleural Fluid 6.5 gm/dl
[2023-08-31 14:32] LABS: Lymphocytes, Fluid 9 %; Mono,Macrophage,Mesothelial 88 %; Neutrophils, Fluid 3 %
[2023-08-31 14:38] LABS: LDH Pleural Fluid 1472 U/L
--- NOTE | 2023-08-31 17:11 | Hospitalist Progress Note ---
Date of Service August 31, 2023 Assessment & Plan (1) Pleural effusion, left: (2) NSCLC of left lung: (3) COPD (chronic obstructive pulmonary disease): (4) CAD (coronary artery disease): (5) DM type 2 (diabetes mellitus, type 2): Plan This is a 68-year-old male who has a significant past medical history of insulin-dependent CAD status post CABG and history of RCA stent, T2DM, HTN, HLD, COPD, left upper lobe lung adenocarcinoma s/p SBRT to DELVIS in 2021, LATOYA, history of TIA, PVD, bilateral carotid artery stenosis who presents to ED at referral for PCP due to abnormal outpatient testing. ---CT Chest: . Enlarged mediastinal lymph nodes are again noted. An AP window lymph node has mildly increased in size since the prior exam as measured above. Other enlarged mediastinal lymph nodes are stable.2. Stable mildly enlarged left hilar lymph node.3. Large left pleural effusion, significantly increased in size since the prior exam. Mild left pleural thickening and nodularity, mildly increased, may represent pleural metastases. The evaluation of the left lung is otherwise limited.4. Two pulmonary nodules are again seen in the a right lower lobe, increased in size since the prior exam as measured above, likely metastatic. CT a/p: 1. Multiple mildly enlarged gastrohepatic, reggie hepatic and retroperitoneal lymph nodes, increased in size since the prior exam, likely metastatic. A site safety representative lymph node is measured above.2. Other incidental findings as detailed above. Large Left Pleural Effusion Chronic hypoxic respiratory failure History of left upper lobe lung cancer status post SBRT in 2021 Severe COPD Admitted in medical telemetry unit dx with lung ca via biopsy 2021 s/p definitive SBRT 09/2022, no chemo-is being managed by oncologist in [place]. Has had evaluation about 6 months ago and was told that he is free of any cancer. Consult pulmonology for evaluation of pleural effusion with likely diagnostic thoracentesis and send for cytology Patient is on Plavix therefore will hold until seen and evaluated by pulmonary in a.m., last dose a.m. of 08/29, if no indication to hold a.m. provider can resume Supplemental oxygen as needed-he has been saturating normally on 2 L Consult oncology - previously pt only seen by Pulm/rad onc for targeted/definitive SBRT tx only sep 2022, no chemo or establishment with oncology, therefore consult onc to establish given concern for metastasis Continue advair, Spiriva, no acute copd exac Has been feeling lot better following thoracentesis Awaiting the results of the thoracentesis We will get repeat chest x-ray tomorrow morning DHRUV baseline cr 1-1.2 outpt records reviewed 08/29 cr 2.22, today 1.68 he received contrast dye today gentle IVF x 1 L and re eval labs in a.m. suspect in setting of poor po intake at home per Creatinine has improved a little to 1.42 from 1.68 on admission We will advised to drink more fluid and monitor PRP CAD with history of CABG and RCA HTN HLD ECG changes continue asa, statin, imdur, amlodipine, metoprolol hold lisinopril, hctz hold a.m. dose of plavix until seen by pulmonology obtain troponin and cycle-serial troponins have been negative for any ACS consult cardiology due to ecg changes with t wave inversions [id number] was not put in and likely not to be needed Most recent echo 07/2023 revealed EF 60 to 65%, grade 2 diastolic dysfunction, stress echo last month negative for inducible ischemia Denies any cardiac symptoms T2DM IDDM a1c 7.1 hold metformin, pt on 50 units of lantus in a.m. and [address] on lantus/novlog per protocol DVT ppx: SCDs for tonight until seen by pulm, depending on timing of thoracentesis would recommend chemical ppx FULL CODE PCP: Dr Dawson - discussed with Dr. Dawson prior to pt coming to ED, unable to do direct admit due to max hospital capacity so patient was admitted directly through ED Admission and Anticipated Discharge Date Admission Date: August 30, 2023 Subjective 08/31/2023 The patient was seen and examined in medical telemetry unit He has been complaining of progressive shortness of breath for the last 1 month or so He has had an outpatient CT chest and abdomen which showed enlarging mediastinal nodes and large left pleural effusion with pleural nodularity consistent with malignancyhe was sent in by PCP from his office Denies any chest pain or palpitation He is a status post thoracentesis by the velvet cutter this afternoon and he has been feeling better Review of Systems Review of Systems: All systems reviewed and are unremarkable except as noted below Physical Exam Physical Exam: Lying in bed comfortably Constitutional: well developed, well nourished and average body habitus; not ill appearing Eyes: PERRL, conjunctivae normal, anicteric sclerae ENMT: external ear and nose normal, oropharynx normal Neck: trachea midline, no thyromegaly Respiratory: + respiratory distress (Minimal distress at rest and requiring 2 L at rest) Auscultation: + diminished lung sounds and + crackles (More on the left base than the right) Cardiovascular: Rate/Rhythm: regular rate and regular rhythm; not tachycardic Heart Sounds: normal S1 and normal S2; no murmur Extremities: no edema Gastrointestinal (Abdomen): Inspection/Auscultation: normal bowel sounds; abdomen not distended Percussion/Palpation: abdomen soft; abdomen nontender Musculoskeletal: No acute arthritis involving any of the joint Neurologic: Alert, awake and oriented x3 Results & Data Results & Data Vital Signs (Past 12 Hours) Vital Signs Temp Pulse Pulse Resp BP Pulse Ox Pulse Ox 08/31/23 15:29 36.3 C L 62 20 118/70 93 08/31/23 15:00 76 08/31/23 11:24 36.5 C 86 20 131/75 96 08/31/23 11:34 96 08/31/23 07:51 36.5 C 80 22 149/72 H 93 08/31/23 06:57 75 O2 Del Method O2 Del Method O2 Flow Rate O2 Flow Rate 08/31/23 15:29 Nasal Cannula 2 08/31/23 15:00 08/31/23 11:24 Nasal Cannula 2 08/31/23 11:34 Room Air 2 08/31/23 07:51 Room Air 08/31/23 06:57 Laboratory Results Short CBC 08/30/23 08/31/23 Range/Units 18:02 07:15 WBC 10.13 10.59 (4.8-10.8) K/ul Hgb 12.2 L 12.2 L (14.0-18.0) g/dl Hct 37.1 L 36.2 L (42.0-52.0) % Plt Count 384 378 (130-400) K/uL BMP 08/30/23 08/31/23 18:02 07:15 Sodium 134 L 138 Potassium 4.4 4.5 Chloride 104 106 Carbon Dioxide 20 L 25 BUN 50 H 45 H Creatinine 1.68 H 1.42 H Glucose 186 H 86 Calcium 9.4 9.0 Liver Function 08/30/23 08/31/23 Range/Units 18:02 07:15 Total Bilirubin 0.3 0.4 (0.2-1.0) mg/dl AST 18 17 (13-39) U/L ALT 14 14 (7-52) U/L Alkaline Phosphatase 101 88 (34-104) U/L Albumin 3.9 3.7 (3.4-5.0) gm/dl Medications Administered Current Inpatient Medications Acetaminophen (Acetaminophen 325 Mg Tab) 650 mg PO Q4H PRN PRN Reason: Pain or Fever Stop: 09/29/23 20:29 Last Admin: 08/31/23 13:10 Dose: 650 mg Al Hydrox/Mg Hydrox/Simethicone (Aluminum/Magnesium Susp 30 Ml Udc) 15 ml PO Q4H PRN PRN Reason: Dyspepsia Stop: 09/29/23 20:29 Albuterol (Albut/Ipratrop 3mg/0.5mg Neb 3 Ml Vial) 3 ml INH Q4R PRN; Protocol PRN Reason: wheezing and dyspnea Stop: 09/29/23 20:29 Amlodipine Besylate (Amlodipine Besylate 5 Mg Tab) 5 mg PO QAM JUSTA Stop: 09/30/23 08:59 Last Admin: 08/31/23 08:38 Dose: 5 mg Aspirin (Aspirin 81 Mg Ectab) 81 mg PO QAM JUSTA Stop: 09/30/23 08:59 Last Admin: 08/31/23 08:39 Dose: 81 mg Atorvastatin Calcium (Atorvastatin 40 Mg Tab) 40 mg PO HS JUSTA Stop: 09/29/23 20:59 Last Admin: 08/30/23 21:19 Dose: 40 mg Dextrose (Dextrose 50% 50 Ml Syringe) 25 - 50 ml IV UD PRN; Protocol PRN Reason: Hypoglycemia Protocol Stop: 09/29/23 20:29 Ferrous Sulfate (Ferrous Sulfate 325 Mg Tab) 325 mg PO DAILY@1200 JUSTA Stop: 09/30/23 11:59 Last Admin: 08/31/23 12:41 Dose: 325 mg Fexofenadine HCl (Fexofenadine Hcl 180 Mg Tab) 180 mg PO DAILY@1200 JUSTA Stop: 09/30/23 11:59 Last Admin: 08/31/23 12:41 Dose: 180 mg Fluticasone/Vilanterol (Fluticasone/Vilanterol 100/25mcg 14 Puffs/Inhaler) 1 puffs INH DAILY JUSTA; Protocol Stop: 09/30/23 08:59 Last Admin: 08/31/23 08:40 Dose: 1 puffs Glucagon (Glucagon For Inj 1 Mg Vial) 1 mg SQ UD PRN; Protocol PRN Reason: Hypoglycemia Protocol Stop: 09/29/23 20:29 Glucose (Glucose 10 Tab/Tube) 4 - 8 tab PO UD PRN; Protocol PRN Reason: Hypoglycemia Treatment Stop: 09/29/23 20:29 Glucose (Glucose 40% Gel 15 Gm Tube) 15 - 30 gm PO UD PRN; Protocol PRN Reason: Hypoglycemia Protocol Stop: 09/29/23 20:29 Insulin Aspart (Insulin Aspart Per Unit Charge) 0 units SC ACHS [facility] Stop: 09/29/23 20:59 Last Admin: 08/31/23 13:13 Dose: Not Given Insulin Glargine (Lantus Per Unit Charge) 0 - 30 units SQ BID [facility] Stop: 09/29/23 20:59 Last Admin: 08/31/23 08:45 Dose: 15 units Isosorbide Mononitrate (Isosorbide [place] Extended Rel 30 Mg Tabcr) 30 mg PO QAM [facility] Stop: 09/30/23 08:59 Last Admin: 08/31/23 08:40 Dose: 30 mg Isosorbide Mononitrate (Isosorbide [place] Extended Rel 60 Mg Tabcr) 60 mg PO QAM [facility] Stop: 09/30/23 08:59 Last Admin: 08/31/23 08:38 Dose: 60 mg Magnesium Hydroxide (Magnesium Hydroxide Susp 30 Ml Udc) 30 ml PO Q12H PRN PRN Reason: Constipation Stop: 09/29/23 20:29 Metoprolol Tartrate (Metoprolol Tartrate 100 Mg Tab) 100 mg PO BID@1200,2100 [facility] Stop: 09/29/23 20:59 Last Admin: 08/31/23 13:51 Dose: 100 mg Miscellaneous (Carbohydrates For Hypoglycemia ) 15 - 30 gm PO UD PRN PRN Reason: Hypoglycemia Protocol Stop: 09/29/23 20:29 Montelukast Sodium (Montelukast Sodium 10 Mg Tablet) 10 mg PO HS [facility] Stop: 09/29/23 20:59 Last Admin: 08/30/23 21:18 Dose: 10 mg Ondansetron HCl (Ondansetron Inj 2 Mg/Ml 2 Ml Vial) 4 mg IV Q6H PRN PRN Reason: Nausea Stop: 09/29/23 20:29 Last Admin: 08/31/23 13:10 Dose: 4 mg Polyethylene Glycol (Polyethylene (Miralax) 17 Gm Pack) 17 gm PO DAILY PRN PRN Reason: Constipation Stop: 09/29/23 20:29 Tramadol HCl (Tramadol Hcl 50 Mg Tablet) 50 mg PO Q4H PRN PRN Reason: Pain Stop: 09/30/23 12:17 Last Admin: 08/31/23 12:40 Dose: 50 mg Umeclidinium [place] (Umeclidinium [place] 62.5mcg/Blister 7 Puffs/Inhaler) 1 puffs INH DAILY JUSTA; Protocol Stop: 09/30/23 08:59 Last Admin: 08/31/23 08:40 Dose: 1 puffs Vitamin D (Cholecalciferol 1,000 Units 25 Mcg Tab) 1,000 units PO DAILY JUSTA Stop: 09/30/23 08:59 Last Admin: 08/31/23 08:38 Dose: 1,000 units (4) CAD (coronary artery disease) Associated angina: without angina Coronary Disease-Associated Artery/Lesion type: unspecified vessel or lesion type [place] vs. transplanted heart: [place] heart Qualified Code(s): I25.10 - Atherosclerotic heart disease of [place] coronary artery without angina pectoris
[2023-08-31] MEDS: ATORVASTATIN 40 MG TAB PO SCH (20:36)
[2023-08-31] MEDS: MONTELUKAST SODIUM 10 MG TABLET PO SCH (20:37)
--- NOTE | 2023-08-31 21:40 | Electrocardiogram Report ---
Test Reason : Blood Pressure : / mmHG Vent. Rate : 094 BPM Atrial Rate : 094 BPM P-R Int : 144 ms QRS Dur : 136 ms QT Int : 382 ms P-R-T Axes : 021 -47 046 degrees QTc Int : 477 ms Normal sinus rhythm Left axis deviation Right bundle branch block Abnormal ECG When compared with ECG of 23-JUL-2023 06:13, Vent. rate has increased BY 31 BPM QRS axis Shifted left T wave inversion now evident in Anterior leads Confirmed by Kirill Mendoza ([id number] on 08/31/2023 9:40:16 PM Referred By: REFERRED SELF Confirmed By:Kirill Mendoza
[2023-09-01 05:59] LABS: Basophils # (auto) 0.05 K/uL (0.00-0.20); Basophils % (auto) 0.5 %; Eosinophils # (auto) 0.24 K/uL (0.00-0.50); Eosinophils % (auto) 2.6 %; Hematocrit (blood only) 36.9 % (42.0-52.0); Hemoglobin 11.9 g/dl (14.0-18.0); Immature Granulocytes # (auto) 0.03 K/uL (0.01-0.20); Immature Granulocytes % (auto) 0.3 %; Lymphocytes # (auto) 1.48 K/uL (1.20-3.40); Lymphocytes % (auto) 15.8 %; Mean Corpuscular Hemoglobin 29.4 pg (25.0-34.0); Mean Corpuscular Hgb Conc 32.2 g/dL (32.0-36.0); Mean Corpuscular Volume 91.1 fL (80.0-100.0); Mean Platelet Volume 9.6 fL (9.4-12.4); Monocytes % (auto) 7.5 %; Neutrophils # (auto) 6.89 K/uL (1.40-6.50); Neutrophils % (auto) 73.3 %; Platelet Count 373 K/uL (130-400); RDW Coefficient of Variation 13.3 % (11.5-14.5); RDW Standard Deviation 44.9 fL (36.4-46.3); Red Blood Count 4.05 M/uL (4.70-6.10); White Blood Count 9.39 K/ul (4.8-10.8)
[2023-09-01 06:40] LABS: BUN Creatinine Ratio 30.5 (10-20); Calcium 8.7 mg/dl (8.6-10.3); Creatinine Clr Calc Pharmacy 53.2 ml/min; Est GFR (African American) 59.7 ml/min; Est GFR (Non-African American) 51.5 ml/min; Potassium 4.2 mmol/L (3.5-5.1)
--- NOTE | 2023-09-01 07:45 | XRay Report ---
XR chest 1V portable HISTORY: 68 years-old Male empyema acute shortness of breath COMPARISON: 08/31/2023 TECHNIQUE: AP view of the chest FINDINGS: Cardiac silhouette is enlarged. Median sternotomy. Pulmonary emphysema. Atherosclerosis of the aorta. No pneumothorax. Unchanged size of the left pleural effusion with persistent left basilar consolidat ion. No pneumothorax identified. Right lung is generally clear. No acute fracture. IMPRESSION: 1. Cardiomegaly without pulmonary edema. 2. Unchanged left pleural effusion with left basilar consolidation. 3. No pneumothorax identified. ACT 112: Negative or not required by law. The above report was generated using voice recognition software. It may contain grammatical, syntax o r spelling errors. Electronically signed by: Yazan Lopes M.D. 09/01/2023 7:44 AM
--- NOTE | 2023-09-01 08:50 | Pulmonology Progress Note ---
Date of Service September 01, 2023 Assessment & Plan (1) Pleural effusion, left: (2) NSCLC of left lung: (3) COPD (chronic obstructive pulmonary disease): Plan Impression: 68-year-old male with prior history of non-small cell lung cancer. Staging, pathology, and imaging studies not available to review as these were performed through [facility]. He presented with an enlarging left pleural effusion and underwent thoracentesis yesterday. Gram stain on the fluid is positive and fluid characteristics are consistent with a potential infectious etiology/empyema. Recommendations: 1. Pleural effusion: Pleural fluid studies concerning for infectious etiology and Gram stain is positive. It is somewhat unusual that there is only 3% neutrophils on the differential and an infectious etiology. Await cultures. The patient reports that he received penicillin at the age of 7 and developed a rash. He is never been evaluated or challenged in the future. We will place him on Unasyn 3 g IV every 6 and see how he does with plans to transition to Augmentin if he does okay. I repeated his thoracic ultrasound at bedside today. There is a small fluid collection still present. I think following it at this point in time is reasonable. We will see how he does with antibiotics and repeat his chest x-ray in the a.m.. If the fluid reaccumulates, consideration for repeat thoracentesis or potential pigtail placement may be appropriate. Await formal cytology but the smear reviewed on the differential sample did show atypical cells concerning for potential malignancy. 2. COPD: Appears stable. PFTs not currently available to review. No indication for steroids or antibiotics at this point in time. 3. Hypoxemia: Wean as tolerated We will continue to follow with you. Feel free to contact us with questions or concerns. The above recommendations and plan were discussed with the patient at bedside. Admission and Anticipated Discharge Date Admission Date: August 30, 2023 Subjective Patient seen and examined. EMR reviewed. Images were independently reviewed. The patient reports that he is doing better. He is having some residual left s houlder pain but overall feels his breathing is much better. He is tolerating a diet. No coughing or sputum production. Review of Systems Review of Systems: All systems reviewed & are unremarkable except as noted in Subjective Physical Exam Constitutional: WD/WN, vitals as above Neck: trachea midline, no thyromegaly Respiratory: no respiratory distress, no labored breathing, no cough and not tachypneic Auscultation: + diminished lung sounds Cardiovascular: RRR, no murmur, no edema Gastrointestinal (Abdomen): normal bowel sounds, soft, nontender, no hepatosplenomegaly Musculoskeletal: Extremities: extremities normal to inspection Skin: no rashes, warm and dry Lymphatic: no cervical lymphadenopathy Results & Data Results & Data Vital Signs (Past 12 Hours) Vital Signs Temp Pulse Pulse Resp BP Pulse Ox O2 Del Method 09/01/23 07:47 36.4 C L 76 20 130/76 95 Nasal Cannula 09/01/23 07:37 Nasal Cannula 09/01/23 06:01 66 09/01/23 04:32 36.3 C L 65 18 122/63 96 Nasal Cannula 09/01/23 00:08 36.4 C L 69 16 109/65 96 Nasal Cannula 08/31/23 23:52 63 08/31/23 22:38 Nasal Cannula O2 Flow Rate 09/01/23 07:47 2 09/01/23 07:37 2 09/01/23 06:01 09/01/23 04:32 2 09/01/23 00:08 2 08/31/23 23:52 08/31/23 22:38 2 Laboratory Results Pleural fluid studies: Differential: 3% neutrophils, 9% lymphocytes, 88% mesothelial cells, review of the peripheral smear showed some atypical cells and await formal cytology Cytology pending Pleural pH 7.14 LDH 1472 Glucose less than 10 Total protein 6.5 Gram stain showed many white blood cells with gram-negative bacilli, culture pending Critical Care Results & Data Vital Signs (Past 12 Hours) Vital Signs Temp Pulse Pulse Resp BP Pulse Ox O2 Del Method 09/01/23 07:47 36.4 C L 76 20 130/76 95 Nasal Cannula 09/01/23 07:37 Nasal Cannula 09/01/23 06:01 66 09/01/23 04:32 36.3 C L 65 18 122/63 96 Nasal Cannula 09/01/23 00:08 36.4 C L 69 16 109/65 96 Nasal Cannula 08/31/23 23:52 63 08/31/23 22:38 Nasal Cannula O2 Flow Rate 09/01/23 07:47 2 09/01/23 07:37 2 09/01/23 06:01 09/01/23 04:32 2 09/01/23 00:08 2 08/31/23 23:52 08/31/23 22:38 2 Lab & Micro Results (Past 24 Hours) RBC 4.05 M/uL (4.70-6.10) L 09/01/23 WBC 9.39 K/ul (4.8-10.8) 09/01/23 Hgb 11.9 g/dl (14.0-18.0) L 09/01/23 Hct 36.9 % (42.0-52.0) L 09/01/23 MCV 91.1 fL (80.0-100.0) 09/01/23 MCH 29.4 pg (25.0-34.0) 09/01/23 MCHC 32.2 g/dL (32.0-36.0) 09/01/23 RDW Standard Deviation 44.9 fL (36.4-46.3) 09/01/23 RDW Coefficient of Variation 13.3 % (11.5-14.5) 09/01/23 Plt Count 373 K/uL (130-400) 09/01/23 MPV 9.6 fL (9.4-12.4) 09/01/23 Neutrophils (%) (Auto) 73.3 % 09/01/23 Lymphocytes (%) (Auto) 15.8 % 09/01/23 Monocytes # (Auto) 0.70 K/uL (0.11-0.59) H 09/01/23 Eosinophils # (Auto) 0.24 K/uL (0.00-0.50) 09/01/23 Immature Granulocyte % (Auto) 0.3 % 09/01/23 Neutrophils # (Auto) 6.89 K/uL (1.40-6.50) H 09/01/23 Lymphocytes # (Auto) 1.48 K/uL (1.20-3.40) 09/01/23 Monocytes # (Auto) 0.70 K/uL (0.11-0.59) H 09/01/23 Eosinophils # (Auto) 0.24 K/uL (0.00-0.50) 09/01/23 Basophils # (Auto) 0.05 K/uL (0.00-0.20) 09/01/23 Immature Granulocyte # (Auto) 0.03 K/uL (0.01-0.20) 3 Na 138 mmol/L (136-145) 09/01/23 K 4.2 mmol/L (3.5-5.1) 09/01/23 Cl 106 mmol/L (98-107) 09/01/23 CO2 25 mmol/L (21-32) 09/01/23 Anion Gap 7 (3-11) 09/01/23 BUN 43 mg/dl (6-23) H 09/01/23 Creatinine 1.41 mg/dl (0.6-1.4) H 09/01/23 Estimated GFR ( Amer) 59.7 ml/min 09/01/23 Estimated GFR (Non-Af Amer) 51.5 ml/min 09/01/23 BUN/Creatinine Ratio 30.5 (10-20) H 09/01/23 Glu 52 mg/dl (70-99(Fasting)) L* 09/01/23 Ca 8.7 mg/dl (8.6-10.3) 09/01/23 Calcium Level 8.7 mg/dl (8.6-10.3) 09/01/23 05:22 Microbiology 08/31/23 Unknown Gram Stain - Final Pleural Fluid Diagnostic Findings (Past 24 Hours) Chest X-Ray 08/31/23 12:18 XR chest 1V portable HISTORY: 68 years-old Male S/P Thoracentesis follow-up study in a patient with left pleural effusion COMPARISON: 08/30/2023 TECHNIQUE: AP view of the chest FINDINGS: Cardiac silhouette is enlarged. Median sternotomy. Pulmonary emphysema. Athero sclerosis of the aorta. No pneumothorax. Mildly decreased size of the left pleural effusion with persistent left basilar consolidation. No postprocedural pneumothorax identified. Right lung is generally clear. No acute fracture. IMPRESSION: 1. Mildly decreased size of the left pleural effusion status post thoracentesis. 2. No postprocedure pneumothorax. 3. Persistent left basilar consolidation. ACT 112: Negative or not required by law. The above report was generated using voice recognition software. It may contain grammatical, syntax or spelling errors. Electronically signed by: Yazan Lopes M.D. 08/31/2023 1:03 PM Chest X-Ray 09/01/23 07:16 XR chest 1V portable HISTORY: 68 years-old Male empyema acute shortness of breath COMPARISON: 08/31/2023 TECHNIQUE: AP view of the chest FINDINGS: Cardiac silhouette is enlarged. Median sternotomy. Pulmonary emphysema. Atherosclerosis of the aorta. No pneumothorax. Unchanged size of the left pleural effusion with persistent left basilar consolidation. No pneumothorax identified. Right lung is generally clear. No acute fracture. IMPRESSION: 1. Cardiomegaly without pulmonary edema. 2. Unchanged left pleural effusion with left basilar consolidation. 3. No pneumothorax identified. ACT 112: Negative or not required by law. The above report was generated using voice recognition software. It may contain grammatical, syntax or spelling errors. Electronically signed by: Yazan Lopes M.D. 09/01/2023 7:44 AM I & O Totals 24 Hours 08/31/23 09/01/23 09/02/23 06:59 06:59 06:59 Intake Total 380 / 380 2380 / 2380 Output Total 600 / 600 550 / 550 Balance -220 / -220 1830 / 1830 Cumulative 08/30/23 16:28 thru 09/01/23 06:00 Intake Total 2760 Output Total 1150 Balance 1610 RT Ventilator Mngmt (Last Documented) Ventilator Ordered Settings Respiratory Rate 20 09/01/23 07:47 Ventilator - PT Measurements Respiratory Rate 20 PG Care Time/CCT Total # of Minutes Spent Total Time Spent with Patient: Total time spent is greater than 50% in coordination of care (as documented) at patient's floor/unit and/or counseling patient: Coding Level of Care Code 35216 SUB INP/OBS CARE 3/50MIN Diagnoses Pleural effusion, left J90 NSCLC of left lung C34.92 COPD (chronic obstructive pulmonary disease) J44.9
[2023-09-01] MEDS ORDERED: metroNIDAZOLE 500 MG TAB PO SCH (09:00)
[2023-09-01] MEDS ORDERED: cefUROXime axetil 500 MG TAB PO SCH (09:00)
[2023-09-01] MEDS: LANTUS PER UNIT CHARGE SQ SCH ×2 (09:09→20:48)
[2023-09-01] MEDS: INSULIN ASPART PER UNIT CHARGE SC SCH ×4 (09:11→20:48)
[2023-09-01] MEDS: FLUTICASONE/VILANTEROL 100/25MCG 14 PUFFS/INHALER INH SCH (09:13)
[2023-09-01] MEDS: UMECLIDINIUM BROMIDE 62.5MCG/BLISTER 7 PUFFS/INHALER INH SCH (09:13)
[2023-09-01] MEDS: ISOSORBIDE MONO EXTENDED REL 60 MG TABCR PO SCH (09:14)
[2023-09-01] MEDS: CHOLECALCIFEROL 1,000 UNITS 25 MCG TAB PO SCH (09:14)
[2023-09-01] MEDS: ISOSORBIDE MONO EXTENDED REL 30 MG TABCR PO SCH (09:14)
[2023-09-01] MEDS: amLODIPine BESYLATE 5 MG TAB PO SCH (09:14)
[2023-09-01] MEDS: ASPIRIN 81 MG ECTAB PO SCH (09:14)
[2023-09-01] MEDS: AMPICILLIN/SULBACTAM SOD 3,000 MG in SODIUM CHLOR 0.9% MINI-B 100 ML IV SCH ×3 (09:57→20:50)
[2023-09-01] MEDS: DOCUSATE SODIUM 100 MG CAP PO SCH ×2 (12:58→20:49)
[2023-09-01] MEDS: FERROUS SULFATE 325 MG TAB PO SCH (12:59)
[2023-09-01] MEDS: METOPROLOL TARTRATE 100 MG TAB PO SCH ×2 (12:59→20:49)
[2023-09-01] MEDS: FEXOFENADINE HCL 180 MG TAB PO SCH (12:59)
--- NOTE | 2023-09-01 14:02 | Hospitalist Progress Note ---
Date of Service September 01, 2023 Assessment & Plan (1) Pleural effusion, left: (2) NSCLC of left lung: (3) COPD (chronic obstructive pulmonary disease): (4) CAD (coronary artery disease): (5) DM type 2 (diabetes mellitus, type 2): Plan This is a 68-year-old male who has a significant past medical history of insulin-dependent CAD status post CABG and history of RCA stent, T2DM, HTN, HLD, COPD, left upper lobe lung adenocarcinoma s/p SBRT to DELVIS in 2021, LATOYA, history of TIA, PVD, bilateral carotid artery stenosis who presents to ED at referral for PCP due to abnormal outpatient testing. CT Chest: . Enlarged mediastinal lymph nodes are again noted. An AP window lymph node has mildly increased in size since the prior exam as measured above. Other enlarged mediastinal lymph nodes are stable.2. Stable mildly enlarged left hilar lymph node.3. Large left pleural effusion, significantly increased in size since the prior exam. Mild left pleural thickening and nodularity, mildly increased, may represent pleural metastases. The evaluation of the left lung is otherwise limited.4. Two pulmonary nodules are again seen in the a right lower lobe, increased in size since the prior exam as measured above, likely metastatic. CT a/p: 1. Multiple mildly enlarged gastrohepatic, reggie hepatic and retroperitoneal lymph nodes, increased in size since the prior exam, likely metastatic. 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 Other incidental findings as detailed above. Large Left Pleural Effusion Chronic hypoxic respiratory failure History of left upper lobe lung cancer status post SBRT in 2021 Severe COPD Diagnosed with lung ca via biopsy 2021 s/p definitive SBRT 09/2022, no chemo-is being managed by oncologist in [place]. Has had evaluation about 6 months ago and was told that he is free of any cancer. Chest xray on admission- noted moderate left pleural effusion, concern for infection. CT chest results done outpatient by pcp noted above with large left pleural effusion, significantly increased in size and concern for metastases Supplemental oxygen as needed-he has been saturating normally on 2 L Consult oncology - previously pt only seen by Pulm/rad onc for targeted/definitive SBRT tx only sep 2022, no chemo or establishment with oncology, therefore consult onc to establish given concern for metastasis Pulmonology also consulted, appreciate recs -s/p thoracentesis on 08/31, awaiting pending study results -Started on Unasyn for infectious/empyema concern Continue Incruse, Breo no acute copd exac Possible metastatic cancer CT abdomen pelvis as noted above concerning for metastases Consult oncology - previously pt only seen by Pulm/rad onc for targeted/definitive SBRT tx only sep 2022, no chemo or establishment with oncology, therefore consult onc to establish given concern for metastasis DHRUV baseline cr 1-1.2 outpt records reviewed 08/29 cr 2.22 he received contrast dye, also in setting of poor po intake at home per Received gentle IVF on admission Creatinine improved to ~1.4 currently Continue to monitor CAD with history of CABG and RCA HTN HLD ECG changes serial troponin negative holding home lisinopril, hctz in setting of DHRUV above continue asa, statin, imdur, amlodipine, metoprolol Resume Plavix in the AM Most recent echo 07/2023 revealed EF 60 to 65%, grade 2 diastolic dysfunction, stress echo last month negative for inducible ischemia Denies any cardiac symptoms T2DM IDDM a1c 7.1 hold metformin On lantus/novlog per protocol Diet: DMII DVT ppx: SCDs, Lovenox ordered, resume plavix FULL CODE PCP: Dr Dawson Dispo: Home, will need 2 step before discharge, script for Rollator walker Admission and Anticipated Discharge Date Admission Date: August 30, 2023 Subjective Pt states that his breathing is much better since his procedure yesterday. Notes a "scratchy feeling" in the chest but states he was told this could happen after the thoracentesis. States he is trying not to worry about the pending results. Occasional shoulder pain. Eating well but notes he has not had a BM for some time. Has been passing gas however. Review of Systems Review of Systems: All systems reviewed & are unremarkable except as noted in Subjective Physical Exam Physical Exam: General: Alert, oriented. No acute distress Skin: No noted rashes or bruises Psych: Appropriate mood and affect Neuro: No gross deficits HEENT: NC/AT CV: RRR Resp:NC in nares, no increased effort of breathing, no wheezing Abdomen: Soft, nontender Extremities: No edema in lower extremities bilaterally. Results & Data Results & Data Vital Signs (Past 12 Hours) Vital Signs Temp Pulse Pulse Resp BP Pulse Ox O2 Del Method 09/01/23 11:28 36.5 C 83 18 156/71 H 93 Nasal Cannula 09/01/23 07:47 36.4 C L 76 20 130/76 95 Nasal Cannula 09/01/23 07:37 Nasal Cannula 09/01/23 06:01 66 09/01/23 04:32 36.3 C L 65 18 122/63 96 Nasal Cannula O2 Flow Rate 09/01/23 11:28 2 09/01/23 07:47 2 09/01/23 07:37 2 09/01/23 06:01 09/01/23 04:32 2 (4) CAD (coronary artery disease) Associated angina: without angina Coronary Disease-Associated Artery/Lesion type: unspecified vessel or lesion type [place] vs. transplanted heart: [place] heart Qualified Code(s): I25.10 - Atherosclerotic heart disease of [place] coronary artery without angina pectoris
[2023-09-01] MEDS: traMADol HCL 50 MG TABLET PO PRN (14:40)
[2023-09-01] MEDS: ENOXAPARIN INJ 40 MG/0.4 ML SYR SQ SCH (17:58)
[2023-09-01] MEDS: ACETAMINOPHEN 325 MG TAB PO PRN (19:44)
[2023-09-01] MEDS: ATORVASTATIN 40 MG TAB PO SCH (20:49)
[2023-09-01] MEDS: MONTELUKAST SODIUM 10 MG TABLET PO SCH (20:50)
[2023-09-02] MEDS: AMPICILLIN/SULBACTAM SOD 3,000 MG in SODIUM CHLOR 0.9% MINI-B 100 ML IV SCH ×3 (01:46→13:54)
[2023-09-02 06:50] LABS: Basophils # (auto) 0.06 K/uL (0.00-0.20); Basophils % (auto) 0.6 %; Eosinophils # (auto) 0.29 K/uL (0.00-0.50); Hematocrit (blood only) 36.7 % (42.0-52.0); Hemoglobin 12.1 g/dl (14.0-18.0); Immature Granulocytes # (auto) 0.02 K/uL (0.01-0.20); Immature Granulocytes % (auto) 0.2 %; Lymphocytes % (auto) 17.7 %; Mean Corpuscular Hemoglobin 29.9 pg (25.0-34.0); Mean Corpuscular Volume 90.6 fL (80.0-100.0); Mean Platelet Volume 9.5 fL (9.4-12.4); Monocytes # (auto) 0.62 K/uL (0.11-0.59); Monocytes % (auto) 6.5 %; Platelet Count 361 K/uL (130-400); RDW Coefficient of Variation 13.2 % (11.5-14.5); RDW Standard Deviation 43.8 fL (36.4-46.3); Red Blood Count 4.05 M/uL (4.70-6.10); White Blood Count 9.59 K/ul (4.8-10.8)
[2023-09-02 07:26] LABS: Albumin Globulin Ratio 0.9 (0.9-2); Albumin Level 3.7 gm/dl (3.4-5.0); BUN Creatinine Ratio 26.4 (10-20); Bilirubin,Total 0.3 mg/dl (0.2-1.0); Calcium 8.8 mg/dl (8.6-10.3); Est GFR (African American) 69.1 ml/min; Est GFR (Non-African American) 59.6 ml/min; Magnesium 1.8 mg/dl (1.7-2.4); Phosphorus 2.7 mg/dl (2.5-4.9); Potassium 4.6 mmol/L (3.5-5.1); Total Protein 7.7 gm/dl (6.0-8.3)
--- NOTE | 2023-09-02 07:46 | XRay Report ---
XR chest 1V portable HISTORY: 68 years-old Male effusion follow-up study in a patient with pleural effusions COMPARISON: 09/01/2023 TECHNIQUE: AP view of the chest. FINDINGS: Cardiac silhouette is enlarged. Median sternotomy. Pulmonary emphysema. Atherosclerosis of the aorta. No pneumothorax. Unchanged size of the left pleural effusion with persistent left basilar consolidat ion. No pneumothorax identified. Right lung is generally clear. No acute fracture. IMPRESSION: 1. Cardiomegaly without pulmonary edema. 2. Unchanged left pleural effusion with left basilar consolidation. 3. No pneumothorax identified. ACT 112: Negative or not required by law. The above report was generated using voice recognition software. It may contain grammatical, syntax o r spelling errors. Electronically signed by: Yazan Lopes M.D. 09/02/2023 7:45 AM
--- NOTE | 2023-09-02 08:03 | Pulmonology Progress Note ---
Date of Service September 02, 2023 Assessment & Plan (1) Pleural effusion, left: (2) NSCLC of left lung: (3) COPD (chronic obstructive pulmonary disease): Plan Impression: 68-year-old male with prior history of non-small cell lung cancer. Staging, pathology, and imaging studies not available to review as these were performed through [employer]. He presented with an enlarging left pleural effusion and underwent thoracentesis 08/31. Gram stain on the fluid is positive however cultures are negative. Some of the fluid characteristics are consistent with either a empyema or malignant pleural effusion however the neutrophil count is very low which would be unusual in an empyema. Atypical cells were identified on the cell count and differential with formal cytology pending. Suspicious for malignancy Recommendations: 1. Pleural effusion: Suspect probable malignancy however the positive Gram stain is somewhat concerning. Recommend transitioning the patient to Augmentin and completing a 10-day course of antibiotics. Recommend a follow-up chest x- ray in 7 to 10 days to assess for reaccumulation. Patient will need to follow- up with medical oncology regarding the pleural fluid results 2. COPD: Appears stable. PFTs not currently available to review. No indicatio n for steroids or antibiotics at this point in time. 3. Hypoxemia: Wean as tolerated At this point in time he appears stable to potentially dismiss from the hospital from a lung standpoint. We would be happy to see him back in the pulmonary clinic in 7 to 10 days with a follow-up chest x-ray. Admission and Anticipated Discharge Date Admission Date: August 30, 2023 Subjective Patient seen and examined. EMR reviewed. The patient continues to complain of some slight fullness in his left chest but overall he is doing well. He states he is uncomfortable due to the hospital bed and would like to be dismissed from the hospital. His breathing is doing well. Is unclear if he requires supplemental oxygen or not. Review of Systems Review of Systems: All systems reviewed & are unremarkable except as noted in Subjective Physical Exam Constitutional: WD/WN, vitals as above Neck: trachea midline, no thyromegaly Respiratory: no respiratory distress, no labored breathing, no cough and not tachypneic Auscultation: + diminished lung sounds Cardiovascular: RRR, no murmur, no edema Gastrointestinal (Abdomen): normal bowel sounds, soft, nontender, no hepatosplenomegaly Musculoskeletal: Extremities: extremities normal to inspection Skin: no rashes, warm and dry Lymphatic: no cervical lymphadenopathy Results & Data Results & Data Vital Signs (Past 12 Hours) Vital Signs Temp Pulse Pulse Resp BP Pulse Ox O2 Del Method 09/02/23 07:33 36.6 C 72 18 128/72 97 Nasal Cannula 09/02/23 07:35 Nasal Cannula 09/02/23 05:59 66 09/02/23 01:52 36.5 C 64 18 121/65 95 Nasal Cannula 09/01/23 22:55 71 09/01/23 22:37 36.5 C 68 18 115/64 95 Room Air 09/01/23 22:24 Nasal Cannula 09/01/23 20:16 36.6 C 77 18 123/73 94 Nasal Cannula O2 Flow Rate 09/02/23 07:33 2 09/02/23 07:35 2 09/02/23 05:59 09/02/23 01:52 2 09/01/23 22:55 09/01/23 22:37 09/01/23 22:24 2 09/01/23 20:16 2 Laboratory Results 09/02/23 06:23 09/02/23 06:23 Pleural fluid cytology pending Pleural cultures no growth to date Diagnostic Findings Chest x-ray performed today demonstrated cardiomegaly. Small left pleural effusion identified. No significant increase in the pleural fluid collection. PG Care Time/CCT Total # of Minutes Spent Total Time Spent with Patient: Total time spent is greater than 50% in coordination of care (as documented) at patient's floor/unit and/or counseling patient: Coding Level of Care Code 90370 SUB INP/OBS CARE 2/35MIN Diagnoses Pleural effusion, left J90 NSCLC of left lung C34.92 COPD (chronic obstructive pulmonary disease) J44.9
[2023-09-02] MEDS: FLUTICASONE/VILANTEROL 100/25MCG 14 PUFFS/INHALER INH SCH (08:27)
[2023-09-02] MEDS: traMADol HCL 50 MG TABLET PO PRN ×2 (08:27→18:31)
[2023-09-02] MEDS: UMECLIDINIUM BROMIDE 62.5MCG/BLISTER 7 PUFFS/INHALER INH SCH (08:27)
[2023-09-02] MEDS: DOCUSATE SODIUM 100 MG CAP PO SCH ×2 (08:28→21:18)
[2023-09-02] MEDS: amLODIPine BESYLATE 5 MG TAB PO SCH (08:28)
[2023-09-02] MEDS: CLOPIDOGREL BISULFATE 75 MG TAB PO SCH (08:28)
[2023-09-02] MEDS: ISOSORBIDE MONO EXTENDED REL 30 MG TABCR PO SCH (08:28)
[2023-09-02] MEDS: ISOSORBIDE MONO EXTENDED REL 60 MG TABCR PO SCH (08:28)
[2023-09-02] MEDS: ASPIRIN 81 MG ECTAB PO SCH (08:28)
[2023-09-02] MEDS: CHOLECALCIFEROL 1,000 UNITS 25 MCG TAB PO SCH (08:28)
[2023-09-02] MEDS: LANTUS PER UNIT CHARGE SQ SCH ×2 (08:54→21:20)
[2023-09-02] MEDS: INSULIN ASPART PER UNIT CHARGE SC SCH ×4 (09:07→21:20)
--- NOTE | 2023-09-02 10:24 | Hospitalist Progress Note ---
Date of Service September 02, 2023 Assessment & Plan (1) Pleural effusion, left: (2) NSCLC of left lung: (3) COPD (chronic obstructive pulmonary disease): (4) CAD (coronary artery disease): (5) DM type 2 (diabetes mellitus, type 2): Plan This is a 68-year-old male who has a significant past medical history of insulin-dependent CAD status post CABG and history of RCA stent, T2DM, HTN, HLD, COPD, left upper lobe lung adenocarcinoma s/p SBRT to DELVIS in 2021, LATOYA, history of TIA, PVD, bilateral carotid artery stenosis who presents to ED at referral for PCP due to abnormal outpatient testing. CT Chest: . Enlarged mediastinal lymph nodes are again noted. An AP window lymph node has mildly increased in size since the prior exam as measured above. Other enlarged mediastinal lymph nodes are stable.2. Stable mildly enlarged left hilar lymph node.3. Large left pleural effusion, significantly increased in size since the prior exam. Mild left pleural thickening and nodularity, mildly increased, may represent pleural metastases. The evaluation of the left lung is otherwise limited.4. Two pulmonary nodules are again seen in the a right lower lobe, increased in size since the prior exam as measured above, likely metastatic. CT a/p: 1. Multiple mildly enlarged gastrohepatic, reggie hepatic and retroperitoneal lymph nodes, increased in size since the prior exam, likely metastatic. A in home sales representative lymph node is measured above.2. Other incidental findings as detailed above. Large Left Pleural Effusion Chronic hypoxic respiratory failure History of left upper lobe lung cancer status post SBRT in 2021 Severe COPD Diagnosed with lung ca via biopsy 2021 s/p definitive SBRT 09/2022, no chemo-is being managed by oncologist in [place]. Has had evaluation about 6 months ago and was told that he is free of any cancer. Chest xray on admission- noted moderate left pleural effusion, concern for infection. CT chest results done outpatient by pcp noted above with large left pleural effusion, significantly increased in size and concern for metastases Supplemental oxygen as needed-he has been saturating normally on 2 L Consult oncology - previously pt only seen by Pulm/rad onc for targeted/d efinitive SBRT tx only sep 2022, no chemo or establishment with oncology, therefore consult onc to establish given concern for metastasis Pulmonology also consulted, appreciate recs -s/p thoracentesis on 10/27, awaiting pending study results, but concerning for malignancy -Started on Unasyn for infectious/empyema concern- transitioned to PO Augmentin for a total of 10 days of antibiotics. -Recommend a follow-up chest x-ray in 7 to 10 days to assess for reaccumulation of fluid. -Per pulm, pt will need to follow-up with medical oncology regarding the pleural fluid results [place] happy to see him back in the pulmonary clinic in 7 to 10 days with a follow-up chest x-ray. Continue Incruse, Breo no acute copd exac Pt stable for discharge from pulmonary perspective, however does not currently have oxygen at home, states he was having difficulty obtaining it prior to admission 2step ordered on 09/02- needs 3L with ambulation and 2L of oxygen at rest. Pt currently working with CM to obtain, will need script provided to CM in AM. Possible metastatic cancer CT abdomen pelvis as noted above concerning for metastases Consult oncology - previously pt only seen by Pulm/rad onc for targeted/definitive SBRT tx only sep 2022 No chemo or establishment with oncology, therefore consult onc to establish given concern for metastasis DHRUV baseline cr 1-1.2 outpt records reviewed 08/29 cr 2.22 he received contrast dye, also in setting of poor po intake at home per Received gentle IVF on admission Creatinine improved to normal limits currently Continue to monitor CAD with history of CABG and RCA HTN HLD ECG changes serial troponin negative holding home lisinopril, hctz in setting of DHRUV above continue asa, statin, imdur, amlodipine, metoprolol Resume Plavix in the AM Most recent echo 07/2023 revealed EF 60 to 65%, grade 2 diastolic dysfunction, stress echo last month negative for inducible ischemia Denies any cardiac symptoms T2DM IDDM a1c 7.1 hold metformin On lantus/novlog per protocol Diet: DMII DVT ppx: SCDs, Lovenox ordered, resume plavix FULL CODE PCP: Dr Dawson Dispo: Home, will need assistance obtaining oxygen at home, script for Rollator walker Admission and Anticipated Discharge Date Admission Date: August 30, 2023 Subjective Pt seen in the AM. Discussion that he is stable to go home by pulm's recommendation but no oxygen at home. States that he has been working with CM to get oxygen at home but he was told that [facility] was not open on the weekend. States that he has not had a BM recently, another concern of his. States that nursing would be bringing him as needed miralax ordered. Review of Systems Review of Systems: All systems reviewed & are unremarkable except as noted in Subjective Physical Exam Physical Exam: General: Alert, oriented. No acute distress Skin: No noted rashes or bruises Psych: Appropriate mood and affect Neuro: No gross deficits HEENT: NC/AT CV: RRR Resp:NC in nares, no increased effort of breathing, no wheezing Abdomen: Soft, nontender Extremities: No edema in lower extremities bilaterally. Results & Data Results & Data Vital Signs (Past 12 Hours) Vital Signs Temp Pulse Pulse Resp BP Pulse Ox O2 Del Method 09/02/23 07:33 36.6 C 72 18 128/72 97 Nasal Cannula 09/02/23 07:35 Nasal Cannula 09/02/23 05:59 66 09/02/23 01:52 36.5 C 64 18 121/65 95 Nasal Cannula 09/01/23 22:55 71 09/01/23 22:37 36.5 C 68 18 115/64 95 Room Air 09/01/23 22:24 Nasal Cannula O2 Flow Rate 09/02/23 07:33 2 09/02/23 07:35 2 09/02/23 05:59 09/02/23 01:52 2 09/01/23 22:55 09/01/23 22:37 09/01/23 22:24 2 (4) CAD (coronary artery disease) Associated angina: without angina Coronary Disease-Associated Artery/Lesion type: unspecified vessel or lesion type [place] vs. transplanted heart: [place] heart Qualified Code(s): I25.10 - Atherosclerotic heart disease of [place] coronary artery without angina pectoris
[2023-09-02] MEDS: METOPROLOL TARTRATE 100 MG TAB PO SCH ×2 (12:56→21:18)
[2023-09-02] MEDS: FERROUS SULFATE 325 MG TAB PO SCH (12:56)
[2023-09-02] MEDS: FEXOFENADINE HCL 180 MG TAB PO SCH (12:56)
[2023-09-02] MEDS: ENOXAPARIN INJ 40 MG/0.4 ML SYR SQ SCH (12:58)
[2023-09-02] MEDS: AMOXICILLIN/CLAVULANATE 875 MG TAB PO SCH (17:48)
[2023-09-02] MEDS: MONTELUKAST SODIUM 10 MG TABLET PO SCH (21:18)
[2023-09-02] MEDS: ATORVASTATIN 40 MG TAB PO SCH (21:18)
[2023-09-03 07:36] LABS: Basophils # (auto) 0.06 K/uL (0.00-0.20); Basophils % (auto) 0.7 %; Eosinophils # (auto) 0.27 K/uL (0.00-0.50); Eosinophils % (auto) 3.1 %; Hematocrit (blood only) 35.1 % (42.0-52.0); Hemoglobin 11.6 g/dl (14.0-18.0); Immature Granulocytes # (auto) 0.02 K/uL (0.01-0.20); Immature Granulocytes % (auto) 0.2 %; Lymphocytes # (auto) 1.42 K/uL (1.20-3.40); Lymphocytes % (auto) 16.2 %; Mean Corpuscular Hemoglobin 29.7 pg (25.0-34.0); Mean Corpuscular Volume 89.8 fL (80.0-100.0); Mean Platelet Volume 9.8 fL (9.4-12.4); Monocytes # (auto) 0.61 K/uL (0.11-0.59); Neutrophils # (auto) 6.36 K/uL (1.40-6.50); Neutrophils % (auto) 72.8 %; Platelet Count 340 K/uL (130-400); RDW Coefficient of Variation 13.2 % (11.5-14.5); RDW Standard Deviation 43.2 fL (36.4-46.3); Red Blood Count 3.91 M/uL (4.70-6.10); White Blood Count 8.74 K/ul (4.8-10.8)
[2023-09-03 07:54] LABS: Albumin Globulin Ratio 0.9 (0.9-2); Albumin Level 3.4 gm/dl (3.4-5.0); BUN Creatinine Ratio 21.3 (10-20); Bilirubin,Total 0.4 mg/dl (0.2-1.0); Calcium 8.6 mg/dl (8.6-10.3); Creatinine Clr Calc Pharmacy 66.9 ml/min; Est GFR (African American) 71.2 ml/min; Est GFR (Non-African American) 61.4 ml/min; Globulin 3.9 gm/dl (2.5-4.0); Magnesium 1.8 mg/dl (1.7-2.4); Phosphorus 2.2 mg/dl (2.5-4.9); Potassium 4.6 mmol/L (3.5-5.1); Total Protein 7.3 gm/dl (6.0-8.3)
[2023-09-03] MEDS: CLOPIDOGREL BISULFATE 75 MG TAB PO SCH (08:06)
[2023-09-03] MEDS: ASPIRIN 81 MG ECTAB PO SCH (08:06)
[2023-09-03] MEDS: ISOSORBIDE MONO EXTENDED REL 60 MG TABCR PO SCH (08:06)
[2023-09-03] MEDS: DOCUSATE SODIUM 100 MG CAP PO SCH (08:06)
[2023-09-03] MEDS: CHOLECALCIFEROL 1,000 UNITS 25 MCG TAB PO SCH (08:07)
[2023-09-03] MEDS: amLODIPine BESYLATE 5 MG TAB PO SCH (08:07)
[2023-09-03] MEDS: AMOXICILLIN/CLAVULANATE 875 MG TAB PO SCH (08:07)
[2023-09-03] MEDS: LANTUS PER UNIT CHARGE SQ SCH (09:05)
[2023-09-03] MEDS: INSULIN ASPART PER UNIT CHARGE SC SCH ×2 (09:06→12:47)
[2023-09-03] MEDS: FLUTICASONE/VILANTEROL 100/25MCG 14 PUFFS/INHALER INH SCH (09:08)
[2023-09-03] MEDS: UMECLIDINIUM BROMIDE 62.5MCG/BLISTER 7 PUFFS/INHALER INH SCH (09:08)
[2023-09-03] MEDS: ISOSORBIDE MONO EXTENDED REL 30 MG TABCR PO SCH (09:19)
--- NOTE | 2023-09-03 12:39 | Hospitalist Progress Note ---
Date of Service September 03, 2023 Assessment & Plan (1) Pleural effusion, left: (2) NSCLC of left lung: (3) COPD (chronic obstructive pulmonary disease): (4) CAD (coronary artery disease): (5) DM type 2 (diabetes mellitus, type 2): Plan This is a 68-year-old male who has a significant past medical history of insulin-dependent CAD status post CABG and history of RCA stent, T2DM, HTN, HLD, COPD, left upper lobe lung adenocarcinoma s/p SBRT to DELVIS in 2021, LATOYA, history of TIA, PVD, bilateral carotid artery stenosis who presents to ED at referral for PCP due to abnormal outpatient testing. CT Chest: . Enlarged mediastinal lymph nodes are again noted. An AP window lymph node has mildly increased in size since the prior exam as measured above. Other enlarged mediastinal lymph nodes are stable.2. Stable mildly enlarged left hilar lymph node.3. Large left pleural effusion, significantly increased in size since the prior exam. Mild left pleural thickening and nodularity, mildly increased, may represent pleural metastases. The evaluation of the left lung is otherwise limited.4. Two pulmonary nodules are again seen in the a right lower lobe, increased in size since the prior exam as measured above, likely metastatic. CT a/p: 1. Multiple mildly enlarged gastrohepatic, reggie hepatic and retroperitoneal lymph nodes, increased in size since the prior exam, likely metastatic. A retail wireless sales representative lymph node is measured above.2. Other incidental findings as detailed above. Large Left Pleural Effusion Chronic hypoxic respiratory failure History of left upper lobe lung cancer status post SBRT in 2021 Severe COPD Diagnosed with lung ca via biopsy 2021 s/p definitive SBRT 09/2022, no chemo-is being managed by oncologist in [place]. Has had evaluation about 6 months ago and was told that he is free of any cancer. Chest xray on admission- noted moderate left pleural effusion, concern for infection. CT chest results done outpatient by pcp noted above with large left pleural effusion, significantly increased in size and concern for metastases Supplemental oxygen as needed-he has been saturating normally on 2 L Consult oncology - previously pt only seen by Pulm/rad onc for targeted/d efinitive SBRT tx only sep 2022, no chemo or establishment with oncology, therefore consult onc to establish given concern for metastasis Pulmonology also consulted, appreciate recs -s/p thoracentesis on 10/27, awaiting pending study results, but concerning for malignancy -Started on Unasyn for infectious/empyema concern- transitioned to PO Augmentin for a total of 10 days of antibiotics. -Recommend a follow-up chest x-ray in 7 to 10 days to assess for reaccumulation of fluid. -Per pulm, pt will need to follow-up with medical oncology regarding the pleural fluid results -[facility] pul[place]ology would be happy to see him back in the pulmonary clinic in 7 to 10 days with a follow-up chest x-ray. Continue Incruse, Breo no acute copd exac Clinically much better without any acute distress at rest He will be discharged home this afternoon and she will need 2 L of oxygen at rest and up to 3 with activity on discharge He will have appointments with primary care physician, pulmonary and ita [place] advised to get an appointment with his oncologist as an outpatient as soon as possible He is agreeable to do these arrangements Possible metastatic cancer CT abdomen pelvis as noted above concerning for metastases Consult oncology - previously pt only seen by Pulm/rad onc for targeted/definitive SBRT tx only sep 2022 No chemo or establishment with oncology, therefore consult onc to establish given concern for metastasis The chart reviewed-pathology from thoracentesis fluid has been pending Will need to see his oncologist as an outpatient DHRUV baseline cr 1-1.2 outpt records reviewed 08/29 cr 2.22 he received contrast dye, also in setting of poor po intake at home per Received gentle IVF on admission Creatinine improved to normal limits currently Continue to monitor-kidney function is stable CAD with history of CABG and RCA HTN HLD ECG changes serial troponin negative holding home lisinopril, hctz in setting of DHRUV above continue asa, statin, imdur, amlodipine, metoprolol Resume Plavix in the AM Most recent echo 07/2023 revealed EF 60 to 65%, grade 2 diastolic dysfunction, stress echo last month negative for inducible ischemia Denies any cardiac symptoms-remains stable T2DM IDDM a1c 7.1 hold metformin On lantus/novlog per protocol Diet: DMII DVT ppx: SCDs, Lovenox ordered, resume plavix FULL CODE PCP: Dr Dawson Dispo: Home, will need assistance obtaining oxygen at home, script for Rollator walker Will be discharged home this afternoon Admission and Anticipated Discharge Date Admission Date: August 30, 2023 Subjective 08/31/2023 The patient was seen and examined in medical telemetry unit He has been complaining of progressive shortness of breath for the last 1 month or so He has had an outpatient CT chest and abdomen which showed enlarging mediastinal nodes and large left pleural effusion with pleural nodularity consistent with malignancyhe was sent in by PCP from his office Denies any chest pain or palpitation He is a status post thoracentesis by the sister superior this afternoon and he has been feeling better 09/03/2023 The patient was seen and examined in medical telemetry unit He has been stable and feeling a lot better Has been requiring 2 L at rest and 3 L with ambulation and that will be provided Denies any chest pain and her palpitation, no abdominal pain, nausea and or vomiting He wants to go home and she will be discharged home this afternoon Review of Systems Review of Systems: All systems reviewed and are unremarkable except as noted below Physical Exam Physical Exam: Lying in bed comfortably Constitutional: well developed, well nourished and average body habitus; not ill appearing Eyes: PERRL, conjunctivae normal, anicteric sclerae ENMT: external ear and nose normal, oropharynx normal Neck: trachea midline, no thyromegaly Respiratory: + respiratory distress (Minimal distress at rest and requiring 2 L at rest) Auscultation: + diminished lung sounds and + crackles (More on the left base than the right) Cardiovascular: Rate/Rhythm: regular rate and regular rhythm; not tachycardic Heart Sounds: normal S1 and normal S2; no murmur Extremities: no edema Gastrointestinal (Abdomen): Inspection/Auscultation: normal bowel sounds; abdomen not distended Percussion/Palpation: abdomen soft; abdomen nontender Musculoskeletal: No acute arthritis involving any of the joint Neurologic: normal touch/pain/proprioception and moves all extremities; no focal motor deficits Lymphatic: no cervical or axillary lymphadenopathy Results & Data Results & Data Vital Signs (Past 12 Hours) Vital Signs Temp Pulse Pulse Resp BP Pulse Ox O2 Del Method 09/03/23 07:54 Nasal Cannula 09/03/23 07:39 67 09/03/23 07:32 36.3 C L 67 18 148/88 H 93 Nasal Cannula 09/03/23 02:13 36.4 C L 68 18 151/77 H 93 Nasal Cannula O2 Flow Rate 09/03/23 07:54 2 09/03/23 07:39 09/03/23 07:32 2 09/03/23 02:13 2 Laboratory Results Short CBC 09/03/23 Range/Units 07:10 WBC 8.74 (4.8-10.8) K/ul Hgb 11.6 L (14.0-18.0) g/dl Hct 35.1 L (42.0-52.0) % Plt Count 340 (130-400) K/uL BMP 09/03/23 07:10 Sodium 136 Potassium 4.6 Chloride 105 Carbon Dioxide 28 BUN 26 H Creatinine 1.22 Glucose 147 H Calcium 8.6 Liver Function 09/03/23 Range/Units 07:10 Total Bilirubin 0.4 (0.2-1.0) mg/dl AST 15 (13-39) U/L ALT 16 (7-52) U/L Alkaline Phosphatase 78 (34-104) U/L Albumin 3.4 (3.4-5.0) gm/dl Medications Administered Current Inpatient Medications Acetaminophen (Acetaminophen 325 Mg Tab) 650 mg PO Q4H PRN PRN Reason: Pain or Fever Stop: 09/29/23 20:29 Last Admin: 09/01/23 19:44 Dose: 650 mg Al Hydrox/Mg Hydrox/Simethicone (Aluminum/Magnesium Susp 30 Ml Udc) 15 ml PO Q4H PRN PRN Reason: Dyspepsia Stop: 09/29/23 20:29 Albuterol (Albut/Ipratrop 3mg/0.5mg Neb 3 Ml Vial) 3 ml INH Q4R PRN; Protocol PRN Reason: wheezing and dyspnea Stop: 09/29/23 20:29 Amlodipine Besylate (Amlodipine Besylate 5 Mg Tab) 5 mg PO [facility] Stop: 09/30/23 08:59 Last Admin: 09/03/23 08:07 Dose: 5 mg Amoxicillin/Clavulanate Potassium (Amoxicillin/Clavulanate 875 Mg Tab) [facility] Protocol Stop: 09/09/23 16:59 Last Admin: 09/03/23 08:07 Dose: 1 tab Aspirin (Aspirin 81 Mg Ectab) [facility] Stop: 09/30/23 08:59 Last Admin: 09/03/23 08:06 Dose: 81 mg Atorvastatin Calcium (Atorvastatin 40 Mg Tab) 40 mg PO [facility] Stop: 09/29/23 20:59 Last Admin: 09/02/23 21:18 Dose: 40 mg Clopidogrel Bisulfate (Clopidogrel Bisulfate 75 Mg Tab) 75 mg PO QAM [facility] Stop: 10/02/23 08:59 Last Admin: 09/03/23 08:06 Dose: 75 mg Dextrose (Dextrose 50% 50 Ml Syringe) 25 - 50 ml IV UD PRN; Protocol PRN Reason: Hypoglycemia Protocol Stop: 09/29/23 20:29 Docusate Sodium (Docusate Sodium 100 Mg Cap) 100 mg PO BID [facility] Stop: 10/01/23 11:44 Last Admin: 09/03/23 08:06 Dose: 100 mg Enoxaparin Sodium (Enoxaparin Inj 40 Mg/0.4 Ml Syr) 40 mg SQ Q24H [facility] Stop: 10/01/23 15:29 Last Admin: 09/02/23 12:58 Dose: Not Given Ferrous Sulfate (Ferrous Sulfate 325 Mg Tab) 325 mg PO DAILY@1200 [facility] Stop: 09/30/23 11:59 Last Admin: 09/02/23 12:56 Dose: 325 mg Fexofenadine HCl (Fexofenadine Hcl 180 Mg Tab) 180 mg PO DAILY@1200 [facility] Stop: 09/30/23 11:59 Last Admin: 09/02/23 12:56 Dose: 180 mg Fluticasone/Vilanterol (Fluticasone/Vilanterol 100/25mcg 14 Puffs/Inhaler) 1 puffs INH DAILY [facility]; Protocol Stop: 09/30/23 08:59 Last Admin: 09/03/23 09:08 Dose: 1 puffs Glucagon (Glucagon For Inj 1 Mg Vial) 1 mg SQ UD PRN; Protocol PRN Reason: Hypoglycemia Protocol Stop: 09/29/23 20:29 Glucose (Glucose 10 Tab/Tube) 4 - 8 tab PO UD PRN; Protocol PRN Reason: Hypoglycemia Treatment Stop: 09/29/23 20:29 Glucose (Glucose 40% Gel 15 Gm Tube) 15 - 30 gm PO UD PRN; Protocol PRN Reason: Hypoglycemia Protocol Stop: 09/29/23 20:29 Insulin Aspart (Insulin Aspart Per Unit Charge) 0 units SC ACHS JUSTA Stop: 09/29/23 20:59 Last Admin: 09/03/23 09:06 Dose: 2 units Insulin Glargine (Lantus Per Unit Charge) 0 - 30 units SQ BID [facility] Stop: 09/29/23 20:59 Last Admin: 09/03/23 09:05 Dose: 15 units Isosorbide Mononitrate (Isosorbide [place] Extended Rel 30 Mg Tabcr) 30 mg PO QAM [facility] Stop: 09/30/23 08:59 Last Admin: 09/03/23 09:19 Dose: 30 mg Isosorbide Mononitrate (Isosorbide [place] Extended Rel 60 Mg Tabcr) 60 mg PO QAM [facility] Stop: 09/30/23 08:59 Last Admin: 09/03/23 08:06 Dose: 60 mg Magnesium Hydroxide (Magnesium Hydroxide Susp 30 Ml Udc) 30 ml PO Q12H PRN PRN Reason: Constipation Stop: 09/29/23 20:29 Last Admin: 09/02/23 21:18 Dose: 30 ml Metoprolol Tartrate (Metoprolol Tartrate 100 Mg Tab) 100 mg PO BID@1200,2100 [facility] Stop: 09/29/23 20:59 Last Admin: 09/02/23 21:18 Dose: 100 mg Miscellaneous (Carbohydrates For Hypoglycemia ) 15 - 30 gm PO UD PRN PRN Reason: Hypoglycemia Protocol Stop: 09/29/23 20:29 Last Admin: 09/01/23 06:44 Dose: 15 gm Montelukast Sodium (Montelukast Sodium 10 Mg Tablet) 10 mg PO HS [facility] Stop: 09/29/23 20:59 Last Admin: 09/02/23 21:18 Dose: 10 mg Ondansetron HCl (Ondansetron Inj 2 Mg/Ml 2 Ml Vial) 4 mg IV Q6H PRN PRN Reason: Nausea Stop: 09/29/23 20:29 Last Admin: 08/31/23 13:10 Dose: 4 mg Polyethylene Glycol (Polyethylene (Miralax) 17 Gm Pack) 17 gm PO DAILY PRN PRN Reason: Constipation Stop: 09/29/23 20:29 Last Admin: 09/02/23 08:27 Dose: 17 gm Tramadol HCl (Tramadol Hcl 50 Mg Tablet) 50 mg PO Q4H PRN PRN Reason: Pain Stop: 09/30/23 12:17 Last Admin: 09/02/23 18:31 Dose: 50 mg Umeclidinium Mena (Umeclidinium Mena 62.5mcg/Blister 7 Puffs/Inhaler) 1 puffs INH DAILY [facility]; Protocol Stop: 09/30/23 08:59 Last Admin: 09/03/23 09:08 Dose: 1 puffs Vitamin D (Cholecalciferol 1,000 Units 25 Mcg Tab) 1,000 units PO DAILY JUSTA Stop: 09/30/23 08:59 Last Admin: 09/03/23 08:07 Dose: 1,000 units (4) CAD (coronary artery disease) Associated angina: without angina Coronary Disease-Associated Artery/Lesion type: unspecified vessel or lesion type [place] vs. transplanted heart: [place] heart Qualified Code(s): I25.10 - Atherosclerotic heart disease of [place] coronary artery without angina pectoris
[2023-09-03] MEDS ORDERED: POT PHOSPHATE MONOBASIC W/ SOD TAB PO STA (12:40)
[2023-09-03] MEDS: METOPROLOL TARTRATE 100 MG TAB PO SCH (12:49)
[2023-09-03] MEDS: FEXOFENADINE HCL 180 MG TAB PO SCH (12:49)
[2023-09-03] MEDS: FERROUS SULFATE 325 MG TAB PO SCH (12:49)
--- NOTE | 2023-09-04 07:28 | Discharge Summary ---
Date of Service September 03, 2023 Admission HPI Per Admitting Provider This is a 68-year-old male who has a significant past medical history of insulin-dependent CAD status post CABG and history of RCA stent, T2DM, HTN, HLD, COPD, left upper lobe lung adenocarcinoma s/p SBRT to DELVIS in 2021, LATOYA, history of TIA, PVD, bilateral carotid artery stenosis who presents to ED at referral for PCP due to abnormal outpatient testing. Of significance patient was hospitalized on 07/21/2023-07/1923 secondary to syncope. He underwent dobutamine stress test which was negative for ischemia. He developed presyncope post stress test. This was resolved with Trendelenburg position and IV fluid. No evidence of arrhythmia or pauses noted on monitor. At time of discharge no exact etiology of syncope was noted other than mild dehydration. He recently followed up with PCP and had been complaining of worsening shortness of breath over the past month. He also recently saw Pulm who ordered PFTS/CT chest. PFTs reveal severe obstruction and two step study shows pt requires 2L of O2 at baseline. Unfortunately CT chest abdomen pelvis revealed enlarging mediastinal lymph nodes, large left pleural effusion, mild left pleural thickening and nodularity which may represent pleural metastases, multiple mildly enlarged gastrohepatic, reggie hepatic and retroperitoneal lymph nodes which have increased in size since prior exam. Due to these abnormal findings he was referred to ED. In general patient has had poor appetite as well as weight loss. He recently had increase in kidney function from baseline creatinine of 1.4 to now 2.2 Over last 2-3 weeks he reports L sided chest pain, constant, waxes and wanes, difficulty taking deep breath, improves with lying on his right side. He also reports feeling full easily, 5lb weight loss in last month and feeling bloated. He thought he was constipated so has been doing miralax 3x a day and having diarrhea. He denies recent illness, f/c/s, n/v, melena or hematochezia. He has been having intermitted epigastric pain as well. He denies hematochezia. Admission Exam Per Admitting Provider General: In no acute distress Eyes: PERRL, conjunctivae normal, not pale, anicteric sclerae, EOM intact bilaterally ENMT: External ear and nose normal, oropharynx normal Respiratory: Normal respiratory effort, no respiratory distress, minimal breath sound left lung base posterior Cardiovascular: RRR S1 S2 Chest (Breasts): Tenderness over left chest wall Gastrointestinal (Abdomen): Abdomen is not distended, soft, non-tender to palpation, no guarding, no palpable hepatosplenomegaly, normal bowel sounds Musculoskeletal: No pedal edema Genitourinary: No CVA tenderness Neurologic: Alert and oriented x 3, No focal weakness, sensation grossly intact Psychiatric: Euthymic affect Principal Diagnosis Left pleural effusion, possible metastatic non-small cell lung cancer, COPD, hypertension, type 2 diabetes Discharge Exam Lying in bed comfortably Constitutional well developed, well nourished and average body habitus; not ill appearing Eyes PERRL, conjunctivae normal, anicteric sclerae ENMT external ear and nose normal, oropharynx normal Neck trachea midline, no thyromegaly Respiratory + respiratory distress (Minimal distress at rest and requiring 2 L at rest) Auscultation: + diminished lung sounds and + crackles (More on the left base than the right) Cardiovascular Rate/Rhythm: regular rate and regular rhythm; not tachycardic Heart Sounds: normal S1 and normal S2; no murmur Extremities: no edema Gastrointestinal (Abdomen) Inspection/Auscultation: normal bowel sounds; abdomen not distended Percussion/Palpation: abdomen soft; abdomen nontender Neurologic normal touch/pain/proprioception and moves all extremities; no focal motor deficits Lymphatic no cervical or axillary lymphadenopathy Discharge Data Allergies Allergy/AdvReac Type Severity Reaction Status Date / Time Penicillins Allergy VT HIVES Verified 06/08/20 09:49 Consultations 08/30/23 18:39 Consult Oncology Routine 08/30/23 18:53 Consult Pulmonology Routine Ordered Studies 08/31/23 11:29 sono, invasive monitoring [US point of care ultrasound] Routine Hospital Course (1) Pleural effusion, left: (2) NSCLC of left lung: (3) COPD (chronic obstructive pulmonary disease): (4) CAD (coronary artery disease): (5) DM type 2 (diabetes mellitus, type 2): Plan This is a 68-year-old male who has a significant past medical history of insulin-dependent CAD status post CABG and history of RCA stent, T2DM, HTN, HLD, COPD, left upper lobe lung adenocarcinoma s/p SBRT to DELVIS in 2021, LATOYA, history of TIA, PVD, bilateral carotid artery stenosis who presents to ED at referral for PCP due to abnormal outpatient testing. CT Chest: . Enlarged mediastinal lymph nodes are again noted. An AP window lymph node has mildly increased in size since the prior exam as measured above. Other enlarged mediastinal lymph nodes are stable.2. Stable mildly enlarged left hilar lymph node.3. Large left pleural effusion, significantly increased in size since the prior exam. Mild left pleural thickening and nodularity, mildly increased, may represent pleural metastases. The evaluation of the left lung is otherwise limited.4. Two pulmonary nodules are again seen in the a right lower lobe, increased in size since the prior exam as measured above, likely metastatic. CT a/p: 1. Multiple mildly enlarged gastrohepatic, reggie hepatic and retroperitoneal lymph nodes, increased in size since the prior exam, likely metastatic. 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 Other incidental findings as detailed above. Large Left Pleural Effusion Chronic hypoxic respiratory failure History of left upper lobe lung cancer status post SBRT in 2021 Severe COPD Diagnosed with lung ca via biopsy 2021 s/p definitive SBRT 09/2022, no chemo-is being managed by oncologist in [place]. Has had evaluation about 6 months ago and was told that he is free of any cancer. Chest xray on admission- noted moderate left pleural effusion, concern for infection. CT chest results done outpatient by pcp noted above with large left pleural effusion, significantly increased in size and concern for metastases Supplemental oxygen as needed-he has been saturating normally on 2 L Consult oncology - previously pt only seen by Pulm/rad onc for targeted/definitive SBRT tx only sep 2022, no chemo or establishment with oncology, therefore consult onc to establish given concern for metastasis Pulmonology also consulted, appreciate recs -s/p thoracentesis on 08/31, awaiting pending study results, but concerning for malignancy -Started on Unasyn for infectious/empyema concern- transitioned to PO Augmentin for a total of 10 days of antibiotics. -Recommend a follow-up chest x-ray in 7 to 10 days to assess for reaccumulation of fluid. -Per pulm, pt will need to follow-up with medical oncology regarding the pleural fluid results -[facility] [place] pulmonology would be happy to see him back in the pulmonary clinic in 7 to 10 days with a follow-up chest x-ray. Continue Incruse, Breo no acute copd exac Clinically much better without any acute distress at rest He will be discharged home this afternoon and she will need 2 L of oxygen at rest and up to 3 with activity on discharge He will have appointments with primary care physician, pulmonary and was strongly advised to get an appointment with his oncologist as an outpatient as soon as possible He is agreeable to do these arrangements Possible metastatic cancer CT abdomen pelvis as noted above concerning for metastases Consult oncology - previously pt only seen by Pulm/rad onc for targeted/definitive SBRT tx only sep 2022 No chemo or establishment with oncology, therefore consult onc to establish given concern for metastasis The chart reviewed-pathology from thoracentesis fluid has been pending Will need to see his oncologist as an outpatient DHRUV baseline cr 1-1.2 outpt records reviewed 08/29 cr 2.22 he received contrast dye, also in setting of poor po intake at home per Received gentle IVF on admission Creatinine improved to normal limits currently Continue to monitor-kidney function is stable CAD with history of CABG and RCA HTN HLD ECG changes serial troponin negative holding home lisinopril, hctz in setting of DHRUV above continue asa, statin, imdur, amlodipine, metoprolol Resume Plavix in the AM Most recent echo 07/2023 revealed EF 60 to 65%, grade 2 diastolic dysfunction, stress echo last month negative for inducible ischemia Denies any cardiac symptoms-remains stable T2DM IDDM a1c 7.1 hold metformin On lantus/novlog per protocol Diet: DMII DVT ppx: SCDs, Lovenox ordered, resume plavix FULL CODE PCP: Dr Dawson Dispo: Home, will need assistance obtaining oxygen at home, script for Rollator walker Will be discharged home this afternoon Total Time Total Time Spent Total Time Spent (In Minutes): 35 minutes Discharge Plan Discharge Items Patient Disposition: Home - Home Health Services Reason For Visit: LUNG ABSCESS FILLED W FLUID Discharge Diagnosis: Left pleural effusion, possible metastatic non-small cell lung cancer, COPD, hypertension, type 2 diabetes Condition on Discharge: Fair Activity: Resume your previous activity Non-emergency contact: Primary Care Provider Call non-emergency contact if: you have any medication questions and your symptoms worsen Follow-up/Referrals: Jamal Thomas, SVEN [Hospitalist] - 09/11/23 9:45 am ([facility] [address] [place] [id number] ) Dennis Dawson DO [Primary Care Provider] - (Date & Time 09/05/2023 10:20 AM Provider Dennis Dawson DO Department Family Practice [address], [place] ) Diet: Carb Consistent or DM2 Addtl Attending Provider Instructions: Please take precautions to avoid falls. Take your medications as advised Keep taking your oxygen as advised Please give appointments with your healthcare providers Advised to make appointment with your oncologist sooner than later Pending Studies at Discharge: Yes Studies:: Pathology report from the thoracentesis Stand-Alone Forms: My [facility], Smoking Cessation Medications and DC Order Prescriptions: New amoxicillin-pot clavulanate 875-125 mg Tablet 1 tab PO BIDM Qty: 12 0RF Continued (DME) nebulizers [facility] See Rx Instructions .ROUTE .MEDSUPPLY Qty: 1 0RF Rx Instructions: Nebuilzer w/tubing and supplies aspirin 81 mg Tablet,Delayed Release (Dr/Ec) 81 mg PO QAM multivitamin Tablet 1 tab PO 1700 atorvastatin 40 mg Tablet 40 mg PO HS metoprolol tartrate 100 mg Tablet 100 mg PO BID Rx Instructions: 1200 and 2100 clopidogrel [Plavix] 75 mg Tablet 75 mg PO QAM nitroglycerin [Nitrostat] 0.4 mg Tablet, Sublingual 1 tab Sublingual UD PRN (Reason: Chest Pain) Rx Instructions: dissolve 1 tab under tongue every 5 minutes as needed for chest pain. do not exceed a total of 3 doses in 15 minutes albuterol sulfate 90 mcg/actuation Hfa Aerosol Inhaler 2 puff INHALATION Q6H PRN (Reason: Shortness Of Breath Or Wheezing) vitamin E 400 unit Capsule 400 unit PO DAILY omega 3-roa-nof-fish oil [Fish Oil] 1,000 mg (120 mg-180 mg) Capsule 1 cap PO DAILY isosorbide mononitrate 60 mg tablet extended release 24 hr 60 mg PO QAM montelukast 10 mg tablet 10 mg PO HS isosorbide mononitrate 30 mg Tablet Extended Release 24 Hr 30 mg PO QAM bisacodyl 10 mg Suppository 0.75 mg ME DAILY PRN (Reason: Constipation) Rx Instructions: do not use for more than 1 week polyethylene glycol 3350 17 gram/dose Powder 17 g PO [facility] Rx Instructions: dissolve in 8 oz of water or juice metformin 500 mg Tablet Extended Release 24hr 500 mg PO QID fluticasone propion-salmeterol [Advair Diskus] 500-50 mcg/dose Blister With Device 1 inh INHALATION [facility]HS amlodipine 5 mg tablet 5 mg PO QAM insulin glargine 100 unit/mL Solution 50 unit SUBCUT DAILY fexofenadine 180 mg Tablet 180 mg PO .DAILY AT NOON ferrous sulfate 325 mg (65 mg iron) Tablet 325 mg PO .DAILY AT NOON ipratropium-albuterol 0.5 mg-3 mg(2.5 mg base)/3 mL solution for nebulization 3 ml INH Q4 PRN (Reason: wheezing and dyspnea) cholecalciferol (vitamin D3) [Vitamin D3] 25 mcg (1,000 unit) Tablet 25 mcg PO DAILY insulin aspart U-100 [Novolog FlexPen U-100 Insulin] 100 unit/mL (3 mL) Insulin Pen 1 sliding scale dose SUBCUT USEASDIRECTD insulin glargine [Lantus U-100 Insulin] 100 unit/mL solution 36 unit SUBCUT HS Spiriva Respimat 2.5 mcg/actuation Mist 2 puff INHALATION DAILY Discontinued lisinopril 20 mg Tablet 20 mg PO QAM hydrochlorothiazide 25 mg Tablet 25 mg PO DAILY Discharge Orders: Discharge Order (Routine); Ordered 09/03/23 Ordered By: Bryon Fontaine/Other Patient Handouts: COPD Diabetes Admission Data Admit Date/Time: 08/30/23 17:27 Attending Provider: Bryon Gil Admit Provider: Eleni Weber I. Primary Care Provider: Dennis Dawson Other Providers: Pavel Harris ; Arturo Berry ; Eleni Weber I. ; Bryon Gil Other Interventions: Discharge Summary Assessment (RN) Last Done: 09/03/23 13:45
--- NOTE | 2023-09-05 18:09 | Coding Query ---
PATHOLOGY To promote full compliance with coding requirements relating to patient care, physician participation is requested in all cases of cad librarian uncertainty. Please assist us with the question(s) below: Please review the Pathology report and please document any relevant diagnosis(es) below: Diagnosis(es):Metastatic adenocarcinoma consistent with lung primary Thank you Maki WRAY
== END 2023-09-03 15:39 | disposition home or self-care (01) | DRG 181 ==
LOC: ED 16:28 → SUATTDRO 17:27 → EDINP 17:27 → 2N 20:31